=== PATIENT | female | born 1960 | race Caucasian/White ===

== ENCOUNTER 2022-04-12 09:36 | Emergency (ER) | payer OTHER, SELFPAY ==
[2022-04-12 09:37] VITALS: BP 155/93; PULSE 89; RESP 18; TEMP 36.6; O2SAT 96; BMI 27.4
--- NOTE | 2022-04-12 10:18 | ED.VIS.DYS ---
HPI History of Present Illness Chief Complaint: Shortness of Breath Informant: patient Onset/Context/Timing Onset: Today and Yesterday Context: gradual Timing: Intermittent Current Severity: Mild Maximum Severity: Mild Worsened by: Nothing Relieved by: Nothing Associated Symptoms cough, fever, chills and yellow sputum Narrative Narrative: 61-year-old male history of hypertension. Started having URI symptoms on Wednesday. Sore throat and cough. Took a home COVID test on Wednesday diagnosed as COVID-positive. Had a telemedicine visit with nurse practitioner of her primary care physician's office who started her on tach Slo-Bid. Said she took her first dose of Paxil then she felt horrible about 1 to 2 hours later. States she has been coughing a lot and thinks she may have pulled a muscle in her chest. Or strained her chest wall. Denies any hemoptysis. No leg pain or swelling. No history of DVT or PE. No recent travel, surgery or immobilization. She is on no hormone replacement therapy. She does not have pleuritic chest pain. PE Risk Factors: Negative for Cancer, OCP + Smoking + > 35, Prior DVT or PE, Recent immobilization, Recent surgery or Recent travel Prior similar symptoms: Yes Recent Illness/Hospitalization: No PFSH PFSH Home Medications Chlorthalidone 25 mg PO DAILY 05/02/13 [History Last Taken Unknown] Multivitamins,Therapeutic 1 tab PO DAILY 05/02/13 [History Last Taken Unknown] Omeprazole 20 mg PO DAILY 05/02/13 [History Last Taken Unknown] Allergy/AdvReac Type Severity Reaction Status Date / Time ciprofloxacin [From Cipro] Allergy Other Verified 04/12/22 09:41 ciprofloxacin HCl Allergy Other Verified 04/12/22 09:41 [From Cipro] Sulfa (Sulfonamide Allergy Hives Verified 04/12/22 09:41 Antibiotics) Social History Smoking Status: Former smoker ROS ROS ED ROS Narrative Cough, fever and chills mild shortness of breath. Review of Systems ROS Unobtainable: Denies due to encephalopathy Constitutional Constitutional ED: Reports chills and fever(s) Eyes Eyes: Denies blurry vision ENT ENT ED: Reports sore throat; Denies ear pain Cardiovascular Cardiovascular: Reports chest pain; Denies palpitations or racing heartbeat Respiratory/Chest Respiratory/Chest: Reports cough and dyspnea Gastrointestinal Gastrointestinal: Reports nausea and vomiting; Denies abdominal pain, constipation, diarrhea or melena Genitourinary Genitourinary ED: Denies dysuria Musculoskeletal Musculoskeletal: Denies arthralgias Integumentary Denies abscess Neurologic Neurologic: Denies headache(s) Psychiatric Psychiatric: Denies anxiety Endocrine Endocrinology: Denies cold intolerance Hematologic/Lymphatic Hematologic/Lymphatic: Denies easy bleeding Allergic/Immunologic Allergic/Immunologic ED: Denies mouth swelling or tongue swelling EXAM Physical Exam Narrative Exam Narrative: 61-year-old female no acute distress vital signs stable afebrile. Pulse ox 96% on room air no signs of hypoxia. Clinically looks well. Sitting upright in chair. HEENT exam unremarkable. Moist mucous membranes. Neck nontender. No JVD. No lymphadenopathy. Lungs clear to auscultation bilaterally. No rales rhonchi or wheezing. Equal symmetrical. Heart regular rhythm rate about 85 no murmur. Chest wall mild reproducible left chest wall discomfort consistent with chest wall strain. Abdomen soft nontender. Moving all 4 extremities. Calves are nontender without edema or cords. Const Vital Signs: 04/12/22 09:37 Temperature 97.8 F Temperature Source Temporal Pulse Rate 89 Respiratory Rate 18 Blood Pressure 155/93 H Blood Pressure Mean 113 Pulse Ox 96 Oxygen Delivery Method Room Air Positive well nourished and well developed; Negative for cachectic, contractures or unkempt General Appearance ED: well developed; Negative for unkempt, cachectic, contractures or pallor Nutritional Appearance: Negative for cachectic HEENT Reports moist mucous membranes; Denies dry mucous membranes or other atraumatic; Negative for trauma, tenderness or other Mouth ED: No dry mucous membranes Mouth: No dry mucous membranes Eyes PERRL and EOMs intact bilaterally General Eye ED: Negative for pale conjunctiva or scleral icterus Neck no lymphadenopathy, supple, no meningeal signs and no JVD General: Negative for tenderness Lymph Lymphatic: Negative for other Resp normal respiratory effort and clear to auscultation bilaterally Effort and Inspection: Negative for pain with movement Auscultation: Negative for rales, rhonchi, wheezes or diminished lung sounds Cardio regular rate, regular rhythm, S1 normal heart sound, S2 normal heart sound and no murmurs Rate: Negative for bradycardia or tachycardic Rhythm: Negative for abnormal rhythm GI non-tender, non-distended and no masses Inspection: Negative for other Auscultation: normoactive bowel sounds Palpation: soft; Negative for tender or guarding Back/Spine no CVA tenderness and normal to inspection General Back: Negative for CVA tenderness or tenderness Extremity normal to inspection General Extremety ED: Negative for edema or tenderness General Extremity: Negative for edema Neuro oriented x3, CN's II-XII intact bilaterally and no sensory deficits noted Sensorium / Orientation: alert, oriented to person, oriented to place and oriented to time; Negative for orientation impaired, confused, lethargic or stuporous Speech: speech normal Gait (Neuro): Negative for normal gait Motor Exam: strength 5/5 throughout Psych mental status grossly normal Appearance: Negative for unkempt Attitude: No agitated Mood & Affect: Negative for depressed, anxious or tearful Thought Process: normal thought process Skin no wounds and skin turgor normal General Skin Exam: Negative for jaundice or pallor Lesions: no lesions Rashes: no rashes Trauma: Negative for abrasion MDM MDM MDM Narrative Medical decision making narrative: 61-year-old female history of hypertension COVID-positive at home. Clinically looks well. She and I discussed the chest x-ray which she preferred not to do because she has had multiple x-rays in the past. Clinically I do not think she has pneumonia. We also discussed a D-dimer which clinically I do not think she has a blood clot. She deferred. She has had both COVID primary vaccinations and 3 boosters. She is not hypoxic and clinically looks well. She will continue the pack Slo-Bid. Stop it if it is given her other symptoms. Return if worse or follow-up with her primary if not improving. Plenty of fluids and rest. Tylenol and Motrin for body aches and fevers. Discharge Plan Triage Chief Complaint: Shortness of Breath ED Provider: Chris Fall Dx/Rx/DC Orders Clinical Impression: COVID-19 Instructions: Coronavirus Disease 2019 (COVID-19): Overview Prescriptions: No Action Chlorthalidone 25 MG 25 mg PO DAILY Multivitamins,Therapeutic 1 TAB 1 tab PO DAILY Omeprazole 20 MG 20 mg PO DAILY Primary Care Provider: Meena Nicholas Referrals: Meena Nicholas MD [Primary Care Provider] - 1 Week if not improving Activity Restrictions/Additional Instructions: Plenty of fluids and rest. Motrin and Tylenol for fevers and body aches. Continue the Paxlovid if it does not agree with you stop taking it. Follow-up with your doctor if not improving or return if feeling a lot worse. Disposition Disposition: Home, Self Care
== END 2022-04-12 10:31 | disposition home or self-care (01) ==
PROVIDERS: Emergency Provider Emergency Medicine; PCP Internal Medicine; Visit Provider Emergency Medicine
DX: U07.1 COVID-19 (principal); R11.2 Nausea with vomiting, unspecified; I10 Essential (primary) hypertension; Z79.899 Other long term (current) drug therapy; Z87.891 Personal history of nicotine dependence
CPT/HCPCS: 99282

== ENCOUNTER 2025-02-03 18:03 | Emergency (ER) | payer MEDICARE, OTHER, SELFPAY ==
[2025-02-03 18:03] VITALS: BP 189/96; PULSE 114; RESP 16; TEMP 36.7; O2SAT 98; BMI 31.0
--- NOTE | 2025-02-03 18:26 | EKG12_ITS ---
Test Reason : PALPS Blood Pressure : */* mmHG Vent. Rate : 104 BPM Atrial Rate : 104 BPM P-R Int : 174 ms QRS Dur : 70 ms QT Int : 350 ms P-R-T Axes : 39 2 23 degrees QTcB Int : 460 ms Sinus tachycardia with occasional Premature ventricular complexes Otherwise normal ECG Confirmed by Maury Dalal ([id number]), script editor MELANI SANTA ([id number]) on 02/06/2025 10:32:17 AM Referred By: HUI/DORA Confirmed By: Maury Dalal
--- NOTE | 2025-02-03 18:27 | EDS_ITS ---
HPI History of Present Illness Chief Complaint: Palpitations Narrative Narrative: 64-year-old female past medical history of hypertension, quit smoking 3 weeks ago, presents with fluttering in her chest, and belching as well as elevated heart rate. She notes that this afternoon. States has been belching which causes fluttering in her chest. She brought a pulse oximeter and while her pulse ox was fine, she noticed elevated heart rate as high as 120 bpm. They also noticed that there was a pause after certain heartbeats and it would go flat. She presents with her because of this. They were concerned regarding the fluttering in her chest and a high heart rate. She denies any fevers or chills, no cough, no nausea or vomiting, no diaphoresis or shortness of breath. She did state that she was mildly lightheaded today. No exacerbating or alleviating factors. PFSH [facility] Home Medications ?Medication ?Instructions ?Recorded ?Last Taken ?Type Multivitamins,Therapeutic 1 tab PO DAILY 05/02/13 Unkn own History Omeprazole 20 mg PO DAILY 05/02/13 Unkn own History amlodipine 2.5 mg tablet 2.5 mg PO DAILY 02/03/25 Unk nown History chlorthalidone 50 mg tablet 25 mg PO DAILY 02/03/25 Un known History potassium chloride 20 mEq 20 meq PO 4X/DAY 02/03/25 Un known History tablet,extended release(part/cryst) Allergy/AdvReac Type Severity Reaction Status Date / Time ciprofloxacin (From Cipro) Allergy Other Verified 02/03/25 18:06 ciprofloxacin HCl (From Allergy Other Verified 02/03/25 18:06 Cipro) Sulfa (Sulfonamide Allergy Hives Verified 02/03/25 18:06 Antibiotics) Social History Smoking Status: Former smoker ROS ROS ED ROS Narrative Review of systems positive for palpitations and fluttering in chest, positive belching. No fevers or chills, no shortness of breath, no nausea or vomiting, no diaphoresis, no exacerbating or alleviating factors. EXAM Physical Exam Narrative Exam Narrative: Afebrile. Vital signs noted. Nontoxic-appearing. Cardiovascular examination reveals a regular rate and rhythm on my examination with occasional extrasystoles. Lungs are clear to auscultation bilaterally. Abdomen is soft and nontender with positive bowel sounds. No guarding or rebound. Neurological examination nonfocal nonlateralizing. No appreciable pitting pedal edema. Const Vital Signs: 02/03/25 18:03 02/03/25 18:18 02/03/25 20:03 Temperature 98.0 F Temperature Source Oral Pulse Rate 114 H 82 Respiratory Rate 16 16 Respiratory Effort Normal Blood Pressure 189/96 H 133/86 H Blood Pressure Mean 127 101 Pulse Ox 98 97 Oxygen Delivery Method Room Air Room Air MDM MDM MDM Narrative Medical decision making narrative: The differential diagnosis includes but not limited to dysrhythmia such as PACs versus PVCs versus sinus tachycardia. I have lower suspicion for ACS or pulmonary embolism. Initially her blood pressure was elevated at 189/96, but has come down significantly on its own. She states she had not basic normal blood pressure for her at home in the 140s. She may have a hiatal hernia as well. She does use caffeinated products. Comprehensive workup was pursued. EKG obtained and interpreted by myself independently as sinus tachycardia 104 bpm with occasional PVCs but no acute ST changes. No STEMI. I reviewed her laboratory work and she has normal white count of 10.0 with hemoglobin normal at 13.7, hematocrit 39.5, platelet count 269. Sodium normal at 140, potassium is low at 2.8. She supplements at home. I did offer to check her magnesium level as well, but she states that her potassium is usually low from the diuretic that she takes. She prefers to follow-up with her primary care provider and have outpatient laboratory work drawn on Wednesday. Glucose 125. BUN of 14 and creatinine 0.85. Initial high-sensitivity troponin is less than 6 with repeated 2-hour also being less than 6. I feel she has been ruled out for acute coronary syndrome with biomarkers. Her lipase is normal at 28 so I do not suspect acute pancreatitis. At this point in time, I do feel that the pause that she was seen on her monitor as well as her fluttering was secondary to PVCs. She will follow-up with her primary care provider. She was told she may need referral to cardiology and/or wear a Holter monitor. I feel she be discharged safely home with follow-up. Return instructions were reviewed. Disposition is discharged home in stable condition. History & Record Review Discussion w/independent historian: Patient and Family Lab Data Attestation: I reviewed the patient's lab results. Labs: Laboratory Results - last 24 hr 02/03/25 02/03/25 18:18 20:15 WBC 10.0 RBC 4.70 Hgb 13.7 Hct 39.5 MCV 84.0 MCH 29.1 MCHC 34.7 RDW Std Deviation 41.2 RDW Coeff of Chito 13.4 Plt Count 269 MPV 9.3 Immature Gran % (Auto) 0.500 Neut % (Auto) 58.7 Lymph % (Auto) 31.4 Rains % (Auto) 6.7 Eos % (Auto) 2.4 Baso % (Auto) 0.3 Absolute Neuts (auto) 5.9 Absolute Lymphs (auto) 3.15 Nucleated RBC % 0 Sodium 140 Potassium 2.8 L Chloride 100 Carbon Dioxide 25.0 Anion Gap 15 BUN 14 Creatinine 0.85 Estim Creat Clear Calc 73.39 Est GFR (MDRD) Non-Af 76 BUN/Creatinine Ratio 16.4 Glucose 125 H Calcium 8.9 Magnesium 1.3 L Total Bilirubin 0.25 AST 24 ALT 27 Alkaline Phosphatase 86 Troponin T High Sens < 6 Troponin T Hi Sens 2 Hr < 6 Total Protein 7.6 Albumin 4.3 Globulin 3.3 Albumin/Globulin Ratio 1.3 Lipase 28 Radiography Chest X-Ray - ED: 1 View, Read by ED Physician, Read by Radiologist and No Acute Disease Diagnostic Testing: Clinical Impression(s) from Imaging Studies Chest X-Ray 02/03/25 18:30 IMPRESSION: No acute process detected. Reading [facility] Discharge Plan Triage Chief Complaint: Palpitations ED Provider: Madi Chong Dx/Rx/DC Orders Clinical Impression: Palpitations, Premature ventricular contractions, Indigestion, Hypokalemia Instructions: PVCs, ED About Arrhythmias, ED Hypokalemia, ED Heart Palpitations Prescriptions: No Action Multivitamins,Therapeutic 1 TAB 1 tab PO DAILY Omeprazole 20 MG 20 mg PO DAILY amlodipine 2.5 mg tablet 2.5 mg PO DAILY chlorthalidone 50 mg tablet 25 mg PO DAILY potassium chloride 20 mEq tablet,ER particles/crystals 20 meq PO 4X/DAY Primary Care Provider: Meena Nicholas Referrals: Meena Nicholas MD [[facility]] - 3-5 Days if not improving Activity Restrictions/Additional Instructions: Follow-up with your primary care provider in 3 to 5 days. Avoid excessive use of caffeinated products. Return to the emergency department with new or worsening symptoms. You may need to wear a Holter monitor or follow-up with cardiology. Print Language: Vietnamese Disposition Disposition: Home, Self Care
--- NOTE | 2025-02-03 18:30 | RAD_ITS ---
PROCEDURE: CHEST 1 VIEW (PORTABLE) 02/03/2025 REASON FOR EXAM: PALPITATIONS TECHNIQUE: Frontal view of the chest. FINDINGS: Hardware: No internal hardware. EKG lead wires project over the chest. Heart: Normal size Lungs: Clear and expanded Bones: No aggressive process. Other: RAD/Chest 1 View (Portable) IMPRESSION: No acute process detected. Reading [facility]
[2025-02-03 18:36] LABS: Hematocrit 39.5 % (37-47); Hemoglobin 13.7 g/dL (12.0-15.0); Immature Granulocytes Count 0.050 X10^3/uL (0.0-0.0); Mean Corp Hgb Conc 34.7 g/dL (32-36); Mean Corpuscular Volume 84.0 fL (81-99); Mean Platelet Vol. 9.3 fl (6.2-12.0); NRBC Flagged by Analyzer 0 % (0-5); Platelet Count 269 K/mm3 (150-450); RBC Distribution Width CV 13.4 % (11.6-14.6); RBC Distribution Width SD 41.2 fl (35.1-43.9); Red Blood Count 4.70 M/mm3 (4.2-5.4); White Blood Count 10.0 K/mm3 (4.4-11.0)
[2025-02-03 19:00] LABS: Troponin T High Sensitivity < 6 ng/L (<=14)
--- OUTSIDE RECORDS SUMMARY | 2025-02-03 19:00 | XMS RPT_ITS | CCD ---
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 Name Role Phone Shira Nicholas MD Primary Care Provider Chris Fall Attending Unavailable Talampas, Shira D Primary Care Unavailable Shira Nicholas MD Primary Care Provider Shira Nicholas MD Primary Care Provider [place] THIRD COOK.K 12 PRINCIPAL, Annabel Unavailable Roberta THIRD COOK.SPRING UPHOLSTERER, Lula Unavailable Roberta THIRD COOK.SPRING UPHOLSTERER, Lula Unavailable Roberta THIRD COOK.SPRING UPHOLSTERER, Lula Unavailable Roberta THIRD COOK.SPRING UPHOLSTERER, Lula Unavailable [place] THIRD COOK.K 12 PRINCIPAL, Annabel Unavailable ROBERTA, LULA Attending Unavailable TALAMPAS, SHIRA D Primary Care Unavailable TALAMPAS, SHIRA D Attending Unavailable TALAMPAS, SHIRA D Referring Unavailable TALAMPAS, SHIRA D Primary Care Unavailable GRIGGS, ANNABEL Attending Unavailable TALAMPAS, SHIRA D Referring Unavailable TALAMPAS, SHIRA D Primary Care Unavailable GRIGGS, ANNABEL Attending Unavailable TALAMPAS, SHIRA D Referring Unavailable TALAMPAS, SHIRA D Primary Care Unavailable GRIGGS, ANNABEL Attending Unavailable TALAMPAS, SHIRA D Referring Unavailable TALAMPAS, SHIRA D Primary Care Unavailable TALAMPAS, SHIRA D Primary Care Unavailable Allergies Allergy Classification Reported Allergen(s) Allergy Type Date of Onset Reaction(s) Facility (20 sources) Ciprofloxacin; Translations: [CIPROFLOXACIN] Drug Allergy 07-12-19 13 Mental Status Change, Other: See Comments [facility] Work Phone: (20 sources) Erythromycin; Translations: [ERYTHROMYCIN] Drug Allergy 03-02-20 06 Vomiting [facility] Work Phone: (15 sources) guaiFENesin / Pseudoephedrine Drug Allergy 04-13-20 Intolerance [facility] Work Phone: (20 sources) hydroCHLOROthiazide ; Translations: [HYDROCHLOROTHIAZID E] Drug Allergy 10-15-19 Intolerance [facility] Work Phone: (20 sources) Sulfonamides (Antibiotic); Translations: [SULFA (SULFONAMIDE ANTIBIOTICS)] Propensity to adverse reactions 03-02-20 [facility] Work Phone: (15 sources) environmental [Other] Propensity to adverse reactions 03-02-20 [facility] Work Phone: (2 sources) Ciprofloxacin; Translations: [ciprofloxacin HCl] Drug Allergy 04-12-20 Other [facility] Repository (1 source) Sulfonamides (Antibiotic) Allergy to substance 04-12-20 [facility] Work Phone: (1 source) Ciprofloxacin Drug Allergy 04-12-20 [facility] Repository (1 source) Sulfonamides (Antibiotic) Drug allergy (disorder) 04-12-20 [facility] Rep[facility] Medications Current Medications Medication Drug Class(es) Dates Sig (Normalized) Sig (Original) amLODIPine 2.5 mg oral tablet (20 sources) Dihydropyridine Calcium Channel Gale Start: 06-21-2023 End: 06-15-2024 take 1 tablet by mouth once daily amLODIPine (NORVASC) 2.5 mg tablet Indications: Primary hypertension Take 1 tablet by mouth once daily. 90 tablet 3 06/15/2024 Active Start: 05-11-2023 take 1 tablet by tyrell th once daily amLODIPine (NORVASC) 2.5 mg tablet Indications: Primary hypertension Take 1 tablet by mouth once daily. 30 tablet 11 05/11/2023 Active Comment on above: Take 1 tablet by tyrell th once daily. amoxicillin 875 mg oral tablet (2 sources) Penicillin-class Antibacterial Start: 023 End: 023 take 1 tablet by mouth twice daily amoxicillin (AMOXIL) 875 mg tablet Indications: Left ear pain Take 1 tablet by mouth two times a day for 10 days. 20 tablet 0 05/11/2023 05/21/2023 Active Comment on above: Take 1 tablet by tyrell two times a day for 10 days. amoxicillin 875 mg / clavulanate 125 mg oral tablet (1 source) Penicillin-class Antibacterial Start: End: take 1 tablet by mouth twice daily amoxicillin-clavulana te potassium (AUGMENTIN) 875-125 mg per tablet Indications: Acute otitis media, unspecified otitis media type , Sinobronchitis Take 1 tablet by mouth two times a day for 10 days. 20 tablet 03/20/2024 03/30/2024 Active carbamide peroxide 65 mg/ml otic solution (1 source) Start: End: carbamide peroxide (DEBROX) 6.5 % otic solution Indications: Sinobronchitis , Excessive cerumen in ear canal, right Use 5 Drops in the right ear two times a day for 5 days. 15 mL 03/20/2024 03/25/2024 Active cephalexin 500 mg oral capsule (1 source) Cephalosporin Antibacterial Start: End: take 1 capsule by mouth four times daily cephALEXin (KEFLEX) 500 mg capsule Indications: Acute cystitis with hematuria Take 1 capsule by mouth four times daily for 7 days. 28 capsule 0 09/29/2023 10/06/2023 Active chlorthalidone 50 mg oral tablet (20 sources) Thiazide-like Diuretic Start: 025 End: take 0.5 tablet by mouth once daily chlorthalidone (HYGROTON) 50 mg tablet Indications: Primary hypertension Take 0.5 tablets by mouth once daily. 45 tablet 3 11/13/2024 Active Start: 09-30-2020 End: 10-28-2024 take 0.5 tablet by mouth once daily chlorthalidone (HYGROTON) 50 mg tablet Indications: Primary hypertension Take 0.5 tablets by mouth once daily. 45 tablet 3 09/28/2023 10/28/2024 Discontinued Start: 05-02-2013 take 25 mg by mouth once daily Chlorthalidone Active 25 MG PO DAILY May 02, 2013 12:00am Comment on above: Take 0.5 tablets by mouth once daily. diclofenac sodium 0.01 mg/mg topical gel (20 sources) Nonsteroidal Anti-inflammatory Drug Start: 11-06-2022 diclofenac (VOLTAREN ARTHRITIS PAIN) 1 % topical gel Indications: Degenerative arthritis of thumb, left Apply 2 g to affected area four times daily as needed. 50 g 11/06/2022 Active Comment on above: Apply 2 g to affecte d area four times daily as needed. ELDERBERRY FRUIT (5 sources) End: 11-10-2021 elderberry fruit (ELDERBERRY ORAL) Take by mouth. 0 11/10/2021 Discontinued (Patient chooses alternative therapy) elderberry fruit (ELDERBERRY ORAL) Take by mouth. 0 Active Comment on above: Take by mouth. FA/MV,CA,IRON,MIN/LYCOPENE/L UT (MULTIVITAL ORAL) (20 sources) FA/MV,CA,IRON,CA N/LYCOPENE/LUT (MULTIVITAL ORAL) Take by mouth. Alive multivitamin +50 Active FA/MV,CA,IRON,CA N/LYCOPENE/LUT (MULTIVITAL ORAL) Take by mouth. Alive multivitamin +50 0 Active Comment on above: Take by mouth. Alive multivitamin +50 fluconazole 150 mg oral tablet (4 sources) Azole Antifungal Start: 08-23-2024 End: 08-23-2024 fluconazole (DIFLUCAN) 150 mg tablet Indications: Antibiotic-induced yeast infection Take 1 tablet by mouth one time only for 1 dose. Repeat in 3 days as needed. 2 tablet 08/23/2024 08/23/2024 Active Start: 08-19-2024 End: 08-20-2024 take 1 tablet by mouth once daily fluconazole (DIFLUCAN) 150 mg tablet Indications: Urgency of urination Take 1 tablet by mouth once daily for 1 day. 1 tablet 08/19/2024 08/20/2024 Active Start: 10-18-2023 End: 10-18-2023 fluconazole (DIFLUCAN) 150 m g tablet Take 1 tablet by mouth one time only for 1 dose. Repeat in 3 days as needed. 2 tablet 0 10/18/2023 10/18/2023 Start: 10-11-2023 End: 10-11-2023 fluconazole (DIFLUCAN) 150 m g tablet Take 1 tablet by mouth one time only for 1 dose. Repeat in 3 days as needed. 2 tablet 0 10/11/2023 10/11/2023 Multivitamins,Therapeutic (1 source) Start: 05-02-2013 take 1 tablet by mouth once daily Multivitamins,Therapeutic Active 1 TABLET PO DAILY May 02, 2013 12:00am nitrofurantoin, macrocrystals 25 mg / nitrofurantoin, monohydrate 75 mg oral capsule (9 sources) Nitrofuran Antibacterial Start: 08-23-2024 End: 09-02-2024 take 1 capsule by mouth twice daily nitrofurantoin monohydrate and macrocrystal (MACROBID) 100 mg capsule Indications: Dysuria Take 1 capsule by mouth two times a day for 10 days. 20 capsule 08/23/2024 09/02/2024 Active Start: 10-18-2023 End: 05-09-2024 take 1 capsule by mouth twice daily nitrofurantoin monohydrate and macrocrystal (MACROBID) 100 mg capsule Take 1 capsule by mouth two times a day. 14 capsule 10/18/2023 05/09/2024 Discontinued Start: 05-20-2023 End: 05-25-2023 take 1 capsule by mouth twice daily nitrofurantoin monohydrate and macrocrystal (MACROBID) 100 mg capsule Indications: Urgency of urination Take 1 capsule by mouth two times a day for 5 days. 10 capsule 0 05/20/2023 05/25/2023 Active Start: 03-23-2023 End: 03-28-2023 take 1 capsule by mouth twice daily nitrofurantoin monohydrate and macrocrystal (MACROBID) 100 mg capsule Indications: Urgency of urination Take 1 capsule by mouth two times a day for 5 days. 10 capsule 0 03/23/2023 03/28/2023 Active Comment on above: Take 1 capsule by [facility] two times a day for 5 days. omeprazole 20 mg delayed release oral tablet (20 sources) Proton Pump Inhibitor Start: 03-07-2018 take 1 tablet by mouth before mealtime as needed Omeprazole Magnesium 20 mg tablet Take 1 tablet by mouth as needed. 1/2 hr before meal. 03/07/2018 Active Start: 05-02-2013 take 20 mg by mouth once daily Omeprazole Active 20 MG PO DAILY May 02, 2013 12:00am Comment on above: Take 1 tablet by tyrell as needed. 1/2 hr before meal. microencapsulated potassium chloride 20 meq extended release oral tablet (20 sources) Start: End: take 2 tablets by mouth twice daily potassium chloride ER (KLOR-CON) 20 mEq tablet Indications: Hypokalemia Take 2 tablets by mouth two times a day. 360 tablet 3 11/13/2024 Active Start: 04-01-2020 End: 04-30-2021 take 1 tablet by mouth twice daily potassium chloride ER (K-DUR, KLOR-CON) 20 mEq tablet Indications: Hypopotassemia Take 1-2 tablets by mouth twice daily. 360 tablet 3 04/16/2021 04/30/2021 Discontinued Comment on above: Take 2 tablets by mo [facility] twice daily. Take 1-2 tablets by mouth twice daily. Completed/Discontinued Medications Medication Drug Class(es) Dates Sig (Normalized) Sig (Original) [id number] 200 actuat albuterol 0.09 mg/actuat metered dose inhaler (5 sources) beta2-Adrenergic Agonist Start: 11-06-2022 End: 05-11-2023 take 2 puff(s) by inhalation every four hours as needed for wheezing albuterol HFA (VENTOLIN HFA) 90 mcg/actuation inhaler Indications: Acute bronchitis, unspecified organism Inhale 2 Puffs as instructed every 4 hours as needed for wheezing/shortness of breath. 1 Each 0 11/06/2022 05/11/2023 Discontinued Comment on above: Inhale 2 Puffs as in structed every 4 hours as needed for wheezing/shortness of breath. benzonatate 100 mg oral capsule (2 sources) Non-narcotic Antitussive Start: 03-20-2024 End: 05-09-2024 take 1-2 capsules by mouth three times daily as needed benzonatate (TESSALON PERLES) 100 mg capsule Indications: Sinobronchitis Take 1-2 capsules by mouth three times a day as needed. 60 capsule 1 03/20/2024 05/09/2024 Discontinued fluticasone propionate 0.05 mg/actuat metered dose nasal spray (2 sources) Corticosteroid Start: 03-20-2024 End: 05-09-2024 take 2 spray(s) by mouth once daily fluticasone (FLONASE) 50 mcg/actuation nasal spray Indications: Acute otitis media, unspecified otitis media type , Sinobronchitis Use 2 Sprays in each nostril once daily. Rinse mouth after use. 1 Each 03/20/2024 05/09/2024 Discontinued Inhalational Spacing Device (AEROCHAMBER MV) (1 source) Start: 11-06-2022 End: 11-06-2022 Inhalational Spacing Device (AEROCHAMBER MV) Indications: Acute bronchitis, unspecified organism 1 Device one time only for 1 dose. 1 Each 0 11/06/2022 11/06/2022 Comment on above: 1 Device one time on ly for 1 dose. metroNIDAZOLE 0.0075 mg/mg topical gel (9 sources) Nitroimidazole Antimicrobial Start: 04-16-2021 End: 05-08-2022 metroNIDAZOLE (METROGEL) 0.75 % Topical Gel Indications: Rosacea Apply to affected area twice daily. 45 g 1 04/16/2021 05/08/2022 Discontinued Comment on above: Apply to affected ar ea twice daily. nirmatrelvir tablet 300 mg (150 mg x 2) and ritonavir tablet 100 mg in a dose pack (PAXLOVID) (4 sources) Start: 04-10-2022 End: 05-08-2022 nirmatrelvir tablet 300 mg (150 mg x 2) and ritonavir tablet 100 mg in a dose pack (PAXLOVID) Indications: COVID-19 Administer TWO pink nirmatrelvir 150 mg tablets and ONE white ritonavir 100 mg tablet for a total of three tablets twice daily. 30 tablet 0 04/10/2022 05/08/2022 Discontinued Start: 04-10-2022 End: 04-15-2022 nirmatrelvir tablet 300 mg ( 150 mg x 2) and ritonavir tablet 100 mg in a dose pack (PAXLOVID) Indications: COVID-19 Administer TWO pink nirmatrelvir 150 mg tablets and ONE white ritonavir 100 mg tablet for a total of three tablets twice daily. 30 tablet 0 04/10/2022 04/15/2022 Active Comment on above: Administer TWO pink nirmatrelvir 150 mg tablets and ONE white ritonavir 100 mg tablet for a total of three tablets twice daily. phenazopyridine hydrochloride 200 mg oral tablet (14 sources) Start: 023 End: take 1 tablet by mouth three times daily as needed phenazopyridine (PYRIDIUM) 200 mg tablet Indications: Urgency of urination Take 1 tablet by mouth three times a day as needed. 9 tablet 05/20/2023 05/09/2024 Discontinued Start: 03-23-2023 End: 05-11-2023 take 1 tablet by mouth three times daily as needed phenazopyridine (PYRIDIUM) 200 mg tablet Indications: Urgency of urination Take 1 tablet by mouth three times a day as needed. 9 tablet 0 03/23/2023 05/11/2023 Discontinued Comment on above: Take 1 tablet by tyrell th three times a day as needed. tiZANidine 2 mg oral tablet (20 sources) Central alpha-2 Adrenergic Agonist Start: End: take 1 tablet by mouth at bedtime as needed tiZANidine (ZANAFLEX) 2 mg tablet Indications: Primary hypertension , Neck pain , Neck stiffness Take 0.5-1 tablets by mouth at bedtime as needed. 30 tablet 1 05/11/2023 05/09/2024 Discontinued Start: 10-14-2020 End: 05-08-2022 take 1 mg by mouth every twenty-four hours as needed tiZANidine (ZANAFLEX) 2 mg tablet Take 0.5 tablets by mouth at bedtime as needed. 30 tablet 0 10/14/2020 05/08/2022 Discontinued Start: 09-30-2020 End: 10-14-2020 take 1 capsule by mouth at bedtime as needed for muscle spasms tiZANidine HCl 2 mg capsule Indications: Neck stiffness , Neck pain Take 1 capsule by mouth at bedtime as needed for Muscle Spasm. 30 capsule 09/30/2020 10/14/2020 Discontinued Comment on above: Take 0.5 tablets by mouth at bedtime as needed. Take 0.5-1 tablets b y mouth at bedtime as needed. Problems Active Problems Problem Classification Problem Date Documented Da te Episodic/Chronic Acute bronchitis (1 source) Acute bronchitis; Translations: [Acute bronchitis, unspecified] Episodic Diabetes mellitus without complication (7 sources) Impaired fasting glycemia; Translations: [Impaired fasting glucose] Onset: 11-29-2024 Episodic Disorders of lipid metabolism (20 sources) Raised low density lipoprotein cholesterol; Translations: [Pure hypercholesterolemi a, unspecified] Onset: 10-31-2013 10-31-2013 Chronic Essential hypertension (20 sources) Hypertensive disorder; Translations: [Essential (primary) hypertension] Onset: 03-02-2006 Resolved: 10-14-2006 07-12-2012 Chronic Fluid and electrolyte disorders (20 sources) Hypokalemia; Translations: [Hypokalemia] Onset: 11-21-2013 11-21-2013 Episodic Gout and other crystal arthropathies (1 source) Articular gout; 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, unspecified] Chronic Immunizations and screening for infectious disease (2 sources) Requires tetanus and diphtheria vaccination; Translations: [Encounter for immunization] Onset: 11-29-2024 Episodic Osteoarthritis (2 sources) Arthritis of hand; Translations: [Primary osteoarthritis, unspecified hand] Chronic Other ear and sense organ disorders (1 source) Otalgia, left ear; Translations: [Otalgia, unspecified] 05-11-2023 Episodic Other ear and sense organ disorders (1 source) Excessive cerumen in ear canal ; Translations: [Impacted cerumen, right ear] 03-20-2024 Episodic Other lower respiratory disease (1 source) Shortness of breath; Translations: [Shortness of breath] Onset: 04-17-2022 Episodic Other nutritional; endocrine; and metabolic disorders (1 source) Obesity caused by energy imbalance; Translations: [Class 1 obesity due to excess calories with body mass index (BMI) of 30.0 to 30.9 in adult, unspecified whether serious comorbidity present] 12-26-2024 Chronic Other screening for suspected conditions (not mental disorders or infectious disease) (20 sources) Patient encounter status; Translations: [Encounter for screening mammogram for malignant neoplasm of breast] Onset: 11-29-2024 Episodic Other upper respiratory infections (2 sources) Chronic sinusitis; Translations: [Chronic sinusitis, unspecified] Onset: 03-20-2024 03-20-2024 Chronic Residual codes; unclassified (2 sources) Menopause present; Translations: [Asymptomatic menopausal state] 12-26-2024 Episodic Residual codes; unclassified (1 source) Asymptomatic menopausal state; Translations: [Asymptomatic menopause] Onset: 11-29-2024 Episodic Screening and history of mental health and substance abuse codes (2 sources) Encounter for screening examination for other mental health and behavioral disorders; Translations: [Encounter for screening for depression] Onset: 11-29-2024 Episodic Superficial injury; contusion (2 sources) Contusion of coccyx; Translations: [Contusion of lower back and pelvis, sequela] Onset: 11-29-2024 11-29-2024 Episodic Viral infection (3 sources) Disease caused by 2019-nCoV; Translations: [COVID-19] Episodic Past or Other Problems Problem Classification Problem Date Documented Date Episodic/Chronic Chronic obstructive pulmonary disease and bronchiectasis (1 source) Bronchitis, not specified as acute or chronic; Translations: [Sinobronchitis] Onset: 03-20-2024 Episodic E Codes: Adverse effects of medical drugs (1 source) Adverse effect of unspecified systemic antibiotic, initial encounter; Translations: [Antibiotic-induced yeast infection] Onset: 08-23-2024 Episodic Genitourinary symptoms and ill-defined conditions (5 sources) Urgent desire to urinate; Translations: [Urgency of urination] Onset: 08-23-2024 03-23-2023 Episodic Mycoses (2 sources) Opportunistic mycosis; Translations: [Candidiasis, unspecified] Onset: 08-23-2024 08-23-2024 Episodic Other ear and sense organ disorders (1 source) Impacted cerumen, right ear; Translations: [Excessive cerumen in ear canal, right] Onset: 03-20-2024 Episodic Other non-traumatic joint disorders (13 sources) Arthralgia of the upper arm; Translations: [Pain in unspecified elbow] Onset: 03-09-2006 Resolved: 10-14-2006 10-14-2006 Episodic Other non-traumatic joint disorders (8 sources) Pain in upper arm; Translations: [Pain in unspecified elbow] Onset: 03-09-2006 Resolved: 10-14-2006 12-16-2023 Episodic Otitis media and related conditions (2 sources) Acute otitis media; Translations: [Otitis media, unspecified, unspecified ear] Onset: 03-20-2024 03-20-2024 Episodic Spondylosis; intervertebral disc disorders; other back problems (20 sources) Stiff neck; Translations: [Torticollis] Onset: 10-18-2020 10-18-2020 Episodic Unclassified (2 sources) Patient encounter status 10-31-2024 Urinary tract infections (3 sources) Acute cystitis; Translations: [Acute cystitis with hematuria] Onset: 08-23-2024 09-29-2023 Episodic Results Test Name Value Interpretation Reference Range Facility CNOVon 11-29-2024 CNOV Office Visit (INTMWS ) YUKI NORTON ([id number]) 1960 F Date Time Provider Department 11/29/24 9:00 AM SHIRA NICHOLAS INTMWS During your visit today, we recorded the following information about you: Pulse Blood pressure Weight Height 72/minute 132/83 86.9 kg 1.676 m Shira Nicholas MD 12/26/2024 1:25 AM Signed This note was created using Zifyriter. Subjective Yuki Norton is a 64 year old female. SUBJECTIVE: PAST MEDICAL HISTORY Diagnosis Date GERD (gastroesophageal reflux disease) hypertension Hypopotassemia Current Outpatient Medications Medication Sig chlorthalidone (HYGROTON) 50 mg tablet Take 0.5 tablets by mouth once daily. potassium chloride ER (KLOR-CON) 20 mEq tablet Take 2 tablets by mouth two times a day. amLODIPine (NORVASC) 2.5 mg tablet Take 1 tablet by mouth once daily. diclofenac (VOLTAREN ARTHRITIS PAIN) 1 % topical gel Apply 2 g to affected area four times daily as needed. Omeprazole Magnesium 20 mg tablet Take 1 tablet by mouth as needed. 1/2 hr before meal. FA/MV,CA,IRON,MIN/LYCO PENE/LUT (MULTIVITAL ORAL) Take by mouth. Alive multivitamin +50 chlorthalidone (HYGROTON) 50 mg tablet Take 0.5 tablets by mouth once daily. (Patient not taking: Reported on 11/29/2024) No current facility-administered medications for this visit. Review of Systems Objective BP 132/83 Pulse 72 Ht 167.6 cm (5' 6) Wt 86.9 kg (191 lb 9.3 oz) LMP 02/06/2009 BMI 30.92 kg/m? Last 5 Encounter Wt Readings: Date: Wt: 11/29/2024 86.9 kg (191 lb 9.3 oz) 08/23/2024 86.4 kg (190 lb 7.6 oz) 08/19/2024 87.3 kg (192 lb 7.4 oz) 06/15/2024 85 kg (187 lb 6.3 oz) 05/09/2024 86.5 kg (190 lb 11.2 oz) No waist measurement recorded Estimated body mass index is 30.92 kg/m? as calculated from the following: Height as of this encounter: 167.6 cm (5' 6). Weight as of this encounter: 86.9 kg (191 lb 9.3 oz). Last 5 Encounter BP Readings: Date: BP: 11/29/2024 132/83 08/23/2024 117/79 08/19/2024 163/83 06/15/2024 136/85[bp average[ 05/09/2024 159/84 Physical Exam Constitutional: Appearance: Normal appearance. HENT: Head: Normocephalic. Eyes: Conjunctiva/sclera: Conjunctivae normal. Cardiovascular: Rate and Rhythm: Normal rate and regular rhythm. Heart sounds: Normal heart sounds. Pulmonary: Effort: Pulmonary effort is normal. Breath sounds: Normal breath sounds. Musculoskeletal: Right lower leg: Edema (trace) present. Left lower leg: Edema (trace) present. Skin: General: Skin is warm and dry. Neurological: General: No focal deficit present. Mental Status: She is alert and oriented to person, place, and time. Psychiatric: Mood and Affect: Mood normal. Behavior: Behavior normal. Thought Content: Thought content normal. Judgment: Judgment normal. Assessment and Plan # Primary hypertension (I10) - Blood pressure reading today is 130 mmHg, which is within acceptable range for an office visit. - Continue current antihypertensive regimen. - Monitor blood pressure regularly at home. # Hypokalemia (E87.6) - Previous labs showed normal potassium levels. - Will monitor potassium levels with upcoming labs. # Elevated LDL cholesterol level (E78.00) - Previous labs showed elevated LDL cholesterol. - Ordered lipid panel to reassess cholesterol levels. - Discussed dietary modifications to reduce LDL levels, including reducing intake of saturated fats and increasing fiber intake. # Elevated glucose (R73.09) - Previous labs showed elevated glucose levels and A1c. - Ordered fasting glucose and A1c to reassess. - Educated on the importance of regular exercise (30 minutes of aerobic activity 5 days a week) and dietary modifications to prevent progression to diabetes. - Advised to avoid high-sugar foods and drinks, especially before lab tests. # Contusion of coccyx, sequela (S30.0XXS) - Patient reports significant improvement in coccyx pain following a fall six weeks ago; still experiencing mild soreness. - No further intervention required at this time. # Encounter for screening examination for other mental health and behavioral disorders (Z13.39) # Screening for depression (Z13.31) - Discussed recent situational stressors, including son's PTSD, anxiety disorder, and depression. - No current symptoms of depression or anxiety requiring treatment. - Will continue to monitor mental health status. # Asymptomatic menopause (Z78.0) - Discussed current status; no new symptoms reported. # Screening for colon cancer (Z12.11) - Ordered Cologuard test for colon cancer screening. # Encounter for screening mammogram for breast cancer (Z12.31) - Ordered screening mammogram. # Encounter for immunization (Z23) - Administered pneumonia vaccine. - Discussed shingles vaccine; advised to obtain at the pharmacy. # Immunity status testing (Z01.84) - (more content not included)... Normal [facility] CNOVon 08-23-2024 CNOV Office Visit (INTMWS ) YUKI NORTON ([id number]) 1960 F Date Time Provider Department 08/23/24 3:00 PM LULA HAYES INTMWS During your visit today, we recorded the following information about you: Temperature Pulse Blood pressure Weight 99.6 degrees 100/minute 117/79 86.4 kg Lula Hayes APRN.[employer] UPHOL[employer]ER 08/23/2024 3:29 PM Signed SUBJECTIVE Yuki Norton is a 64 year old female here today for acute concern. Chief Complaint Patient presents with: UTI: Started 1 week ago with urgency with burning has noted bloating but that has improved Was seen at urgent care on 08/19/24 HPI Yuki Norton is a 64 year old female. She is an established patient of Shira Nicholas MD. She presents today acutely for concerns of possible UTI and vaginal yeast infection. She was seen in [facility] 08/19 for these concerns. She has had urinary urgency for several days. Urine dip was without issues, treated with x1 diflucan and noticed slight improvement. Prior issues with UTIs and this feels the same but also gets frequent yeast infections. Her medications were reviewed today and her list is now up to date. Medications Current Outpatient Medications Medication Sig amLODIPine (NORVASC) 2.5 mg tablet Take 1 tablet by mouth once daily. potassium chloride ER (KLOR-CON) 20 mEq tablet Take 2 tablets by mouth two times a day. chlorthalidone (HYGROTON) 50 mg tablet Take 0.5 tablets by mouth once daily. diclofenac (VOLTAREN ARTHRITIS PAIN) 1 % topical gel Apply 2 g to affected area four times daily as needed. Omeprazole Magnesium 20 mg tablet Take 1 tablet by mouth as needed. 1/2 hr before meal. FA/MV,CA,IRON,MIN/LYCO PENE/LUT (MULTIVITAL ORAL) Take by mouth. Alive multivitamin +50 nitrofurantoin monohydrate and macrocrystal (MACROBID) 100 mg capsule Take 1 capsule by mouth two times a day for 10 days. fluconazole (DIFLUCAN) 150 mg tablet Take 1 tablet by mouth one time only for 1 dose. Repeat in 3 days as needed. No current facility-administered medications for this visit. ALLERGIES Allergen Reactions Ciprofloxacin Mental Status Change, Other: See Comments Erythromycin Vomiting Hydrochlorothiazide Intolerance Dizzy Sulfa (Sulfonamide * Hives in childhoood ACTIVE PROBLEM LIST Neck Stiffness - 10/18/2020 Neck Pain - 10/18/2020 Hypopotassemia - 11/21/2013 Elevated Ldl Cholesterol Level - 10/31/2013 Htn (Hypertension) - 07/12/2012 Social History Tobacco Use Smoking status: Former Smokeless tobacco: Never Tobacco comments: quit in college Vaping Use Vaping status: Never Used Substance Use Topics Alcohol use: Yes Comment: Seldom Drug use: No Review of Systems Genitourinary: Positive for dysuria, frequency and urgency. Negative for vaginal bleeding and vaginal pain. OBJECTIVE BP 117/79 Pulse 100 Temp (Src) 99.6 (Temporal) Wt 190 lb 7.6 oz (86.4kg) SpO2 98% LMP 02/06/2009 Physical Exam Vitals and nursing note reviewed. Constitutional: General: She is awake. She is not in acute distress. Appearance: Normal appearance. She is well-developed and well-groomed. She is not ill-appearing, toxic-appearing or diaphoretic. HENT: Head: Normocephalic. Right Ear: External ear normal. Left Ear: External ear normal. Nose: Nose normal. Eyes: General: Vision grossly intact. Conjunctiva/sclera: Conjunctivae normal. Pupils: Pupils are equal, round, and reactive to light. Neck: Vascular: No JVD. Trachea: Trachea normal. Pulmonary: Effort: Pulmonary effort is normal. No accessory muscle usage, prolonged expiration or respiratory distress. Musculoskeletal: Cervical back: Neck supple. Skin: General: Skin is warm and dry. Capillary Refill: Capillary refill takes less than 2 seconds. Neurological: General: No focal deficit present. Mental Status: She is alert and oriented to person, place, and time. Mental status is at baseline. Psychiatric: Attention and Perception: Attention and perception normal. Mood and Affect: Mood and affect normal. Speech: Speech normal. Behavior: Behavior normal. Behavior is cooperative. Thought Content: Thought content normal. Cognition and Memory: Cognition and memory normal. Judgment: Judgment normal. ASSESSMENT/PLAN: 1. Dysuria - ICD9: 788.1, ICD10: R30.0 (primary diagnosis) acute - Begin treatment with Macrobid 100 mg BID for 10 days - Patient education for prevention given - UA DIP, URINE (POC) - NITROFURANTOIN MONOHYDRATE AND MACROCRYSTAL 100 MG ORAL CAP 2. Frequent UTI - ICD9: 599.0, ICD10: N39.0 3. Antibiotic-induced yeast infection - ICD9: 112.9, E930.9, ICD10: B37.9, T36.95XA - FLUCONAZOLE 150 MG TABLET Portions of this note have been entered by ancillary staff. I have reviewed and when necessary edited, so that they are an adequate record of my encounter with this patient Please note that parts of this document we (more content not included)... Normal [facility] UA DIP, URINE (POC)on 2024 BILIRUBIN UA (POCT) Negative Negative [facility] CL[facility]ITY [facility] (POCT) [facility] ([facility]) Yellow [facility] GLUCOSE UA (POCT) Negative Negative mg/dL [facility] Hemoglobin Ql (U) Negative Negative [facility] KETONE UA (POCT) Negative Negative mg/[facility]) [facility] NITRITE UA (POCT) Negative Negative [facility] PH UA (POCT) 5.5 4.5 - 8.0 [facility] Protein Ql (U) Negative Negative mg/dL [facility] SPECIFIC GRAVITY UA (POCT) 1.02 1.005 - 1.030 [facility] UROBILINOGEN UA (POCT) 0.2 Normal E.U./dL [facility] Location:[address], [address] [place] [address] POINT OF CARE [facility] Bacteria Ur Culton 5 Bacteria identified Cx Nom (U) ORGANISM ID: 1 10,000 -<50,000 CFU/ml Mixed microbiota No further workup Normal [facility] Comment on above: Performed By: #### 6 30-4 ####[facility] LABCLIA [id number] [address] [place] [facility] CNOVon 08-19-2024 CNOV Office Visit (UCWSTR ) YUKI NORTON ([id number]) 1960 F Date Time Provider Department 08/19/24 10:15 AM DORCAS CARVAJAL UCWSTR During your visit today, we recorded the following information about you: Temperature Pulse Respiration Blood pressure 97.9 degrees 93/minute 18/minute 163/83 Weight 87.3 kg Dorcas Carvajal APRN.CNP 08/19/2024 10:37 AM Signed This note was created using Zifyriter. Subjective Yuki Norton is a 64 year old female. 64 year old male with PMH HTN and GERD presents for possible UTI Acute onset 3 days ago +frequency +urgency +bladder spasm +suprapubic Denies vaginal bleeding Denies vaginal discharge Denies recent coitus Denies concerns for STI Denies using homeopathic or OTC The history is provided by the patient. No promotions coordinator was used. UTI This is a new problem. The current episode started more than 2 days ago. The problem occurs every urination. The problem has been gradually worsening. The quality of the pain is described as burning. The pain is at a severity of 4/10. There has been no fever. She is Not sexually active. There is No history of pyelonephritis. Associated symptoms include frequency and urgency. Pertinent negatives include no chills, no sweats, no nausea, no vomiting, no discharge, no hematuria, no hesitancy, no possible and no flank pain. She has tried nothing for the symptoms. Her past medical history does not include kidney stones, single kidney, urological procedure, recurrent UTIs, urinary stasis or catheterization. PAST MEDICAL HISTORY Diagnosis Date GERD (gastroesophageal reflux disease) hypertension Hypopotassemia PAST SURGICAL HISTORY Procedure Laterality Date BIOPSY BREAST OPEN INCISIONAL lumpectomy - benign LAPS ABD PRTMANDOMENTUM DX W/WO SPEC BR/WA SPX for infertility TONSILLECTOMY PRIMARY/SECONDARY Tonsillectomy ALLERGIES Ciprofloxacin, Erythromycin, Hydrochlorothiazide, and Sulfa (Sulfonamide Antibiotics) MEDICATIONS amLODIPine (NORVASC) 2.5 mg tablet Take 1 tablet by mouth once daily. potassium chloride ER (KLOR-CON) 20 mEq tablet Take 2 tablets by mouth two times a day. chlorthalidone (HYGROTON) 50 mg tablet Take 0.5 tablets by mouth once daily. diclofenac (VOLTAREN ARTHRITIS PAIN) 1 % topical gel Apply 2 g to affected area four times daily as needed. Omeprazole Magnesium 20 mg tablet Take 1 tablet by mouth as needed. 1/2 hr before meal. FA/MV,CA,IRON,MIN/LYCO PENE/LUT (MULTIVITAL ORAL) Take by mouth. Alive multivitamin +50 fluconazole (DIFLUCAN) 150 mg tablet Take 1 tablet by mouth once daily for 1 day. FAMILY HISTORY Problem Relation Age of Onset Hypertension Mother other (dementia) Mother other (hepatitis B) Mother Hypertension Father [place], age 45 other (dementia) Father age 86 Hypertension Brother other (gout) Brother Heart Maternal Grandmother CHF other (Parkinson's disease) Maternal Grandfather Social History Tobacco Use Smoking status: Former Smokeless tobacco: Never Tobacco comments: quit in college Vaping Use Vaping status: Never Used Substance Use Topics Alcohol use: Yes Comment: Seldom Drug use: No Review of Systems Constitutional: Negative for chills. Eyes: Negative for pain, discharge, redness and itching. Respiratory: Negative for apnea, cough, choking and chest tightness. Cardiovascular: Negative for chest pain, palpitations and leg swelling. Gastrointestinal: Negative for abdominal pain, nausea and vomiting. Genitourinary: Positive for dysuria, frequency and urgency. Negative for flank pain, hematuria and hesitancy. Musculoskeletal: Negative for arthralgias, back pain and gait problem. Skin: Negative for color change, pallor, rash and wound. Allergic/Immunologic: Negative for environmental allergies, food allergies and immunocompromised state. Neurological: Negative for dizziness and facial asymmetry. Hematological: Negative for adenopathy. Does not bruise/bleed easily. Psychiatric/Behavioral : Negative for agitation and behavioral problems. Objective BP 163/83 Pulse 93 Temp 36.6 ?C (97.9 ?F) Resp 18 Wt 87.3 kg (192 lb 7.4 oz) LMP 02/06/2009 SpO2 98% BMI 31.06 kg/m? Physical Exam Vitals and nursing note reviewed. Constitutional: General: She is not in acute distress. Appearance: Normal appearance. She is normal weight. She is not ill-appearing, toxic-appearing or diaphoretic. HENT: Head: Normocephalic and atraumatic. Right Ear: Ear canal and external ear normal. Left Ear: Ear canal and external ear normal. Nose: Nose normal. No congestion or rhinorrhea. Mouth/Throat: Mouth: Mucous membranes are moist. Pharynx: No oropharyngeal exudate or posterior oropharyngeal erythema. Eyes: General: Right eye: No discharge. Left eye: No discharge. Extraocular Movements: Extraocular movements (more content not included)... Normal [facility] UA DIP, URINE (POC)on 2024 BILIRUBIN UA (POCT) Negative Negative [facility] CLARITY UA (POCT) [facility]OR UA (POCT) Yellow [facility] GLUCOSE UA (POCT) Negative Negative mg/dL [facility] Hemoglobin Ql (U) Negative Negative [facility] KETONE UA (POCT) Negative Negative mg/dL [facility] LEUKOCYTES UA (POCT) Negative Negative [facility] NITRITE UA (POCT) Negative Negative [facility] PH UA (POCT) 6 4.5 - 8.0 [facility] Protein Ql (U) Negative Negative mg/dL [facility] SPECIFIC GRAVITY UA (POCT) 1.02 1.005 - 1.030 [facility] UROBILINOGEN UA (POCT) 0.2 Normal E.U./dL [facility] Location:[facility], [address] [place] [address], [place], [place], [id number] [place] [address] POINT OF CARE [facility] CNPNon 08-18-2024 CNPN Telephone (INTMWS) YUKI NORTON ([id number]) 1960 F Date Time Provider Department 08/18/24 SHIRA NICHOLAS INTMWS During your visit today, we recorded the following information about you: Rudy Mcintyre, RN 08/18/2024 4:27 PM Signed Pt reports she is having UTI s/s: fever 99.2, cramping, frequency, burning with urination, since Wed. No openings in pcp office. Pt agreeable to for evaluation. Allergies As of Date: 08/18/2024 Noted Allergy Reaction CIPROFLOXACIN 07/12/2012 1 - Mental Status Change 14 - Other: See Comments ERYTHROMYCIN 03/02/2006 11 - Vomiting HYDROCHLOROTHIAZIDE 10/14/2006 5 - Intolerance Comments: Dizzy SULFA (SULFONAMIDE ANTIBIOTICS) 03/02/2006 4 - Hives Comments: in childhoood Date Reviewed: 06/15/2024 Reviewed by: Annabel Griggs APRN.K 12 PRINCIPAL - Fully Assessed Reason for Visit: UTI s/s [Other] Prescriptions as of 08/18/2024 - amLODIPine (NORVASC) 2.5 mg tablet Take 1 tablet by mouth once daily. - potassium chloride ER (KLOR-CON) 20 mEq tablet Take 2 tablets by mouth two times a day. - chlorthalidone (HYGROTON) 50 mg tablet Take 0.5 tablets by mouth once daily. - diclofenac (VOLTAREN ARTHRITIS PAIN) 1 % topical gel Apply 2 g to affected area four times daily as needed. - Omeprazole Magnesium 20 mg tablet Take 1 tablet by mouth as needed. 1/2 hr before meal. - FA/MV,CA,IRON,MIN/LYCO PENE/LUT (MULTIVITAL ORAL) Take by mouth. Alive multivitamin +50 Meds Comments as of 04/12/2022: 04/12/2022 11:45 AM New medication is Paxlovid and was taken once yesterday and stopped due to vomiting and diarrhea. Yuki Bansal RN Problem List As Of Date 08/18/2024 Noted Resolved BENIGN HYPERTENSION [I10] 03/02/2006 10/14/2006 JOINT PAIN-UP/ARM [M25.529] 03/09/2006 10/14/2006 HTN (hypertension) [I10] 07/12/2012 Elevated LDL cholesterol level [E78.00] 10/31/2013 Hypopotassemia [E87.6] 11/21/2013 Neck stiffness [M43.6] 10/18/2020 Neck pain [M54.2] 10/18/2020 Encounter Status:Closed by Rudy MCINTYRE on 08/18/24 [facility] CNOVon 06-15-2024 CNOV Office Visit (INTMWS ) YUKI NORTON ([id number]) 1960 F Date Time Provider Department 06/15/24 1:00 PM ANNABEL GRIGGS INTMWS During your visit today, we recorded the following information about you: Pulse Respiration Blood pressure Weight 87/minute 16/minute 136/85 85 kg Annabel Griggs, MARICHUY.K 12 PRINCIPAL 06/15/2024 1:24 PM Signed SUBJECTIVE: Depression Screening Never done Anxiety Screening Never done Colorectal Cancer Screening Never done Shingrix Vaccine(1 of 2) Never done Pneumococcal Vaccine: 50+(1 of 1 - PCV) Never done BP Controlled (<130/80) due on 05/08/2023 Mammogram Screening due on 10/28/2023 HPI Yuki Norton is a 63 year old female. PMH significant for ACTIVE PROBLEM LIST Htn (Hypertension) Elevated Ldl Cholesterol Level Hypopotassemia Neck Stiffness Neck Pain Presents today for routine follow up visit. Forgot to take amlodipine at the time of her last visit. Returns for recheck of BP, taking amlodipine 2.5 mg. Reports home systolic blood pressure readings 120-130 range since last here. HTN: She is without report of headache, chest pain, palpitations, dyspnea, peripheral edema, orthopnea, fatigue and PND. Last 14 Encounter BP Readings: Date: BP: 06/15/2024 136/85[bp average[ 05/09/2024 159/84 03/20/2024 137/78 11/08/2023 121/77 09/29/2023 138/90 06/21/2023 134/79[average bp[ 06/05/2023 148/96 05/11/2023 139/84 03/23/2023 142/82 11/06/2022 136/84 10/27/2022 138/76 05/08/2022 130/88 11/04/2021 136/82 04/16/2021 128/78 Notes exercising 30 minutes 4 times per week, trying to eat healthy but has gained weight. 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 Sons bck in town for holiday and it was nice. Review of Systems Constitutional: Negative. Respiratory: Negative. Objective BP 136/85 Pulse 87 Resp 16 Wt 85 kg (187 lb 6.3 oz) LMP 02/06/2009 BMI 30.25 kg/m? Physical Exam Vitals and nursing note reviewed. Constitutional: General: She is not in acute distress. Appearance: Normal appearance. She is not ill-appearing, toxic-appearing or diaphoretic. HENT: Head: Normocephalic and atraumatic. Right Ear: Tympanic membrane and ear canal normal. Left Ear: Ear canal normal. Nose: Nose normal. No mucosal edema or rhinorrhea. Mouth/Throat: Lips: [place]. Mouth: Mucous membranes are moist. Pharynx: Oropharynx is clear. Eyes: Conjunctiva/sclera: Conjunctivae normal. Neck: Thyroid: No thyromegaly. Vascular: Normal carotid pulses. No JVD. Cardiovascular: Rate and Rhythm: Normal rate and regular rhythm. Pulses: Carotid pulses are 2+ on the right side and 2+ on the left side. Radial pulses are 2+ on the right side and 2+ on the left side. Heart sounds: Normal heart sounds. Pulmonary: Effort: Pulmonary effort is normal. Breath sounds: Normal breath sounds. Abdominal: General: Bowel sounds are normal. Palpations: Abdomen is soft. Musculoskeletal: Cervical back: No muscular tenderness. Skin: General: Skin is warm and dry. Neurological: General: No focal deficit present. Mental Status: She is alert and oriented to person, place, and time. ALLERGIES Allergen Reactions Ciprofloxacin Mental Status Change, Other: See Comments Erythromycin Vomiting Hydrochlorothiazide Intolerance Dizzy Sulfa (Sulfonamide * Hives in childhoood Medications potassium chloride ER (KLOR-CON) 20 mEq tablet Take 2 tablets by mouth two times a day. chlorthalidone (HYGROTON) 50 mg tablet Take 0.5 tablets by mouth once daily. diclofenac (VOLTAREN ARTHRITIS PAIN) 1 % topical gel Apply 2 g to affected area four times daily as needed. Omeprazole Magnesium 20 mg tablet Take 1 tablet by mouth as needed. 1/2 hr before meal. FA/MV,CA,IRON,MIN/LYCO PENE/LUT (MULTIVITAL ORAL) Take by mouth. Alive multivitamin +50 amLODIPine (NORVASC) 2.5 mg tablet Take 1 tablet by mouth once daily. PAST MEDICAL HISTORY Diagnosis Date GERD (gastroesophageal reflux disease) hypertension Hypopotassemia Social History Tobacco Use Smoking status: Former Smokeless tobacco: Never Tobacco comments: quit in college Vaping Use Vaping status: Never Used Substance Use Topics Alcohol use: Yes Comment: Seldom Drug use: No The 10-year ASCVD risk score (Alexis GARCIA, et al., 2019) is: 9.9% Values used to calculate the score: Age: 63 years Sex: Female Is Non- : No Diabetic: No Tobacco smoker: No Systolic Blood Pressure: 136 mmHg Is BP treated: Yes HDL Cholesterol: 33 mg/dL Total Cholesterol: 214 mg/dL ASSESSMENT/PLAN: 1. Primary hypertension - ICD9: 401.9, ICD10: I10 (primary diagnosis) - suboptimal control, miissed amlodipine dose - Continue current medications, continue with amlodipine 2.5 mg daily - Encourage dietary sodium restriction/DASH diet - Recommend regular aerobic (more content not included)... Normal [facility] CNOVon 05-09-2024 CNOV Office Visit (INTMWS ) YUKI NORTON ([id number]) 1960 F Date Time Provider Department 05/09/24 2:00 PM ANNABEL GRIGGS INTMWS During your visit today, we recorded the following information about you: Pulse Respiration Blood pressure Weight 78/minute 16/minute 159/84 86.5 kg Annabel Griggs APRN.K 12 PRINCIPAL 05/09/2024 2:44 PM Signed SUBJECTIVE: Depression Screening Never done Anxiety Screening Never done Colorectal Cancer Screening Never done Shingrix Vaccine(1 of 2) Never done BP Controlled (<130/80) due on 05/08/2023 Mammogram Screening due on 10/28/2023 CHILO Vizcainojarrod Norton is a 63 year old female. PMH significant for ACTIVE PROBLEM LIST Htn (Hypertension) Elevated Ldl Cholesterol Level Hypopotassemia Neck Stiffness Neck Pain Presents today for routine follow up visit. 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 Notes forgot to take amlodipine. Returns for recheck of BP, started on amlodipine 2.5 mg at last visit. Reports home systolic blood pressure readings 120-130 range since last here. HTN: She is without report of headache, chest pain, palpitations, dyspnea, peripheral edema, orthopnea, fatigue and PND. Last 14 Encounter BP Readings: Date: BP: 05/09/2024 159/84 03/20/2024 137/78 11/08/2023 121/77 09/29/2023 138/90 06/21/2023 134/79[average bp[ 06/05/2023 148/96 05/11/2023 139/84 03/23/2023 142/82 11/06/2022 136/84 10/27/2022 138/76 05/08/2022 130/88 11/04/2021 136/82 04/16/2021 128/78 10/14/2020 136/84 Notes exercising 30 minutes 4 times per week, trying to eat healthy but has gained weight. Review of Systems Constitutional: Negative. Respiratory: Negative. Objective BP 159/84 Pulse 78 Resp 16 Wt 86.5 kg (190 lb 11.2 oz) LMP 02/06/2009 BMI 30.78 kg/m? Physical Exam Vitals and nursing note reviewed. Constitutional: General: She is not in acute distress. Appearance: Normal appearance. She is not ill-appearing, toxic-appearing or diaphoretic. HENT: Head: Normocephalic and atraumatic. Right Ear: Tympanic membrane and ear canal normal. Left Ear: Ear canal normal. Nose: Nose normal. No mucosal edema or rhinorrhea. Mouth/Throat: Lips: [place]. Mouth: Mucous membranes are moist. Pharynx: Oropharynx is clear. Eyes: Conjunctiva/sclera: Conjunctivae normal. Neck: Thyroid: No thyromegaly. Vascular: Normal carotid pulses. No JVD. Cardiovascular: Rate and Rhythm: Normal rate and regular rhythm. Pulses: Carotid pulses are 2+ on the right side and 2+ on the left side. Radial pulses are 2+ on the right side and 2+ on the left side. Heart sounds: Normal heart sounds. Pulmonary: Effort: Pulmonary effort is normal. Breath sounds: Normal breath sounds. Abdominal: General: Bowel sounds are normal. Palpations: Abdomen is soft. Musculoskeletal: Cervical back: No muscular tenderness. Skin: General: Skin is warm and dry. Neurological: General: No focal deficit present. Mental Status: She is alert and oriented to person, place, and time. ALLERGIES Allergen Reactions Ciprofloxacin Mental Status Change, Other: See Comments Erythromycin Vomiting Hydrochlorothiazide Intolerance Dizzy Sulfa (Sulfonamide * Hives in childhoood Medications potassium chloride ER (KLOR-CON) 20 mEq tablet Take 2 tablets by mouth two times a day. chlorthalidone (HYGROTON) 50 mg tablet Take 0.5 tablets by mouth once daily. amLODIPine (NORVASC) 2.5 mg tablet Take 1 tablet by mouth once daily. diclofenac (VOLTAREN ARTHRITIS PAIN) 1 % topical gel Apply 2 g to affected area four times daily as needed. Omeprazole Magnesium 20 mg tablet Take 1 tablet by mouth as needed. 1/2 hr before meal. FA/MV,CA,IRON,MIN/LYCO PENE/LUT (MULTIVITAL ORAL) Take by mouth. Alive multivitamin +50 fluticasone (FLONASE) 50 mcg/actuation nasal spray Use 2 Sprays in each nostril once daily. Rinse mouth after use. (Patient not taking: Reported on 05/09/2024) benzonatate (TESSALON PERLES) 100 mg capsule Take 1-2 capsules by mouth three times a day as needed. (Patient not taking: Reported on 05/09/2024) nitrofurantoin monohydrate and macrocrystal (MACROBID) 100 mg capsule Take 1 capsule by mouth two times a day. (Patient not taking: Reported on 05/09/2024) phenazopyridine (PYRIDIUM) 200 mg tablet Take 1 tablet by mouth three times a day as needed. (Patient not taking: Reported on 05/09/2024) tiZANidine (ZANAFLEX) 2 mg tablet Take 0.5-1 tablets by mouth at bedtime as needed. (Patient not taking: Reported on 05/09/2024) PAST MEDICAL HISTORY Diagnosis Date GERD (gastroesophageal reflux disease) hypertension Hypopotassemia Social History Tobacco Use Smoking status: Former Smokeless tobacco: Never Tobacco comments: quit in college Vaping Use Vaping status: Never Used Substance Use Topics Alcohol use: Yes Comment: Seldom Drug use: No The 10-yea (more content not included)... Normal [facility] CNOVon 03-20-2024 CNOV Office Visit (INTMWS ) YUKI NORTON ([id number]) 1960 F Date Time Provider Department 03/20/24 1:00 PM ANNABEL GRIGGS INTMWS During your visit today, we recorded the following information about you: Pulse Respiration Blood pressure Weight 95/minute 16/minute 137/78 87.9 kg Annabel Griggs APRN.K 12 PRINCIPAL 03/20/2024 1:31 PM Signed SUBJECTIVE Yuki Kline Martha is a 63 year old female who presents with 11 days of symptoms that are stable. Negative Covid at home x 3. 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 Symptoms include: Fever (>=100.4F): Yes day one then resolved 100F or Chills: No Cough: Yes productive, can be purulent Shortness of breath: No or Difficulty breathing: No Fatigue: Yes Muscle aches: No Headache: Yes frontal maxillary helped with tylenol New loss of smell or taste: No Sore throat: No Nasal congestion: Yes or Rhinorrhea: Yes Nausea: No or Vomiting: No Diarrhea: No Rgiht ear pain and decreased right side hearing OTC meds/remedies that patient has tried: acetaminophen and Mucinex. High risk category assessment Age > 60 years old Exposures: Sick contacts? Yes Family or close contacts with confirmed/probable COVID-19 in last 14 days? No She reports that she has quit smoking. She has never used smokeless tobacco. OBJECTIVE PHYSICAL EXAM: BP 137/78 Pulse 95 Resp 16 Wt 87.9 kg (193 lb 12.6 oz) LMP 02/06/2009 SpO2 99% BMI 31.28 kg/m? General appearance: tired/ill appearing, alert, cooperative, pleasant, in no acute distress Head: Normocephalic Eyes: conjunctiva/corneas normal Ears: R TM - nl light reflex, partially obstructed by cerumen, L TM - clear with good landmarks, nl light reflex Nose: purulent rhinorrhea, mucosa erythematous and swollen Oropharynx: moist without lesions, mild erythema to GPA Neck: supple and small, benign anterior cervical nodes bilaterally Heart: regular rate and rhythm, without murmur Lungs: clear to auscultation, without rales or wheeze, good air exchange ASSESSMENT/PLAN No diagnosis found. ASSESSMENT/PLAN: 1. Sinobronchitis - ICD9: 473.9, 490, ICD10: J32.9, J40 (primary diagnosis) - Will begin treatment with as per antibiotic as written, see orders - Supportive care with plenty of fluids, rest, and analgesia prn. - Follow up if symptoms persist or worsen. - FLUTICASONE PROPIONATE 50 MCG/ACTUATION NASAL SPRAY,SUSPENSION - AMOXICILLIN 875 MG-POTASSIUM CLAVULANATE 125 MG TABLET - BENZONATATE 100 MG CAPSULE - DEBROX 6.5 % EAR DROPS 2. Acute otitis media, unspecified otitis media type - ICD9: 382.9, ICD10: H66.90 Unable to visualize much of the right TM, does have right ear pain, will treat and fullness, will treat as AOM. - FLUTICASONE PROPIONATE 50 MCG/ACTUATION NASAL SPRAY,SUSPENSION - AMOXICILLIN 875 MG-POTASSIUM CLAVULANATE 125 MG TABLET 3. Excessive cerumen in ear canal, right - ICD9: 380.4, ICD10: H61.21 - DEBROX 6.5 % EAR DROPS - right ear x 5 days Annabel Griggs APRN.K 12 PRINCIPAL - Discussed symptom monitoring and supportive care - Red flag symptoms requiring follow up discussed Medical Decision Making: Problems: Low: Acute, uncomplicated illness or injury Risk: Moderate: Drug management Medical Decision Making Level: 3 - Low Referring Provider: SHIRA NICHOLAS [[id number]] Allergies As of Date: 03/20/2024 Noted Allergy Reaction CIPROFLOXACIN 07/12/2012 1 - Mental Status Change 14 - Other: See Comments ERYTHROMYCIN 03/02/2006 11 - Vomiting HYDROCHLOROTHIAZIDE 10/14/2006 5 - Intolerance Comments: Dizzy SULFA (SULFONAMIDE ANTIBIOTICS) 03/02/2006 4 - Hives Comments: in childhoood Date Reviewed: 03/20/2024 Reviewed by: Annabel Griggs APRN.K 12 PRINCIPAL - Fully Assessed Reason for Visit: Chest Congestion [236] Cough [28] Primary Visit Diagnosis:Sinobronchit is [J32.9, J40] Other Visit Diagnoses:Acute otitis media, unspecified otitis media type [H66.90] Excessive cerumen in ear canal, right [H61.21] Order(s):fluticasone (FLONASE) 50 mcg/actuation nasal sprayUse 2 Sprays in each nostril once daily. Rinse mouth after use.Disp: 1 EachRfl: 0 amoxicillin-clavulanat e potassium (AUGMENTIN) 875-125 mg per tabletTake 1 tablet by mouth two times a day for 10 days.Disp: 20 tabletRfl: 0 benzonatate (TESSALON PERLES) 100 mg capsuleTake 1-2 capsules by mouth three times a day as needed.Disp: 60 capsuleRfl: 1 carbamide peroxide (DEBROX) 6.5 % otic solutionUse 5 Drops in the right ear two times a day for 5 days.Disp: 15 mLRfl: 0 Prescriptions as of 03/20/2024 - fluticasone (FLONASE) 50 mcg/actuation nasal spray Use 2 Sprays in each nostril once daily. Rinse mouth after use. - amoxicillin-clavulanat e potassium (AUGMENTIN) 875-125 mg per tablet Take 1 tablet by mouth two times a day for 10 days. - benzonatate (TESSALON PERLES) 100 mg capsule Take 1-2 capsules by mouth three times a day as neede (more content not included)... Normal [facility] UA DIP, URINE (POC)on 2023 BILIRUBIN UA (POCT) Negative Negative [facility] CLARITY UA (POCT) Clear [facility] COLOR UA (POCT) Yellow [facility] GLUCOSE UA (POCT) Negative Negative mg/dL [facility] Hemoglobin Ql (U) Trace-intact Abnormal Negative [facility] Interpretation and review of laboratory results Abnormal [facility] KETONE UA (POCT) Negative Negative mg/dL [facility] LEUKOCYTES UA (POCT) Negative Negative [facility] NITRITE UA (POCT) Negative Negative [facility] PH UA (POCT) 6.0 4.5 - 8.0 [facility] Protein Ql (U) Negative Negative mg/dL [facility] SPECIFIC GRAVITY UA (POCT) <=1.005 Abnormal 1.005 - 1.030 [facility] UROBILINOGEN UA (POCT) 0.2 Normal E.U./dL [facility] Location:[facility], [address] [place] [address], [place], [address] [facility] POINT OF CARE [facility] UA DIP, URINE (POC)on 2022 BILIRUBIN UA (POCT) Negative Negative [facility] CLARITY UA (POCT) Clear [facility] COLOR UA (POCT) Yellow [facility] GLUCOSE UA (POCT) Negative Negative mg/dL [facility] Hemoglobin Ql (U) Negative Negative [facility] KETONE UA (POCT) Negative Negative mg/dL [facility] LEUKOCYTES UA (POCT) Trace Abnormal Negative [facility] NITRITE UA (POCT) Negative Negative [facility] PH UA (POCT) 6.0 4.5 - 8.0 [facility] Protein Ql (U) Negative Negative mg/dL [facility] SPECIFIC GRAVITY UA (POCT) 1.020 1.005 - 1.030 [facility] UROBILINOGEN UA (POCT) 0.2 E.U./dL Normal E.U./dL [facility] CBC panel Auto (Bld)on 11-06 Erythrocyte distribution width (RBC) [Ratio] 14.1 % 11.5 - 15.0 % [facility] Hematocrit (Bld) [Volume fraction] 42.6 % 36.0 - 46.0 % [facility] Hemoglobin (Bld) [Mass/Vol] 13.9 g/dL 11.5 - 15.5 g/dL [facility] MCH (RBC) [Entitic mass] 28.7 pg 26.0 - 34.0 pg [facility] MCHC (RBC) [Mass/Vol] 32.6 g/dL 30.5 - 36.0 g/dL [facility] MCV (RBC) [Entitic vol] 87.8 fL 80.0 - 100.0 fL [facility] Nucleated RBC (Bld) [#/Vol] <0.01 k/uL [facility] Platelet mean volume (Bld) [Entitic vol] 9.8 fL 9.0 - 12.7 fL [facility] Platelets (Bld) [#/Vol] 271 10*3/uL 150 - 400 k/uL [facility] RBC (Bld) [#/Vol] 4.85 10*6/uL 3.90 - 5.2 0 m/uL [facility] WBC (Bld) [#/Vol] 7.39 10*3/uL 3.70 - 11. 00 k/uL [facility] Comprehensive metabolic 2000 panelon 11-06-2022 Albumin [Mass/Vol] 4.4 g/dL 3.9 - 4.9 g/dL [facility] ALP [Catalytic activity/Vol] 81 U/L 34 - 123 U/L [facility] ALT [Catalytic activity/Vol] 24 U/L 7 - 38 U/L [facility] Anion gap [Moles/Vol] 14 mmol/L 9 - 18 mmol/L [facility] AST [Catalytic activity/Vol] 25 U/L 13 - 35 U/L [facility] Bilirubin [Mass/Vol] 0.3 mg/dL 0.2 - 1 .3 mg/dL [facility] Calcium [Mass/Vol] 9.7 mg/dL 8.5 - 10. 2 mg/dL [facility] Chloride [Moles/Vol] 104 mmol/L 97 - 10 5 mmol/L [facility] CO2 [Moles/Vol] 24 mmol/L 22 - 30 mmol/L [facility] Creatinine [Mass/Vol] 0.69 mg/dL 0.58 - 0.96 mg/dL [facility] Estimated Glomerular Filtration Rate 98 mL/min/1.73m >=60 mL/min/1.73m [facility] Glucose [Mass/Vol] 115 mg/dL High 74 - 99 mg/dL [facility] Potassium [Moles/Vol] 4.3 mmol/L 3.7 - 5.1 mmol/L [facility] Protein [Mass/Vol] 7.7 g/dL 6.3 - 8.0 g/dL [facility] Sodium [Moles/Vol] 142 mmol/L 136 - 144 mmol/L [facility] Urea nitrogen [Mass/Vol] 12 mg/dL 7 - 21 mg/dL [facility] HbA1c (Bld)on 11-06-2022 Average glucose Estimated from glycated hemoglobin (Bld) [Mass/Vol] 117 mg/dL [facility] HbA1c (Bld) [Mass fraction] 5.7 % High 4.3 - 5.6 % [facility] URIC ACID BLOODon 11-06-2022 Urate [Mass/Vol] 6.6 mg/dL 2.5 - 6.6 mg/dL [facility] CARLOS SCREENINGon 10-27-2022 [facility] Emergency Department Summary on 04-12-2022 Emergency Department Summary [facility] Medical Records Department [address] [place] [address] Emergency Department Summary 04/12/22 MR#: [id number] Acct: [id number] Name: YUKI NORTON Rep #: [id number] : 1960 61 From: Chris Fall MD PCP: Shira Nicholas MD Status:REG ER Location: ED HPI History of Present Illness Chief Complaint: Shortness of Breath Informant: patient Onset/Context/Timing Onset: Today and Yesterday Context: gradual Timing: Intermittent Current Severity: Mild Maximum Severity: Mild Worsened by: Nothing Relieved by: Nothing Associated Symptoms cough, fever, chills and yellow sputum Narrative Narrative: 61-year-old male history of hypertension. Started having URI symptoms on Wednesday. Sore throat and cough. Took a home COVID test on Wednesday diagnosed as COVID-positive. Had a telemedicine visit with nurse practitioner of her primary care physician's office who started her on tach Slo-Bid. Said she took her first dose of Paxil then she felt horrible about 1 to 2 hours later. States she has been coughing a lot and thinks she may have pulled a muscle in her chest. Or strained her chest wall. Denies any hemoptysis. No leg pain or swelling. No history of DVT or PE. No recent travel, surgery or immobilization. She is on no hormone replacement therapy. She does not have pleuritic chest pain. PE Risk Factors: Negative for Cancer, OCP + Smoking + > 35, Prior DVT or PE, Recent immobilization, Recent surgery or Recent travel Prior similar symptoms: Yes Recent Illness/Hospitalizatio n: No PFSH PFSH Home Medications Chlorthalidone 25 mg PO DAILY 05/02/13 [History Last Taken Unknown] Multivitamins,Therapeu tic 1 tab PO DAILY 05/02/13 [History Last Taken Unknown] Omeprazole 20 mg PO DAILY 05/02/13 [History Last Taken Unknown] Allergy/AdvReac Type Severity Reaction Status Date / Time ciprofloxacin [From Cipro] Allergy Other Verified 04/12/22 09:41 ciprofloxacin HCl Allergy Other Verified 04/12/22 09:41 [From Cipro] Sulfa (Sulfonamide Allergy Hives Verified 04/12/22 09:41 Antibiotics) Social History Smoking Status: Former smoker ROS ROS ED ROS Narrative Cough, fever and chills mild shortness of breath. Review of Systems ROS Unobtainable: Denies due to encephalopathy Constitutional Constitutional ED: Reports chills and fever(s) Eyes Eyes: Denies blurry vision ENT ENT ED: Reports sore throat; Denies ear pain Cardiovascular Cardiovascular: Reports chest pain; Denies palpitations or racing heartbeat Respiratory/Chest Respiratory/Chest: Reports cough and dyspnea Gastrointestinal Gastrointestinal: Reports nausea and vomiting; Denies abdominal pain, constipation, diarrhea or melena Genitourinary Genitourinary ED: Denies dysuria Musculoskeletal Musculoskeletal: Denies arthralgias Integumentary Denies abscess Neurologic Neurologic: Denies headache(s) Psychiatric Psychiatric: Denies anxiety Endocrine Endocrinology: Denies cold intolerance Hematologic/Lymphatic Hematologic/Lymphatic: Denies easy bleeding Allergic/Immunologic Allergic/Immunologic ED: Denies mouth swelling or tongue swelling EXAM Physical Exam Narrative Exam Narrative: 61-year-old female no acute distress vital signs stable afebrile. Pulse ox 96% on room air no signs of hypoxia. Clinically looks well. Sitting upright in chair. HEENT exam unremarkable. Moist mucous membranes. Neck nontender. No JVD. No lymphadenopathy. Lungs clear to auscultation bilaterally. No rales rhonchi or wheezing. Equal symmetrical. Heart regular rhythm rate about 85 no murmur. Chest wall mild reproducible left chest wall discomfort consistent with chest wall strain. Abdomen soft nontender. Moving all 4 extremities. Calves are nontender without edema or cords. Const Vital Signs: 04/12/22 09:37 Temperature 97.8 F Temperature Source Temporal Pulse Rate 89 Respiratory Rate 18 Blood Pressure 155/93 H Blood Pressure Mean 113 Pulse Ox 96 Oxygen Delivery Method Room Air Positive well nourished and well developed; Negative for cachectic, contractures or unkempt General Appearance ED: well developed; Negative for unkempt, cachectic, contractures or pallor Nutritional Appearance: Negative for cachectic HEENT Reports moist mucous membranes; Denies dry mucous membranes or other atraumatic; Negative for trauma, tenderness or other Mouth ED: No dry mucous membranes Mouth: No dry mucous membranes Eyes PERRL and EOMs intact bilaterally General Eye ED: Negative for pale conjunctiva or scleral icterus Neck no lymphadenopathy, supple, no meningeal signs and no JVD General: Negative for tenderness Lymph Lymphatic: Negative for other Resp normal respiratory effort and clear to auscultation bilaterally (more content not included)... Normal [facility] XR Cervical spine AP and Lat eral and obliqueon 10-04-2020 IMPRESSION: No acute fracture or malalignment. C5-6 and C6-7 degenerative disc disease with osteophytic foraminal narrowing. Sports Coordinator: GILBERTO Transcribe Date/Time: Oct 04 2020 5:18P Dictated by : EMY ESTES MD This examination was interpreted and the report reviewed and electronically signed by: EMY ESTES MD on Oct 04 2020 5:21PM [facility] DIVISION OF RADIOLOGY * * *Final Report* * * DATE OF EXAM: Oct 04 2020 5:17PM [id number] [id number] - XR CERVICAL 4V AP/LAT/OBL / PROCEDURE REASON: Neck pain * * * * Physician Interpretation * * * * CERVICAL SPINE X-RAY SERIES CLINICAL HISTORY: Neck pain , stepped off curb and jerked her neck TECHNIQUE: AP, lateral, oblique views. COMPARISON: None available. RESULT: Alignment: Reversal of usual lordotic curvature in the mid cervical region. No subluxation or scoliosis. Bones: Vertebral bodies and the other included bony structures are negative. Intervertebral discs: Disc space narrowing and endplate osteophytes at C5-6 and C6-7 levels. Oblique views show moderate osteophytic foraminal encroachment bilaterally at both levels. Prevertebral soft tissues are within normal limits. DIVISION OF RADIOLOGY Provider, Lesley Abdi - 10/04/2020 * * *Final Report* * * DATE OF EXAM: Oct 04 2020 5:17PM [id number] [id number] - XR CERVICAL 4V AP/LAT/OBL / PROCEDURE REASON: Neck pain * * * * Physician Interpretation * * * * CERVICAL SPINE X-RAY SERIES CLINICAL HISTORY: Neck pain , stepped off curb and jerked her neck TECHNIQUE: AP, lateral, oblique views. COMPARISON: None available. RESULT: Alignment: Reversal of usual lordotic curvature in the mid cervical region. No subluxation or scoliosis. Bones: Vertebral bodies and the other included bony structures are negative. Intervertebral discs: Disc space narrowing and endplate osteophytes at C5-6 and C6-7 levels. Oblique views show moderate osteophytic foraminal encroachment bilaterally at both levels. Prevertebral soft tissues are within normal limits. IMPRESSION IMPRESSION: No acute fracture or malalignment. C5-6 and C6-7 degenerative disc disease with osteophytic foraminal narrowing. Sports Coordinator: PSCB Transcribe Date/Time: Oct 04 2020 5:18P Dictated by : EMY ESTES MD This examination was interpreted and the report reviewed and electronically signed by: EMY ESTES MD on Oct 04 2020 5:21PM EST [facility] Radiology Study observation (narrative) [facility] XR Cervical spine AP and Lat eral and obliqueOrdered By: [facility] Provider on 10-04-2020 [facility] Vital Signs Date Time Vital Sign Value Performing Clinician Facility 11-29-2024 09:18-0400 Body height 167.6 cm Shira Nicholas MD Work Phone: [facility] 11-29-2024 09:18-0400 Body mass index (BMI) [Ratio] 30.92 kg/m2 Shira Nicholas MD Work Phone: [facility] 11-29-2024 09:18-0400 Body weight 86.9 kg Shira Nicholas MD Work Phone: [facility] 11-29-2024 09:18-0400 Diastolic blood pressure 83 mm[Hg] Shira Nicholas MD Work Phone: [facility] 11-29-2024 09:18-0400 Heart rate 72 /min Shira Nicholas MD Work Phone: [facility] 11-29-2024 09:18-0400 Systolic blood pressure 132 mm[Hg] Shira Nicholas MD Work Phone: [facility] 08-23-2024 15:02-0400 Diastolic blood pressure 79 mm[Hg] Lula Roberta [employer]IRD [employer]OOK[employer] Work Phone: [facility] 08-23-2024 15:02-0400 Systolic blood pressure 117 mm[Hg] Lula Roberta [employer] Work Phone: [facility] 08-23-2024 15:00-0400 Body mass index (BMI) [Ratio] 30.74 kg/m2 Lula Roberta [employer] Work Phone: [facility] 08-23-2024 15:00-0400 Body temperature 99.61 [degF] Lula Roberta [employer] Work Phone: [facility] 08-23-2024 15:00-0400 Body weight 86.4 kg Lula Roberta [employer] Work Phone: [facility] 08-23-2024 15:00-0400 Heart rate 100 /min Lula Roberta [employer] Work Phone: [facility] 08-23-2024 15:00-0400 SaO2% (BldA) [Mass fraction] 98 % Lula Roberta [employer] Work Phone: [facility] 08-19-2024 10:22-0400 Body mass index (BMI) [Ratio] 31.06 kg/m2 Dorcas Carvajal [employer] Work Phone: [facility] 08-19-2024 10:22-0400 Body temperature 97.9 [degF] Dorcas Carvajal [employer] Work Phone: [facility] 08-19-2024 10:22-0400 Body weight 87.3 kg Dorcas Carvajal [employer] Work Phone: [facility] 08-19-2024 10:22-0400 Diastolic blood pressure 83 mm[Hg] Dorcas Carvajal [employer] Work Phone: [facility] 08-19-2024 10:22-0400 Heart rate 93 /min Dorcas Carvajal [employer] Work Phone: [facility] 08-19-2024 10:22-0400 Respiratory rate 18 /min Dorcas Carvajal [employer] Work Phone: [facility] 08-19-2024 10:22-0400 SaO2% (BldA) [Mass fraction] 98 % Dorcas Carvajal [employer] Work Phone: [facility] 08-19-2024 10:22-0400 Systolic blood pressure 163 mm[Hg] Dorcas Carvajal [employer] Work Phone: [facility] 06-15-2024 13:08-0500 Diastolic blood pressure 85 mm[Hg] Annabel Griggs THIRD COOK.K 12 PRINCIPAL Work Phone: [facility] Comment on above: bp average 06-15-2024 13:08-0500 Heart rate 87 /min Annabel Griggs [employer]K 12 PRINCIPAL Work Phone: [facility] 06-15-2024 13:08-0500 Systolic blood pressure 136 mm[Hg] Annabel Griggs TH[employer]K 12 PRINCIPAL Work Phone: [facility] Comment on above: bp average 06-15-2024 12:57-0500 Body mass index (BMI) [Ratio] 30.25 kg/m2 Annabel Griggs THIRD [employer].K 12 PRINCIPAL Work Phone: [facility] 06-15-2024 12:57-0500 Body weight 85 kg Annabel Griggs [employer]K 12 PRINCIPAL Work Phone: [facility] 06-15-2024 12:57-0500 Respiratory rate 16 /min Annabel Griggs TH[employer].K 12 PRINCIPAL Work Phone: [facility] 05-09-2024 14:02-0500 Diastolic blood pressure 84 mm[Hg] Annabel Griggs THIRD [employer].K 12 PRINCIPAL Work Phone: [facility] 05-09-2024 14:02-0500 Heart rate 78 /min Annabel Griggs [employer].K 12 PRINCIPAL Work Phone: [facility] 05-09-2024 14:02-0500 Systolic blood pressure 159 mm[Hg] Annabel Griggs TH[employer].K 12 PRINCIPAL Work Phone: [facility] 05-09-2024 14:01-0500 Body mass index (BMI) [Ratio] 30.78 kg/m2 Annabel Griggs [employer]K 12 PRINCIPAL Work Phone: [facility] 05-09-2024 14:01-0500 Body weight 86.5 kg Annabel Griggs [employer]K 12 PRINCIPAL Work Phone: [facility] 05-09-2024 14:01-0500 Respiratory rate 16 /min Annabel Griggs [employer]K 12 PRINCIPAL Work Phone: [facility] 03-20-2024 12:56-0400 Body mass index (BMI) [Ratio] 31.28 kg/m2 Annabel Griggs [employer]K 12 PRINCIPAL Work Phone: [facility] 03-20-2024 12:56-0400 Body weight 87.9 kg Annabel Griggs [employer]K 12 PRINCIPAL Work Phone: [facility] 03-20-2024 12:56-0400 Diastolic blood pressure 78 mm[Hg] Annabel Griggs TH[employer].K 12 PRINCIPAL Work Phone: [facility] 03-20-2024 12:56-0400 Heart rate 95 /min Annabel Griggs [employer]K 12 PRINCIPAL Work Phone: [facility] 03-20-2024 12:56-0400 Respiratory rate 16 /min Annabel Griggs [employer]K 12 PRINCIPAL Work Phone: [facility] 03-20-2024 12:56-0400 SaO2% (BldA) [Mass fraction] 99 % Annabel Griggs [employer]K 12 PRINCIPAL Work Phone: [facility] 03-20-2024 12:56-0400 Systolic blood pressure 137 mm[Hg] Annabel Griggs TH[employer].K 12 PRINCIPAL Work Phone: [facility] 11-08-2023 09:17-0400 Body mass index (BMI) [Ratio] 30.51 kg/m2 Shira Nicholas MD Work Phone: [facility] 11-08-2023 09:17-0400 Body temperature 98.4 [degF] Shira Nicholas MD Work Phone: [facility] 11-08-2023 09:17-0400 Body weight 85.73 kg Shira Nicholas MD Work Phone: [facility] 11-08-2023 09:17-0400 Diastolic blood pressure 77 mm[Hg] Shira Nicholas MD Work Phone: [facility] 11-08-2023 09:17-0400 Heart rate 70 /min Shira Nicholas MD Work Phone: [facility] 11-08-2023 09:17-0400 Respiratory rate 18 /min Shira Nicholas MD Work Phone: [facility] 11-08-2023 09:17-0400 SaO2% (BldA) [Mass fraction] 99 % Shira Nicholas MD Work Phone: [facility] 11-08-2023 09:17-0400 Systolic blood pressure 121 mm[Hg] Shira Nicholas MD Work Phone: [facility] 09-29-2023 14:47-0400 Diastolic blood pressure 90 mm[Hg] Lula Roberta [employer] Work Phone: [facility] 09-29-2023 14:47-0400 Systolic blood pressure 138 mm[Hg] Lula Roberta [employer] Work Phone: [facility] 09-29-2023 14:38-0400 Body mass index (BMI) [Ratio] 30.34 kg/m2 Lula Roberta [employer] Work Phone: [facility] 09-29-2023 14:38-0400 Body weight 85.28 kg Lula Roberta [employer] Work Phone: [facility] 09-29-2023 14:38-0400 Heart rate 84 /min Lula Roberta [employer] Work Phone: [facility] 09-29-2023 14:38-0400 SaO2% (BldA) [Mass fraction] 99 % Lula Roberta [employer] Work Phone: [facility] 05-11-2023 15:40-0500 Body temperature 98.4 [degF] Annabel Griggs [employer]K 12 PRINCIPAL Work Phone: [facility] 05-11-2023 15:40-0500 Body weight 85.73 kg Annabel Griggs [employer]K [employer] PRINCIPAL Work Phone: [facility] 05-11-2023 15:40-0500 Diastolic blood pressure 84 mm[Hg] Annabel Griggs [employer]K [employer] PRINCIPAL Work Phone: [facility] 05-11-2023 15:40-0500 Heart rate 80 /min Annabel Griggs [employer]K [employer]INCIPAL Work Phone: [facility] 05-11-2023 15:40-0500 Respiratory rate 16 /min Annabel Griggs [employer]K [employer] PRINCIPAL Work Phone: [facility] 05-11-2023 15:40-0500 Systolic blood pressure 139 mm[Hg] Annabel Griggs [employer]K 12 PRINCIPAL Work Phone: [facility] 03-23-2023 12:40-0400 Body temperature 98.01 [degF] Nahomi Praisler-Wood [employer] Work Phone: [facility] 03-23-2023 12:40-0400 Body weight 88.81 kg Nahomi Praisler-Wood [employer] Work Phone: [facility] 03-23-2023 12:40-0400 Diastolic blood pressure 82 mm[Hg] Nahomi Praisler-Wood [employer] Work Phone: [facility] 03-23-2023 12:40-0400 Heart rate 102 /min Nahomi Praisler-Wood [employer] Work Phone: [facility] 03-23-2023 12:40-0400 Respiratory rate 18 /min Nahomi Praisler-Wood [employer] Work Phone: [facility] 03-23-2023 12:40-0400 SaO2% (BldA) [Mass fraction] 100 % Nahomi Praisler-Wood [employer] Work Phone: [facility] 03-23-2023 12:40-0400 Systolic blood pressure 142 mm[Hg] Nahomi Praisler-Wood [employer] Work Phone: [facility] 11-06-2022 08:49-0400 Body temperature 99 [degF] Shira Nicholas MD Work Phone: [facility] 11-06-2022 08:49-0400 Body weight 84.37 kg Shira Nicholas MD Work Phone: [facility] 11-06-2022 08:49-0400 Diastolic blood pressure 84 mm[Hg] Shira Nicholas MD Work Phone: [facility] 11-06-2022 08:49-0400 Heart rate 96 /min Shira Nicholas MD Work Phone: [facility] 11-06-2022 08:49-0400 Respiratory rate 18 /min Shira Nicholas MD Work Phone: [facility] 11-06-2022 08:49-0400 SaO2% (BldA) [Mass fraction] 98 % Shira Nicholas MD Work Phone: [facility] 11-06-2022 08:49-0400 Systolic blood pressure 136 mm[Hg] Shira Nicholas MD Work Phone: [facility] 05-08-2022 14:33-0500 Body weight 82.56 kg Annabel Griggs THIRD COOK.K 12 PRINCIPAL Work Phone: [facility] 05-08-2022 14:33-0500 Diastolic blood pressure 88 mm[Hg] Annabel Griggs [employer]IRD COOK.K 12 PRINCIPAL Work Phone: [facility] 05-08-2022 14:33-0500 Heart rate 84 /min Annabel Griggs THIRD COOK.K 12 PRINCIPAL Work Phone: [facility] 05-08-2022 14:33-0500 Respiratory rate 16 /min Annabel Griggs THIRD COOK.K 12 PRINCIPAL Work Phone: [facility] 05-08-2022 14:33-0500 Systolic blood pressure 130 mm[Hg] Annabel Griggs THIRD COOK.K 12 PRINCIPAL Work Phone: [facility] 04-12-2022 09:37-0500 Body height 167.[address] [facility] Work Phone: 04-12-2022 09:37-0500 Body mass index (BMI) [Ratio] 27.4 kg/m2 [facility] Work Phone: 04-12-2022 09:37-0500 Body temperature 97.8 [degF] [facility] Work Phone: 04-12-2022 09:37-0500 Body weight 77.[address] [facility] Work Phone: 04-12-2022 09:37-0500 Diastolic blood pressure 93 mm[Hg] [facility] Work Phone: 04-12-2022 09:37-0500 Heart rate 89 /min [facility] Work Phone: 04-12-2022 09:37-0500 Respiratory rate 18 /min [facility] Work Phone: 04-12-2022 09:37-0500 SaO2% (BldA) [Mass fraction] 96 % [facility] Work Phone: 04-12-2022 09:37-0500 Systolic blood pressure 155 mm[Hg] [facility] Work Phone: 11-04-2021 17:20-0400 Body weight 84.37 kg Shira Nicholas MD Work Phone: [facility] 11-04-2021 17:20-0400 Diastolic blood pressure 82 mm[Hg] Shira Nicholas MD Work Phone: [facility] 11-04-2021 17:20-0400 Heart rate 85 /min Shira Nicholas MD Work Phone: [facility] 11-04-2021 17:20-0400 SaO2% (BldA) [Mass fraction] 96 % Shira Nicholas MD Work Phone: [facility] 11-04-2021 17:20-0400 Systolic blood pressure 136 mm[Hg] Shira Nicholas MD Work Phone: [facility] Encounters Encounter Date Encounter Type Care Provider Facility Start: 11-29-2024 End: 11-29-2024 Office outpatient visit 25 minutes Shira Nicholas MD Work Phone: [facility] [place] Comment on above: Primary hypertension (Primary Dx); Hypokalemia; Elevated LDL cholesterol level; Elevated glucose; Contusion of coccyx, sequela; Class 1 obesity due to excess calories with body mass index (BMI) of 30.0 to 30.9 in adult, unspecified whether serious comorbidity present; Encounter for screening examination for other mental health and behavioral disorders; Screening for depression; Asymptomatic menopause; Screening for colon cancer; Encounter for screening mammogram for breast cancer; Encounter for immunization; Immunity status testing Start: 11-29-2024 End: 11-29-2024 Patient encounter status Shira Nicholas MD Work Phone: [facility] Start: 11-29-2024 End: 11-29-2024 ambulatory SHIRA NICHOLAS Facility:[facility] Start: 11-29-2024 Encounter for antibo dy response examination SHIRA NICHOLAS [facility] Start: 11-13-2024 End: 11-13-2024 Refill Shira Nicholas MD Work Phone: [facility] [place] Comment on above: Refill Request Start: 11-03-2024 End: 11-03-2024 Refill Lula Hayes APRN.CNP Work Phone: [facility] [place] Comment on above: Refill Request Start: 10-31-2024 End: 12-01-2024 ambulatory Shira Nicholas MD Work Phone: [facility] [place] Start: 10-28-2024 End: 10-31-2024 Refill Shira Nicholas MD Work Phone: [facility] [place] Comment on above: Refill Request Start: 09-01-2024 End: 09-22-2024 ambulatory Shira Nicholas MD Work Phone: [facility] [place] Comment on above: vaccinations Start: 08-23-2024 End: 08-23-2024 Patient encounter procedure Lula Hayes THIRD COOK.[employer]ING U[employer] Work Phone: [facility] [place] Comment on above: Dysuria (Primary Dx) ; Frequent UTI; Antibiotic-induced yeast infection Start: 08-23-2024 End: 08-23-2024 ambulatory LULA HAYES Facility:[facility] Start: 08-20-2024 End: 10-20-2024 Follow-up encounter Dorcas Carvajal APRN.SPRING UPHOLSTERER Work Phone: [facility] Comment on above: Results; Patient Upd ate Start: 08-19-2024 End: 08-19-2024 ambulatory SHIRA NICHOLAS Facility:[facility] Start: 08-19-2024 End: 08-19-2024 Patient encounter procedure Dorcas Carvajal THIRD COOK.[employer]ING UPHOL[employer]ER Work Phone: [facility] Comment on above: Urgency of urination (Primary Dx) Start: 08-18-2024 End: 08-18-2024 Telephone encounter Shira Nicholas MD Work Phone: [facility] [place] Comment on above: UTI s/s Start: 06-15-2024 End: 06-15-2024 ambulatory [facility] Facility:[facility] Start: 06-15-2024 End: 06-15-2024 Office outpatient visit 15 minutes Annabel Griggs THIRD COOK.K 12 PRINCIPAL Work Phone: [facility] [place] Comment on above: Primary hypertension (Primary Dx) Start: 05-09-2024 End: 05-09-2024 Office outpatient visit 25 minutes Annabel Griggs THIRD COOK.K 12 PRINCIPAL Work Phone: [facility] [place] Comment on above: Screening for depres paulina (Primary Dx); Encounter for screening examination for other mental health and behavioral disorders; Encounter for immunization Start: 05-09-2024 End: 05-09-2024 ambulatory [facility] Facility:[facility] Start: 03-20-2024 End: 03-20-2024 Office outpatient visit 15 minutes Annabel Griggs THIRD COOK.K 12 PRINCIPAL Work Phone: [facility] [place] Comment on above: Sinobronchitis (Prim collins Dx); Acute otitis media, unspecified otitis media type; Excessive cerumen in ear canal, right Start: 03-20-2024 End: 03-20-2024 ambulatory [facility] Facility:[facility] Start: 12-01-2023 ambulatory Shira geiger MD Work Phone: [facility] [place] [id number] Start: 11-08-2023 End: 11-08-2023 Office outpatient visit 25 minutes Shira Nicholas MD Work Phone: [facility] [place] Comment on above: Primary hypertension (Primary Dx); IFG (impaired fasting glucose); Hypokalemia; Mixed hyperlipidemia; Screening for colon cancer Start: 10-18-2023 Telephone encounter Lula nance THIRD COOK.[employer]ING UPHOLSTERER Work Phone: [facility] [place] Comment on above: Results Start: 10-11-2023 Telephone encounter Lula Morales er THIRD COOK.SPRING UPHOL[employer]ER Work Phone: [facility] [place] Comment on above: Patient Update Start: 09-29-2023 End: 09-29-2023 Patient encounter procedure Lula Hayes THIRD COOK.[employer]ING UPH[employer]ER Work Phone: [facility] [place] Comment on above: Acute cystitis with hematuria (Primary Dx); Encounter for therapeutic drug monitoring; Elevated LDL cholesterol level; IFG (impaired fasting glucose); Screening for thyroid disorder Start: 09-28-2023 Refill Shira geiger MD Work Phone: [facility] [place] Comment on above: Refill Request Start: 05-27-2023 Telephone encounter Shira hu MD Work Phone: [facility] [place] Comment on above: Patient Question Start: 05-20-2023 Telephone encounter Annabel burgess THIRD COOK.K 12 PRINCIPAL Work Phone: [facility] [place] Comment on above: Patient Update Start: 05-11-2023 End: 05-11-2023 Office outpatient visit 25 minutes Annabel Griggs APRN.K 12 PRINCIPAL Work Phone: [facility] [place] Comment on above: Primary hypertension (Primary Dx); Elevated LDL cholesterol level; Hypopotassemia; Neck pain; Neck stiffness; Elevated glucose; Left ear pain Start: 03-29-2023 Telephone encounter Shira hu MD Work Phone: [facility] [place] Comment on above: Patient Question; Pa tient Update Start: 03-25-2023 Telephone encounter Doreen Narvaez APRN.SPRING UPHOLSTERER Work Phone: [facility] Comment on above: Results Start: 03-23-2023 End: 03-23-2023 Patient encounter procedure Nahomistephanie Moreland APRN.SPRING UPHOLSTERER Work Phone: [facility] Comment on above: Urgency of urination (Primary Dx) Start: 11-06-2022 End: 11-06-2022 Office outpatient visit 25 minutes Shira Nicholas MD Work Phone: [facility] [place] Comment on above: Primary hypertension (Primary Dx); Acute bronchitis, unspecified organism; Hypokalemia; Mixed hyperlipidemia; IFG (impaired fasting glucose); Encounter for immunization; Screening for colon cancer; Hypopotassemia; Acute gouty arthritis; Degenerative arthritis of thumb, left; Need for vaccine for DT (diphtheria-tetanus) Start: 10-27-2022 End: 10-27-2022 Subsequent hospital visit by physician Screen Mammo [facility] Comment on above: Encounter for screen ing mammogram for breast cancer [Z12.31] Start: 08-26-2022 ambulatory Shira geiger MD Work Phone: [facility] [place] Start: 05-08-2022 End: 05-08-2022 Office outpatient visit 25 minutes Annabel Griggs APRN.K 12 PRINCIPAL Work Phone: [facility] [place] Comment on above: Primary hypertension (Primary Dx); Elevated LDL cholesterol level; Hypopotassemia; COVID-19 virus infection; Screening for diabetes mellitus; Encounter for immunization; Screening for cervical cancer Start: 04-12-2022 ambulatory Yuki lawton RN NURSE [employer] Comment on above: Covid19 Concern Start: 04-12-2022 End: 04-12-2022 Emergency department patient visit Chris Fall Facility:[facility] Start: 04-12-2022 End: 04-12-2022 Emergency department patient visit [facility] Start: 04-10-2022 Telephone encounter Shira hu MD Work Phone: [facility] [place] Comment on above: Covid19 Concern Start: 04-10-2022 End: 04-10-2022 Office outpatient visit 15 minutes Irish Heart APRN.SPRING UPHOLSTERER Work Phone: [facility] Comment on above: COVID-19 (Primary Dx ) Start: 11-04-2021 End: 11-04-2021 Office outpatient visit 25 minutes Shira Nicholas MD Work Phone: [facility] [place] Comment on above: Hand arthritis (Prim collins Dx); Hypopotassemia; Essential hypertension; IFG (impaired fasting glucose); Mixed hyperlipidemia; Colon cancer screening Start: 10-15-2021 Refill Shira geiger MD Work Phone: [facility] [place] Comment on above: Refill Request Start: 09-11-2021 ambulatory Shira geiger MD Work Phone: [facility] [place] Comment on above: Second vivid booster Start: 09-10-2021 ambulatory Shira geiger MD Work Phone: [facility] [place] Start: 04-30-2021 Telephone encounter Shira hu MD Work Phone: [facility] [place] Comment on above: Results Start: 10-04-2020 End: 10-04-2020 Subsequent hospital visit by physician Pap[facility] Work Phone: Radiology Comment on above: Neck pain [M54.2] Procedures Date Procedure Procedure Detail Performing Clinician Start: 11-29-2024 Adult depression scr eening assessment Shira Nicholas MD Work Phone: Start: 08-23-2024 Urnls dip stick/tabl et rgnt auto w/o microscopy Lula Hayes THIRD COOK.[employer]ING UPH[employer]ER Work Phone: Start: 08-19-2024 Urnls dip stick/tabl et rgnt auto w/o microscopy Doreen Narvaez THIRD COOK.SPRING UPHOLSTERER Work Phone: Start: 11-05-2023 Lipid 1996 panel - S naila or Plasma Shira Nicholas MD Work Phone: Start: 09-29-2023 Urnls dip stick/tabl et rgnt auto w/o microscopy Lula Hayes THIRD COOK.SPRING UPHOLSTERER Work Phone: Start: 03-23-2023 Urnls dip stick/tabl et rgnt auto w/o microscopy Sarah Johnson PA-C Work Phone: Start: 10-27-2022 End: 10-27-2022 Mammography Bulk Order Provider Start: 05-08-2022 Lipid 1996 panel - S naila or Plasma Nahomi Moreland THIRD COOK.SPRING UPHOL[employer]ER Work Phone: Start: 11-03-2021 Adult depression scr eening assessment Shira Nicholas MD Work Phone: Start: 10-04-2020 Radex spine cervical 4 or 5 views Sarah Johnson PA-C Work Phone: Start: 09-24-2020 Adult depression scr eening assessment Shira Nicholas MD Work Phone: Start: 03-07-2019 Mammography Shira pardo MD Work Phone: Plan of Treatment Date Care Activity Detail Author Start: 2034 RSV Vaccine (1 - 1-d ose 75+ series) RSV Vaccine (1 - 1-dose 75+ series) [facility] Start: 11-06-2032 Urine microalbumin profile [facility] Start: 11-04-2028 Lipid panel Lipid Screening [facility] Start: 10-28-2027 HPV TESTING HPV TESTING [facility] Start: 10-28-2027 PAP TESTING PAP TESTING [facility] Start: 10-28-2027 Screening for malign ant neoplasm of cervix [facility] Start: 05-08-2027 Lipid 1996 panel - Serum or Plasma Lipid Screening [facility] Start: 05-08-2027 Lipid panel Lipid Screening [facility] Start: 05-08-2027 LIPID SCREEN LIPID SCREEN [facility] Start: 11-04-2026 Diabetes Screening Diabetes Screenin g [facility] Start: 11-29-2025 Annual PCP Team Black Belt quinton Disease Visit Annual PCP Team Chronic Disease Visit [facility] Start: 11-29-2025 Anxiety Screening Anxiety Screening [facility] Start: 11-29-2025 Depression Screening Depression Scre ening [facility] Start: 11-06-2025 DIABETES SCREEN DIABETES SCREEN [facility] Start: 11-06-2025 Diabetes Screening Diabetes Screenin g [facility] Start: 09-30-2025 LIPID SCREEN LIPID SCREEN [facility] Start: 08-23-2025 Annual PCP Team Black Belt quinton Disease Visit Annual PCP Team Chronic Disease Visit [facility] Start: 08-23-2025 BP Controlled (<130/80) BP Controlle d (<130/80) [facility] Start: 06-13-2025 End: 06-13-2025 Patient encounter procedure 06/13/2025 3:40 PM EST Office Visit [facility] [place] [address] [place] [id number] Shira Nicholas MD [address] [place] [id number] 6 month/Welcome to Medicare Wellness [facility] [place] Comment on above: 6 month/Welcome to riaz [facility] Start: 05-08-2025 DIABET[facility]CRE[facility] Start: 02-05-2025 Influenza vaccination Influenza Vacc ine (#1) [facility] Start: 11-29-2024 End: 02-28-2025 CBC panel - Blood by Automated count COMPLETE BLOOD COUNT Lab Routine Primary hypertension Expected: 11/29/2024, Expires: 02/28/2025 [facility] Comment on above: Expected: 11/29/2024 , Expires: 02/28/2025 Start: 11-29-2024 End: 02-28-2025 Comprehensive metabolic 2000 panel - Serum or Plasma COMPREHENSIVE METABOLIC PANEL Lab Routine Primary hypertension Hypokalemia Elevated glucose Expected: 11/29/2024, Expires: 02/28/2025 [facility] Work Phone: Comment on above: Expected: 11/29/2024 , Expires: 02/28/2025 Start: 11-29-2024 End: 02-28-2025 Hemoglobin A1c in Blood HEMOGLOBIN A1C Lab Routine Elevated glucose Expected: 11/29/2024, Expires: 02/28/2025 [facility] Comment on above: Expected: 11/29/2024 , Expires: 02/28/2025 Start: 11-29-2024 End: 02-28-2025 Lipid 1996 panel - Serum or Plasma LIPID PANEL, FASTING Lab Routine Elevated LDL cholesterol level Expected: 11/29/2024, Expires: 02/28/2025 [facility] Comment on above: Expected: 11/29/2024 , Expires: 02/28/2025 Start: 11-29-2024 End: 02-28-2025 Measles virus IgG Ab [Units/volume] in Serum MEASLES IGG ANTIBODY Lab Routine Immunity status testing Expected: 11/29/2024, Expires: 02/28/2025 [facility] Comment on above: Expected: 11/29/2024 , Expires: 02/28/2025 Start: 11-29-2024 End: 02-28-2025 MUMPS IGG AB MUMPS IGG AB Lab Routine Immunity status testing Expected: 11/29/2024, Expires: 02/28/2025 [facility] Comment on above: Expected: 11/29/2024 , Expires: 02/28/2025 Start: 11-29-2024 End: 02-28-2025 RUBELLA IGG ANTIBODY RUBELLA IGG ANTIBODY Lab Routine Immunity status testing Expected: 11/29/2024, Expires: 02/28/2025 [facility] Comment on above: Expected: 11/29/2024 , Expires: 02/28/2025 Start: 11-29-2024 End: 11-29-2024 Patient encounter procedure 11/29/2024 9:00 AM EDT Office Visit [facility] [place] [address] [place], [place] [id number] Shira Nicholas MD [address] [place], [place] [id number] 6 month follow up [facility] [place] Comment on above: 6 month follow up Start: 11-07-2024 Annual PCP Team Black Belt quinton Disease Visit Annual PCP Team Chronic Disease Visit [facility] Start: 11-07-2024 BP Controlled (<130/80) BP Controlle d (<130/80) [facility] Start: 09-28-2024 Annual PCP Team Black Belt quinton Disease Visit Annual PCP Team Chronic Disease Visit [facility] Start: 08-31-2024 Covid-19 Vaccine () Covid-19 Vaccine () [facility] Start: 2024 Advance Directive Discussion Advance Directive Discussion [facility] Start: 2024 Screening for osteoporosis Bone Density Screening [facility] Start: 07-08-2024 Medicare Annual Wellness Visit Medicare Annual Wellness Visit [facility] Start: 06-15-2024 End: 06-15-2024 Patient encounter procedure 06/15/2024 1:00 PM EST Office Visit [facility] [place] [address] [facility] [place] [address] Annabel Griggs, THIRD COOK.K 12 PRINCIPAL [address] [facility], [place] [id number] 1 month BP check [facility] [place] Comment on above: 1 month BP check Start: 05-09-2024 End: 05-09-2024 Patient encounter procedure 05/09/2024 2:00 PM EST Office Visit [facility] [place] [address] [facility] [place] [address] Annabel Griggs, THIRD COOK.K 12 PRINCIPAL [address] [place] [address] 6 month follow up [facility] [place] Comment on above: 6 month follow up Start: 04-16-2024 DIABETES SCREEN DIABETES SCREEN [facility] Start: 04-09-2024 End: 07-09-2024 Basic metabolic 2000 panel - Serum or Plasma BASIC METABOLIC PANEL Lab Routine Primary hypertension IFG (impaired fasting glucose) Expected: 04/09/2024 (Approximate), Expires: 07/09/2024 [facility] Comment on above: Expected: 04/09/2024 (Approximate), Expires: 07/09/2024 Start: 04-09-2024 End: 07-09-2024 Hemoglobin A1c in Blood HEMOGLOBIN A1C Lab Routine IFG (impaired fasting glucose) Expected: 04/09/2024 (Approximate), Expires: 07/09/2024 [facility] Comment on above: Expected: 04/09/2024 (Approximate), Expires: 07/09/2024 Start: 04-09-2024 End: 07-09-2024 Lipid 1996 panel - Serum or Plasma LIPID PANEL BASIC Lab Routine Mixed hyperlipidemia Expected: 04/09/2024 (Approximate), Expires: 07/09/2024 [facility] Comment on above: Expected: 04/09/2024 (Approximate), Expires: 07/09/2024 Start: 02-06-2024 Influenza vaccination Influenza Vacc ine (#1) [facility] Start: 11-08-2023 End: 11-08-2023 Patient encounter procedure 11/08/2023 9:00 AM EDT Office Visit [facility] [place] [address], [place] [id number] Shira Nicholas MD [address] [place], [place] [id number] 2023 giovanni [facility] [place] Comment on above: 2023 giovanni Start: 11-07-2023 ANNUAL PCP TEAM ACQUISITION LEAD QUINTON DISEASE VISIT ANNUAL PCP TEAM CHRONIC DISEASE VISIT [facility] Start: 11-07-2023 SHINGRIX VACCINE (1 of 2) SHINGRIX VACCINE (1 of 2) [facility] Comment on above: Postponed from 07/25 (Declined at this time) Start: 10-29-2023 End: 01-28-2024 CBC W Auto Differential panel - Blood COMPLETE BLOOD COUNT AND DIFFERENTIAL Lab Routine Encounter for therapeutic drug monitoring Expected: 10/29/2023, Expires: 01/28/2024 [facility] Comment on above: Expected: 10/29/2023 , Expires: 01/28/2024 Start: 10-29-2023 End: 01-28-2024 Comprehensive metabolic 2000 panel - Serum or Plasma COMPREHENSIVE METABOLIC PANEL Lab Routine Encounter for therapeutic drug monitoring Expected: 10/29/2023, Expires: 01/28/2024 [facility] Comment on above: Expected: 10/29/2023 , Expires: 01/28/2024 Start: 10-29-2023 End: 01-28-2024 Hemoglobin A1c in Blood HEMOGLOBIN A1C Lab Routine IFG (impaired fasting glucose) Expected: 10/29/2023, Expires: 01/28/2024 [facility] Comment on above: Expected: 10/29/2023 , Expires: 01/28/2024 Start: 10-29-2023 End: 01-28-2024 Lipid 1996 panel - Serum or Plasma LIPID PANEL BASIC Lab Routine Elevated LDL cholesterol level Expected: 10/29/2023, Expires: 01/28/2024 [facility] Comment on above: Expected: 10/29/2023 , Expires: 01/28/2024 Start: 10-29-2023 End: 01-28-2024 Thyrotropin [Units/volume] in Serum or Plasma THYROID STIMULATING HORMONE Lab Routine Screening for thyroid disorder Expected: 10/29/2023, Expires: 01/28/2024 [facility] Comment on above: Expected: 10/29/2023 , Expires: 01/28/2024 Start: 10-28-2023 Mammography [facility] Start: 10-28-2023 Screening for malign ant neoplasm of breast Mammogram Screening [facility] Start: 10-06-2023 End: 01-05-2024 Bacteria identified in Urine by Culture URINE CULTURE Microbiology Routine Acute cystitis with hematuria Expected: 10/06/2023, Expires: 01/05/2024 [facility] Comment on above: Expected: 10/06/2023 , Expires: 01/05/2024 Start: 10-06-2023 End: 01-05-2024 Urinalysis complete panel - Urine URINALYSIS, WITH MICROSCOPIC Lab Routine Acute cystitis with hematuria Expected: 10/06/2023, Expires: 01/05/2024 [facility] Comment on above: Expected: 10/06/2023 , Expires: 01/05/2024 Start: 06-07-2023 Behavioral Health Screening Behavioral Health Screening [facility] Start: 05-11-2023 End: 08-10-2023 Comprehensive metabolic 2000 panel - Serum or Plasma COMP METABOLIC PANEL Lab Routine Primary hypertension Hypopotassemia Expected: 05/11/2023, Expires: 08/10/2023 [facility] Work Phone: Comment on above: Expected: 05/11/2023 , Expires: 08/10/2023 Start: 05-11-2023 End: 08-10-2023 Hemoglobin A1c in Blood HGB A1C Lab Routine Primary hypertension Elevated glucose Expected: 05/11/2023, Expires: 08/10/2023 [facility] Work Phone: Comment on above: Expected: 05/11/2023 , Expires: 08/10/2023 Start: 05-11-2023 End: 08-10-2023 Lipid 1996 panel - Serum or Plasma LIPID PANEL BASIC Lab Routine Primary hypertension Elevated LDL cholesterol level Expected: 05/11/2023, Expires: 08/10/2023 [facility] Work Phone: Comment on above: Expected: 05/11/2023 , Expires: 08/10/2023 Start: 05-08-2023 BP CONTROLLED (<130/80) BP CONTROLLE D (<130/80) [facility] Start: 04-10-2023 ANNUAL PCP TEAM ACQUISITION LEAD QUINTON DISEASE VISIT ANNUAL PCP TEAM CHRONIC DISEASE VISIT [facility] Start: 02-05-2023 Covid-19 Vaccine ( season) Covid-19 Vaccine ( season) [facility] Start: 02-05-2023 Influenza vaccination C [facility] Start: 11-06-2022 End: 01-06-2023 COLOGUARD COLOGUARD Lab Routine Screening for colon cancer Expected: 11/06/2022, Expires: 01/06/2023 [facility] Work Phone: Comment on above: Expected: 11/06/2022 , Expires: 01/06/2023 Start: 11-04-2022 ANNUAL PCP TEAM ACQUISITION LEAD QUINTON DISEASE VISIT ANNUAL PCP TEAM CHRONIC DISEASE VISIT [facility] Start: 11-03-2022 Adult depression screening assessment DEPRESSION SCREENING [facility] Start: 09-05-2022 Urine microalbumin profile DTAP,TDAP,TD (2 - Td or Tdap) [facility] Start: 06-08-2022 SHINGRIX VACCINE (1 of 2) SHINGRIX VACCINE (1 of 2) [facility] Comment on above: Postponed from 07/25 (Insurance Coverage) Start: 06-07-2022 DEPRESSION ASSESSMENT DEPRESSION ASS ESSMENT [facility] Start: 05-08-2022 End: 07-08-2022 Comprehensive metabolic 2000 panel - Serum or Plasma [facility] Work Phone: Comment on above: Expected: 05/08/2022 , Expires: 07/08/2022 Start: 05-08-2022 End: 07-08-2022 Hemoglobin A1c in Blood [facility] Work Phone: Comment on above: Expected: 05/08/2022 , Expires: 07/08/2022 Start: 05-08-2022 End: 07-08-2022 LIPID PANEL, NONFASTING [facility] Work Phone: Comment on above: Expected: 05/08/2022 , Expires: 07/08/2022 Start: 04-16-2022 ANNUAL PCP TEAM ACQUISITION LEAD QUINTON DISEASE VISIT ANNUAL PCP TEAM CHRONIC DISEASE VISIT [facility] Start: 04-16-2022 BP CONTROLLED (<130/80) BP CONTROLLE D (<130/80) [facility] Start: 04-16-2022 SHINGRIX VACCINE (1 of 2) SHINGRIX VACCINE (1 of 2) [facility] Comment on above: Postponed from 07/25 (Declined at this time) Start: 02-05-2022 Influenza vaccination INFLUENZA (#1) [facility] Start: 11-04-2021 End: 01-04-2022 CBC panel - Blood by Automated count CBC Lab Routine Essential hypertension Expected: 11/04/2021, Expires: 01/04/2022 [facility] Work Phone: Comment on above: Expected: 11/04/2021 , Expires: 01/04/2022 Start: 11-04-2021 End: 01-04-2022 Comprehensive metabolic 2000 panel - Serum or Plasma COMP METABOLIC PANEL Lab Routine Essential hypertension IFG (impaired fasting glucose) Mixed hyperlipidemia Expected: 11/04/2021, Expires: 01/04/2022 [facility] Work Phone: Comment on above: Expected: 11/04/2021 , Expires: 01/04/2022 Start: 11-04-2021 End: 01-04-2022 Hemoglobin A1c/Hemoglobin.total in Blood HGB A1C Lab Routine IFG (impaired fasting glucose) Expected: 11/04/2021, Expires: 01/04/2022 [facility] Work Phone: Comment on above: Expected: 11/04/2021 , Expires: 01/04/2022 Start: 11-04-2021 End: 01-04-2022 LIPID PANEL BASIC LIPID PANEL BASIC Lab Routine Mixed hyperlipidemia Expected: 11/04/2021, Expires: 01/04/2022 [facility] Work Phone: Comment on above: Expected: 11/04/2021 , Expires: 01/04/2022 Start: 09-30-2021 COLORECTAL CANCER SCREENING COLORECTAL CANCER SCREENING [facility] Comment on above: Postponed from 07/25 (Declined at this time) Start: 09-24-2021 Adult depression screening assessment DEPRESSION SCREENING [facility] Start: 07-15-2021 COVID-19 VACCINE (4 - Booster for Pfizer series) COVID-19 VACCINE (4 - Booster for Pfizer series) [facility] Start: 06-07-2021 DEPRESSION ASSESSMENT DEPRESSION ASS ESSMENT [facility] Start: 04-14-2021 HPV TESTING HPV TESTING [facility] Start: 04-14-2021 PAP TESTING PAP TESTING [facility] Start: 03-07-2020 Mammography MAMMOGRAM [facility] Start: 02-29-2020 BP CONTROLLED (<130/80) BP CONTROLLE D (<130/80) [facility] Start: 2019 RSV Vaccine (1 - 1-d ose 60+ series) RSV Vaccine (1 - 1-dose 60+ series) [facility] Start: 2009 Pneumococcal Vaccine : 50+ (1 of 1 - PCV) Pneumococcal Vaccine: 50+ (1 of 1 - PCV) [facility] Start: 2009 SHINGRIX VACCINE (1 of 2) SHINGRIX VACCINE (1 of 2) [facility] Start: 2004 COLOGUARD (FIT-DNA) COLOGUARD (FIT-D NA) [facility] Start: 2004 Colonoscopy COLONOSCOPY [facility] Start: 2004 COLORECTAL CANCER SCREENING COLORECTAL CANCER SCREENING [facility] Start: [address] COLONOGRAPHY [facility] Start: 2004 FECAL OCCULT BLOOD FECAL OCCULT BLOO D [facility] Start: 2004 Screening for malign ant neoplasm of colon [facility] Start: 2004 SIGMOIDOSCOPY SIGMOIDOSCOPY [facility] Start: 1977 Anxiety Screening Anxiety Screening [facility] Start: 1977 Depression Screening Depression Scre ening [facility] Bacteria identified in Urine by Culture URINE CULTURE Microbiology Routine Urgency of urination Ordered: 03/23/2023 [facility] Work Phone: Comment on above: Ordered: 03/23/2023 Bacteria identified in Urine by Culture URINE CULTURE Microbiology Routine Acute cystitis with hematuria 09/29/2023 3:15 PM EDT [facility] Bacteria identified in Urine by Culture BACTERIAL CULTURE, URINE Microbiology Routine Urgency of urination Ordered: 08/19/2024 [facility] Work Phone: Comment on above: Ordered: 08/19/2024 End: 04-30-2022 Basic metabolic 2000 panel - Serum or Plasma BASIC METABOLIC PNL Lab Routine Hypopotassemia 1 Occurrences starting 04/30/2021 until 04/30/2022 [facility] Work Phone: Comment on above: 1 Occurrences starti ng 04/30/2021 until 04/30/2022 End: 12-29-2025 BD DXA TRABECULAR BONE SCORE (TBS) BD DXA TRABECULAR BONE SCORE (TBS) Radiology Routine Asymptomatic menopause 1 Occurrences starting 11/29/2024 until 12/29/2025 [facility] Comment on above: 1 Occurrences starti ng 11/29/2024 until 12/29/2025 End: 11-06-2023 CBC panel - Blood by Automated count CBC Lab Routine Primary hypertension Every 6 months for 3 Occurrences starting 11/06/2022 until 11/06/2023, 1 completed [facility] Work Phone: Comment on above: Every 6 months for 3 Occurrences starting 11/06/2022 until 11/06/2023, 1 completed COLOGUARD COLOGUARD Lab Ro utine Colon cancer screening Ordered: 11/04/2021 [facility] Work Phone: Comment on above: Ordered: 11/04/2021 COLOGUARD COLOGUARD Lab Ro utine Screening for colon cancer Ordered: 11/08/2023 [facility] Work Phone: Comment on above: Ordered: 11/08/2023 COLOGUARD COLOGUARD Lab Ro utine Screening for colon cancer Ordered: 11/29/2024 [facility] Comment on above: Ordered: 11/29/2024 End: 11-06-2023 Comprehensive metabolic 2000 panel - Serum or Plasma COMP METABOLIC PANEL Lab Routine Primary hypertension Hypokalemia Every 6 months for 3 Occurrences starting 11/06/2022 until 11/06/2023, 1 completed [facility] Work Phone: Comment on above: Every 6 months for 3 Occurrences starting 11/06/2022 until 11/06/2023, 1 completed End: 12-30-2024 DBT Breast - bilateral screening CARLOS SCREENING W SHANNAN Radiology Routine Encounter for screening mammogram for breast cancer 1 Occurrences starting 12/01/2023 until 12/30/2024 [facility] Work Phone: Comment on above: 1 Occurrences starti ng 12/01/2023 until 12/30/2024 End: 11-30-2025 DBT Breast - bilateral screening CARLOS SCREENING W [facility] Radiology Routine Encounter for screening mammogram for breast cancer 1 Occurrences starting 10/31/2024 until 11/30/2025 [facility] Work Phone: Comment on above: 1 Occurrences starti ng 10/31/2024 until 11/30/2025 End: 12-29-2025 DBT Breast - bilateral screening CARLOS SCREENING W [facility] Radiology Routine Encounter for screening mammogram for breast cancer 1 Occurrences starting 11/29/2024 until 12/29/2025 [facility] Comment on above: 1 Occurrences starti ng 11/29/2024 until 12/29/2025 End: 12-29-2025 DXA Skeletal system.axial Views for bone density DXA-AXIAL SKELETON Radiology Routine Asymptomatic menopause 1 Occurrences starting 11/29/2024 until 12/29/2025 [facility] Comment on above: 1 Occurrences starti ng 11/29/2024 until 12/29/2025 End: 11-06-2023 Hemoglobin A1c in Blood HGB A1C Lab Routine IFG (impaired fasting glucose) Every 6 months for 3 Occurrences starting 11/06/2022 until 11/06/2023, 1 completed [facility] Work Phone: Comment on above: Every 6 months for 3 Occurrences starting 11/06/2022 until 11/06/2023, 1 completed End: 11-06-2023 Lipid 1996 panel - Serum or Plasma LIPID PANEL BASIC Lab Routine Mixed hyperlipidemia Every 6 months for 3 Occurrences starting 11/06/2022 until 11/06/2023 [facility] Work Phone: Comment on above: Every 6 months for 3 Occurrences starting 11/06/2022 until 11/06/2023 End: 09-25-2023 CARLOS SCREENING CARLOS SCREENING Radiology Routine Encounter for screening mammogram for breast cancer 1 Occurrences starting 08/26/2022 until 09/25/2023 [facility] Work Phone: Comment on above: 1 Occurrences starti ng 08/26/2022 until 09/25/2023 Patient Education Coronavirus Di yuane 2019 (COVID-19): Overview [facility] Work Phone: Patient referral [facility] Work Phone: End: 10-10-2022 Screening mammography bi 2-view breast inc cad CARLOS SCREENING Radiology Routine Encounter for screening mammogram for breast cancer 1 Occurrences starting 09/10/2021 until 10/10/2022 [facility] Work Phone: Comment on above: 1 Occurrences starti ng 09/10/2021 until 10/10/2022 UA DIP B/O UA DIP B/O Lab R outine Acute cystitis with hematuria Ordered: 09/29/2023 [facility] Work Phone: Comment on above: Ordered: 09/29/2023 [facility] Immunizations Immunization Date Immunization Notes Care Provider [facility] 11-29-2024 pneumococcal conjuga te (PCV20) vaccine, 20 valent (PREVNAR 20) Shira Nicholas MD Work Phone: [facility] 11-29-2024 pneumococcal Conjuga te, unspecified formulation Shira Nicholas MD Work Phone: [facility] 04-07-2024 influenza, injectabl e, madin mini canine kidney, preservative free Annabel Griggs THIRD [employer]OOK.K [employer] PRINCIPAL Work Phone: [facility] 04-07-2024 influenza virus vaccine, unspecified formulation Shira Nicholas MD Work Phone: [facility] 03-03-2024 COVID-19 vaccine, ag e 12+ yr (Linux [employer] [facility]) Annabel Griggs THIRD COOK.K 12 PRINCIPAL Work Phone: [facility] 04-23-2023 Influenza, injectabl e, Madin Mini Canine Kidney, preservative free, quadrivalent Shira Nicholas MD Work Phone: [facility] 04-23-2023 influenza virus vaccine, unspecified formulation Shira Nicholas MD Work Phone: [facility] 11-06-2022 tetanus and diphther ia toxoids, adsorbed, preservative free, for adult use (5 Lf of tetanus toxoid and 2 Lf of diphtheria toxoid) Shira Nicholas MD Work Phone: [facility] 11-06-2022 TD(adult) unspecifie d formulation Shira Nicholas MD Work Phone: [facility] Work Phone: 03-20-2022 influenza, seasonal, injectable Annabel Griggs THIRD [employer]OOK.K 12 PRINCIPAL Work Phone: [facility] Work Phone: 03-20-2022 influenza virus vaccine, unspecified formulation Nahomi Moreland THIRD COOK.SPRING UPHOLSTERER Work Phone: [facility] 04-07-2021 influenza, injectabl e, quadrivalent, contains preservative Shira Nicholas MD Work Phone: [facility] 08-15-2020 COVID-19 vaccine, ag e 12+ yr (PFIZER-BIONTECH - PURPLE TOP) Shira Nicholas MD Work Phone: [facility] Work Phone: 07-26-2020 COVID-19 vaccine, ag e 12+ yr (PFIZER-BIONTECH - PURPLE TOP) Shira Nicholas MD Work Phone: [facility] Work Phone: 02-29-2020 influenza, injectabl e, quadrivalent, preservative free Shira Nicholas MD Work Phone: [facility] Work Phone: 02-25-2019 influenza, injectabl e, quadrivalent, preservative free Shiar Nicholas MD Work Phone: [facility] Work Phone: 03-07-2018 influenza, injectabl e, quadrivalent, contains preservative Shira Nicholas MD Work Phone: [facility] 04-08-2015 influenza virus vaccine, whole virus Shira Nicholas MD Work Phone: [facility] Work Phone: 03-14-2014 influenza, seasonal, injectable Shira Nicholas MD Work Phone: [facility] 04-22-2013 influenza virus vaccine, unspecified formulation Shira Nicholas MD Work Phone: [facility] 09-05-2012 tetanus toxoid, redu julianne diphtheria toxoid, and acellular pertussis vaccine, adsorbed Shira Nicholas MD Work Phone: [facility] 03-26-2012 influenza virus vaccine, unspecified formulation Shira Nicholas MD Work Phone: [facility] Work Phone: 05-23-2010 influenza virus vaccine, unspecified formulation Shira Nicholas MD Work Phone: [facility] Work Phone: 03-28-2009 influenza virus vaccine, unspecified formulation Shira Nicholas MD Work Phone: [facility] Work Phone: 04-12-2007 influenza virus vaccine, unspecified formulation Shira Nicholas MD Work Phone: [facility] Work Phone: 04-06-2006 influenza virus vaccine, unspecified formulation Shira Nicholas MD Work Phone: [facility] 06-08-2003 tetanus and diphther ia toxoids, adsorbed, preservative free, for adult use (2 Lf of tetanus toxoid and 2 Lf of diphtheria toxoid) Shira Nicholas MD Work Phone: [facility] Work Phone: 09-16-1969 measles, mumps and rubella virus vaccine Shira Nicholas MD Work Phone: [facility] Payers Date Payer Category Payer Medicare MEDICARE [id number] 2024 Medicare [id number] 2022 [employer] ( and others) [id number] 2022 Self-pay 2021 Government (not [facility] care or Medicaid) [id number] 2021 Unknown EAST [id number] 2021-Present [phone] [address] [place] [address] Indemnity [id number] 2021 [employer] ( and others) [id number] 2017 Unknown EAST [id number] 2017-Present [phone] [address] [place] [address] Indemnity [id number] Private Health Insurance [employer] OTHER [id number] [id number] Unknown MELANIEEM [id number] Unknown [id number] Social History Date Type Detail Facility Start: 07-12-2012 End: 05-08-2022 Tobacco smoking status NHIS Ex-smoker [facility] Start: 04-29-2021 End: 11-29-2024 Alcohol intake Current drinker of alcohol (finding) [facility] Start: 12-02-2019 End: 05-04-2022 History SDOH Alcohol Frequency 2 [facility] Start: 12-02-2019 End: 04-10-2022 History SDOH Alcohol Std Drinks 1 [facility] Start: 04-13-2007 History SDOH Alcohol Comment Seldom [facility] Start: 09-01-2019 End: 05-04-2022 History SDOH Social Connections Phone 5 [facility] Start: 03-30-2020 End: 05-04-2022 History SDOH Social Connections Get Together 98 [facility] Start: 09-01-2019 End: 05-04-2022 History SDOH Social Connections Taoist 3 [facility] Start: 09-01-2019 Education 17 [facility] Start: 1960 Sex Assigned At Female [facility] Start: 03-17-2021 End: 04-16-2021 Exposure to SARS-CoV-2 (event) Yes [facility] Start: 09-04-2020 End: 05-08-2022 Exposure to SARS-CoV-2 (event) Not sure [facility] History of tobacco use Current smoker [employer] [facility] Start: 07-12-2012 End: 05-08-2022 Tobacco use and exposure Smokeless tobacco non-user [facility] Start: 04-12-2022 Tobacco smoking status NHIS Unknown if ever smoked [facility] Work Phone: Start: 05-04-2022 History SDOH Financial 4 [facility] Start: 05-08-2022 Tobacco Comment quit in college [facility] Start: 05-04-2022 End: 10-27-2022 History of Social function [facility] Start: 05-04-2022 End: 10-27-2022 Social connection and isolation panel [facility] How often do you att end meetings of the clubs or organizations you belong to? Patient refused [facility] Are you now , , , , never or living with a partner? [facility] How often to you hav e a drink containing alcohol? Monthly or less [facility] How many standard dr inks containing alcohol do you have on a typical day? 1 or 2 [facility] How often do you hav e 6 or more drinks on 1 occasion? Never [facility] How hard is it for y ou to pay for the very basics like food, housing, medical care, and heating Not very hard [facility] Do you feel stress - tense, restless, nervous, or anxious, or unable to sleep at night because your mind is troubled all the time - these days [OSQ] Only a little [facility] (I/We) worried izaiah er (my/our) food would run out before (I/we) got money to buy more. Never true [facility] In the past 12 month s, was there a time when you were not able to pay the mortgage or rent on time? No [facility] Start: 03-07-2018 Gender identity Identifies as female gender (finding) [facility] Start: 03-07-2018 Sexual orientation Heterosexual (finding) [facility] Do you feel stress - tense, restless, nervous, or anxious, or unable to sleep at night because your mind is troubled all the time - these days [OSQ] To some extent [facility] Functional Status Date Assessment Result Facility 11-06-2014 Are you deaf, or do you have serious difficulty hearing No 11/06/2014 2:32 PM EDT Lore Selby Ma No [facility] 11-06-2014 Are you blind, or do you have serious difficulty seeing, even when wearing glasses No 11/06/2014 2:32 PM EDT Lore [facility]by Ma No [facility] 11-06-2014 Do you have serious difficulty walking or climbing stairs No 11/06/2014 2:32 PM EDT Lore Selby Ma No [facility] 11-06-2014 Do you have difficul ty dressing or bathing No 11/06/2014 2:32 PM EDT Lore Selby Ma No [facility] 11-06-2014 Because of a physica l, mental, or emotional condition, do you have difficulty doing errands alone such as visiting a physician's office or shopping No 11/06/2014 2:32 PM EDT Lore Selby Ma No [facility] Mental Status Date Assessment Result Facility 11-06-2014 Because of a physica l, mental, or emotional condition, do you have serious difficulty concentrating, remembering, or making decisions No 11/06/2014 2:32 PM EDT Lore Selby Ma No [facility] Clinical Notes 03-09-2006 to 11-29-2024 Patient InstructionsShira Nicholas MD - 11/29/2024 9:34 AM EDTTelephone Encounter - Loren Cardenas MA - 11/13/2024 11:25 AM EDTCLula bloom APRN.CNP - 08/23/2024 3:05 PM EDT Note Date & Type Note Facility 11-29-2024 Instructions Shira Nicholas MD - 11/29/2024 9:51 AM EDT - Schedule and complete your annual fasting blood tests (cholesterol panel, blood count, blood sugar/A1c, thyroid function, potassium); fast for 8-10 hours beforehand and avoid eating sugary foods right before the draw. - Arrange a measles, mumps, and rubella (MMR) titer blood test to confirm your immunity. - Schedule a bone density (DEXA) screening; you may have it done the same day as your mammogram. - Arrange your mammogram as ordered. - Complete and return the new Cologuard kit for colon cancer screening once it arrives. - Get your pneumonia vaccine today in the clinic or at your pharmacy--whichever is most convenient. - Aim for at least 30 minutes of aerobic exercise on most days of the week (five days if possible). - Limit processed sugars and high-fructose foods; focus on fresh fruits, vegetables, and lean proteins, and reduce overall carbohydrate intake. - Take care on stairs and uneven surfaces to prevent falls--shuffle your feet and watch where you step. Measles Vaccine Recommendations for Adults Many [place] adults are already protected against measles infection. You are protected from measles if: You were born before 1956, OR You have tested positive for immunity to measles from a blood test, OR You have vaccine records showing you got the measles vaccine after your 1st birthday. Consider sending your doctor a copy of your vaccine records so that they can be entered into your Epic chart Most adults only need 1 measles vaccine for life-long protection. People working in health care, traveling outside the country, or attending certain education and training programs need 2 doses of measles vaccine A blood test for immunity to measles is not needed if you have written documentation that you got a measles vaccine If you were vaccinated between 1962 in 1967, you may not be fully protected. Talk to your provider about need for vaccination or lab testing If you are not protected from measles, you should receive 1 dose of the [id number] (MMR) vaccine. It is not necessary to test your blood for measles immunity before you get the vaccine. This can be done at your doctor's office or at a pharmacy in your community The MMR vaccine is covered by insurance. People with Medicare need to get MMR at the pharmacy You should not receive the MMR vaccine if you are or have a weakened immune system BONE MINERAL DENSITY PATIENT INSTRUCTIONS ======== Bone mineral density testing measures the amount of calcium in certain parts of your bones. This information determines how strong your bones are. The test is used to detect osteoporosis, a disease in which the bone's mineral content and density are low, increasing a person's risk of fractures. The lumbar spine (lower back) and the hip are the skeletal sites usually examined. For the test, remember that: 1. You cannot take this test if you are . 2. Eat a normal diet on the day of the test. 3. Take your medications as you normally would. 4. DO NOT take calcium supplements (such as Tums) for 24 hours before the test. 5. On the day of the test, leave valuables (jewelry or credit cards) at home. 6. The test should be performed prior to oral, rectal or IV contrast studies, or at least 7 days after any of these studies. For the test, you may be asked to wear a hospital gown. You will lie on your back, on a padded table, in a comfortable position. Generally, you can resume your usual activities immediately. documented in this encounter [facility] 11-29-2024 Note HNO ID: [id number] Author: SHIRA NICHOLAS MD Service: ? Author Type: Physician Type: Progress Notes Filed: 12/26/2024 01:25 Note Text: This note was created using Zifyriter. Subjective Yuki Norton is a 64 year old female. SUBJECTIVE: PAST MEDICAL HISTORY Diagnosis Date GERD (gastroesophageal reflux disease) hypertension Hypopotassemia Current Outpatient Medications Medication Sig chlorthalidone (HYGROTON) 50 mg tablet Take 0.5 tablets by mouth once daily. potassium chloride ER (KLOR-CON) 20 mEq tablet Take 2 tablets by mouth two times a day. amLODIPine (NORVASC) 2.5 mg tablet Take 1 tablet by mouth once daily. diclofenac (VOLTAREN ARTHRITIS PAIN) 1 % topical gel Apply 2 g to affected area four times daily as needed. Omeprazole Magnesium 20 mg tablet Take 1 tablet by mouth as needed. 1/2 hr before meal. FA/MV,CA,IRON,MIN/LYCOPENE/LUT (MULTIVITAL ORAL) Take by mouth. Alive multivitamin +50 chlorthalidone (HYGROTON) 50 mg tablet Take 0.5 tablets by mouth once daily. (Patient not taking: Reported on 11/29/2024) No current facility-administered medications for this visit. Review of Systems Objective BP 132/83 Pulse 72 Ht 167.6 cm (5' 6) Wt 86.9 kg (191 lb 9.3 oz) LMP 02/06/2009 BMI 30.92 kg/m? Last 5 Encounter Wt Readings: Date: Wt: 11/29/2024 86.9 kg (191 lb 9.3 oz) 08/23/2024 86.4 kg (190 lb 7.6 oz) 08/19/2024 87.3 kg (192 lb 7.4 oz) 06/15/2024 85 kg (187 lb 6.3 oz) 05/09/2024 86.5 kg (190 lb 11.2 oz) No waist measurement recorded Estimated body mass index is 30.92 kg/m? as calculated from the following: Height as of this encounter: 167.6 cm (5' 6). Weight as of this encounter: 86.9 kg (191 lb 9.3 oz). Last 5 Encounter BP Readings: Date: BP: 11/29/2024 132/83 08/23/2024 117/79 08/19/2024 163/83 06/15/2024 136/85[bp average[ 05/09/2024 159/84 Physical Exam Constitutional: Appearance: Normal appearance. HENT: Head: Normocephalic. Eyes: Conjunctiva/sclera: Conjunctivae normal. Cardiovascular: Rate and Rhythm: Normal rate and regular rhythm. Heart sounds: Normal heart sounds. Pulmonary: Effort: Pulmonary effort is normal. Breath sounds: Normal breath sounds. Musculoskeletal: Right lower leg: Edema (trace) present. Left lower leg: Edema (trace) present. Skin: General: Skin is warm and dry. Neurological: General: No focal deficit present. Mental Status: She is alert and oriented to person, place, and time. Psychiatric: Mood and Affect: Mood normal. Behavior: Behavior normal. Thought Content: Thought content normal. Judgment: Judgment normal. Assessment and Plan # Primary hypertension (I10) - Blood pressure reading today is 130 mmHg, which is within acceptable range for an office visit. - Continue current antihypertensive regimen. - Monitor blood pressure regularly at home. # Hypokalemia (E87.6) - Previous labs showed normal potassium levels. - Will monitor potassium levels with upcoming labs. # Elevated LDL cholesterol level (E78.00) - Previous labs showed elevated LDL cholesterol. - Ordered lipid panel to reassess cholesterol levels. - Discussed dietary modifications to reduce LDL levels, including reducing intake of saturated fats and increasing fiber intake. # Elevated glucose (R73.09) - Previous labs showed elevated glucose levels and A1c. - Ordered fasting glucose and A1c to reassess. - Educated on the importance of regular exercise (30 minutes of aerobic activity 5 days a week) and dietary modifications to prevent progression to diabetes. - Advised to avoid high-sugar foods and drinks, especially before lab tests. # Contusion of coccyx, sequela (S30.0XXS) - Patient reports significant improvement in coccyx pain following a fall six weeks ago; still experiencing mild soreness. - No further intervention required at this time. # Encounter for screening examination for other mental health and behavioral disorders (Z13.39) # Screening for depression (Z13.31) - Discussed recent situational stressors, including son's PTSD, anxiety disorder, and depression. - No current symptoms of depression or anxiety requiring treatment. - Will continue to monitor mental health status. # Asymptomatic menopause (Z78.0) - Discussed current status; no new symptoms reported. # Screening for colon cancer (Z12.11) - Ordered Cologuard test for colon cancer screening. # Encounter for screening mammogram for breast cancer (Z12.31) - Ordered screening mammogram. # Encounter for immunization (Z23) - Administered pneumonia vaccine. - Discussed shingles vaccine; advised to obtain at the pharmacy. # Immunity status testing (Z01.84) - Ordered MMR titers to assess immunity status. # Class 1 obesity due to excess calories with body mass index (BMI) of 30.0 to 30.9 in adult, unspecified whether serious comorbidity present (E66.811) - Current weight 190 lbs, BMI 30.0. - Discussed weight manag (more content not included)... [facility] 11-29-2024 History of Present illness Narrative This note was created using NoteWriter. Subjective Yuki Norton is a 64 year old female. SUBJECTIVE: PAST MEDICAL HISTORY Diagnosis Date GERD (gastroesophageal reflux disease) hypertension Hypopotassemia Current Outpatient Medications Medication Sig chlorthalidone (HYGROTON) 50 mg tablet Take 0.5 tablets by mouth once daily. potassium chloride ER (KLOR-CON) 20 mEq tablet Take 2 tablets by mouth two times a day. amLODIPine (NORVASC) 2.5 mg tablet Take 1 tablet by mouth once daily. diclofenac (VOLTAREN ARTHRITIS PAIN) 1 % topical gel Apply 2 g to affected area four times daily as needed. Omeprazole Magnesium 20 mg tablet Take 1 tablet by mouth as needed. 1/2 hr before meal. FA/MV,CA,IRON,MIN/LYCOPENE/LUT (MULTIVITAL ORAL) Take by mouth. Alive multivitamin +50 chlorthalidone (HYGROTON) 50 mg tablet Take 0.5 tablets by mouth once daily. (Patient not taking: Reported on 11/29/2024) No current facility-administered medications for this visit. Review of Systems Objective BP 132/83 Pulse 72 Ht 167.6 cm (5' 6) Wt 86.9 kg (191 lb 9.3 oz) LMP 02/06/2009 BMI 30.92 kg/m Last 5 Encounter Wt Readings: Date: Wt: 11/29/2024 86.9 kg (191 lb 9.3 oz) 08/23/2024 86.4 kg (190 lb 7.6 oz) 08/19/2024 87.3 kg (192 lb 7.4 oz) 06/15/2024 85 kg (187 lb 6.3 oz) 05/09/2024 86.5 kg (190 lb 11.2 oz) No waist measurement recorded Estimated body mass index is 30.92 kg/m as calculated from the following: Height as of this encounter: 167.6 cm (5' 6). Weight as of this encounter: 86.9 kg (191 lb 9.3 oz). Last 5 Encounter BP Readings: Date: BP: 11/29/2024 132/83 08/23/2024 117/79 08/19/2024 163/83 06/15/2024 136/85[bp average[ 05/09/2024 159/84 Physical Exam Constitutional: Appearance: Normal appearance. HENT: Head: Normocephalic. Eyes: Conjunctiva/sclera: Conjunctivae normal. Cardiovascular: Rate and Rhythm: Normal rate and regular rhythm. Heart sounds: Normal heart sounds. Pulmonary: Effort: Pulmonary effort is normal. Breath sounds: Normal breath sounds. Musculoskeletal: Right lower leg: Edema (trace) present. Left lower leg: Edema (trace) present. Skin: General: Skin is warm and dry. Neurological: General: No focal deficit present. Mental Status: She is alert and oriented to person, place, and time. Psychiatric: Mood and Affect: Mood normal. Behavior: Behavior normal. Thought Content: Thought content normal. Judgment: Judgment normal. Assessment and Plan # Primary hypertension (I10) - Blood pressure reading today is 130 mmHg, which is within acceptable range for an office visit. - Continue current antihypertensive regimen. - Monitor blood pressure regularly at home. # Hypokalemia (E87.6) - Previous labs showed normal potassium levels. - Will monitor potassium levels with upcoming labs. # Elevated LDL cholesterol level (E78.00) - Previous labs showed elevated LDL cholesterol. - Ordered lipid panel to reassess cholesterol levels. - Discussed dietary modifications to reduce LDL levels, including reducing intake of saturated fats and increasing fiber intake. # Elevated glucose (R73.09) - Previous labs showed elevated glucose levels and A1c. - Ordered fasting glucose and A1c to reassess. - Educated on the importance of regular exercise (30 minutes of aerobic activity 5 days a week) and dietary modifications to prevent progression to diabetes. - Advised to avoid high-sugar foods and drinks, especially before lab tests. # Contusion of coccyx, sequela (S30.0XXS) - Patient reports significant improvement in coccyx pain following a fall six weeks ago; still experiencing mild soreness. - No further intervention required at this time. # Encounter for screening examination for other mental health and behavioral disorders (Z13.39) # Screening for depression (Z13.31) - Discussed recent situational stressors, including son's PTSD, anxiety disorder, and depression. - No current symptoms of depression or anxiety requiring treatment. - Will continue to monitor mental health status. # Asymptomatic menopause (Z78.0) - Discussed current status; no new symptoms reported. # Screening for colon cancer (Z12.11) - Ordered Cologuard test for colon cancer screening. # Encounter for screening mammogram for breast cancer (Z12.31) - Ordered screening mammogram. # Encounter for immunization (Z23) - Administered pneumonia vaccine. - Discussed shingles vaccine; advised to obtain at the pharmacy. # Immunity status testing (Z01.84) - Ordered MMR titers to assess immunity status. # Class 1 obesity due to excess calories with body mass index (BMI) of 30.0 to 30.9 in adult, unspecified whether serious comorbidity present (E66.811) - Current weight 190 lbs, BMI 30.0. - Discussed weight management strategies, including increasing protein intake and reducing carbohydrates. - Encouraged regular physical activity. - Will monitor weight and BMI at follow-up visits. 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 documented in this encounter [facility] 11-13-2024 Telephone encounter Note Patient is requesting medication re-sent to local instead of mail-away Loren Cardenas MA [facility] 11-13-2024 Miscellaneous Notes Patient is requesting medication re-sent to local instead of mail-away Loren Cardenas MA Prescription Refill Information The patient has been identified by name and date of : Yes Caregiver verified no other encounters exist for this prescription request: Yes Caregiver confirmed with patient/requestor that no other refills are due, in the near future, with this provider at this time: Yes The last office visit in the department: 08-23-24 Does the patient have a future office visit with this provider/department: Yes Requested Prescriptions Pending Prescriptions Disp Refills chlorthalidone (HYGROTON) 50 mg tablet 45 tablet 3 Sig: Take 0.5 tablets by mouth once daily. potassium chloride ER (KLOR-CON) 20 mEq tablet 360 tablet 3 Sig: Take 2 tablets by mouth two times a day. Hayley Rodriguez November 13, 2024 10:37 AM documented in this encounter [facility] 11-13-2024 Telephone encounter Note Prescription Refill Information The patient has been identified by name and date of : Yes Caregiver verified no other encounters exist for this prescription request: Yes Caregiver confirmed with patient/requestor that no other refills are due, in the near future, with this provider at this time: Yes The last office visit in the department: 08-23-24 Does the patient have a future office visit with this provider/department: Yes Requested Prescriptions Pending Prescriptions Disp Refills chlorthalidone (HYGROTON) 50 mg tablet 45 tablet 3 Sig: Take 0.5 tablets by mouth once daily. potassium chloride ER (KLOR-CON) 20 mEq tablet 360 tablet 3 Sig: Take 2 tablets by mouth two times a day. Hayley Rodriguez November 13, 2024 10:37 AM [facility] 11-13-2024 Telephone encounter Note The patient has been identified by name and date of : Yes Caregiver verified no other encounters exist for this prescription request: Yes Caregiver confirmed with patient/requestor that no other refills are due, in the near future, with this provider at this time: Yes The last office visit in the department: 08/23/2024 Does the patient have a future office visit with this provider/department: Yes 11/29/2024 Requested Prescriptions Pending Prescriptions Disp Refills potassium chloride ER (KLOR-CON) 20 mEq tablet 360 tablet 3 Sig: Take 2 tablets by mouth two times a day. Judith Bowman LPN November 13, 2024 9:46 AM [facility] 11-13-2024 Miscellaneous Notes The patient has been identified by name and date of : Yes Caregiver verified no other encounters exist for this prescription request: Yes Caregiver confirmed with patient/requestor that no other refills are due, in the near future, with this provider at this time: Yes The last office visit in the department: 08/23/2024 Does the patient have a future office visit with this provider/department: Yes 11/29/2024 Requested Prescriptions Pending Prescriptions Disp Refills potassium chloride ER (KLOR-CON) 20 mEq tablet 360 tablet 3 Sig: Take 2 tablets by mouth two times a day. Judith Bowman LPN November 13, 2024 9:46 AM documented in this encounter [facility] 11-03-2024 Telephone encounter Note Patient calling her mail away pharmacy is shipping her rx out but she runs out of medication in few days. Patient asking for 10 day rx for just in case, she takes one half pill so set rx for 5 pills to go to [facility] pharmacy. Please advise The patient has been identified by name and date of : Yes Caregiver verified no other encounters exist for this prescription request: Yes Caregiver confirmed with patient/requestor that no other refills are due, in the near future, with this provider at this time: Yes The last office visit in the department: 08/23/2024 Does the patient have a future office visit with this provider/department: Yes 11/29/2024 Requested Prescriptions Pending Prescriptions Disp Refills chlorthalidone (HYGROTON) 50 mg tablet 5 tablet 0 Sig: Take 0.5 tablets by mouth once daily. Judith Bowman LPN November 03, 2024 9:05 AM [facility] 11-03-2024 Miscellaneous Notes Patient calling her mail away pharmacy is shipping her rx out but she runs out of medication in few days. Patient asking for 10 day rx for just in case, she takes one half pill so set rx for 5 pills to go to [facility] pharmacy. Please advise The patient has been identified by name and date of : Yes Caregiver verified no other encounters exist for this prescription request: Yes Caregiver confirmed with patient/requestor that no other refills are due, in the near future, with this provider at this time: Yes The last office visit in the department: 08/23/2024 Does the patient have a future office visit with this provider/department: Yes 11/29/2024 Requested Prescriptions Pending Prescriptions Disp Refills chlorthalidone (HYGROTON) 50 mg tablet 5 tablet 0 Sig: Take 0.5 tablets by mouth once daily. Judith Bowman LPN November 03, 2024 9:05 AM documented in this encounter [facility] 10-31-2024 Note Patient Outreach (IN TMWS) YUKI NORTON ([id number]) 1960 F Date Time Provider Department 10/31/24 SHIRA NICHOLAS During your visit today, we recorded the following information about you: Allergies As of Date: 10/31/2024 Noted Allergy Reaction CIPROFLOXACIN 07/12/2012 1 - Mental Status Change 14 - Other: See Comments ERYTHROMYCIN 03/02/2006 11 - Vomiting HYDROCHLOROTHIAZIDE 10/14/2006 5 - Intolerance Comments: Dizzy SULFA (SULFONAMIDE ANTIBIOTICS) 03/02/2006 4 - Hives Comments: in childhoood Date Reviewed: 08/23/2024 Reviewed by: Lula Hayes APRN.[employer] - Fully Assessed Visit Diagnosis:Encounter for screening mammogram for breast cancer [Z12.31] Order(s):CARLOS CAMPBELL [[id number]] Order #: [id number] FUTURE Prescriptions as of 12/01/2024 - chlorthalidone (HYGROTON) 50 mg tablet Take 0.5 tablets by mouth once daily. - potassium chloride ER (KLOR-CON) 20 mEq tablet Take 2 tablets by mouth two times a day. - chlorthalidone (HYGROTON) 50 mg tablet Take 0.5 tablets by mouth once daily. - amLODIPine (NORVASC) 2.5 mg tablet Take 1 tablet by mouth once daily. - diclofenac (VOLTAREN ARTHRITIS PAIN) 1 % topical gel Apply 2 g to affected area four times daily as needed. - Omeprazole Magnesium 20 mg tablet Take 1 tablet by mouth as needed. 1/2 hr before meal. - FA/MV,CA,IRON,MIN/LYCOPENE/LUT (MULTIVITAL ORAL) Take by mouth. Alive multivitamin +50 Problem List As Of Date 10/31/2024 Noted Resolved BENIGN HYPERTENSION [I10] 03/02/2006 10/14/2006 JOINT PAIN-UP/ARM [M25.529] 03/09/2006 10/14/2006 HTN (hypertension) [I10] 07/12/2012 Elevated LDL cholesterol level [E78.00] 10/31/2013 Hypopotassemia [E87.6] 11/21/2013 Neck stiffness [M43.6] 10/18/2020 Neck pain [M54.2] 10/18/2020 Encounter Status:Closed by [employer] on 12/01/24 [facility] 10-28-2024 Telephone encounter Note The patient has been identified by name and date of : Yes Caregiver verified no other encounters exist for this prescription request: Yes Caregiver confirmed with patient/requestor that no other refills are due, in the near future, with this provider at this time: Yes The last office visit in the department: 08/23/2024 Does the patient have a future office visit with this provider/department: 11/29/2024 Requested Prescriptions Pending Prescriptions Disp Refills chlorthalidone (HYGROTON) 50 mg tablet 45 tablet 3 Sig: Take 0.5 tablets by mouth once daily. Rema Pérez RN October 28, 2024 9:42 AM [facility] 10-28-2024 Miscellaneous Notes The patient has been identified by name and date of : Yes Caregiver verified no other encounters exist for this prescription request: Yes Caregiver confirmed with patient/requestor that no other refills are due, in the near future, with this provider at this time: Yes The last office visit in the department: 08/23/2024 Does the patient have a future office visit with this provider/department: 11/29/2024 Requested Prescriptions Pending Prescriptions Disp Refills chlorthalidone (HYGROTON) 50 mg tablet 45 tablet 3 Sig: Take 0.5 tablets by mouth once daily. Ream Pérez RN October 28, 2024 9:42 AM documented in this encounter [facility] 08-23-2024 Note HNO ID: [id number] Author: LULA HAYES APRN.[employer] Service: ? Author Type: Nurse Practitioner Type: Progress Notes Filed: 08/23/2024 15:29 Note Text: SUBJECTIVE Yuki Norton is a 64 year old female here today for acute concern. Chief Complaint Patient presents with: UTI: Started 1 week ago with urgency with burning has noted bloating but that has improved Was seen at urgent care on 08/19/24 HPI Yuki Norton is a 64 year old female. She is an established patient of Shira Nicholas MD. She presents today acutely for concerns of possible UTI and vaginal yeast infection. She was seen in 08/19 for these concerns. She has had urinary urgency for several days. Urine dip was without issues, treated with x1 diflucan and noticed slight improvement. Prior issues with UTIs and this feels the same but also gets frequent yeast infections. Her medications were reviewed today and her list is now up to date. Medications Current Outpatient Medications Medication Sig amLODIPine (NORVASC) 2.5 mg tablet Take 1 tablet by mouth once daily. potassium chloride ER (KLOR-CON) 20 mEq tablet Take 2 tablets by mouth two times a day. chlorthalidone (HYGROTON) 50 mg tablet Take 0.5 tablets by mouth once daily. diclofenac (VOLTAREN ARTHRITIS PAIN) 1 % topical gel Apply 2 g to affected area four times daily as needed. Omeprazole Magnesium 20 mg tablet Take 1 tablet by mouth as needed. 1/2 hr before meal. FA/MV,CA,IRON,MIN/LYCOPENE/LUT (MULTIVITAL ORAL) Take by mouth. Alive multivitamin +50 nitrofurantoin monohydrate and macrocrystal (MACROBID) 100 mg capsule Take 1 capsule by mouth two times a day for 10 days. fluconazole (DIFLUCAN) 150 mg tablet Take 1 tablet by mouth one time only for 1 dose. Repeat in 3 days as needed. No current facility-administered medications for this visit. ALLERGIES Allergen Reactions Ciprofloxacin Mental Status Change, Other: See Comments Erythromycin Vomiting Hydrochlorothiazide Intolerance Dizzy Sulfa (Sulfonamide * Hives in childhoood ACTIVE PROBLEM LIST Neck Stiffness - 10/18/2020 Neck Pain - 10/18/2020 Hypopotassemia - 11/21/2013 Elevated Ldl Cholesterol Level - 10/31/2013 Htn (Hypertension) - 07/12/2012 Social History Tobacco Use Smoking status: Former Smokeless tobacco: Never Tobacco comments: quit in college Vaping Use Vaping status: Never Used Substance Use Topics Alcohol use: Yes Comment: Seldom Drug use: No Review of Systems Genitourinary: Positive for dysuria, frequency and urgency. Negative for vaginal bleeding and vaginal pain. OBJECTIVE BP 117/79 Pulse 100 Temp (Src) 99.6 (Temporal) Wt 190 lb 7.6 oz (86.4kg) SpO2 98% LMP 02/06/2009 Physical Exam Vitals and nursing note reviewed. Constitutional: General: She is awake. She is not in acute distress. Appearance: Normal appearance. She is well-developed and well-groomed. She is not ill-appearing, toxic-appearing or diaphoretic. HENT: Head: Normocephalic. Right Ear: External ear normal. Left Ear: External ear normal. Nose: Nose normal. Eyes: General: Vision grossly intact. Conjunctiva/sclera: Conjunctivae normal. Pupils: Pupils are equal, round, and reactive to light. Neck: Vascular: No JVD. Trachea: Trachea normal. Pulmonary: Effort: Pulmonary effort is normal. No accessory muscle usage, prolonged expiration or respiratory distress. Musculoskeletal: Cervical back: Neck supple. Skin: General: Skin is warm and dry. Capillary Refill: Capillary refill takes less than 2 seconds. Neurological: General: No focal deficit present. Mental Status: She is alert and oriented to person, place, and time. Mental status is at baseline. Psychiatric: Attention and Perception: Attention and perception normal. Mood and Affect: Mood and affect normal. Speech: Speech normal. Behavior: Behavior normal. Behavior is cooperative. Thought Content: Thought content normal. Cognition and Memory: Cognition and memory normal. Judgment: Judgment normal. ASSESSMENT/PLAN: 1. Dysuria - ICD9: 788.1, ICD10: R30.0 (primary diagnosis) acute - Begin treatment with Macrobid 100 mg BID for 10 days - Patient education for prevention given - UA DIP, URINE (POC) - NITROFURANTOIN MONOHYDRATE AND MACROCRYSTAL 100 MG ORAL CAP 2. Frequent UTI - ICD9: 599.0, ICD10: N39.0 3. Antibiotic-induced yeast infection - ICD9: 112.9, E930.9, ICD10: B37.9, T36.95XA - FLUCONAZOLE 150 MG TABLET Portions of this note have been entered by ancillary staff. I have reviewed and when necessary edited, so that they are an adequate record of my encounter with this patient Please note that parts of this document were created using voice recognition software and therefore may contain grammatical errors. Patient verbalizes understanding of instructions from today's visit and in agreement with treatment plan. Questions answered. Agrees to call the office if questions (more content not included)... [facility] 08-23-2024 History of Present illness Narrative SUBJECTIVE Yuki Norton is a 64 year old female here today for acute concern. Chief Complaint Patient presents with: UTI: Started 1 week ago with urgency with burning has noted bloating but that has improved Was seen at urgent care on 08/19/24 HPI Yuki Norton is a 64 year old female. She is an established patient of Shira Nicholas MD. She presents today acutely for concerns of possible UTI and vaginal yeast infection. She was seen in 08/19 for these concerns. She has had urinary urgency for several days. Urine dip was without issues, treated with x1 diflucan and noticed slight improvement. Prior issues with UTIs and this feels the same but also gets frequent yeast infections. Her medications were reviewed today and her list is now up to date. Medications Current Outpatient Medications Medication Sig amLODIPine (NORVASC) 2.5 mg tablet Take 1 tablet by mouth once daily. potassium chloride ER (KLOR-CON) 20 mEq tablet Take 2 tablets by mouth two times a day. chlorthalidone (HYGROTON) 50 mg tablet Take 0.5 tablets by mouth once daily. diclofenac (VOLTAREN ARTHRITIS PAIN) 1 % topical gel Apply 2 g to affected area four times daily as needed. Omeprazole Magnesium 20 mg tablet Take 1 tablet by mouth as needed. 1/2 hr before meal. FA/MV,CA,IRON,MIN/LYCOPENE/LUT (MULTIVITAL ORAL) Take by mouth. Alive multivitamin +50 nitrofurantoin monohydrate and macrocrystal (MACROBID) 100 mg capsule Take 1 capsule by mouth two times a day for 10 days. fluconazole (DIFLUCAN) 150 mg tablet Take 1 tablet by mouth one time only for 1 dose. Repeat in 3 days as needed. No current facility-administered medications for this visit. ALLERGIES Allergen Reactions Ciprofloxacin Mental Status Change, Other: See Comments Erythromycin Vomiting Hydrochlorothiazide Intolerance Dizzy Sulfa (Sulfonamide * Hives in childhoood ACTIVE PROBLEM LIST Neck Stiffness - 10/18/2020 Neck Pain - 10/18/2020 Hypopotassemia - 11/21/2013 Elevated Ldl Cholesterol Level - 10/31/2013 Htn (Hypertension) - 07/12/2012 Social History Tobacco Use Smoking status: Former Smokeless tobacco: Never Tobacco comments: quit in college Vaping Use Vaping status: Never Used Substance Use Topics Alcohol use: Yes Comment: Seldom Drug use: No Review of Systems Genitourinary: Positive for dysuria, frequency and urgency. Negative for vaginal bleeding and vaginal pain. OBJECTIVE BP 117/79 Pulse 100 Temp (Src) 99.6 (Temporal) Wt 190 lb 7.6 oz (86.4kg) SpO2 98% LMP 02/06/2009 Physical Exam Vitals and nursing note reviewed. Constitutional: General: She is awake. She is not in acute distress. Appearance: Normal appearance. She is well-developed and well-groomed. She is not ill-appearing, toxic-appearing or diaphoretic. HENT: Head: Normocephalic. Right Ear: External ear normal. Left Ear: External ear normal. Nose: Nose normal. Eyes: General: Vision grossly intact. Conjunctiva/sclera: Conjunctivae normal. Pupils: Pupils are equal, round, and reactive to light. Neck: Vascular: No JVD. Trachea: Trachea normal. Pulmonary: Effort: Pulmonary effort is normal. No accessory muscle usage, prolonged expiration or respiratory distress. Musculoskeletal: Cervical back: Neck supple. Skin: General: Skin is warm and dry. Capillary Refill: Capillary refill takes less than 2 seconds. Neurological: General: No focal deficit present. Mental Status: She is alert and oriented to person, place, and time. Mental status is at baseline. Psychiatric: Attention and Perception: Attention and perception normal. Mood and Affect: Mood and affect normal. Speech: Speech normal. Behavior: Behavior normal. Behavior is cooperative. Thought Content: Thought content normal. Cognition and Memory: Cognition and memory normal. Judgment: Judgment normal. ASSESSMENT/PLAN: 1. Dysuria - ICD9: 788.1, ICD10: R30.0 (primary diagnosis) acute - Begin treatment with Macrobid 100 mg BID for 10 days - Patient education for prevention given - UA DIP, URINE (POC) - NITROFURANTOIN MONOHYDRATE & MACROCRYSTAL 100 MG ORAL CAP 2. Frequent UTI - ICD9: 599.0, ICD10: N39.0 3. Antibiotic-induced yeast infection - ICD9: 112.9, E930.9, ICD10: B37.9, T36.95XA - FLUCONAZOLE 150 MG TABLET Portions of this note have been entered by ancillary staff. I have reviewed and when necessary edited, so that they are an adequate record of my encounter with this patient Please note that parts of this document were created using voice recognition software and therefore may contain grammatical errors. Patient verbalizes understanding of instructions from today's visit and in agreement with treatment plan. Questions answered. Agrees to call the office if questions, concerns of issues with acute symptoms not improving or if they worsen. See diagnoses and orders for additional plan(s). Allergies and medications were reviewed, list was updated, and refills given if needed. Past medical, surgical, social, and family history reviewed and updated as appropriate. Encouraged proper diet & exercise as well as compliance with taking medications. Age-appropriate health preventative measures were discussed. Return if symptoms worsen or fail to improve, for Keep next scheduled appointment.. Lula Hayes APRN-NIRANJAN documented in this encounter [facility] 08-23-2024 Telephone encounter Note Pt checking on reply. Pt was not aware pcp office phoned her- she doesn't use her home phone much. Reports she has been having urgency and burning at the openings- still has these. Reports the pain went away after she took the diflucan UC gave her. Was seen in UC on 08/19/24 for this. Urine culture was negative. Pt reports she did an AZO test- nitrites were negative, leukocytes were positive. Scheduled appt per below message. [facility] 08-23-2024 Miscellaneous Notes Pt checking on reply. Pt was not aware pcp office phoned her- she doesn't use her home phone much. Reports she has been having urgency and burning at the openings- still has these. Reports the pain went away after she took the diflucan UC gave her. Was seen in UC on 08/19/24 for this. Urine culture was negative. Pt reports she did an AZO test- nitrites were negative, leukocytes were positive. Scheduled appt per below message. No answer. Left message for patient to call office and ask to speak to a nurse regarding an appointment to day with Annabel [place] for UTI symptoms continuing. Patient needs to be seen by PCP. Nursing staff for Dr. Nicholas, can you please get patient in today? Called pt back. She states that she is still having urgency and itching, irritation. Asking if provider can order another urine sample and another Diflucan to confirm she doesn't have a UTI and see if another Diflucan would help the itching and irritation. Pt uses Emi Damico. Left message for patient to return call. Meagan Vázquez MA Fluconazole can be helpful to treat vaginal irritation and discharge from a yeast infection. It is usually not a beneficial treatment for urinary frequency or urgency. Pt called and is notified of providers results and instructions. Pt voices understanding. Pt states the symptoms have subsided a lot, but she is still having some of the urgency. She states the urgency isn't every 15 minutes any more, now she can wait a couple hours before she has to go. Pt denies pain or fever. Pt states sometimes she would get two tablets of the Fluconazole, but this time only one was sent in. I told her I could see if the provider would send in another tablet for her. 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 Please call and advise. Ashley Llamas, MICKI documented in this encounter [facility] 08-22-2024 Telephone encounter Note No answer. Left message for patient to call office and ask to speak to a nurse regarding an appointment to day with Annabel OH for UTI symptoms continuing. [facility] 08-22-2024 Telephone encounter Note Patient needs to be seen by PCP. Nursing staff for Dr. Nicholas, can you please get patient in today? [facility] Work Phone: 08-22-2024 Telephone encounter Note Called pt back. She states that she is still having urgency and itching, irritation. Asking if provider can order another urine sample and another Diflucan to confirm she doesn't have a UTI and see if another Diflucan would help the itching and irritation. Pt uses Emi Damico. [facility] 08-21-2024 Telephone encounter Note Left message for patient to return call. Meagan Vázquez MA [facility] 08-21-2024 Telephone encounter Note Fluconazole can be helpful to treat vaginal irritation and discharge from a yeast infection. It is usually not a beneficial treatment for urinary frequency or urgency. [facility] Work Phone: 08-21-2024 Telephone encounter Note Pt called and is notified of providers results and instructions. Pt voices understanding. Pt states the symptoms have subsided a lot, but she is still having some of the urgency. She states the urgency isn't every 15 minutes any more, now she can wait a couple hours before she has to go. Pt denies pain or fever. Pt states sometimes she would get two tablets of the Fluconazole, but this time only one was sent in. I told her I could see if the provider would send in another tablet for her. 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 Please call and advise. Ashley Llamas RN [facility] 08-19-2024 Note HNO ID: [id number] Author: DORCAS CARVAJAL APRN.[facility] Service: ? Author Type: Nurse Practitioner Type: Progress Notes Filed: 08/19/2024 10:37 Note Text: This note was created using NoteWriter. Subjective Yuki Norton is a 64 year old female. 64 year old male with PMH HTN and GERD presents for possible UTI Acute onset 3 days ago +frequency +urgency +bladder spasm +suprapubic Denies vaginal bleeding Denies vaginal discharge Denies recent coitus Denies concerns for STI Denies using homeopathic or OTC The history is provided by the patient. No promotions coordinator was used. UTI This is a new problem. The current episode started more than 2 days ago. The problem occurs every urination. The problem has been gradually worsening. The quality of the pain is described as burning. The pain is at a severity of 4/10. There has been no fever. She is Not sexually active. There is No history of pyelonephritis. Associated symptoms include frequency and urgency. Pertinent negatives include no chills, no sweats, no nausea, no vomiting, no discharge, no hematuria, no hesitancy, no possible and no flank pain. She has tried nothing for the symptoms. Her past medical history does not include kidney stones, single kidney, urological procedure, recurrent UTIs, urinary stasis or catheterization. PAST MEDICAL HISTORY Diagnosis Date GERD (gastroesophageal reflux disease) hypertension Hypopotassemia PAST SURGICAL HISTORY Procedure Laterality Date BIOPSY BREAST OPEN INCISIONAL lumpectomy - benign LAPS ABD PRTMANDOMENTUM DX W/WO SPEC BR/WA SPX for infertility TONSILLECTOMY PRIMARY/SECONDARY Tonsillectomy ALLERGIES Ciprofloxacin, Erythromycin, Hydrochlorothiazide, and Sulfa (Sulfonamide Antibiotics) MEDICATIONS amLODIPine (NORVASC) 2.5 mg tablet Take 1 tablet by mouth once daily. potassium chloride ER (KLOR-CON) 20 mEq tablet Take 2 tablets by mouth two times a day. chlorthalidone (HYGROTON) 50 mg tablet Take 0.5 tablets by mouth once daily. diclofenac (VOLTAREN ARTHRITIS PAIN) 1 % topical gel Apply 2 g to affected area four times daily as needed. Omeprazole Magnesium 20 mg tablet Take 1 tablet by mouth as needed. 1/2 hr before meal. FA/MV,CA,IRON,MIN/LYCOPENE/LUT (MULTIVITAL ORAL) Take by mouth. Alive multivitamin +50 fluconazole (DIFLUCAN) 150 mg tablet Take 1 tablet by mouth once daily for 1 day. FAMILY HISTORY Problem Relation Age of Onset Hypertension Mother other (dementia) Mother other (hepatitis B) Mother Hypertension Father CA, age 45 other (dementia) Father age 86 Hypertension Brother other (gout) Brother Heart Maternal Grandmother CHF other (Parkinson's disease) Maternal Grandfather Social History Tobacco Use Smoking status: Former Smokeless tobacco: Never Tobacco comments: quit in college Vaping Use Vaping status: Never Used Substance Use Topics Alcohol use: Yes Comment: Seldom Drug use: No Review of Systems Constitutional: Negative for chills. Eyes: Negative for pain, discharge, redness and itching. Respiratory: Negative for apnea, cough, choking and chest tightness. Cardiovascular: Negative for chest pain, palpitations and leg swelling. Gastrointestinal: Negative for abdominal pain, nausea and vomiting. Genitourinary: Positive for dysuria, frequency and urgency. Negative for flank pain, hematuria and hesitancy. Musculoskeletal: Negative for arthralgias, back pain and gait problem. Skin: Negative for color change, pallor, rash and wound. Allergic/Immunologic: Negative for environmental allergies, food allergies and immunocompromised state. Neurological: Negative for dizziness and facial asymmetry. Hematological: Negative for adenopathy. Does not bruise/bleed easily. Psychiatric/Behavioral: Negative for agitation and behavioral problems. Objective BP 163/83 Pulse 93 Temp 36.6 ?C (97.9 ?F) Resp 18 Wt 87.3 kg (192 lb 7.4 oz) LMP 02/06/2009 SpO2 98% BMI 31.06 kg/m? Physical Exam Vitals and nursing note reviewed. Constitutional: General: She is not in acute distress. Appearance: Normal appearance. She is normal weight. She is not ill-appearing, toxic-appearing or diaphoretic. HENT: Head: Normocephalic and atraumatic. Right Ear: Ear canal and external ear normal. Left Ear: Ear canal and external ear normal. Nose: Nose normal. No congestion or rhinorrhea. Mouth/Throat: Mouth: Mucous membranes are moist. Pharynx: No oropharyngeal exudate or posterior oropharyngeal erythema. Eyes: General: Right eye: No discharge. Left eye: No discharge. Extraocular Movements: Extraocular movements intact. Conjunctiva/sclera: Conjunctivae normal. Pupils: Pupils are equal, round, and reactive to light. Cardiovascular: Rate and Rhythm: Normal rate and regular rhythm. Pulses: Normal pulses. Heart sounds: Normal heart sounds. No murmur heard. No friction rub. Pulmonary: (more content not included)... [facility] 08-19-2024 History of Present illness Narrative This note was created using Zifyriter. Subjective Yuki Norton is a 64 year old female. 64 year old male with PMH HTN and GERD presents for possible UTI Acute onset 3 days ago +frequency +urgency +bladder spasm +suprapubic Denies vaginal bleeding Denies vaginal discharge Denies recent coitus Denies concerns for STI Denies using homeopathic or OTC The history is provided by the patient. No promotions coordinator was used. UTI This is a new problem. The current episode started more than 2 days ago. The problem occurs every urination. The problem has been gradually worsening. The quality of the pain is described as burning. The pain is at a severity of 4/10. There has been no fever. She is Not sexually active. There is No history of pyelonephritis. Associated symptoms include frequency and urgency. Pertinent negatives include no chills, no sweats, no nausea, no vomiting, no discharge, no hematuria, no hesitancy, no possible and no flank pain. She has tried nothing for the symptoms. Her past medical history does not include kidney stones, single kidney, urological procedure, recurrent UTIs, urinary stasis or catheterization. PAST MEDICAL HISTORY Diagnosis Date GERD (gastroesophageal reflux disease) hypertension Hypopotassemia PAST SURGICAL HISTORY Procedure Laterality Date BIOPSY BREAST OPEN INCISIONAL lumpectomy - benign LAPS ABD PRTM&OMENTUM DX W/WO SPEC BR/WA SPX for infertility TONSILLECTOMY PRIMARY/SECONDARY <AGE 12 Tonsillectomy ALLERGIES Ciprofloxacin, Erythromycin, Hydrochlorothiazide, and Sulfa (Sulfonamide Antibiotics) MEDICATIONS amLODIPine (NORVASC) 2.5 mg tablet Take 1 tablet by mouth once daily. potassium chloride ER (KLOR-CON) 20 mEq tablet Take 2 tablets by mouth two times a day. chlorthalidone (HYGROTON) 50 mg tablet Take 0.5 tablets by mouth once daily. diclofenac (VOLTAREN ARTHRITIS PAIN) 1 % topical gel Apply 2 g to affected area four times daily as needed. Omeprazole Magnesium 20 mg tablet Take 1 tablet by mouth as needed. 1/2 hr before meal. FA/MV,CA,IRON,MIN/LYCOPENE/LUT (MULTIVITAL ORAL) Take by mouth. Alive multivitamin +50 fluconazole (DIFLUCAN) 150 mg tablet Take 1 tablet by mouth once daily for 1 day. FAMILY HISTORY Problem Relation Age of Onset Hypertension Mother other (dementia) Mother other (hepatitis B) Mother Hypertension Father CA, age 45 other (dementia) Father age 86 Hypertension Brother other (gout) Brother Heart Maternal Grandmother CHF other (Parkinson's disease) Maternal Grandfather Social History Tobacco Use Smoking status: Former Smokeless tobacco: Never Tobacco comments: quit in college Vaping Use Vaping status: Never Used Substance Use Topics Alcohol use: Yes Comment: Seldom Drug use: No Review of Systems Constitutional: Negative for chills. Eyes: Negative for pain, discharge, redness and itching. Respiratory: Negative for apnea, cough, choking and chest tightness. Cardiovascular: Negative for chest pain, palpitations and leg swelling. Gastrointestinal: Negative for abdominal pain, nausea and vomiting. Genitourinary: Positive for dysuria, frequency and urgency. Negative for flank pain, hematuria and hesitancy. Musculoskeletal: Negative for arthralgias, back pain and gait problem. Skin: Negative for color change, pallor, rash and wound. Allergic/Immunologic: Negative for environmental allergies, food allergies and immunocompromised state. Neurological: Negative for dizziness and facial asymmetry. Hematological: Negative for adenopathy. Does not bruise/bleed easily. Psychiatric/Behavioral: Negative for agitation and behavioral problems. Objective BP 163/83 Pulse 93 Temp 36.6 C (97.9 F) Resp 18 Wt 87.3 kg (192 lb 7.4 oz) LMP 02/06/2009 SpO2 98% BMI 31.06 kg/m Physical Exam Vitals and nursing note reviewed. Constitutional: General: She is not in acute distress. Appearance: Normal appearance. She is normal weight. She is not ill-appearing, toxic-appearing or diaphoretic. HENT: Head: Normocephalic and atraumatic. Right Ear: Ear canal and external ear normal. Left Ear: Ear canal and external ear normal. Nose: Nose normal. No congestion or rhinorrhea. Mouth/Throat: Mouth: Mucous membranes are moist. Pharynx: No oropharyngeal exudate or posterior oropharyngeal erythema. Eyes: General: Right eye: No discharge. Left eye: No discharge. Extraocular Movements: Extraocular movements intact. Conjunctiva/sclera: Conjunctivae normal. Pupils: Pupils are equal, round, and reactive to light. Cardiovascular: Rate and Rhythm: Normal rate and regular rhythm. Pulses: Normal pulses. Heart sounds: Normal heart sounds. No murmur heard. No friction rub. Pulmonary: Effort: Pulmonary effort is normal. No respiratory distress. Breath sounds: Normal breath sounds. No stridor. No wheezing, rhonchi or rales. Chest: Chest wall: No tenderness. Abdominal: General: Abdomen is flat. There is no distension. Palpations: Abdomen is soft. There is no mass. Tenderness: There is no abdominal tenderness. There is no right CVA tenderness, left CVA tenderness, guarding or rebound. Hernia: No hernia is present. Musculoskeletal: General: No swelling, tenderness, deformity or signs of injury. Normal range of motion. Cervical back: Normal range of motion and neck supple. No rigidity. Right lower leg: No edema. Left lower leg: No edema. Lymphadenopathy: Cervical: No cervical adenopathy. Skin: General: Skin is warm and dry. Coloration: Skin is not jaundiced or pale. Findings: No bruising, erythema, lesion or rash. Neurological: General: No focal deficit present. Mental Status: She is alert and oriented to person, place, and time. Cranial Nerves: No cranial nerve deficit. Sensory: No sensory deficit. Motor: No weakness. Coordination: Coordination normal. Gait: Gait normal. Psychiatric: Mood and Affect: Mood normal. Behavior: Behavior normal. Thought Content: Thought content normal. Judgment: Judgment normal. Assessment and Plan ASSESSMENT/PLAN: 1. Urgency of urination - ICD9: 788.63, ICD10: R39.15 X 3 days Urine dip here in clinic, negative Differentials include christopher and STI Patient denies recent coitus and or concern for STI WIll send in x 1 Diflucan presently Urine sent for culture, Please treat accordingly if indicated She is to follow up with PCP if sx persist - UA DIP, URINE (POC) - BACTERIAL CULTURE, URINE - FLUCONAZOLE 150 MG TABLET Dorcas Carvajal APRN.[facility] documented in this encounter [facility] 08-18-2024 Telephone encounter Note Pt reports she is having UTI s/s: fever 99.2, cramping, frequency, burning with urination, since Wed. No openings in pcp office. Pt agreeable to for evaluation. [facility] 08-18-2024 Miscellaneous Notes Pt reports she is having UTI s/s: fever 99.2, cramping, frequency, burning with urination, since Wed. No openings in pcp office. Pt agreeable to for evaluation. documented in this encounter [facility] 06-15-2024 Note HNO ID: [id number] Author: ANNABEL GRIGGS APRN.[facility] Service: ? Author Type: Nurse Specialist Type: Progress Notes Filed: 06/15/2024 13:24 Note Text: SUBJECTIVE: Depression Screening Never done Anxiety Screening Never done Colorectal Cancer Screening Never done Shingrix Vaccine(1 of 2) Never done Pneumococcal Vaccine: 50+(1 of 1 - PCV) Never done BP Controlled (<130/80) due on 05/08/2023 Mammogram Screening due on 10/28/2023 HPI Yuki Norton is a 63 year old female. PMH significant for ACTIVE PROBLEM LIST Htn (Hypertension) Elevated Ldl Cholesterol Level Hypopotassemia Neck Stiffness Neck Pain Presents today for routine follow up visit. Forgot to take amlodipine at the time of her last visit. Returns for recheck of BP, taking amlodipine 2.5 mg. Reports home systolic blood pressure readings 120-130 range since last here. HTN: She is without report of headache, chest pain, palpitations, dyspnea, peripheral edema, orthopnea, fatigue and PND. Last 14 Encounter BP Readings: Date: BP: 06/15/2024 136/85[bp average[ 05/09/2024 159/84 03/20/2024 137/78 11/08/2023 121/77 09/29/2023 138/90 06/21/2023 134/79[average bp[ 06/05/2023 148/96 05/11/2023 139/84 03/23/2023 142/82 11/06/2022 136/84 10/27/2022 138/76 05/08/2022 130/88 11/04/2021 136/82 04/16/2021 128/78 Notes exercising 30 minutes 4 times per week, trying to eat healthy but has gained weight. 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 Sons bck in town for holiday and it was nice. Review of Systems Constitutional: Negative. Respiratory: Negative. Objective BP 136/85 Pulse 87 Resp 16 Wt 85 kg (187 lb 6.3 oz) LMP 02/06/2009 BMI 30.25 kg/m? Physical Exam Vitals and nursing note reviewed. Constitutional: General: She is not in acute distress. Appearance: Normal appearance. She is not ill-appearing, toxic-appearing or diaphoretic. HENT: Head: Normocephalic and atraumatic. Right Ear: Tympanic membrane and ear canal normal. Left Ear: Ear canal normal. Nose: Nose normal. No mucosal edema or rhinorrhea. Mouth/Throat: Lips: [place]. Mouth: Mucous membranes are moist. Pharynx: Oropharynx is clear. Eyes: Conjunctiva/sclera: Conjunctivae normal. Neck: Thyroid: No thyromegaly. Vascular: Normal carotid pulses. No JVD. Cardiovascular: Rate and Rhythm: Normal rate and regular rhythm. Pulses: Carotid pulses are 2+ on the right side and 2+ on the left side. Radial pulses are 2+ on the right side and 2+ on the left side. Heart sounds: Normal heart sounds. Pulmonary: Effort: Pulmonary effort is normal. Breath sounds: Normal breath sounds. Abdominal: General: Bowel sounds are normal. Palpations: Abdomen is soft. Musculoskeletal: Cervical back: No muscular tenderness. Skin: General: Skin is warm and dry. Neurological: General: No focal deficit present. Mental Status: She is alert and oriented to person, place, and time. ALLERGIES Allergen Reactions Ciprofloxacin Mental Status Change, Other: See Comments Erythromycin Vomiting Hydrochlorothiazide Intolerance Dizzy Sulfa (Sulfonamide * Hives in childhoood Medications potassium chloride ER (KLOR-CON) 20 mEq tablet Take 2 tablets by mouth two times a day. chlorthalidone (HYGROTON) 50 mg tablet Take 0.5 tablets by mouth once daily. diclofenac (VOLTAREN ARTHRITIS PAIN) 1 % topical gel Apply 2 g to affected area four times daily as needed. Omeprazole Magnesium 20 mg tablet Take 1 tablet by mouth as needed. 1/2 hr before meal. FA/MV,CA,IRON,MIN/LYCOPENE/LUT (MULTIVITAL ORAL) Take by mouth. Alive multivitamin +50 amLODIPine (NORVASC) 2.5 mg tablet Take 1 tablet by mouth once daily. PAST MEDICAL HISTORY Diagnosis Date GERD (gastroesophageal reflux disease) hypertension Hypopotassemia Social History Tobacco Use Smoking status: Former Smokeless tobacco: Never Tobacco comments: quit in college Vaping Use Vaping status: Never Used Substance Use Topics Alcohol use: Yes Comment: Seldom Drug use: No The 10-year ASCVD risk score (Alexis GARCIA, et al., 2019) is: 9.9% Values used to calculate the score: Age: 63 years Sex: Female Is Non- : No Diabetic: No Tobacco smoker: No Systolic Blood Pressure: 136 mmHg Is BP treated: Yes HDL Cholesterol: 33 mg/dL Total Cholesterol: 214 mg/dL ASSESSMENT/PLAN: 1. Primary hypertension - ICD9: 401.9, ICD10: I10 (primary diagnosis) - suboptimal control, miissed amlodipine dose - Continue current medications, continue with amlodipine 2.5 mg daily - Encourage dietary sodium restriction/DASH diet - Recommend regular aerobic exercise. - COMP METABOLIC PANEL labs before next appt 6 mo follow up Shira Nicholas MD 12 mo follow up Annabel Griggs APRN.[facility] Annabel Griggs APRN.[facility] Medical Decision Making: Problems: Moderate: 1+ chronic illnesses with change Risk: (more content not included)... [facility] 06-15-2024 History of Present illness Narrative SUBJECTIVE: Depression Screening Never done Anxiety Screening Never done Colorectal Cancer Screening Never done Shingrix Vaccine(1 of 2) Never done Pneumococcal Vaccine: 50+(1 of 1 - PCV) Never done BP Controlled (<130/80) due on 05/08/2023 Mammogram Screening due on 10/28/2023 HPI Yuki Norton is a 63 year old female. PMH significant for ACTIVE PROBLEM LIST Htn (Hypertension) Elevated Ldl Cholesterol Level Hypopotassemia Neck Stiffness Neck Pain Presents today for routine follow up visit. Forgot to take amlodipine at the time of her last visit. Returns for recheck of BP, taking amlodipine 2.5 mg. Reports home systolic blood pressure readings 120-130 range since last here. HTN: She is without report of headache, chest pain, palpitations, dyspnea, peripheral edema, orthopnea, fatigue and PND. Last 14 Encounter BP Readings: Date: BP: 06/15/2024 136/85[bp average[ 05/09/2024 159/84 03/20/2024 137/78 11/08/2023 121/77 09/29/2023 138/90 06/21/2023 134/79[average bp[ 06/05/2023 148/96 05/11/2023 139/84 03/23/2023 142/82 11/06/2022 136/84 10/27/2022 138/76 05/08/2022 130/88 11/04/2021 136/82 04/16/2021 128/78 Notes exercising 30 minutes 4 times per week, trying to eat healthy but has gained weight. 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 Sons bck in town for holiday and it was nice. Review of Systems Constitutional: Negative. Respiratory: Negative. Objective BP 136/85 Pulse 87 Resp 16 Wt 85 kg (187 lb 6.3 oz) LMP 02/06/2009 BMI 30.25 kg/m Physical Exam Vitals and nursing note reviewed. Constitutional: General: She is not in acute distress. Appearance: Normal appearance. She is not ill-appearing, toxic-appearing or diaphoretic. HENT: Head: Normocephalic and atraumatic. Right Ear: Tympanic membrane and ear canal normal. Left Ear: Ear canal normal. Nose: Nose normal. No mucosal edema or rhinorrhea. Mouth/Throat: Lips: [place]. Mouth: Mucous membranes are moist. Pharynx: Oropharynx is clear. Eyes: Conjunctiva/sclera: Conjunctivae normal. Neck: Thyroid: No thyromegaly. Vascular: Normal carotid pulses. No JVD. Cardiovascular: Rate and Rhythm: Normal rate and regular rhythm. Pulses: Carotid pulses are 2+ on the right side and 2+ on the left side. Radial pulses are 2+ on the right side and 2+ on the left side. Heart sounds: Normal heart sounds. Pulmonary: Effort: Pulmonary effort is normal. Breath sounds: Normal breath sounds. Abdominal: General: Bowel sounds are normal. Palpations: Abdomen is soft. Musculoskeletal: Cervical back: No muscular tenderness. Skin: General: Skin is warm and dry. Neurological: General: No focal deficit present. Mental Status: She is alert and oriented to person, place, and time. ALLERGIES Allergen Reactions Ciprofloxacin Mental Status Change, Other: See Comments Erythromycin Vomiting Hydrochlorothiazide Intolerance Dizzy Sulfa (Sulfonamide * Hives in childhoood Medications potassium chloride ER (KLOR-CON) 20 mEq tablet Take 2 tablets by mouth two times a day. chlorthalidone (HYGROTON) 50 mg tablet Take 0.5 tablets by mouth once daily. diclofenac (VOLTAREN ARTHRITIS PAIN) 1 % topical gel Apply 2 g to affected area four times daily as needed. Omeprazole Magnesium 20 mg tablet Take 1 tablet by mouth as needed. 1/2 hr before meal. FA/MV,CA,IRON,MIN/LYCOPENE/LUT (MULTIVITAL ORAL) Take by mouth. Alive multivitamin +50 amLODIPine (NORVASC) 2.5 mg tablet Take 1 tablet by mouth once daily. PAST MEDICAL HISTORY Diagnosis Date GERD (gastroesophageal reflux disease) hypertension Hypopotassemia Social History Tobacco Use Smoking status: Former Smokeless tobacco: Never Tobacco comments: quit in college Vaping Use Vaping status: Never Used Substance Use Topics Alcohol use: Yes Comment: Seldom Drug use: No The 10-year ASCVD risk score (Alexis DK, et al., 2019) is: 9.9% Values used to calculate the score: Age: 63 years Sex: Female Is Non- : No Diabetic: No Tobacco smoker: No Systolic Blood Pressure: 136 mmHg Is BP treated: Yes HDL Cholesterol: 33 mg/dL Total Cholesterol: 214 mg/dL ASSESSMENT/PLAN: 1. Primary hypertension - ICD9: 401.9, ICD10: I10 (primary diagnosis) - suboptimal control, miissed amlodipine dose - Continue current medications, continue with amlodipine 2.5 mg daily - Encourage dietary sodium restriction/DASH diet - Recommend regular aerobic exercise. - COMP METABOLIC PANEL labs before next appt 6 mo follow up Shira Nicholas MD 12 mo follow up STEPHY Cardozo APRN.CNS Medical Decision Making: Problems: Moderate: 1+ chronic illnesses with change Risk: Moderate: Drug management Medical Decision Making Level: 4 - Moderate documented in this encounter [facility] 05-09-2024 Note HNO ID: [id number] Author: ANNABEL GRIGGS APRN.CNS Service: ? Author Type: Nurse Specialist Type: Progress Notes Filed: 05/09/2024 14:44 Note Text: SUBJECTIVE: Depression Screening Never done Anxiety Screening Never done Colorectal Cancer Screening Never done Shingrix Vaccine(1 of 2) Never done BP Controlled (<130/80) due on 05/08/2023 Mammogram Screening due on 10/28/2023 HPI Yuki Norton is a 63 year old female. PMH significant for ACTIVE PROBLEM LIST Htn (Hypertension) Elevated Ldl Cholesterol Level Hypopotassemia Neck Stiffness Neck Pain Presents today for routine follow up visit. 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 Notes forgot to take amlodipine. Returns for recheck of BP, started on amlodipine 2.5 mg at last visit. Reports home systolic blood pressure readings 120-130 range since last here. HTN: She is without report of headache, chest pain, palpitations, dyspnea, peripheral edema, orthopnea, fatigue and PND. Last 14 Encounter BP Readings: Date: BP: 05/09/2024 159/84 03/20/2024 137/78 11/08/2023 121/77 09/29/2023 138/90 06/21/2023 134/79[average bp[ 06/05/2023 148/96 05/11/2023 139/84 03/23/2023 142/82 11/06/2022 136/84 10/27/2022 138/76 05/08/2022 130/88 11/04/2021 136/82 04/16/2021 128/78 10/14/2020 136/84 Notes exercising 30 minutes 4 times per week, trying to eat healthy but has gained weight. Review of Systems Constitutional: Negative. Respiratory: Negative. Objective BP 159/84 Pulse 78 Resp 16 Wt 86.5 kg (190 lb 11.2 oz) LMP 02/06/2009 BMI 30.78 kg/m? Physical Exam Vitals and nursing note reviewed. Constitutional: General: She is not in acute distress. Appearance: Normal appearance. She is not ill-appearing, toxic-appearing or diaphoretic. HENT: Head: Normocephalic and atraumatic. Right Ear: Tympanic membrane and ear canal normal. Left Ear: Ear canal normal. Nose: Nose normal. No mucosal edema or rhinorrhea. Mouth/Throat: Lips: [place]. Mouth: Mucous membranes are moist. Pharynx: Oropharynx is clear. Eyes: Conjunctiva/sclera: Conjunctivae normal. Neck: Thyroid: No thyromegaly. Vascular: Normal carotid pulses. No JVD. Cardiovascular: Rate and Rhythm: Normal rate and regular rhythm. Pulses: Carotid pulses are 2+ on the right side and 2+ on the left side. Radial pulses are 2+ on the right side and 2+ on the left side. Heart sounds: Normal heart sounds. Pulmonary: Effort: Pulmonary effort is normal. Breath sounds: Normal breath sounds. Abdominal: General: Bowel sounds are normal. Palpations: Abdomen is soft. Musculoskeletal: Cervical back: No muscular tenderness. Skin: General: Skin is warm and dry. Neurological: General: No focal deficit present. Mental Status: She is alert and oriented to person, place, and time. ALLERGIES Allergen Reactions Ciprofloxacin Mental Status Change, Other: See Comments Erythromycin Vomiting Hydrochlorothiazide Intolerance Dizzy Sulfa (Sulfonamide * Hives in childhoood Medications potassium chloride ER (KLOR-CON) 20 mEq tablet Take 2 tablets by mouth two times a day. chlorthalidone (HYGROTON) 50 mg tablet Take 0.5 tablets by mouth once daily. amLODIPine (NORVASC) 2.5 mg tablet Take 1 tablet by mouth once daily. diclofenac (VOLTAREN ARTHRITIS PAIN) 1 % topical gel Apply 2 g to affected area four times daily as needed. Omeprazole Magnesium 20 mg tablet Take 1 tablet by mouth as needed. 1/2 hr before meal. FA/MV,CA,IRON,MIN/LYCOPENE/LUT (MULTIVITAL ORAL) Take by mouth. Alive multivitamin +50 fluticasone (FLONASE) 50 mcg/actuation nasal spray Use 2 Sprays in each nostril once daily. Rinse mouth after use. (Patient not taking: Reported on 05/09/2024) benzonatate (TESSALON PERLES) 100 mg capsule Take 1-2 capsules by mouth three times a day as needed. (Patient not taking: Reported on 05/09/2024) nitrofurantoin monohydrate and macrocrystal (MACROBID) 100 mg capsule Take 1 capsule by mouth two times a day. (Patient not taking: Reported on 05/09/2024) phenazopyridine (PYRIDIUM) 200 mg tablet Take 1 tablet by mouth three times a day as needed. (Patient not taking: Reported on 05/09/2024) tiZANidine (ZANAFLEX) 2 mg tablet Take 0.5-1 tablets by mouth at bedtime as needed. (Patient not taking: Reported on 05/09/2024) PAST MEDICAL HISTORY Diagnosis Date GERD (gastroesophageal reflux disease) hypertension Hypopotassemia Social History Tobacco Use Smoking status: Former Smokeless tobacco: Never Tobacco comments: quit in college Vaping Use Vaping status: Never Used Substance Use Topics Alcohol use: Yes Comment: Seldom Drug use: No The 10-year ASCVD risk score (Alexis DK, et al., 2019) is: 13.4% Values used to calculate the score: Age: 63 years Sex: Female Is Non- : No Diabetic: No Tobacco smoker: No Systolic Blood Pressure: 159 mmHg Is BP treated: Yes HDL C (more content not included)... [facility] 05-09-2024 History of Present illness Narrative SUBJECTIVE: Depression Screening Never done Anxiety Screening Never done Colorectal Cancer Screening Never done Shingrix Vaccine(1 of 2) Never done BP Controlled (<130/80) due on 05/08/2023 Mammogram Screening due on 10/28/2023 HPI Yuki Norton is a 63 year old female. PMH significant for ACTIVE PROBLEM LIST Htn (Hypertension) Elevated Ldl Cholesterol Level Hypopotassemia Neck Stiffness Neck Pain Presents today for routine follow up visit. 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 Notes forgot to take amlodipine. Returns for recheck of BP, started on amlodipine 2.5 mg at last visit. Reports home systolic blood pressure readings 120-130 range since last here. HTN: She is without report of headache, chest pain, palpitations, dyspnea, peripheral edema, orthopnea, fatigue and PND. Last 14 Encounter BP Readings: Date: BP: 05/09/2024 159/84 03/20/2024 137/78 11/08/2023 121/77 09/29/2023 138/90 06/21/2023 134/79[average bp[ 06/05/2023 148/96 05/11/2023 139/84 03/23/2023 142/82 11/06/2022 136/84 10/27/2022 138/76 05/08/2022 130/88 11/04/2021 136/82 04/16/2021 128/78 10/14/2020 136/84 Notes exercising 30 minutes 4 times per week, trying to eat healthy but has gained weight. Review of Systems Constitutional: Negative. Respiratory: Negative. Objective BP 159/84 Pulse 78 Resp 16 Wt 86.5 kg (190 lb 11.2 oz) LMP 02/06/2009 BMI 30.78 kg/m Physical Exam Vitals and nursing note reviewed. Constitutional: General: She is not in acute distress. Appearance: Normal appearance. She is not ill-appearing, toxic-appearing or diaphoretic. HENT: Head: Normocephalic and atraumatic. Right Ear: Tympanic membrane and ear canal normal. Left Ear: Ear canal normal. Nose: Nose normal. No mucosal edema or rhinorrhea. Mouth/Throat: Lips: [place]. Mouth: Mucous membranes are moist. Pharynx: Oropharynx is clear. Eyes: Conjunctiva/sclera: Conjunctivae normal. Neck: Thyroid: No thyromegaly. Vascular: Normal carotid pulses. No JVD. Cardiovascular: Rate and Rhythm: Normal rate and regular rhythm. Pulses: Carotid pulses are 2+ on the right side and 2+ on the left side. Radial pulses are 2+ on the right side and 2+ on the left side. Heart sounds: Normal heart sounds. Pulmonary: Effort: Pulmonary effort is normal. Breath sounds: Normal breath sounds. Abdominal: General: Bowel sounds are normal. Palpations: Abdomen is soft. Musculoskeletal: Cervical back: No muscular tenderness. Skin: General: Skin is warm and dry. Neurological: General: No focal deficit present. Mental Status: She is alert and oriented to person, place, and time. ALLERGIES Allergen Reactions Ciprofloxacin Mental Status Change, Other: See Comments Erythromycin Vomiting Hydrochlorothiazide Intolerance Dizzy Sulfa (Sulfonamide * Hives in childhoood Medications potassium chloride ER (KLOR-CON) 20 mEq tablet Take 2 tablets by mouth two times a day. chlorthalidone (HYGROTON) 50 mg tablet Take 0.5 tablets by mouth once daily. amLODIPine (NORVASC) 2.5 mg tablet Take 1 tablet by mouth once daily. diclofenac (VOLTAREN ARTHRITIS PAIN) 1 % topical gel Apply 2 g to affected area four times daily as needed. Omeprazole Magnesium 20 mg tablet Take 1 tablet by mouth as needed. 1/2 hr before meal. FA/MV,CA,IRON,MIN/LYCOPENE/LUT (MULTIVITAL ORAL) Take by mouth. Alive multivitamin +50 fluticasone (FLONASE) 50 mcg/actuation nasal spray Use 2 Sprays in each nostril once daily. Rinse mouth after use. (Patient not taking: Reported on 05/09/2024) benzonatate (TESSALON PERLES) 100 mg capsule Take 1-2 capsules by mouth three times a day as needed. (Patient not taking: Reported on 05/09/2024) nitrofurantoin monohydrate and macrocrystal (MACROBID) 100 mg capsule Take 1 capsule by mouth two times a day. (Patient not taking: Reported on 05/09/2024) phenazopyridine (PYRIDIUM) 200 mg tablet Take 1 tablet by mouth three times a day as needed. (Patient not taking: Reported on 05/09/2024) tiZANidine (ZANAFLEX) 2 mg tablet Take 0.5-1 tablets by mouth at bedtime as needed. (Patient not taking: Reported on 05/09/2024) PAST MEDICAL HISTORY Diagnosis Date GERD (gastroesophageal reflux disease) hypertension Hypopotassemia Social History Tobacco Use Smoking status: Former Smokeless tobacco: Never Tobacco comments: quit in college Vaping Use Vaping status: Never Used Substance Use Topics Alcohol use: Yes Comment: Seldom Drug use: No The 10-year ASCVD risk score (Alexis GARCIA, et al., 2019) is: 13.4% Values used to calculate the score: Age: 63 years Sex: Female Is Non- : No Diabetic: No Tobacco smoker: No Systolic Blood Pressure: 159 mmHg Is BP treated: Yes HDL Cholesterol: 33 mg/dL Total Cholesterol: 214 mg/dL ASSESSMENT/PLAN: 1. Primary hypertension - ICD9: 401.9, ICD10: I10 (primary diagnosis) - suboptimal control, miissed amlodipine dose - Continue current medications, continue with amlodipine 2.5 mg daily - Encourage dietary sodium restriction/DASH diet - Recommend regular aerobic exercise. - COMP METABOLIC PANEL Defers labs today, will obtain before next appt check labs today or next month recheck BP one month Annabel Griggs APRN.CNS 6 mo follow up Shira Nicholas MD 12 mo follow up STEPHY Cardozo APRN.CNS Medical Decision Making: Problems: Moderate: 1+ chronic illnesses with change Risk: Moderate: Drug management Medical Decision Making Level: 4 - Moderate documented in this encounter [facility] 03-20-2024 History of Present illness Narrative SUBJECTIVE Yuki Norton is a 63 year old female who presents with 11 days of symptoms that are stable. Negative Covid at home x 3. 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 Symptoms include: Fever (>=100.4F): Yes day one then resolved 100F or Chills: No Cough: Yes productive, can be purulent Shortness of breath: No or Difficulty breathing: No Fatigue: Yes Muscle aches: No Headache: Yes frontal maxillary helped with tylenol New loss of smell or taste: No Sore throat: No Nasal congestion: Yes or Rhinorrhea: Yes Nausea: No or Vomiting: No Diarrhea: No Rgiht ear pain and decreased right side hearing OTC meds/remedies that patient has tried: acetaminophen and Mucinex. High risk category assessment Age > 60 years old Exposures: Sick contacts? Yes Family or close contacts with confirmed/probable COVID-19 in last 14 days? No She reports that she has quit smoking. She has never used smokeless tobacco. OBJECTIVE PHYSICAL EXAM: BP 137/78 Pulse 95 Resp 16 Wt 87.9 kg (193 lb 12.6 oz) LMP 02/06/2009 SpO2 99% BMI 31.28 kg/m General appearance: tired/ill appearing, alert, cooperative, pleasant, in no acute distress Head: Normocephalic Eyes: conjunctiva/corneas normal Ears: R TM - nl light reflex, partially obstructed by cerumen, L TM - clear with good landmarks, nl light reflex Nose: purulent rhinorrhea, mucosa erythematous and swollen Oropharynx: moist without lesions, mild erythema to GPA Neck: supple and small, benign anterior cervical nodes bilaterally Heart: regular rate and rhythm, without murmur Lungs: clear to auscultation, without rales or wheeze, good air exchange ASSESSMENT/PLAN No diagnosis found. ASSESSMENT/PLAN: 1. Sinobronchitis - ICD9: 473.9, 490, ICD10: J32.9, J40 (primary diagnosis) - Will begin treatment with as per antibiotic as written, see orders - Supportive care with plenty of fluids, rest, and analgesia prn. - Follow up if symptoms persist or worsen. - FLUTICASONE PROPIONATE 50 MCG/ACTUATION NASAL SPRAY,SUSPENSION - AMOXICILLIN 875 MG-POTASSIUM CLAVULANATE 125 MG TABLET - BENZONATATE 100 MG CAPSULE - DEBROX 6.5 % EAR DROPS 2. Acute otitis media, unspecified otitis media type - ICD9: 382.9, ICD10: H66.90 Unable to visualize much of the right TM, does have right ear pain, will treat and fullness, will treat as AOM. - FLUTICASONE PROPIONATE 50 MCG/ACTUATION NASAL SPRAY,SUSPENSION - AMOXICILLIN 875 MG-POTASSIUM CLAVULANATE 125 MG TABLET 3. Excessive cerumen in ear canal, right - ICD9: 380.4, ICD10: H61.21 - DEBROX 6.5 % EAR DROPS - right ear x 5 days Annabel Griggs APRN.K 12 PRINCIPAL - Discussed symptom monitoring and supportive care - Red flag symptoms requiring follow up discussed Medical Decision Making: Problems: Low: Acute, uncomplicated illness or injury Risk: Moderate: Drug management Medical Decision Making Level: 3 - Low documented in this encounter [facility] 03-20-2024 Note HNO ID: [id number] Author: ANNABEL GRIGGS APRN.K 12 PRINCIPAL Service: ? Author Type: Nurse Specialist Type: Progress Notes Filed: 03/20/2024 13:31 Note Text: CARMEN Norton is a 63 year old female who presents with 11 days of symptoms that are stable. Negative Covid at home x 3. 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 Symptoms include: Fever (>=100.4F): Yes day one then resolved 100F or Chills: No Cough: Yes productive, can be purulent Shortness of breath: No or Difficulty breathing: No Fatigue: Yes Muscle aches: No Headache: Yes frontal maxillary helped with tylenol New loss of smell or taste: No Sore throat: No Nasal congestion: Yes or Rhinorrhea: Yes Nausea: No or Vomiting: No Diarrhea: No Rgiht ear pain and decreased right side hearing OTC meds/remedies that patient has tried: acetaminophen and Mucinex. High risk category assessment Age > 60 years old Exposures: Sick contacts? Yes Family or close contacts with confirmed/probable COVID-19 in last 14 days? No She reports that she has quit smoking. She has never used smokeless tobacco. OBJECTIVE PHYSICAL EXAM: BP 137/78 Pulse 95 Resp 16 Wt 87.9 kg (193 lb 12.6 oz) LMP 02/06/2009 SpO2 99% BMI 31.28 kg/m? General appearance: tired/ill appearing, alert, cooperative, pleasant, in no acute distress Head: Normocephalic Eyes: conjunctiva/corneas normal Ears: R TM - nl light reflex, partially obstructed by cerumen, L TM - clear with good landmarks, nl light reflex Nose: purulent rhinorrhea, mucosa erythematous and swollen Oropharynx: moist without lesions, mild erythema to GPA Neck: supple and small, benign anterior cervical nodes bilaterally Heart: regular rate and rhythm, without murmur Lungs: clear to auscultation, without rales or wheeze, good air exchange ASSESSMENT/PLAN No diagnosis found. ASSESSMENT/PLAN: 1. Sinobronchitis - ICD9: 473.9, 490, ICD10: J32.9, J40 (primary diagnosis) - Will begin treatment with as per antibiotic as written, see orders - Supportive care with plenty of fluids, rest, and analgesia prn. - Follow up if symptoms persist or worsen. - FLUTICASONE PROPIONATE 50 MCG/ACTUATION NASAL SPRAY,SUSPENSION - AMOXICILLIN 875 MG-POTASSIUM CLAVULANATE 125 MG TABLET - BENZONATATE 100 MG CAPSULE - DEBROX 6.5 % EAR DROPS 2. Acute otitis media, unspecified otitis media type - ICD9: 382.9, ICD10: H66.90 Unable to visualize much of the right TM, does have right ear pain, will treat and fullness, will treat as AOM. - FLUTICASONE PROPIONATE 50 MCG/ACTUATION NASAL SPRAY,SUSPENSION - AMOXICILLIN 875 MG-POTASSIUM CLAVULANATE 125 MG TABLET 3. Excessive cerumen in ear canal, right - ICD9: 380.4, ICD10: H61.21 - DEBROX 6.5 % EAR DROPS - right ear x 5 days Annabel Griggs, MARICHUY.K 12 PRINCIPAL - Discussed symptom monitoring and supportive care - Red flag symptoms requiring follow up discussed Medical Decision Making: Problems: Low: Acute, uncomplicated illness or injury Risk: Moderate: Drug management Medical Decision Making Level: 3 - Low [facility] 11-08-2023 History of Present illness Narrative This note was created using [employer]. Subjective Yuki Norton is a 63 year old female. Patient presents with: Established Patient: Labs prior SUBJECTIVE: Yuki Norton is a 63 year old year old lady here today for follow up appointment for review of medical conditions. Walking for exercise and doing 3 days a week 45 minutes. CMP joints of thumbs on both hands can flare up. Tylenol can help. 2 when bad--dulls the pain. Voltaren gel can help sometimes. Noted recurrent UTIs. UCx just microbiota. Drinks 96 ounces of water a day. Also taking cranberry tablets. Has not been to urologist for evaluation. Tried to stop PPI but GERD got worse. Diarrhea from Keflex 500mg 4 times daily. Did not help with UTI symptoms. PAST MEDICAL HISTORY Diagnosis Date GERD (gastroesophageal reflux disease) hypertension Hypopotassemia Current Outpatient Medications Medication Sig nitrofurantoin monohydrate and macrocrystal (MACROBID) 100 mg capsule Take 1 capsule by mouth two times a day. chlorthalidone (HYGROTON) 50 mg tablet Take 0.5 tablets by mouth once daily. amLODIPine (NORVASC) 2.5 mg tablet Take 1 tablet by mouth once daily. phenazopyridine (PYRIDIUM) 200 mg tablet Take 1 tablet by mouth three times a day as needed. tiZANidine (ZANAFLEX) 2 mg tablet Take 0.5-1 tablets by mouth at bedtime as needed. potassium chloride ER (KLOR-CON) 20 mEq tablet Take 2 tablets by mouth twice daily. diclofenac (VOLTAREN ARTHRITIS PAIN) 1 % topical gel Apply 2 g to affected area four times daily as needed. Omeprazole Magnesium 20 mg tablet Take 1 tablet by mouth as needed. 1/2 hr before meal. FA/MV,CA,IRON,MIN/LYCOPENE/LUT (MULTIVITAL ORAL) Take by mouth. Alive multivitamin +50 No current facility-administered medications for this visit. Review of Systems Objective BP 121/77 Pulse 70 Temp 36.9 C (98.4 F) Resp 18 Wt 85.7 kg (189 lb) LMP 02/06/2009 SpO2 99% BMI 30.51 kg/m Last 5 Encounter Wt Readings: Date: Wt: 11/08/2023 85.7 kg (189 lb) 09/29/2023 85.3 kg (188 lb) 06/21/2023 86.6 kg (191 lb) 06/05/2023 86.2 kg (190 lb) 05/11/2023 85.7 kg (189 lb) No waist measurement recorded Estimated body mass index is 30.51 kg/m as calculated from the following: Height as of 10/27/22: 167.6 cm (5' 6). Weight as of this encounter: 85.7 kg (189 lb). Last 5 Encounter BP Readings: Date: BP: 11/08/2023 121/77 09/29/2023 138/90 06/21/2023 134/79[average bp[ 06/05/2023 148/96 05/11/2023 139/84 Physical Exam Constitutional: Appearance: Normal appearance. HENT: Head: Normocephalic. Eyes: Conjunctiva/sclera: Conjunctivae normal. Cardiovascular: Rate and Rhythm: Normal rate and regular rhythm. Heart sounds: Normal heart sounds. Pulmonary: Effort: Pulmonary effort is normal. Breath sounds: Normal breath sounds. Musculoskeletal: Right lower leg: No edema (controlled with stockings). Left lower leg: No edema (controlled with support socks). Skin: General: Skin is warm and dry. Neurological: General: No focal deficit present. Mental Status: She is alert and oriented to person, place, and time. Psychiatric: Mood and Affect: Mood normal. Behavior: Behavior normal. Thought Content: Thought content normal. Judgment: Judgment normal. Latest Ref Rng 05/08/2022 11/06/2022 11/05/2023 WBC 3.70 - 11.00 k/uL 7.39 8.24 RBC 3.90 - 5.20 m/uL 4.85 4.93 Hemoglobin 11.5 - 15.5 g/dL 13.9 14.1 Hematocrit 36.0 - 46.0 % 42.6 43.0 MCV 80.0 - 100.0 fL 87.8 87.2 MCH 26.0 - 34.0 pg 28.7 28.6 MCHC 30.5 - 36.0 g/dL 32.6 32.8 RDW-CV 11.5 - 15.0 % 14.1 14.2 Platelet Count 150 - 400 k/uL 271 274 MPV 9.0 - 12.7 fL 9.8 10.0 Neut% % 56.1 Abs Neut (ANC) 1.45 - 7.50 k/uL 4.62 Lymph% % 32.0 Abs Lymph 1.00 - 4.00 k/uL 2.64 [place]% % 7.6 Abs [place] <0.87 k/uL 0.63 Eosin% % 3.4 Abs Eosin <0.46 k/uL 0.28 Baso% % 0.4 Abs Baso <0.11 k/uL 0.03 Immature Gran % % 0.5 IMMATURE GRANS (ABS) <0.10 k/uL 0.04 NRBC /100 WBC 0.0 Absolute nRBC <0.01 k/uL <0.01 <0.01 DTYPE Auto Protein, Total 6.3 - 8.0 g/dL 7.4 7.7 7.3 Albumin 3.9 - 4.9 g/dL 4.5 4.4 4.3 Calcium 8.5 - 10.2 mg/dL 9.1 9.7 9.1 Bilirubin, Total 0.2 - 1.3 mg/dL 0.4 0.3 0.5 Alkaline Phosphatase 34 - 123 U/L 86 81 85 AST 13 - 35 U/L 26 25 29 ALT 7 - 38 U/L 35 24 31 Glucose 74 - 99 mg/dL 91 115 (H) 129 (H) BUN 7 - 21 mg/dL 13 12 11 Creatinine 0.58 - 0.96 mg/dL 0.87 0.69 0.74 Sodium 136 - 144 mmol/L 139 142 140 Potassium 3.7 - 5.1 mmol/L 3.3 (L) 4.3 3.7 Chloride 97 - 105 mmol/L 101 104 103 CO2 22 - 30 mmol/L 24 24 25 Anion Gap 9 - 18 mmol/L 14 14 12 eGFR >=60 mL/min/1.73m 75 98 90 Cholesterol, Total <200 mg/dL 214 (H) Triglyceride <150 mg/dL 233 (H) HDL Cholesterol >39 mg/dL 33 (L) Non HDL Cholesterol <130 mg/dL 181 (H) Fasting Time hrs 12 VLDL Cholesterol <30 mg/dL 47 (H) TC:HDL Ratio <5.10 6.48 (H) LDL Cholesterol <100 mg/dL 134 (H) LDL:HDL Ratio <2.54 4.06 (H) Total Cholesterol, Nonfasting <200 mg/dL 215 (H) Triglycerides, Nonfasting <150 mg/dL 189 (H) HDL Cholesterol, Nonfasting >39 mg/dL 34 (L) LDL Cholesterol, Nonfasting <100 mg/dL 143 (H) Non HDL Cholesterol, Nonfasting <130 mg/dL 181 (H) VLDL Cholesterol, Nonfasting <30 mg/dL 38 (H) Total Chol/HDL Ratio, Nonfasting <5.10 mg/dL 6.32 (H) LDL/HDL Ratio, Nonfasting <2.54 mg/dL 4.21 (H) Hemoglobin A1C 4.3 - 5.6 % 6.1 (H) 5.7 (H) 6.0 (H) Estimated Average Glucose mg/dL 128 117 126 Uric Acid 2.5 - 6.6 mg/dL 6.6 TSH 0.270 - 4.200 mIU/L 2.430 Legend: (L) Low (H) High Hemoglobin A1C (%) Date Value 11/05/2023 6.0 11/06/2022 5.7 05/08/2022 6.1 04/16/2021 5.9 09/30/2020 6.0 The 10-year ASCVD risk score (Alexis GARCIA, et al., 2019) is: 7.9% Values used to calculate the score: Age: 63 years Sex: Female Is Non- : No Diabetic: No Tobacco smoker: No Systolic Blood Pressure: 121 mmHg Is BP treated: Yes HDL Cholesterol: 33 mg/dL Total Cholesterol: 214 mg/dL Assessment and Plan Encounter Diagnosis ICD-10-CM 1. Primary hypertension I10 BASIC METABOLIC PANEL Well controlled now. Stay on same pills. 2. IFG (impaired fasting glucose) R73.01 BASIC METABOLIC PANEL HEMOGLOBIN A1C Discussed preventing DM with regular exercise and healthy diet. 3. Hypokalemia E87.6 potassium chloride ER (KLOR-CON) 20 mEq tablet Controlled. Continue supplement 4. Mixed hyperlipidemia E78.2 LIPID PANEL BASIC Will work on diet and exercise to get HDL up and TG down and LDL down (alreadyt going down) 5. Screening for colon cancer Z12.11 COLOGUARD Above issues addressed with patient. Patient involved in shared decision making for management of medical issues. History and medications reviewed. Epic updated as needed Refills and/or prescriptions taken care of and meds adjusted as indicated after reviewed history, exam and labs. Health Maintenance reviewed. Updated record and/or ordered tests as recorded. Encouraged on efforts at healthy diet and regular exercise and adequate sleep. Needs to keep working on diet and exercise with lifestyle changes for effective weight loss as well as prevention of DM, and control of BP and lipids. Shira Nicholas MD documented in this encounter [facility] 10-18-2023 Telephone encounter Note Pt called and is notified of providers results and instructions. Pt voices understanding. Ashley Llamas RN [facility] 10-18-2023 Miscellaneous Notes Pt called and is notified of providers results and instructions. Pt voices understanding. Ashley Llamas RN Noted, lets try Macrobid to cover for UTI and I agree with treating for a yeast infection, diflucan sent. Please advise her to call with an update when done with the medications. Thanks Patient calling asking about her results can see on my chart. Went over results, notes from Lula Hayes NP. Patient said UTI is full blown again, urgency, spasms. Patient said she had yeast infection with last antibiotic, she is asking for Diflucan rx if antibiotic is being sent in to [facility] pharmacy. Please advise Please call patient and let her know the microscopic blood has resolved from her urine but there are still signs there may be an issue on going since she has leukocytes present in her urine. IS she having any urinary symptoms currently? documented in this encounter [facility] 10-18-2023 Telephone encounter Note Noted, lets try Macrobid to cover for UTI and I agree with treating for a yeast infection, diflucan sent. Please advise her to call with an update when done with the medications. Thanks [facility] 10-18-2023 Telephone encounter Note Patient calling asking about her results can see on my chart. Went over results, notes from Lula Hayes NP. Patient said UTI is full blown again, urgency, spasms. Patient said she had yeast infection with last antibiotic, she is asking for Diflucan rx if antibiotic is being sent in to [facility] pharmacy. Please advise [facility] 10-18-2023 Telephone encounter Note Please call patient and let her know the microscopic blood has resolved from her urine but there are still signs there may be an issue on going since she has leukocytes present in her urine. IS she having any urinary symptoms currently? [facility] 10-11-2023 Telephone encounter Note PATIENT NOTIFIED OF SAME. [facility] 10-11-2023 Miscellaneous Notes PATIENT NOTIFIED OF SAME. Please let her know this has been sent. Lula Hayes APRN.CNP Patient calls and states that she was started on antibiotic for UTI a couple of weeks ago. Patient reports that she now has vaginal itching and she thinks she has a yeast infection. Patient asking if provider can send prescription to [facility] for yeast infection. Patient asking for a call back if provider can send in medication. Please review and advise, Abigail Fulton RN documented in this encounter [facility] 10-11-2023 Telephone encounter Note Please let her know this has been sent. Lula Hayes APRN.CNP [facility] 10-11-2023 Telephone encounter Note Patient calls and states that she was started on antibiotic for UTI a couple of weeks ago. Patient reports that she now has vaginal itching and she thinks she has a yeast infection. Patient asking if provider can send prescription to [facility] for yeast infection. Patient asking for a call back if provider can send in medication. Please review and advise, Abigail Fulton RN [facility] 09-29-2023 History of Present illness Narrative SUBJECTIVE Yuki Norton is a 63 year old female here today for acute concern. Chief Complaint Patient presents with: UTI: started about 1 week ago. Abdominal fullness, urinary urgency and bladder spasm. HPI Yuki Norton is a 63 year old female. Prior UTI issues. She took a home UTI test, positive for leukocytes. Having more frequency, small amounts, low abdominal pressure, bladder spasms with urination. Stress incontinence. Treated with Macrobid and Keflex last time. Allergies to cipro and sulfa drugs. Her medications were reviewed today and her list is now up to date. Medications Current Outpatient Medications Medication Sig chlorthalidone (HYGROTON) 50 mg tablet Take 0.5 tablets by mouth once daily. amLODIPine (NORVASC) 2.5 mg tablet Take 1 tablet by mouth once daily. tiZANidine (ZANAFLEX) 2 mg tablet Take 0.5-1 tablets by mouth at bedtime as needed. potassium chloride ER (KLOR-CON) 20 mEq tablet Take 2 tablets by mouth twice daily. diclofenac (VOLTAREN ARTHRITIS PAIN) 1 % topical gel Apply 2 g to affected area four times daily as needed. Omeprazole Magnesium 20 mg tablet Take 1 tablet by mouth as needed. 1/2 hr before meal. FA/MV,CA,IRON,MIN/LYCOPENE/LUT (MULTIVITAL ORAL) Take by mouth. Alive multivitamin +50 cephALEXin (KEFLEX) 500 mg capsule Take 1 capsule by mouth four times daily for 7 days. phenazopyridine (PYRIDIUM) 200 mg tablet Take 1 tablet by mouth three times a day as needed. No current facility-administered medications for this visit. ALLERGIES Allergen Reactions Ciprofloxacin Mental Status Change, Other: See Comments Erythromycin Vomiting Hydrochlorothiazide Intolerance Dizzy Sulfa (Sulfonamide * Hives in childhoood ACTIVE PROBLEM LIST Neck Stiffness - 10/18/2020 Neck Pain - 10/18/2020 Hypopotassemia - 11/21/2013 Elevated Ldl Cholesterol Level - 10/31/2013 Htn (Hypertension) - 07/12/2012 Social History Tobacco Use Smoking status: Former Smokeless tobacco: Never Tobacco comments: quit in college Vaping Use Vaping Use: Never used Substance Use Topics Alcohol use: Yes Comment: Seldom Drug use: No Review of Systems Respiratory: Negative. Cardiovascular: Negative. OBJECTIVE BP 138/90 Pulse 84 Wt 188 lb (85.3kg) SpO2 99% LMP 02/06/2009 Physical Exam Vitals and nursing note reviewed. Constitutional: General: She is awake. She is not in acute distress. Appearance: Normal appearance. She is well-developed and well-groomed. She is not ill-appearing, toxic-appearing or diaphoretic. HENT: Head: Normocephalic. Right Ear: External ear normal. Left Ear: External ear normal. Nose: Nose normal. Eyes: General: Vision grossly intact. Conjunctiva/sclera: Conjunctivae normal. Pupils: Pupils are equal, round, and reactive to light. Neck: Vascular: No JVD. Trachea: Trachea normal. Pulmonary: Effort: Pulmonary effort is normal. No accessory muscle usage, prolonged expiration or respiratory distress. Musculoskeletal: General: Normal range of motion. Cervical back: Neck supple. Skin: General: Skin is warm and dry. Capillary Refill: Capillary refill takes less than 2 seconds. Neurological: General: No focal deficit present. Mental Status: She is alert and oriented to person, place, and time. Mental status is at baseline. Psychiatric: Attention and Perception: Attention and perception normal. Mood and Affect: Mood and affect normal. Speech: Speech normal. Behavior: Behavior normal. Behavior is cooperative. Thought Content: Thought content normal. Cognition and Memory: Cognition and memory normal. Judgment: Judgment normal. ASSESSMENT/PLAN: 1. Acute cystitis with hematuria - ICD9: 595.0, ICD10: N30.01 (primary diagnosis) Discussed prevention, start Keflex, repeat urine in x1 week. - UA DIP B/O - URINE CULTURE - URINALYSIS, WITH MICROSCOPIC - URINE CULTURE - CEPHALEXIN 500 MG CAPSULE 2. Encounter for therapeutic drug monitoring - ICD9: V58.83, ICD10: Z51.81 - COMPLETE BLOOD COUNT AND DIFFERENTIAL - COMPREHENSIVE METABOLIC PANEL 3. Elevated LDL cholesterol level - ICD9: 272.0, ICD10: E78.00 - LIPID PANEL BASIC 4. IFG (impaired fasting glucose) - ICD9: 790.21, ICD10: R73.01 - HEMOGLOBIN A1C 5. Screening for thyroid disorder - ICD9: V77.0, ICD10: Z13.29 - THYROID STIMULATING HORMONE Lula Hayes APRN.[employer] Portions of this note have been entered by ancillary staff. I have reviewed and when necessary edited, so that they are an adequate record of my encounter with this patient Please note that parts of this document were created using voice recognition software and therefore may contain grammatical errors. Patient verbalizes understanding of instructions from today's visit and in agreement with treatment plan. Questions answered. Agrees to call the office if questions, concerns of issues with acute symptoms not improving or if they worsen. See diagnoses and orders for additional plan(s). Allergies and medications were reviewed, list was updated, and refills given if needed. Past medical, surgical, social, and family history reviewed and updated as appropriate. Encouraged proper diet & exercise as well as compliance with taking medications. Age-appropriate health preventative measures were discussed. Return if symptoms worsen or fail to improve, for Keep next scheduled appointment.. Lula Hayes APRN-NIRANJAN documented in this encounter [facility] 09-29-2023 Instructions Ambar Lozoya LPN - 09/29/2023 2:38 PM EDT Images from the original note were not included. Urinary Problem-When to Seek Help? Symptoms of a urinary problem may lead to a bladder infection. Women are at greater risk of a urinary tract infection than are men. Most urinary tract infections in women are caused by bacteria and involve the lower urinary tract including the bladder and urethra. Symptoms: Pain or burning when passing urine, urgency, frequency, blood in the urine, difficult emptying your bladder, and lower abdominal fullness or pressure. Common Causes: Sexual intercourse, menopause, constipation, uncontrolled diabetes, dehydration and feminine products such as tampons, and kidney stones. When to Get Help: Seek medical attention if you get frequent bladder infections, urinary concerns such as leakage, blood in the urine or frequent need to urinate. You may be recommended to get help from a specialist, such as a urologist. Diagnosis & Treatment: Lab testing may include: urinalysis, and urine culture that can be collected in the lab or walk-in clinic. Most bladder infections can easily be treated. A physician, nurse practitioner or physician cancer genetics assistant may treat with a short course of an antibiotic. Delaying treatment can lead to worsening symptoms, like a kidney infection. Self-Care: Avoid a full bladder, bubble baths, bath oils, food and beverages that may irritate the bladder such as caffeine. Avoid spermicide foam and diaphragms Void before and after sexual intercourse Wipe front to back after using the bathroom. Stay hydrated Stop Smoking Follow-up Care: Follow up testing is not needed in healthy young women if symptoms resolve. documented in this encounter [facility] 09-28-2023 Telephone encounter Note Patient has been identified by name and date of : Patient phones for refill(s): Requested Prescriptions Pending Prescriptions Disp Refills chlorthalidone (HYGROTON) 50 mg tablet 45 tablet 3 Sig: Take 0.5 tablets by mouth once daily. Date of last office visit in primary care: 06/21/2023 Date of next office visit in primary care: 11/08/2023 Please advise. Thank you. Abigail Fulton RN. [facility] 09-28-2023 Miscellaneous Notes Patient has been identified by name and date of : Patient phones for refill(s): Requested Prescriptions Pending Prescriptions Disp Refills chlorthalidone (HYGROTON) 50 mg tablet 45 tablet 3 Sig: Take 0.5 tablets by mouth once daily. Date of last office visit in primary care: 06/21/2023 Date of next office visit in primary care: 11/08/2023 Please advise. Thank you. Abigail Fulton RN. documented in this encounter [facility] 05-27-2023 Miscellaneous Notes TC to patient who verbalized understanding of below. No further questions at this time. DIONE Esparza Yes ok Patient calling to make sure that airborne boost immunity and mucinex are ok to take with Amlodipine? Please review and advise, Abigail Fulton RN documented in this encounter [facility] 05-20-2023 Miscellaneous Notes Spoke with patient. Given message from provider's office. Patient verbalizes understanding. Mayelin Persaud RN ok for refill per her request, should come in and be checked if not feeling improved. Patient calls to let provider know that she finished amoxicillin antibiotic for ear infection and as previously she has developed urinary frequency and itching. She reports no discharge. Afebrile. Patient reports that she did take her last left over pyridium from March when symptoms occurred and it was somewhat helpful. Patient asking what provider recommends? Patient treated with Macrobid and pyridium in March for UTI with same symptoms. Rema Pérez RN documented in this encounter [facility] 05-11-2023 History of Present illness Narrative SUBJECTIVE: Colorectal Cancer Screening Never done RSV Vaccine(1 - 1-dose 60+ series) Never done BP Controlled (<130/80) due on 05/08/2023 HPI Yuki Norton is a 62 year old female. PMH significant for ACTIVE PROBLEM LIST Htn (Hypertension) Elevated Ldl Cholesterol Level Hypopotassemia Neck Stiffness Neck Pain Presents today for routine follow up visit. 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 The the student denied. She is without current symptoms of COVID. Reports she did have a ear infection a couple weeks ago and continues with left ear pain and fullness. She notes chronic neck pain seems exacerbated. Would like to get a refill of tizanidine. Completing HEP, has gone to PT in the past. Notes massage of the affected area does help. She reports her mother had difficulty with medications for blood pressure and she is concerned she may as well. HTN: She is without report of headache, chest pain, palpitations, dyspnea, peripheral edema, orthopnea, fatigue and PND. Last 14 Encounter BP Readings: Date: BP: 05/11/2023 139/84 03/23/2023 142/82 11/06/2022 136/84 10/27/2022 138/76 05/08/2022 130/88 11/04/2021 136/82 04/16/2021 128/78 10/14/2020 136/84 10/04/2020 140/86 09/30/2020 150/92 02/28/2019 130/80 10/05/2018 132/88 03/07/2018 138/90 11/18/2017 136/84 Hyperlipidemia. Ms. 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 Musculoskeletal: Positive for neck pain and neck stiffness. Objective BP 139/84 Pulse 80 Temp 36.9 C (98.4 F) Resp 16 Wt 85.7 kg (189 lb) LMP 02/06/2009 BMI 30.51 kg/m Physical Exam Vitals and nursing note reviewed. Constitutional: General: She is not in acute distress. Appearance: Normal appearance. She is not ill-appearing, toxic-appearing or diaphoretic. HENT: Head: Normocephalic and atraumatic. Right Ear: Tympanic membrane and ear canal normal. Left Ear: Ear canal normal. Tenderness present. A middle ear effusion is present. Nose: Nose normal. No mucosal edema or rhinorrhea. Mouth/Throat: Lips: [place]. Mouth: Mucous membranes are moist. Pharynx: Oropharynx is clear. Eyes: Conjunctiva/sclera: Conjunctivae normal. Neck: Thyroid: No thyromegaly. Vascular: Normal carotid pulses. No JVD. Cardiovascular: Rate and Rhythm: Normal rate and regular rhythm. Pulses: Carotid pulses are 2+ on the right side and 2+ on the left side. Radial pulses are 2+ on the right side and 2+ on the left side. Heart sounds: Normal heart sounds. Pulmonary: Effort: Pulmonary effort is normal. Breath sounds: Normal breath sounds. Abdominal: General: Bowel sounds are normal. Palpations: Abdomen is soft. Musculoskeletal: Cervical back: No muscular tenderness. Skin: General: Skin is warm and dry. Neurological: General: No focal deficit present. Mental Status: She is alert and oriented to person, place, and time. ALLERGIES Allergen Reactions Ciprofloxacin Mental Status Change, Other: See Comments Entexpse [Other] Intolerance Environmental [Othe* Erythromycin Vomiting Hydrochlorothiazide Intolerance Dizzy Sulfa (Sulfonamide * Hives in childhoood Medications potassium chloride ER (KLOR-CON) 20 mEq tablet Take 2 tablets by mouth twice daily. chlorthalidone (HYGROTON) 50 mg tablet Take 0.5 tablets by mouth once daily. diclofenac (VOLTAREN ARTHRITIS PAIN) 1 % topical gel Apply 2 g to affected area four times daily as needed. Omeprazole Magnesium 20 mg tablet Take 1 tablet by mouth as needed. 1/2 hr before meal. FA/MV,CA,IRON,MIN/LYCOPENE/LUT (MULTIVITAL ORAL) Take by mouth. Alive multivitamin +50 PAST MEDICAL HISTORY Diagnosis Date GERD (gastroesophageal reflux disease) hypertension Hypopotassemia Social History Tobacco Use Smoking status: Former Smokeless tobacco: Never Tobacco comments: quit in college Vaping Use Vaping Use: Never used Substance Use Topics Alcohol use: Yes Comment: Seldom Drug use: No Component Latest Ref Rng & Units 05/08/2022 11/06/2022 Protein, Total 6.3 - 8.0 g/dL 7.4 7.7 Albumin 3.9 - 4.9 g/dL 4.5 4.4 Calcium 8.5 - 10.2 mg/dL 9.1 9.7 Bilirubin, Total 0.2 - 1.3 mg/dL 0.4 0.3 Alkaline Phosphatase 34 - 123 U/L 86 81 AST 13 - 35 U/L 26 25 ALT 7 - 38 U/L 35 24 Glucose 74 - 99 mg/dL 91 115 (H) BUN 7 - 21 mg/dL 13 12 Creatinine 0.58 - 0.96 mg/dL 0.87 0.69 Sodium 136 - 144 mmol/L 139 142 Potassium 3.7 - 5.1 mmol/L 3.3 (L) 4.3 Chloride 97 - 105 mmol/L 101 104 CO2 22 - 30 mmol/L 24 24 Anion Gap 9 - 18 mmol/L 14 14 eGFR >=60 mL/min/1.73m 75 98 WBC 3.70 - 11.00 k/uL 7.39 RBC 3.90 - 5.20 m/uL 4.85 Hemoglobin 11.5 - 15.5 g/dL 13.9 Hematocrit 36.0 - 46.0 % 42.6 MCV 80.0 - 100.0 fL 87.8 MCH 26.0 - 34.0 pg 28.7 MCHC 30.5 - 36.0 g/dL 32.6 RDW-CV 11.5 - 15.0 % 14.1 Platelet Count 150 - 400 k/uL 271 MPV 9.0 - 12.7 fL 9.8 Absolute nRBC <0.01 k/uL <0.01 Total Cholesterol, Nonfasting <200 mg/dL 215 (H) Triglycerides, Nonfasting <150 mg/dL 189 (H) HDL Cholesterol, Nonfasting >39 mg/dL 34 (L) LDL Cholesterol, Nonfasting <100 mg/dL 143 (H) Non HDL Cholesterol, Nonfasting <130 mg/dL 181 (H) VLDL Cholesterol, Nonfasting <30 mg/dL 38 (H) Total Chol/HDL Ratio, Nonfasting <5.10 mg/dL 6.32 (H) LDL/HDL Ratio, Nonfasting <2.54 mg/dL 4.21 (H) Hemoglobin A1C 4.3 - 5.6 % 6.1 (H) 5.7 (H) Estimated Average Glucose mg/dL 128 117 Uric Acid 2.5 - 6.6 mg/dL 6.6 The 10-year ASCVD risk score (Alexis DK, et al., 2019) is: 9.5% Values used to calculate the score: Age: 62 years Sex: Female Is Non- : No Diabetic: No Tobacco smoker: No Systolic Blood Pressure: 139 mmHg Is BP treated: Yes HDL Cholesterol: 34 mg/dL Total Cholesterol: 215 mg/dL ASSESSMENT/PLAN: 1. Primary hypertension - ICD9: 401.9, ICD10: I10 (primary diagnosis) - suboptimal control - Continue current medications, add amlodipine 2.5 mg daily - Encourage dietary sodium restriction/DASH diet - Recommend regular aerobic exercise. - COMP METABOLIC PANEL 2. Elevated LDL cholesterol level - ICD9: 272.0, ICD10: E78.00 Recommend a plant based diet such as Mediterranean diet with plenty of vegetables, fruits,whole grains, fish, chicken, turkey or plant proteins and routine exercise such as walking - LIPID PANEL, NONFASTING 3. Hypopotassemia - ICD9: 276.8, ICD10: E87.6 - COMP METABOLIC PANEL 4. Neck pain - ICD9: 723.1, ICD10: M54.2 5. Neck stiffness - ICD9: 723.5, ICD10: M43.6 Coninue with HEP and massage, add hs tizanidine - TIZANIDINE 2 MG TABLET 6. Elevated glucose - ICD9: 790.29, ICD10: R73.09 - HGB A1C 7. Left ear pain - ICD9: 388.70, ICD10: H92.02 - AMOXICILLIN 875 MG TABLET 1 mo recheck BP Annabel Griggs APRN.CNS Labs at next visit November appt Shira Nicholas MD May 2024 appt STEPHY Cardozo APRN.CNS Medical Decision Making: Problems: Moderate: 2+ stable chronic illnesses Data: Unique test(s) ordered: 2 Risk: Moderate: Drug management Medical Decision Making Level: 4 - Moderate documented in this encounter [facility] 03-29-2023 Miscellaneous Notes Pt called and is notified of providers message and instructions. Pt voices understanding. Gave Pt red flags to look for to call 911 and got to ER. Ashley Llamas RN I agree with monitoring her symptoms, let us know if things getting worse or persistent. Patient reports she got a covid vaccine at a Pharmacy this past Monday 03/26. Reports over the weekend she developed nasal congestion, sore throat and low grade fever. She took home COVID test today and it was positive. Pt states she had COVID a year ago and tried to take Paxlovid and it made her feel much worse. Pt does not prefer to take Paxlovid again. Pt agreeable to monitor sx's with fluids and rest. Pt asking PCP team provider to review this message and advise if she should do anything more other than monitor sx's? Angeles Lewis RN documented in this encounter [facility] 03-25-2023 Miscellaneous Notes Patient calls and notified of results and providers instructions. Patient verbalizes understanding. Rema Pérez RN Left VM instructing patient to return call to receive results. Bee Cortés MA Please call and verify that patient's symptoms are improving on the Macrobid. Urine culture shows that Macrobid should be alleviating symptoms. If patient is not getting any better patient needs to follow-up with primary care documented in this encounter [facility] 03-23-2023 Instructions Nahomi Moreland APRN.CNP - 03/23/2023 1:10 PM EDT ASSESSMENT/PLAN: 1. Urgency of urination - ICD9: 788.63, ICD10: R39.15 - UA DIP, URINE (POC)- positive for leukocytes - URINE CULTURE - NITROFURANTOIN MONOHYDRATE & MACROCRYSTAL 100 MG ORAL CAP - PHENAZOPYRIDINE 200 MG TABLET - Follow-up with your PCP in 3-5 days if symptoms have not improved or sooner if symptoms worsen - Discussed red flags and need for immediate medical evaluation if any occur. - Discussed supportive care treatment with fluids, rest and analgesia. - Discussed expected course of illness Nahomi Moreland APRN.CNP documented in this encounter [facility] 03-23-2023 History of Present illness Narrative Subjective HPI Yuki Norton is a 62 year old female who presents with 3 days of urinary urgency and bladder spasms. She has not had a fever or chills or abdominal pain. She has not taken any medication for her symptoms. Review of Systems Constitutional: Negative for chills and fever. Respiratory: Negative. Cardiovascular: Negative. Gastrointestinal: Negative for abdominal pain, nausea and vomiting. Genitourinary: Positive for frequency and urgency. Negative for dysuria, flank pain and hematuria. Musculoskeletal: Negative for back pain. BP 142/82 Pulse 102 Temp 36.7 C (98 F) (Tympanic) Resp 18 Wt 88.8 kg (195 lb 12.8 oz) LMP 02/06/2009 SpO2 100% BMI 31.60 kg/m PAST MEDICAL HISTORY Diagnosis Date GERD (gastroesophageal reflux disease) hypertension Hypopotassemia PAST SURGICAL HISTORY Procedure Laterality Date BIOPSY BREAST OPEN INCISIONAL lumpectomy - benign LAPS ABD PRTM&OMENTUM DX W/WO SPEC BR/WA SPX for infertility TONSILLECTOMY PRIMARY/SECONDARY <AGE 12 Tonsillectomy ALLERGIES Ciprofloxacin, Entexpse [Other], Environmental [Other], Erythromycin, Hydrochlorothiazide, and Sulfa (Sulfonamide Antibiotics) MEDICATIONS potassium chloride ER (KLOR-CON) 20 mEq tablet Take 2 tablets by mouth twice daily. chlorthalidone (HYGROTON) 50 mg tablet Take 0.5 tablets by mouth once daily. potassium chloride ER (KLOR-CON) 20 mEq tablet Take 2 tablets by mouth twice daily. chlorthalidone (HYGROTON) 50 mg tablet Take 0.5 tablets by mouth once daily. albuterol HFA (VENTOLIN HFA) 90 mcg/actuation inhaler Inhale 2 Puffs as instructed every 4 hours as needed for wheezing/shortness of breath. diclofenac (VOLTAREN ARTHRITIS PAIN) 1 % topical gel Apply 2 g to affected area four times daily as needed. Omeprazole Magnesium 20 mg tablet Take 1 tablet by mouth as needed. 1/2 hr before meal. FA/MV,CA,IRON,MIN/LYCOPENE/LUT (MULTIVITAL ORAL) Take by mouth. Alive multivitamin +50 FAMILY HISTORY Problem Relation Age of Onset Hypertension Mother other (dementia) Mother other (hepatitis B) Mother Hypertension Father CA, age 45 other (dementia) Father age 86 Hypertension Brother other (gout) Brother Heart Maternal Grandmother CHF other (Parkinson's disease) Maternal Grandfather Social History Tobacco Use Smoking status: Former Smokeless tobacco: Never Tobacco comments: quit in college Vaping Use Vaping Use: Never used Substance Use Topics Alcohol use: Yes Comment: Seldom Drug use: No Objective Physical Exam Vitals and nursing note reviewed. Constitutional: General: She is not in acute distress. Appearance: Normal appearance. She is not ill-appearing. Cardiovascular: Rate and Rhythm: Normal rate and regular rhythm. Heart sounds: Normal heart sounds. Pulmonary: Effort: Pulmonary effort is normal. No respiratory distress. Breath sounds: Normal breath sounds. No wheezing or rales. Abdominal: General: There is no distension. Palpations: Abdomen is soft. There is no mass. Tenderness: There is no abdominal tenderness. There is no right CVA tenderness, left CVA tenderness or guarding. Skin: General: Skin is warm and dry. Neurological: Mental Status: She is alert. Last labs for kidney function: Component Latest Ref Rng & Units 11/06/2022 Protein, Total 6.3 - 8.0 g/dL 7.7 Albumin 3.9 - 4.9 g/dL 4.4 Calcium 8.5 - 10.2 mg/dL 9.7 Bilirubin, Total 0.2 - 1.3 mg/dL 0.3 Alkaline Phosphatase 34 - 123 U/L 81 AST 13 - 35 U/L 25 ALT 7 - 38 U/L 24 Glucose 74 - 99 mg/dL 115 (H) BUN 7 - 21 mg/dL 12 Creatinine 0.58 - 0.96 mg/dL 0.69 Sodium 136 - 144 mmol/L 142 Potassium 3.7 - 5.1 mmol/L 4.3 Chloride 97 - 105 mmol/L 104 CO2 22 - 30 mmol/L 24 Anion Gap 9 - 18 mmol/L 14 eGFR >=60 mL/min/1.73m 98 Office Visit on 03/23/2023 Component Date Value Ref Range Status GLUCOSE UA (POCT) 03/23/2023 Negative Negative mg/dL Final BILIRUBIN UA (POCT) 03/23/2023 Negative Negative Final KETONE UA (POCT) 03/23/2023 Negative Negative mg/dL Final SPECIFIC GRAVITY UA (POCT) 03/23/2023 1.020 1.005 - 1.030 Final HEMOGLOBIN/BLOOD UA (POCT) 03/23/2023 Negative Negative Final PH UA (POCT) 03/23/2023 6.0 4.5 - 8.0 Final PROTEIN UA (POCT) 03/23/2023 Negative Negative mg/dL Final UROBILINOGEN UA (POCT) 03/23/2023 0.2 Normal E.U./dL Final NITRITE UA (POCT) 03/23/2023 Negative Negative Final LEUKOCYTES UA (POCT) 03/23/2023 Trace (A) Negative Final COLOR UA (POCT) 03/23/2023 Yellow Final CLARITY UA (POCT) 03/23/2023 Clear Final ASSESSMENT/PLAN: 1. Urgency of urination - ICD9: 788.63, ICD10: R39.15 - UA DIP, URINE (POC)- positive for leukocytes - URINE CULTURE - NITROFURANTOIN MONOHYDRATE & MACROCRYSTAL 100 MG ORAL CAP - PHENAZOPYRIDINE 200 MG TABLET - Follow-up with your PCP in 3-5 days if symptoms have not improved or sooner if symptoms worsen - Discussed red flags and need for immediate medical evaluation if any occur. - Discussed supportive care treatment with fluids, rest and analgesia. - Discussed expected course of illness Nahomi Moreland APRN.[employer] documented in this encounter [facility] 11-06-2022 History of Present illness Narrative This note was created using Zifyriter. Subjective Yuki Norton is a 62 year old female. Patient presents with: F/U 6 months SUBJECTIVE: Yuik Norton is a 62 year old year old lady here today for 6 month follow up appointment for review of medical conditions. Doing well. Did get a respiratory bug. Negative for COVID. Had COVID this past April. Also had influenza in May. Feels better today compared to yesterday. Has used albuterol before--does make her hyper. 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 Gets severe tenderness when it flares up. Started with episodes this past spring. Left thumb IP joint--gets swollen and boggy. Sometime painful in the joint, not where the swelling is. Depression Screening 11/03/2021 05/08/2022 11/04/2022 11/06/2022 PHQ-2 Score 0 0 0 0 PHQ-9 Score 0 - 0 - Depression screening tool completed and reviewed. Based on score and interview, patient is not at risk for depression. Screening tool discussed with patient, and I recommended no further intervention at this time. PAST MEDICAL HISTORY Diagnosis Date GERD (gastroesophageal reflux disease) hypertension Hypopotassemia Current Outpatient Medications Medication Sig potassium chloride ER (K-DUR, KLOR-CON) 20 mEq tablet Take 2 tablets by mouth twice daily. chlorthalidone (HYGROTON) 50 mg tablet Take 0.5 tablets by mouth once daily. Omeprazole Magnesium 20 mg tablet Take 1 tablet by mouth as needed. 1/2 hr before meal. FA/MV,CA,IRON,MIN/LYCOPENE/LUT (MULTIVITAL ORAL) Take by mouth. Alive multivitamin +50 No current facility-administered medications for this visit. Review of Systems Objective BP 136/84 Pulse 96 Temp 37.2 C (99 F) Resp 18 Wt 84.4 kg (186 lb) LMP 02/06/2009 SpO2 98% BMI 30.02 kg/m Last 5 Encounter Wt Readings: Date: Wt: 11/06/2022 84.4 kg (186 lb) 10/27/2022 83.5 kg (184 lb) 05/08/2022 82.6 kg (182 lb) 11/04/2021 84.4 kg (186 lb) 04/16/2021 83.9 kg (185 lb) No waist measurement recorded Estimated body mass index is 30.02 kg/m as calculated from the following: Height as of 10/27/22: 167.6 cm (5' 6). Weight as of this encounter: 84.4 kg (186 lb). Last 5 Encounter BP Readings: Date: BP: 11/06/2022 136/84 10/27/2022 138/76 05/08/2022 130/88 11/04/2021 136/82 04/16/2021 128/78 Physical Exam Pulmonary: Breath sounds: Wheezing (wheezing with forced expirations) and rhonchi (with forced expriations) present. Component Latest Ref Rng & Units 09/30/2020 10/04/2020 04/16/2021 05/08/2022 Protein, Total 6.3 - 8.0 g/dL 7.2 7.7 7.5 7.4 Albumin 3.9 - 4.9 g/dL 4.6 4.8 4.4 4.5 Calcium 8.5 - 10.2 mg/dL 9.6 9.4 9.6 9.1 Bilirubin, Total 0.2 - 1.3 mg/dL 0.2 0.2 0.3 0.4 Alkaline Phosphatase 34 - 123 U/L 79 77 78 86 AST 13 - 35 U/L 20 22 22 26 Glucose 74 - 99 mg/dL 109 (H) 103 (H) 100 (H) 91 BUN 7 - 21 mg/dL 13 14 16 13 Creatinine 0.58 - 0.96 mg/dL 0.69 0.75 0.77 0.87 Sodium 136 - 144 mmol/L 140 142 140 139 Potassium 3.7 - 5.1 mmol/L 3.2 (L) 3.1 (L) 3.0 (L) 3.3 (L) Chloride 97 - 105 mmol/L 101 102 100 101 CO2 22 - 30 mmol/L 29 28 26 24 Anion Gap 9 - 18 mmol/L 10 12 14 14 ALT 7 - 38 U/L 24 26 26 35 eGFR- >60 >60 >60 eGFR-All Other Races . >60 >60 >60 eGFR >=60 mL/min/1.73m 75 WBC 3.70 - 11.00 k/uL 9.52 RBC 3.90 - 5.20 m/uL 4.75 Hemoglobin 11.5 - 15.5 g/dL 13.8 Hematocrit 36.0 - 46.0 % 40.9 MCV 80.0 - 100.0 fL 86.1 MCH 26.0 - 34.0 pG 29.1 MCHC 30.5 - 36.0 g/dL 33.7 RDW-CV 11.5 - 15.0 % 13.5 Platelet Count 150 - 400 k/uL 293 MPV 9.0 - 12.7 fL 9.9 Absolute nRBC <0.01 k/uL <0.01 Cholesterol, Total <200 mg/dL 214 (H) Triglyceride <150 mg/dL 253 (H) HDL Cholesterol >39 mg/dL 34 (L) LDL Cholesterol <100 mg/dL 129 (H) Non HDL Cholesterol <130 mg/dL 180 (H) Fasting Time hrs 0 VLDL Cholesterol <30 mg/dL 51 (H) TC:HDL Ratio <5.10 6.29 (H) LDL:HDL Ratio <2.54 3.79 (H) Total Cholesterol, Nonfasting <200 mg/dL 215 (H) Triglycerides, Nonfasting <150 mg/dL 189 (H) HDL Cholesterol, Nonfasting >39 mg/dL 34 (L) LDL Cholesterol, Nonfasting <100 mg/dL 143 (H) Non HDL Cholesterol, Nonfasting <130 mg/dL 181 (H) VLDL Cholesterol, Nonfasting <30 mg/dL 38 (H) Total Chol/HDL Ratio, Nonfasting <5.10 mg/dL 6.32 (H) LDL/HDL Ratio, Nonfasting <2.54 mg/dL 4.21 (H) Hemoglobin A1C 4.3 - 5.6 % 6.0 (H) 5.9 (H) 6.1 (H) Estimated Average Glucose mg/dL 126 123 128 Assessment and Plan Encounter Diagnosis ICD-10-CM 1. Primary hypertension I10 COMP METABOLIC PANEL CBC chlorthalidone (HYGROTON) 50 mg tablet chlorthalidone (HYGROTON) 50 mg tablet 2. Acute bronchitis, unspecified organism J20.9 albuterol HFA (VENTOLIN HFA) 90 mcg/actuation inhaler Inhalational Spacing Device (AEROCHAMBER MV) 3. Hypokalemia E87.6 COMP METABOLIC PANEL potassium chloride ER (KLOR-CON) 20 mEq tablet 4. Mixed hyperlipidemia E78.2 LIPID PANEL BASIC 5. IFG (impaired fasting glucose) R73.01 HGB A1C 6. Encounter for immunization Z23 7. Screening for colon cancer Z12.11 COLOGUARD 8. Hypopotassemia E87.6 potassium chloride ER (KLOR-CON) 20 mEq tablet potassium chloride ER (KLOR-CON) 20 mEq tablet 9. Acute gouty arthritis M10.9 URIC ACID BLOOD Great toe MTP joints 10. Degenerative arthritis of thumb, left M18.12 diclofenac (VOLTAREN ARTHRITIS PAIN) 1 % topical gel 11. Need for vaccine for DT (diphtheria-tetanus) Z23 TD VACCINE, AGE 7+ YR, 5 LF TETANUS (TENIVAC) Above issues addressed with patient. Patient involved in shared decision making for management of medical issues. History and medications reviewed. Epic updated as needed Refills and/or prescriptions taken care of and meds adjusted as indicated after reviewed history, exam and labs. Health Maintenance reviewed. Updated record and/or ordered tests as recorded. Shira Nicholas MD documented in this encounter [facility] 10-27-2022 History of Present illness Narrative Radiology Service Progress Note PATIENT NAME: Yuki Norton DATE OF SERVICE: October 27, 2022 TIME: 7:31 AM PATIENT IDENTITY VERIFICATION COMPLETED USING TWO (2) IDENTIFIERS: Name and Date of confirmed by patient verbally. FALL SCREENING: Has the patient had 2 falls in the last year or 1 fall with injury or currently using an Ambulatory Assistive Device (Walker, Cane, Wheelchair, Crutches, etc.)? No PATIENT GENDER DATA: Female. status: : No status: NO. PATIENT RELEVANT IMPLANT DATA REVIEWED: Not Applicable RADIOLOGY DEPARTMENT: Mammography PERIPHERAL IV DATA: Not applicable SIGNED BY: RT Tayo(R) October 27, 2022 7:31 AM documented in this encounter [facility] 05-08-2022 Instructions Annabel Griggs APRN.CNS - 05/08/2022 3:10 PM EST Check to see if your insurance covers shingles vaccine and what location to get the vaccine -usually best covered at your local pharmacy where you get prescriptions filled documented in this encounter [facility] 05-08-2022 History of Present illness Narrative SUBJECTIVE: COLORECTAL CANCER SCREENING Never done SHINGRIX VACCINE(1 of 2) Never done BP CONTROLLED (<130/80) due on 02/29/2020 MAMMOGRAM due on 03/07/2020 PAP TESTING due on 04/14/2021 HPV TESTING due on 04/14/2021 DEPRESSION ASSESSMENT Never done HPI Yuki Norton is a 61 year old female. PMH significant for ACTIVE PROBLEM LIST Htn (Hypertension) Elevated Ldl Cholesterol Level Hypopotassemia Neck Stiffness Neck Pain Presents today for routine follow up visit. Notes cough Covid19 04/10/2022. Notes only took one dose of paxlovid due to nausea and vomiting. [facility] ER visit. Notes CP in ER, subsided in 24 hours. Continues with brain fog and fatigue, intermittent. Home pulse oximeter readings were always within normal limits. HTN: She is without report of headache, chest pain, palpitations, dyspnea, peripheral edema, orthopnea, fatigue and PND. Last 14 Encounter BP Readings: Date: BP: 05/08/2022 130/88 11/04/2021 136/82 04/16/2021 128/78 10/14/2020 136/84 10/04/2020 140/86 09/30/2020 150/92 02/28/2019 130/80 10/05/2018 132/88 03/07/2018 138/90 11/18/2017 136/84 07/07/2017 134/94 04/05/2017 120/78 11/16/2016 140/88 11/11/2016 116/77 Hyperlipidemia. Ms. Norton reports doing well on current therapy Her most recent lipid panels are: Cholesterol, Total (mg/dL) Date Value 09/30/2020 214 03/12/2020 219 HDL Cholesterol (mg/dL) Date Value 09/30/2020 34 03/12/2020 36 LDL Cholesterol (mg/dL) Date Value 09/30/2020 129 03/12/2020 119 Triglyceride (mg/dL) Date Value 09/30/2020 253 03/12/2020 321 INFORMATION TECHNOLOGY SECURITY MANAGER: no recent visit Review of Systems Constitutional: Positive for fatigue. Respiratory: Positive for cough. Objective BP 130/88 Pulse 84 Resp 16 Wt 82.6 kg (182 lb) LMP 02/06/2009 BMI 28.51 kg/m Physical Exam Vitals and nursing note reviewed. Constitutional: General: She is not in acute distress. Appearance: Normal appearance. She is not ill-appearing, toxic-appearing or diaphoretic. HENT: Head: Normocephalic and atraumatic. Eyes: Conjunctiva/sclera: Conjunctivae normal. Neck: Thyroid: No thyromegaly. Vascular: Normal carotid pulses. No JVD. Cardiovascular: Rate and Rhythm: Normal rate and regular rhythm. Pulses: Carotid pulses are 2+ on the right side and 2+ on the left side. Radial pulses are 2+ on the right side and 2+ on the left side. Heart sounds: Normal heart sounds. Pulmonary: Effort: Pulmonary effort is normal. Breath sounds: Normal breath sounds. Abdominal: General: Bowel sounds are normal. Palpations: Abdomen is soft. Musculoskeletal: Cervical back: No muscular tenderness. Skin: General: Skin is warm and dry. Neurological: General: No focal deficit present. Mental Status: She is alert and oriented to person, place, and time. ALLERGIES Allergen Reactions Ciprofloxacin Mental Status Change Entexpse [Other] Intolerance Environmental [Othe* Erythromycin Vomiting Hydrochlorothiazide Intolerance Dizzy Sulfa (Sulfonamide * Hives in childhoood Medications potassium chloride ER (K-DUR, KLOR-CON) 20 mEq tablet Take 2 tablets by mouth twice daily. chlorthalidone (HYGROTON) 50 mg tablet Take 0.5 tablets by mouth once daily. Omeprazole Magnesium 20 mg tablet Take 1 tablet by mouth as needed. 1/2 hr before meal. FA/MV,CA,IRON,MIN/LYCOPENE/LUT (MULTIVITAL ORAL) Take by mouth. Alive multivitamin +50 nirmatrelvir tablet 300 mg (150 mg x 2) and ritonavir tablet 100 mg in a dose pack (PAXLOVID) Administer TWO pink nirmatrelvir 150 mg tablets and ONE white ritonavir 100 mg tablet for a total of three tablets twice daily. metroNIDAZOLE (METROGEL) 0.75 % Topical Gel Apply to affected area twice daily. (Patient not taking: Reported on 05/08/2022) tiZANidine (ZANAFLEX) 2 mg tablet Take 0.5 tablets by mouth at bedtime as needed. (Patient not taking: Reported on 05/08/2022) PAST MEDICAL HISTORY Diagnosis Date GERD (gastroesophageal reflux disease) hypertension Hypopotassemia Social History Tobacco Use Smoking status: Former Smokeless tobacco: Never Tobacco comments: quit in college Substance Use Topics Alcohol use: Yes Comment: Seldom Drug use: No Component Latest Ref Rng & Units 09/30/2020 10/04/2020 04/16/2021 Protein, Total 6.3 - 8.0 g/dL 7.2 7.7 7.5 Albumin 3.9 - 4.9 g/dL 4.6 4.8 4.4 Calcium 8.5 - 10.2 mg/dL 9.6 9.4 9.6 Bilirubin, Total 0.2 - 1.3 mg/dL 0.2 0.2 0.3 Alkaline Phosphatase 34 - 123 U/L 79 77 78 AST 13 - 35 U/L 20 22 22 Glucose 74 - 99 mg/dL 109 (H) 103 (H) 100 (H) BUN 7 - 21 mg/dL 13 14 16 Creatinine 0.58 - 0.96 mg/dL 0.69 0.75 0.77 Sodium 136 - 144 mmol/L 140 142 140 Potassium 3.7 - 5.1 mmol/L 3.2 (L) 3.1 (L) 3.0 (L) Chloride 97 - 105 mmol/L 101 102 100 CO2 22 - 30 mmol/L 29 28 26 Anion Gap 9 - 18 mmol/L 10 12 14 ALT 7 - 38 U/L 24 26 26 eGFR- >60 >60 >60 eGFR-All Other Races . >60 >60 >60 WBC 3.70 - 11.00 k/uL 9.52 RBC 3.90 - 5.20 m/uL 4.75 Hemoglobin 11.5 - 15.5 g/dL 13.8 Hematocrit 36.0 - 46.0 % 40.9 MCV 80.0 - 100.0 fL 86.1 MCH 26.0 - 34.0 pG 29.1 MCHC 30.5 - 36.0 g/dL 33.7 RDW-CV 11.5 - 15.0 % 13.5 Platelet Count 150 - 400 k/uL 293 MPV 9.0 - 12.7 fL 9.9 Absolute nRBC <0.01 k/uL <0.01 Cholesterol, Total <200 mg/dL 214 (H) Triglyceride <150 mg/dL 253 (H) HDL Cholesterol >39 mg/dL 34 (L) LDL Cholesterol <100 mg/dL 129 (H) Non HDL Cholesterol <130 mg/dL 180 (H) Fasting Time hrs 0 VLDL Cholesterol <30 mg/dL 51 (H) TC:HDL Ratio <5.10 6.29 (H) LDL:HDL Ratio <2.54 3.79 (H) HIV 12 Combo (Ag/Ab) Non Reactive Non Reactive HIV-1/2 AB Test Not Indicated HIV Interpretation Negative Hemoglobin A1C 4.3 - 5.6 % 6.0 (H) 5.9 (H) Estimated Average Glucose mg/dL 126 123 ASSESSMENT/PLAN: 1. Primary hypertension - ICD9: 401.9, ICD10: I10 (primary diagnosis) - good control - Continue current medication(s) - Encouraged dietary sodium restriction/DASH diet - Recommended regular aerobic exercise. - COMP METABOLIC PANEL 2. Elevated LDL cholesterol level - ICD9: 272.0, ICD10: E78.00 Recommend a plant based diet such as Mediterranean diet with plenty of vegetables, fruits,whole grains, fish, chicken, turkey or plant proteins and routine exercise such as walking - LIPID PANEL, NONFASTING 3. Hypopotassemia - ICD9: 276.8, ICD10: E87.6 - COMP METABOLIC PANEL 4. COVID-19 virus infection - ICD9: 079.89, ICD10: U07.1 Notes intermittently continuing with brain fog, cough and fatigue Took paxlovid x 1 dose. no additional due to nausea and vomiting, unsure if was medication or illness as cause. 5. Screening for diabetes mellitus - ICD9: V77.1, ICD10: Z13.1 - HGB A1C 6. Encounter for immunization - ICD9: V03.89, ICD10: Z23 7. Screening for cervical cancer - ICD9: V76.2, ICD10: Z12.4 - Encourage monthly BSE - CONSULT TO INFORMATION TECHNOLOGY SECURITY MANAGER Labs today. 6 mo follow up MD Annabel Dior APRN.CNS Medical Decision Making: Problems: Moderate: 2+ stable chronic illnesses Risk: Moderate: Drug management Medical Decision Making Level: 4 - Moderate documented in this encounter [facility] 04-12-2022 Miscellaneous Notes Reason For Call: Harsh Cough and vomited once last night. Stopped Paxlovid after first dose yesterday due to vomiting and diarrhea Outcome: Advised he to go to ED now. Pt willing to go to an ED but wanted doctor paged first. Reached Dr. Shira Nicholas and made her aware of patient's Covid, symptoms, and discontinuation of Paxlovid. Dr. Nicholas advised pt be seen tomorrow in office if chest pain only with coughing, chest tender to touch, and no shortness of breath and use ED if chest pain worse or condition worse. Go to ED if chest hurts without coughing or short to breath Reached patient back. Pt reported chest not tender to touch. She has chest discomfort between coughing, feels tight. Advised patient to go to an ED now per doctor's advice and patient verbalized understanding. is on his way home to take her to [facility] ED. Reason for Disposition Chest pain or pressure Advised he to go to ED now Additional Information Commented on: All Negative - Go to ED Now Pulse ox 98 Breathing well Answer Assessment - Initial Assessment Questions 1. COVID-19 DIAGNOSIS: Who made your COVID-19 diagnosis? Was it confirmed by a positive lab test or self-test? If not diagnosed by a doctor (or SANDSTONE SPLITTER/PA), ask Are there lots of cases (community spread) where you live? Note: See public health department website, if unsure. HomeCovid test positive 2 days ago 2. COVID-19 EXPOSURE: Was there any known exposure to COVID before the symptoms began? CDC Definition of close contact: within 6 feet (2 meters) for a total of 15 minutes or more over a 24-hour period. No known exposure 3. ONSET: When did the COVID-19 symptoms start? Day 6 4. WORST SYMPTOM: What is your worst symptom? (e.g., cough, fever, shortness of breath, muscle aches) Harsh cough and vomited last night. Phlegm green. Chest pain with coughing. Feel like she pulled a muscle in her chest on left upper side of chest. 5. COUGH: Do you have a cough? If Yes, ask: How bad is the cough? Yes. See above 6. FEVER: Do you have a fever? If Yes, ask: What is your temperature, how was it measured, and when did it start? Temp 100 temporal this AM 7. RESPIRATORY STATUS: Describe your breathing? (e.g., shortness of breath, wheezing, unable to speak) Breathing well 8. [id number]: Are you getting better, staying the same or getting worse compared to yesterday? If getting worse, ask, In what way? Cough harsher. Green phlegm from coughing new 9. HIGH RISK DISEASE: Do you have any chronic medical problems? (e.g., asthma, heart or lung disease, weak immune system, obesity, etc.) HTN, BMI 29 10. VACCINE: Have you had the COVID-19 vaccine? If Yes, ask: Which one, how many shots, when did you get it? Yes 11. BOOSTER: Have you received your COVID-19 booster? If Yes, ask: Which one and when did you get it? 3 12. : Is there any chance you are ? When was your last menstrual period? Age 61 13. OTHER SYMPTOMS: Do you have any other symptoms? (e.g., chills, fatigue, headache, loss of smell or taste, muscle pain, sore throat) Temp 100 today. See communicable disease screen. Vomiting and diarrhea yesterday but not today, harriet Gould. 14. O2 SATURATION MONITOR: Do you use an oxygen saturation monitor (pulse oximeter) at home? If Yes, ask What is your reading (oxygen level) today? What is your usual oxygen saturation reading? (e.g., 95%) Pulse ox 98 Protocols used: Coronavirus (COVID-19) Diagnosed or [id number] documented in this encounter [facility] 04-10-2022 Instructions Irish Heart APRN.[facility] - 04/10/2022 1:39 PM EDT FACT SHEET FOR PATIENTS, PARENTS, AND CAREGIVERS EMERGENCY USE AUTHORIZATION (EUA) OF PAXLOVID FOR CORONAVIRUS DISEASE 2019 (COVID-19) You are being given this Fact Sheet because your healthcare provider believes it is necessary to provide you with PAXLOVID for the treatment of mevu-fq-hwqinkqz coronavirus disease (COVID-19) caused by the SARS-CoV-2 virus. This Fact Sheet contains information to help you understand the risks and benefits of taking the PAXLOVID you have received or may receive. The U.S. Food and Drug Administration (FDA) has issued an Emergency Use Authorization (EUA) to make PAXLOVID available during the COVID-19 pandemic (for more details about an EUA please see What is an Emergency Use Authorization? at the end of this document). PAXLOVID is not an FDA-approved medicine in the [place]. Read this Fact Sheet for information about PAXLOVID. Talk to your healthcare provider about your options or if you have any questions. It is your choice to take PAXLOVID. What is COVID-19? COVID-19 is caused by a virus called a coronavirus. You can get COVID-19 through close contact with another person who has the virus. COVID-19 illnesses have ranged from very rcxx-mp-uzvsjr, including illness resulting in . While information so far suggests that most COVID-19 illness is mild, serious illness can happen and may cause some of your other medical conditions to become worse. Older people and people of all ages with severe, long lasting (chronic) medical conditions like heart disease, lung disease, and diabetes, for example seem to be at higher risk of being hospitalized for COVID-19. What is PAXLOVID? PAXLOVID is an investigational medicine used to treat scxl-fd-kkcgsalh COVID-19 in adults and children [12 years of age and older weighing at least 88 pounds (40 kg)] with positive results of direct SARS-CoV-2 viral testing, and who are at high risk for progression to severe COVID-19, including hospitalization or . PAXLOVID is investigational because it is still being studied. There is limited information about the safety and effectiveness of using PAXLOVID to treat people with gdmn-dl-wuvxbrae COVID-19. The FDA has authorized the emergency use of PAXLOVID for the treatment of teif-pg-zkysvvcx COVID-19 in adults and children [12 years of age and older weighing at least 88 pounds (40 kg)] with a positive test for the virus that causes COVID-19, and who are at high risk for progression to severe COVID-19, including hospitalization or , under an EUA. 1 Revised: 22 August 2021 What should I tell my healthcare provider before I take PAXLOVID? Tell your healthcare provider if you: Have any allergies Have liver or kidney disease Are or plan to become Are a child Have any serious illnesses Tell your healthcare provider about all the medicines you take, including prescription and bqiw-htu-yrbocbc medicines, vitamins, and herbal supplements. Some medicines may interact with PAXLOVID and may cause serious side effects. Keep a list of your medicines to show your healthcare provider and pharmacist when you get a new medicine. You can ask your healthcare provider or pharmacist for a list of medicines that interact with PAXLOVID. Do not start taking a new medicine without telling your healthcare provider. Your healthcare provider can tell you if it is safe to take PAXLOVID with other medicines. Tell your healthcare provider if you are taking combined hormonal contraceptive. PAXLOVID may affect how your control pills work. Females who are able to become should use another effective alternative form of contraception or an additional barrier method of contraception. Talk to your healthcare provider if you have any questions about contraceptive methods that might be right for you. How do I take PAXLOVID? PAXLOVID consists of 2 medicines: nirmatrelvir and ritonavir. Take 2 pink tablets of nirmatrelvir with 1 white tablet of ritonavir by mouth 2 times each day (in the morning and in the evening) for 5 days. For each dose, take all 3 tablets at the same time. If you have kidney disease, talk to your healthcare provider. You may need a different dose. Swallow the tablets whole. Do not chew, break, or crush the tablets. Take PAXLOVID with or without food. Do not stop taking PAXLOVID without talking to your healthcare provider, even if you feel better. If you miss a dose of PAXLOVID within 8 hours of the time it is usually taken, take it as soon as you remember. If you miss a dose by more than 8 hours, skip the missed dose and take the next dose at your regular time. Do not take 2 doses of PAXLOVID at the same time. If you take too much PAXLOVID, call your healthcare provider or go to the nearest hospital emergency room right away. If you are taking a ritonavir-or cobicistat-containing medicine to treat hepatitis C or Human Immunodeficiency Virus (HIV), you should continue to take your medicine as prescribed by your healthcare provider. Talk to your healthcare provider if you do not feel better or if you feel worse after 5 days. Who should generally not take PAXLOVID? Do not take PAXLOVID if: You are allergic to nirmatrelvir, ritonavir, or any of the ingredients in PAXLOVID You are taking any of the following medicines: Alfuzosin Pethidine, propoxyphene Ranolazine Amiodarone, dronedarone, flecainide, propafenone, quinidine Colchicine Lurasidone, pimozide, clozapine Dihydroergotamine, ergotamine, methylergonovine Lovastatin, simvastatin Sildenafil (Revatio ) for pulmonary arterial hypertension (PAH) Triazolam, oral midazolam Apalutamide Carbamazepine, phenobarbital, phenytoin Rifampin Harman s Wort (hypericum perforatum) Taking PAXLOVID with these medicines may cause serious or life-threatening side effects or affect how PAXLOVID works. These are not the only medicines that may cause serious side effects if taken with PAXLOVID. PAXLOVID may increase or decrease the levels of multiple other medicines. It is very important to tell your healthcare provider about all of the medicines you are taking because additional laboratory tests or changes in the dose of your other medicines may be necessary while you are taking PAXLOVID. Your healthcare provider may also tell you about specific symptoms to watch out for that may indicate that you need to stop or decrease the dose of some of your other medicines. What are the important possible side effects of PAXLOVID? Possible side effects of PAXLOVID are: Allergic Reactions. Allergic reactions can happen in people taking PAXLOVID, even after only 1 dose. Stop taking PAXLOVID and call your healthcare provider right away if you get any of the following symptoms of an allergic reaction: hives trouble swallowing or breathing swelling of the mouth, lips, or face throat tightness hoarseness skin rash Liver Problems. Tell your healthcare provider right away if you have any of these signs and symptoms of liver problems: loss of appetite, yellowing of your skin and the whites of eyes (jaundice), dark-colored urine, pale colored stools and itchy skin, stomach area (abdominal) pain. Resistance to HIV Medicines. If you have untreated HIV infection, PAXLOVID may lead to some HIV medicines not working as well in the future. Other possible side effects include: altered sense of taste diarrhea high blood pressure muscle aches These are not all the possible side effects of PAXLOVID. Not many people have taken PAXLOVID. Serious and unexpected side effects may happen. PAXLOVID is still being studied, so it is possible that all of the risks are not known at this time. What other treatment choices are there? Veklury (remdesivir) is FDA-approved for the treatment of fwoj-ea-tzmomfke COVID-19 in certain adults and children. Talk with your doctor to see if Veklury is appropriate for you. Like PAXLOVID, FDA may also allow for the emergency use of other medicines to treat people with COVID-19. Go to https://www.fda.gov/emergency-pre paredness-andresponse/mcm-legal-r ttfovdoxr-lee-imioaa-framework/em wroffmg-ydh-gjgorxiodjika for information on the emergency use of other medicines that are authorized by FDA to treat people with COVID-19. Your healthcare provider may talk with you about clinical trials for which you may be eligible. It is your choice to be treated or not to be treated with PAXLOVID. Should you decide not to receive it or for your child not to receive it, it will not change your standard medical care. What if I am or ? There is hydraulic governor assembler treating women or mothers with PAXLOVID. For a mother and unborn baby, the benefit of taking PAXLOVID may be greater than the risk from the treatment. If you are , discuss your options and specific situation with your healthcare provider. It is recommended that you use effective barrier contraception or do not have sexual activity while taking PAXLOVID. If you are , discuss your options and specific situation with your healthcare provider. How do I report side effects with PAXLOVID? Contact your healthcare provider if you have any side effects that bother you or do not go away. Report side effects to [facility] at www.fda.gov/medWorkSnugtch or call 5-217-OTR8244 or you can report side effects to [facility] at the contact information provided below. Website Fax number Telephone number [employer] How should I store PAXLOVID? Store PAXLOVID tablets at room temperature, between 68?F to 77?F (20?C to 25?C). How can I learn more about COVID-19? Ask your healthcare provider. Visit https://www.cdc.gov/COVID19. Contact your local or state public health department. What is an Emergency Use Authorization (EUA)? The [place] FDA has made PAXLOVID available under an emergency access mechanism called an Emergency Use Authorization (EUA). The EUA is supported by a [place] of Health and Human Service (HHS) declaration that circumstances exist to justify the emergency use of drugs and biological products during the COVID-19 pandemic. PAXLOVID for the treatment of visx-kw-sgufcdxw COVID-19 in adults and children [12 years of age and older weighing at least 88 pounds (40 kg)] with positive results of direct SARS-CoV-2 viral testing, and who are at high risk for progression to severe COVID-19, including hospitalization or , has not undergone the same type of review as an FDA-approved product. In issuing an EUA under the COVID-19 public health emergency, the FDA has determined, among other things, that based on the total amount of scientific evidence available including data from adequate and well-controlled clinical trials, if available, it is reasonable to believe that the product may be effective for diagnosing, treating, or preventing COVID-19, or a serious or life-threatening disease or condition caused by COVID-19; that the known and potential benefits of the product, when used to diagnose, treat, or prevent such disease or condition, outweigh the known and potential risks of such product; and that there are no adequate, approved, and available alternatives. All of these criteria must be met to allow for the product to be used in the treatment of patients during the COVID-19 pandemic. The EUA for PAXLOVID is in effect for the duration of the COVID-19 declaration justifying emergency use of this product, unless terminated or revoked (after which the products may no longer be used under the EUA). Additional Information For general questions, visit the website or call the telephone number provided below. Website Telephone number www[employer] SystemsRDXYI81[employer]am[employer] (4-739-T97-DCAX) You can also go to www.Social [employer] or call for more information. Pfizer Distributed by [facility] [place] [address] [id number] Revised: 22 August 2021 documented in this encounter [facility] 04-10-2022 History of Present illness Narrative VIRTUAL VISIT PROGRESS NOTE This is a virtual visit using [employer] video visit. It required patient-provider interaction for the medical decision making as documented below. Yuki Norton is a 61 year old female seen for Positive home covid test. Patient reports sore throat, headache that started 04/08/2022. Also reports sinus pain, congestion and chills. Denies fever, shortness of breath, chest pain. HISTORY REVIEWED (electronic chart updated): PAST MEDICAL HISTORY Diagnosis Date GERD (gastroesophageal reflux disease) hypertension Hypopotassemia PAST SURGICAL HISTORY Procedure Laterality Date BX OF BREAST; INCISIONAL lumpectomy - benign L'SCOPE DX W/WO BRUSHINGS/WASHINGS for infertility REMOVAL OF TONSILS,<12 Y/O Tonsillectomy FAMILY HISTORY Problem Relation Age of Onset Hypertension Mother other (dementia) Mother other (hepatitis B) Mother Hypertension Father CA, age 45 other (dementia) Father age 86 Hypertension Brother other (gout) Brother Heart Maternal Grandmother CHF other (Parkinson's disease) Maternal Grandfather Social History Tobacco Use Smoking status: Former Smokeless tobacco: Never Tobacco comments: quit in college Substance Use Topics Alcohol use: Yes Comment: Seldom Drug use: No Current Outpatient Medications Medication Sig potassium chloride ER (K-DUR, KLOR-CON) 20 mEq tablet Take 2 tablets by mouth twice daily. chlorthalidone (HYGROTON) 50 mg tablet Take 0.5 tablets by mouth once daily. metroNIDAZOLE (METROGEL) 0.75 % Topical Gel Apply to affected area twice daily. tiZANidine (ZANAFLEX) 2 mg tablet Take 0.5 tablets by mouth at bedtime as needed. Omeprazole Magnesium (PRILOSEC OTC) 20 mg tablet Take 1 tablet by mouth as needed. 1/2 hr before meal. FA/MV,CA,IRON,MIN/LYCOPENE/LUT (MULTIVITAL ORAL) Take by mouth. Alive multivitamin +50 No current facility-administered medications for this visit. ALLERGIES Allergen Reactions Ciprofloxacin Mental Status Change Entexpse [Other] Intolerance Environmental [Othe* Erythromycin Vomiting Hydrochlorothiazide Intolerance Dizzy Sulfa (Sulfonamide * Hives in childhoood REVIEW OF SYSTEMS: See HPI PHYSICAL EXAMINATION: VIDEO EXAM: (if completed, performed via video enabled technology) GENERAL: alert and appropriate, in no distress, well-hydrated, well nourished, and happy, smiling, interactive NOSE: external nose normal without rhinorrhea OROPHARYNX: moist mucus membranes RESPIRATORY: breathing non-labored Home Covid Test visualized as positive. I spent a total of 20 minutes on the date of the service which included preparing to see the patient, jdyu-cu-tvbc patient care, completing clinical documentation, counseling and educating the patient/family/caregiver, ordering medications, tests, or procedures, and care coordination (not separately reported) Nirmatrelvir/Ritonavir (Paxlovid) Eligibility and Patient Discussion [facility] Formulary Restriction Criteria: Adult outpatients 18 years and older with ALL of the following: [x] Patient has positive SARS-COV-2 viral test (PCR or antigen test) during current illness [x] Patient has symptoms for 5 days or less [x] Not requiring hospitalization at any time for management of COVID-19 [x] Not requiring supplemental oxygen or a change in baseline supplemental oxygen [x] Not utilized for pre-exposure or post-exposure prophylaxis for prevention of COVID-19 [x] Patient does not have severe renal impairment (eGFR < 30 mL/min) or severe hepatic impairment (Child-Fletcher Class C) [] Meeting at least one of the criteria for high risk of progression to severe COVID-19: [] Age over 65 years [] Cancer [] Chronic kidney disease [] Chronic liver disease [] Chronic lung diseases, including cystic fibrosis [] Dementia or other neurological conditions [] Diabetes (type 1 or type 2) [] Disabilities, including Down syndrome and neurodevelopmental disorders [x] Heart conditions [] HIV infection [] Immunocompromised state [] Mental health conditions [] Medical related technological dependence (tracheostomy, gastrostomy, or positive pressure ventilation (not related to COVID) [x] Overweight and obesity (BMI greater or equal to 25 for adults) [] Physical inactivity [] [] Sickle cell disease or thalassemia [x] Smoking, current or former [] Solid organ or blood stem cell transplant [] Stroke or cerebrovascular disease [] Substance use disorders [] Tuberculosis [] People from racial and ethnic minority groups Criteria above are met: Yes Date of Positive Test:04/10/2022 Date of Symptom Onset: 04/08/2022 Patient received COVID vaccine: Yes Drug-Drug interactions reviewed: Yes. No drug interactions were identified. I have discussed the use of the investigational therapeutic, nirmatrelvir/ritonavir, for the treatment of mild to moderate COVID-19 and its use under Emergency Use Authorization with the patient. The patient was informed that nirmatrelvir/ritonavir is not an FDA approved drug and that it is authorized for use under this Emergency Use Authorization. The patient was also informed of the significant known benefits and potential risks of nirmatrelvir/ritonavir, and the extent to which such potential risks and benefits are unknown. The patient was informed that there is mandatory reporting of all medication errors and serious adverse events potentially related to nirmatrelvir/ritonavir treatment within 7 calendar days from the onset of the event and that events up to 28 days after completion of therapy need to be reported. The discussion included alternatives to receiving nirmatrelvir/ritonavir, including clinical trials, and potential the risks and benefits of those alternatives. The patient was provided electronically with the Fact Sheet for Patients, Parents and Caregivers. The patient was also instructed that in addition to the treatment with nirmatrelvir/ritonavir, he/she should continue to self-isolate and use infection control measures (e.g., wear mask, isolate, social distance, avoid sharing personal items, clean and disinfect high touch surfaces, and frequent handwashing) according to CDC guidelines. The patient stated understanding and gave verbal consent to proceeding with nirmatrelvir/ritonavir treatment. [employer] APRN.NIRANJAN April 10, 2022 1:37 PM documented in this encounter [facility] 04-10-2022 Miscellaneous Notes Patient calls to report Covid Positive today 04/10/2022. Symptoms started 04/09/2022. Symptoms are sore throat, nasal congestion, and low grade temperature 99.7 tympanic. Denies chest pain, SOB, chills, body aches, fatigue, headache, nausea, vomiting, or diarrhea. Wants to discuss Paxlovid. Fully vaccinated. Rema Pérez RN documented in this encounter [facility] 11-04-2021 History of Present illness Narrative Images from the original note were not included. This note was created using [employer]. Subjective Yuki Norton is a 61 year old female. Patient presents with: F/U 6 months SUBJECTIVE: Yuki Norton is a 61 year old year old lady here today for 6 month follow up appointment for review of medical conditions. Thumbs hurting the past couple months. Better if uses hands more. Gets stiffer over the weekend and in AM. Stiffness lasts a few minutes. Comes back after a while with resting. Tylenol helps. Two 500mg pill once or twice per day as needed. BP at home 117 to 136 over 78 to 82. PAST MEDICAL HISTORY Diagnosis Date GERD (gastroesophageal reflux disease) hypertension Hypopotassemia Current Outpatient Medications Medication Sig chlorthalidone (HYGROTON) 50 mg tablet Take 0.5 tablets by mouth once daily. potassium chloride ER (K-DUR, KLOR-CON) 20 mEq tablet Take 2 tablets by mouth twice daily. elderberry fruit (ELDERBERRY ORAL) Take by mouth. metroNIDAZOLE (METROGEL) 0.75 % Topical Gel Apply to affected area twice daily. tiZANidine (ZANAFLEX) 2 mg tablet Take 0.5 tablets by mouth at bedtime as needed. Omeprazole Magnesium (PRILOSEC OTC) 20 mg tablet Take 1 tablet by mouth as needed. 1/2 hr before meal. FA/MV,CA,IRON,MIN/LYCOPENE/LUT (MULTIVITAL ORAL) Take by mouth. Alive multivitamin +50 No current facility-administered medications for this visit. Review of Systems Objective BP 136/82 Pulse 85 Wt 84.4 kg (186 lb) LMP 02/06/2009 SpO2 96% BMI 29.13 kg/m Last 5 Encounter Wt Readings: Date: Wt: 11/04/2021 84.4 kg (186 lb) 04/16/2021 83.9 kg (185 lb) 10/14/2020 88 kg (194 lb) 10/04/2020 87.5 kg (193 lb) 09/30/2020 87.5 kg (193 lb) No waist measurement recorded Estimated body mass index is 29.13 kg/m as calculated from the following: Height as of 02/28/19: 170.2 cm (5' 7). Weight as of this encounter: 84.4 kg (186 lb). Last 5 Encounter BP Readings: Date: BP: 11/04/2021 136/82 04/16/2021 128/78 10/14/2020 136/84 10/04/2020 140/86 09/30/2020 150/92 Physical Exam Musculoskeletal: Hands: Comments: No active synovitis. Component Latest Ref Rng & Units 03/12/2020 03/27/2020 09/30/2020 10/04/2020 04/16/2021 Protein, Total 6.3 - 8.0 g/dL 7.0 7.2 7.7 7.5 Albumin 3.9 - 4.9 g/dL 4.4 4.6 4.8 4.4 Calcium 8.5 - 10.2 mg/dL 9.2 9.2 9.6 9.4 9.6 Bilirubin, Total 0.2 - 1.3 mg/dL 0.2 0.2 0.2 0.3 Alkaline Phosphatase 34 - 123 U/L 89 79 77 78 AST 13 - 35 U/L 14 20 22 22 Glucose 74 - 99 mg/dL 128 (H) 104 (H) 109 (H) 103 (H) 100 (H) BUN 7 - 21 mg/dL 21 17 13 14 16 Creatinine 0.58 - 0.96 mg/dL 0.91 0.74 0.69 0.75 0.77 Sodium 136 - 144 mmol/L 141 141 140 142 140 Potassium 3.7 - 5.1 mmol/L 3.1 (L) 3.5 (L) 3.2 (L) 3.1 (L) 3.0 (L) Chloride 97 - 105 mmol/L 101 101 101 102 100 CO2 22 - 30 mmol/L 29 26 29 28 26 Anion Gap 9 - 18 mmol/L 11 14 10 12 14 ALT 7 - 38 U/L 18 24 26 26 eGFR- >60 >60 >60 >60 >60 eGFR-All Other Races . >60 >60 >60 >60 >60 WBC 3.70 - 11.00 k/uL 8.03 9.52 RBC 3.90 - 5.20 m/uL 4.80 4.75 Hemoglobin 11.5 - 15.5 g/dL 14.2 13.8 Hematocrit 36.0 - 46.0 % 41.9 40.9 MCV 80.0 - 100.0 fL 87.3 86.1 MCH 26.0 - 34.0 pG 29.6 29.1 MCHC 30.5 - 36.0 g/dL 33.9 33.7 RDW-CV 11.5 - 15.0 % 13.0 13.5 Platelet Count 150 - 400 k/uL 276 293 MPV 9.0 - 12.7 fL 9.5 9.9 Absolute nRBC <0.01 k/uL <0.01 <0.01 Cholesterol, Total <200 mg/dL 219 (H) 214 (H) Triglyceride <150 mg/dL 321 (H) 253 (H) HDL Cholesterol >39 mg/dL 36 (L) 34 (L) LDL Cholesterol <100 mg/dL 119 (H) 129 (H) Non HDL Cholesterol <130 mg/dL 183 (H) 180 (H) Fasting Time hrs 10 0 VLDL Cholesterol <30 mg/dL 64 (H) 51 (H) TC:HDL Ratio <5.10 6.08 (H) 6.29 (H) LDL:HDL Ratio <2.54 3.31 (H) 3.79 (H) Hemoglobin A1C 4.3 - 5.6 % 6.0 (H) 5.9 (H) Estimated Average Glucose mg/dL 126 123 Assessment and Plan ASSESSMENT/PLAN: 1. Hand arthritis - ICD9: 716.94, ICD10: M19.049 (primary diagnosis) Discussed consistent with OA. 2. Hypopotassemia - ICD9: 276.8, ICD10: E87.6 - POTASSIUM CHLORIDE ER 20 MEQ TABLET,EXTENDED RELEASE(PART/CRYST) 3. Essential hypertension - ICD9: 401.9, ICD10: I10 - good control - Continue current medication(s) - Recommended regular aerobic exercise. - Recommend home blood pressure monitoring, to bring results in on next visit - Noted has white coat HTN - Goal of BP <130/80 - COMP METABOLIC PANEL - CBC 4. IFG (impaired fasting glucose) - ICD9: 790.21, ICD10: R73.01 Needs to keep working on diet and exercise with lifestyle changes for effective weight loss as well as prevention of DM, and control of BP and lipids. - HGB A1C - COMP METABOLIC PANEL 5. Mixed hyperlipidemia - ICD9: 272.2, ICD10: E78.2 - to be determined upon return of lab results - COMP METABOLIC PANEL - LIPID PANEL BASIC 6. Colon cancer screening - ICD9: V76.51, ICD10: Z12.11 - COLOGUARD Shira Nicholas MD documented in this encounter [facility] 10-15-2021 Miscellaneous Notes Okayed Patient has been identified by name and date of : Yes Patient phones for refill(s): Pending Prescriptions Disp Refills CHLORTHALIDONE 50 MG TABLET 45 tablet 3 Sig: Take 0.5 tablets by mouth once daily. ISABELLE: No Date of last office visit in primary care:04/16/2021, has appt 11/04/2021 Last 2 Encounter Wt Readings: Date: Wt: 04/16/2021 83.9 kg (185 lb) 10/14/2020 88 kg (194 lb) Previous labs/tests for medication: Blood Pressure: BUN (mg/dL) Date Value 04/16/2021 16 Sodium (mmol/L) Date Value 04/16/2021 140 Last 1 Encounter BP Readings: Date: BP: 04/16/2021 128/78 Please advise. Thank you. Judith Bowman LPN documented in this encounter [facility] 04-30-2021 Miscellaneous Notes Left message for return call. Increase potasium to 2 tablets twice a day. Make sure she isn't taking the potassium with the omeprazole which can interfere with the absorption of the potassium. Recheck potassium in two weeks Valeria Frazier APRN.CNP Patient is currently taking 3 20meq tablets daily. She has plenty to increase in needed ----- Message from Valeria Frazier APRN.CNP sent at 04/30/2021 10:49 AM EST ----- Labs normal except potassium 3.0, how much potassium is she taking? Valeria Frazier APRN.CNP documented in this encounter [facility] 10-04-2020 History of Present illness Narrative Radiology Service Progress Note PATIENT NAME: Yuki Norton DATE OF SERVICE: October 04, 2020 TIME: 5:17 PM PATIENT IDENTITY VERIFICATION COMPLETED USING TWO (2) IDENTIFIERS: Name and Date of confirmed by patient verbally. FALL SCREENING: Has the patient had 2 falls in the last year or 1 fall with injury or currently using an Ambulatory Assistive Device (Walker, Cane, Wheelchair, Crutches, etc.)? No PATIENT GENDER DATA: Female. status: : No status: NO. PATIENT RELEVANT IMPLANT DATA REVIEWED: Not Applicable RADIOLOGY DEPARTMENT: General X-ray: Exam(s) Completed: Spine X-Ray(s): Cervical AP / LAT / OBL PERIPHERAL IV DATA: Not applicable SIGNED BY: RT Sade(R) October 04, 2020 5:17 PM documented in this encounter [facility] 03-09-2006 History of Past i llness Narrative Problem Noted Date Resolved Date Pain in joint, upper arm 03/09/2006 007 Essential hypertension, benign 03/02/2006 0 10/14/2006 Overview: low dose HCTZ since 1998. documented as of this encounter (statuses as of 09/15/2021) [facility] History of Past illness Narrative* Problem Noted Date Resolved Date Pain in joint, upper arm 03/09/2006 007 Essential hypertension, benign 03/02/2006 0 10/14/2006 Overview: low dose HCTZ since 1998. documented as of this encounter (statuses as of 09/16/2021) [facility] History of Past illness Narrative* Problem Noted Date Resolved Date Pain in joint, upper arm 03/09/2006 007 Essential hypertension, benign 03/02/2006 0 10/14/2006 Overview: low dose HCTZ since 1998. documented as of this encounter (statuses as of 10/15/2021) [facility] History of Past illness Narrative* Problem Noted Date Resolved Date Pain in joint, upper arm 03/09/2006 007 Essential hypertension, benign 03/02/2006 0 10/14/2006 Overview: low dose HCTZ since 1998. documented as of this encounter (statuses as of 10/21/2021) [facility] History of Past illness Narrative* Problem Noted Date Resolved Date Pain in joint, upper arm 03/09/2006 007 Essential hypertension, benign 03/02/2006 0 10/14/2006 Overview: low dose HCTZ since 1998. documented as of this encounter (statuses as of 11/10/2021) [facility] History of Past illness Narrative* Problem Noted Date Resolved Date Pain in joint, upper arm 03/09/2006 007 Essential hypertension, benign 03/02/2006 0 10/14/2006 Overview: low dose HCTZ since 1998. documented as of this encounter (statuses as of 04/10/2022) [facility] History of Past illness Narrative* Problem Noted Date Resolved Date Pain in joint, upper arm 03/09/2006 007 Essential hypertension, benign 03/02/2006 0 10/14/2006 Overview: low dose HCTZ since 1998. documented as of this encounter (statuses as of 04/10/2022) [facility] History of Past illness Narrative* Problem Noted Date Resolved Date Pain in joint, upper arm 03/09/2006 007 Essential hypertension, benign 03/02/2006 0 10/14/2006 Overview: low dose HCTZ since 1998. documented as of this encounter (statuses as of 04/12/2022) [facility] History of Past illness Narrative* Problem Noted Date Resolved Date Pain in joint, upper arm 03/09/2006 007 Essential hypertension, benign 03/02/2006 0 10/14/2006 Overview: low dose HCTZ since 1998. documented as of this encounter (statuses as of 05/08/2022) [facility] History of Past illness Narrative* Problem Noted Date Resolved Date Pain in joint, upper arm 03/09/2006 007 Essential hypertension, benign 03/02/2006 0 10/14/2006 Overview: low dose HCTZ since 1998. documented as of this encounter (statuses as of 08/31/2022) [facility] History of Past illness Narrative* Problem Noted Date Resolved Date Pain in joint, upper arm 03/09/2006 007 Essential hypertension, benign 03/02/2006 0 10/14/2006 Overview: low dose HCTZ since 1998. documented as of this encounter (statuses as of 12/07/2022) [facility] History of Past illness Narrative* Problem Noted Date Diagnosed Date Resolved Date Pain in joint, upper arm 03/09/200603/2007 Essential hypertension, benign 03/02/2006 10/14/2006 Overview: low dose HCTZ since 1998. documented as of this encounter (statuses as of 03/23/2023) [facility] History of Past illness Narrative* Problem Noted Date Diagnosed Date Resolved Date Pain in joint, upper arm 03/09/200603/2007 Essential hypertension, benign 03/02/2006 10/14/2006 Overview: low dose HCTZ since 1998. documented as of this encounter (statuses as of 03/25/2023) [facility] History of Past illness Narrative* Problem Noted Date Diagnosed Date Resolved Date Pain in joint, upper arm 03/09/200603/2007 Essential hypertension, benign 03/02/2006 10/14/2006 Overview: low dose HCTZ since 1998. documented as of this encounter (statuses as of 03/30/2023) [facility] History of Past illness Narrative* Problem Noted Date Diagnosed Date Resolved Date Pain in joint, upper arm 03/09/200603/2007 Essential hypertension, benign 03/02/2006 10/14/2006 Overview: low dose HCTZ since 1998. documented as of this encounter (statuses as of 04/11/2023) [facility] History of Past illness Narrative* Problem Noted Date Diagnosed Date Resolved Date Pain in joint, upper arm 03/09/200603/2007 Essential hypertension, benign 03/02/2006 10/14/2006 Overview: low dose HCTZ since 1998. documented as of this encounter (statuses as of 05/12/2023) [facility] History of Past illness Narrative* Problem Noted Date Diagnosed Date Resolved Date Pain in joint, upper arm 03/09/200603/2007 Essential hypertension, benign 03/02/2006 10/14/2006 Overview: low dose HCTZ since 1998. documented as of this encounter (statuses as of 05/21/2023) [facility] History of Past illness Narrative* Problem Noted Date Diagnosed Date Resolved Date Pain in joint, upper arm 03/09/200603/2007 Essential hypertension, benign 03/02/2006 10/14/2006 Overview: low dose HCTZ since 1998. documented as of this encounter (statuses as of 05/28/2023) [facility] Diagnosis Encounter for screening mammogram for breast cancer [facility]* Diagnosis Essential hypertension Unspecified essential hypertension [facility]* Diagnosis Hypopotassemia [facility]* Diagnosis Hand arthritis- Primary Unspecified arthropathy, hand Hypopotassemia Essential hypertension Unspecified essential hypertension IFG (impaired fasting glucose) Impaired fasting glucose Mixed hyperlipidemia Colon cancer screening Special screening for malignant neoplasms, colon [facility] Diagnosis COVID-19- Primary [facility] noteNo [facility] Phone: [facility]* Diagnosis Primary hypertension- Primary Unspecified essential hypertension Elevated LDL cholesterol level Pure hypercholesterolemia Hypopotassemia COVID-19 virus infection Screening for diabetes mellitus Encounter for immunization Need for other specified prophylactic vaccination against single bacterial disease Screening for cervical cancer Screening for malignant neoplasm of the cervix [facility]* Diagnosis Encounter for screening mammogram for breast cancer [facility]* Diagnosis Primary hypertension- Primary Unspecified essential hypertension Acute bronchitis, unspecified organism Hypokalemia Hypopotassemia Mixed hyperlipidemia IFG (impaired fasting glucose) Impaired fasting glucose Encounter for immunization Need for other specified prophylactic vaccination against single bacterial disease Screening for colon cancer Special screening for malignant neoplasms, colon Hypopotassemia Acute gouty arthritis 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, left Need for vaccine for DT (diphtheria-tetanus) Need for prophylactic vaccination with tetanus-diphtheria (Td) [facility] Diagnosis Urgency of urination- Primary [facility] Diagnosis Encounter for screening mammogram for breast cancer [facility] Diagnosis Primary hypertension- Primary Unspecified essential hypertension Elevated LDL cholesterol level Pure hypercholesterolemia Hypopotassemia Neck pain Cervicalgia Neck stiffness Torticollis, unspecified Elevated glucose Other abnormal glucose Left ear pain Otalgia, unspecified [facility]* Diagnosis Urgency of urination [facility] Diagnosis Primary hypertension Unspecified essential hypertension [facility] Diagnosis Acute cystitis with hematuria- Primary Acute cystitis Encounter for therapeutic drug monitoring Elevated LDL cholesterol level Pure hypercholesterolemia IFG (impaired fasting glucose) Impaired fasting glucose Screening for thyroid disorder [facility]* Diagnosis Encounter for screening mammogram for breast cancer [facility] Diagnosis Primary hypertension- Primary Unspecified essential hypertension IFG (impaired fasting glucose) Impaired fasting glucose Hypokalemia Hypopotassemia Mixed hyperlipidemia Screening for colon cancer Special screening for malignant neoplasms, colon [facility] Diagnosis Neck pain Cervicalgia [facility] Diagnosis Sinobronchitis- Primary Unspecified sinusitis (chronic) Acute otitis media, unspecified otitis media type Excessive cerumen in ear canal, right [facility] Diagnosis Screening for depression- Primary Encounter for screening examination for other mental health and behavioral disorders Encounter for immunization Need for other specified prophylactic vaccination against single bacterial disease [facility] Diagnosis Primary hypertension- Primary Unspecified essential hypertension [facility] Diagnosis Urgency of urination- Primary [facility]* Diagnosis Dysuria- Primary Frequent UTI Urinary tract infection, site not specified Antibiotic-induced yeast infection Candidiasis of unspecified site documented in this encounter [facility] note* Diagnosis Primary hypertension Unspecified essential hypertension documented in this encounter [facility] note* Diagnosis Hypokalemia Hypopotassemia documented in this encounter [facility] note* Diagnosis Primary hypertension Unspecified essential hypertension Hypokalemia Hypopotassemia documented in this encounter [facility] note* Diagnosis Encounter for screening mammogram for breast cancer documented in this encounter [facility] note* Diagnosis Primary hypertension- Primary Unspecified essential hypertension Hypokalemia Hypopotassemia Elevated LDL cholesterol level Pure hypercholesterolemia Elevated glucose Other abnormal glucose Contusion of coccyx, sequela Class 1 obesity due to excess calories with body mass index (BMI) of 30.0 to 30.9 in adult, unspecified whether serious comorbidity present Encounter for screening examination for other mental health and behavioral disorders Screening for depression Asymptomatic menopause Screening for colon cancer Special screening for malignant neoplasms, colon Encounter for screening mammogram for breast cancer Encounter for immunization Need for other specified prophylactic vaccination against single bacterial disease Immunity status testing Antibody response examination documented in this encounter [facility] Discharge instructions Additional Instructions Plenty of fluids and rest. Motrin and Tylenol for fevers and body aches. Continue the Paxlovid if it does not agree with you stop taking it. Follow-up with your doctor if not improving or return if feeling a lot worse. [facility] Work Phone: Reason for referral (narrative)* Diagnostic Procedure Only (Routine) - Pending Review Specialty Diagnoses / Procedures Referred By Rubina esquivel Referred To Contact [facility] Diagnoses Encounter for screening mammogram for breast cancer Procedures CARLOS SCREENING SCREENING MAMMOGRAPHY BI 2-VIEW BREAST INC CAD Shira Nicholas MD [address] [place] [address] [facility] [address] [place] [address] Referral ID Status Reason Start Date Expiration Date Visits Requested Visits Authorized [id number] Pending Review Auto-Generat ed Referral 09/10/2021 10/10/2022 1 1 T [facility] for referral (narrative)* Diagnostic Procedure Only (Routine) - Pending Review Specialty Diagnoses / Procedures Referred By Rubina esquivel Referred To Contact [facility] Diagnoses Encounter for screening mammogram for breast cancer Procedures CARLOS SCREENING SCREENING MAMMOGRAPHY BI 2-VIEW BREAST INC Shira Yang MD [address] [place] [address] [facility] [address] [place] [address] Referral ID Status Reason Start Date Expiration Date Visits Requested Visits Authorized [id number] Pending Review Auto-Generat ed Referral 08/26/2022 09/25/2023 1 1 [facility] for referral (narrative)* Diagnostic Procedure Only (Routine) - Closed Specialty Diagnoses / Procedures Referred By Rubina esquivel Referred To Contact [facility] Diagnoses Encounter for screening mammogram for breast cancer Procedures CARLOS SCREENING SCREENING MAMMOGRAPHY BI 2-VIEW BREAST INC Shira Yang MD [address] [place] [address] [facility] [address] [place] [address] Referral ID Status Reason Start Date Expiration Date V isits Requested Visits Authorized [id number] Closed Auto-Generate d Referral 08/26/2022 09/25/2023 1 1 T [facility] for referral (narrative)* Diagnostic Procedure Only (Routine) - Pending Review Specialty Diagnoses / Procedures Referred By Rubina esquivel Referred To Contact [facility] Diagnoses Encounter for screening mammogram for breast cancer Procedures CARLOS SCREENING W SHANNAN SCREENING DIGITAL BREAST TOMOSYNTHESIS BI SCREENING MAMMOGRAPHY BI 2-VIEW BREAST INC Shira Yang MD [facility] [place] [address] [facility] [address] [place] [address] Referral ID Status Reason Start Date Expiration Date Visits Requested Visits Authorized [id number] Pending Review Auto-Generat ed Referral 12/01/2023 12/30/2024 1 1 [facility] for referral (narrative)* Diagnostic Procedure Only (Urgent) - Closed Specialty Diagnoses / Procedures Referred By Contac t Referred To Contact [facility] IMAGING Diagnoses Neck pain Procedures XR CERV OTHER 4V AP/LAT/OBL X-RAY NECK MINIMUM 4 VIEWS Sarah Johnson PA-C [address] [place] [address] [place] [address] Referral ID Status Reason Start Date Expiration Date V isits Requested Visits Authorized [id number] Closed Auto-Generate d Referral 10/04/2020 06/06/2021 1 1 [facility] for visit Narrative* Diagnostic Procedure Only (Routine) - Closed Specialty Diagnoses / Procedures Referred By Contac t Referred To Contact [facility] Diagnoses Encounter for screening mammogram for breast cancer Procedures CARLOS SCREENING SCREENING MAMMOGRAPHY BI 2-VIEW BREAST INC CAD Shira Nicholas MD [address] [place] [address] [facility] [address] [facility] [place] [address] Referral ID Status Reason Start Date Expiration Date V isits Requested Visits Authorized [id number] Closed Auto-Generate d Referral 08/26/2022 09/25/2023 1 1 [facility] for visit Narrative* Diagnostic Procedure Only (Urgent) - Closed Specialty Diagnoses / Procedures Referred By Contac t Referred To Contact XR IMAGING Diagnoses Neck pain Procedures XR CERV OTHER 4V AP/LAT/OBL X-RAY NECK MINIMUM 4 VIEWS Sarah Johnson PA-C [address] [place] [address] [place] [address] Referral ID Status Reason Start Date Expiration Date V isits Requested Visits Authorized [id number] Closed Auto-Generate d Referral 10/04/2020 06/06/2021 1 1 [facility] Chief Complaint and Reason for Visit Chief Complaint SHORTNESS OF BREATH Advance Directives No Advanced Directives Records Found Advance Directive Response Recorded Date/ Time Living Will No April 12 10:28am Power of Shoulder Pad Molder No April 12, 2022 10:28am Summary Purpose Family History No Family History Records FoundNo Family History Records Found Reason for Referral Specialty Diagnoses / Procedures Referred By Contac t Referred To Contact Diagnoses Screening for cervical cancer Procedures CONSULT TO INFORMATION TECHNOLOGY SECURITY MANAGER OFFICE/OUTPATIENT NEW HIGH MDM 60-74 MINUTES Annabel Griggs, THIRD [employer].[address] [employer] [address] [place] [address] Referral ID Status Reason Start Date Expiration Date Visits Requested Visits Authorized [id number] Pending Review PCP Requested Referral Auto-Generate d Referral 05/08/2022 05/08/2023 1 1 Additional Source Comments Source Comments (unrecognize d section and content) In the event this informatio n is protected by the Federal Confidentiality of Alcohol and Drug Abuse Patient Records regulations: The Federal rules restrict any use of the information to criminally investigate or prosecute any alcohol or drug abuse patient.[facility] event this information is protected by the Federal Confidentiality of Alcohol and Drug Abuse Patient Records regulations: The Federal rules restrict any use of the information to criminally investigate or prosecute any alcohol or drug abuse patient.[facility] the event this information is protected by the Federal Confidentiality of Alcohol and Drug Abuse Patient Records regulations: The Federal rules restrict any use of the information to criminally investigate or prosecute any alcohol or drug abuse patient.[facility] the event this information is protected by the Federal Confidentiality of Alcohol and Drug Abuse Patient Records regulations: The Federal rules restrict any use of the information to criminally investigate or prosecute any alcohol or drug abuse patient.[facility] the event this information is protected by the Federal Confidentiality of Alcohol and Drug Abuse Patient Records regulations: The Federal rules restrict any use of the information to criminally investigate or prosecute any alcohol or drug abuse patient.[facility] the event this information is protected by the Federal Confidentiality of Alcohol and Drug Abuse Patient Records regulations: The Federal rules restrict any use of the information to criminally investigate or prosecute any alcohol or drug abuse patient.[facility] the event this information is protected by the Federal Confidentiality of Alcohol and Drug Abuse Patient Records regulations: The Federal rules restrict any use of the information to criminally investigate or prosecute any alcohol or drug abuse patient.[facility] the event this information is protected by the Federal Confidentiality of Alcohol and Drug Abuse Patient Records regulations: The Federal rules restrict any use of the information to criminally investigate or prosecute any alcohol or drug abuse patient.[facility] the event this information is protected by the Federal Confidentiality of Alcohol and Drug Abuse Patient Records regulations: The Federal rules restrict any use of the information to criminally investigate or prosecute any alcohol or drug abuse patient.[facility] the event this information is protected by the Federal Confidentiality of Alcohol and Drug Abuse Patient Records regulations: The Federal rules restrict any use of the information to criminally investigate or prosecute any alcohol or drug abuse patient.[facility] the event this information is protected by the Federal Confidentiality of Alcohol and Drug Abuse Patient Records regulations: The Federal rules restrict any use of the information to criminally investigate or prosecute any alcohol or drug abuse patient.[facility] the event this information is protected by the Federal Confidentiality of Alcohol and Drug Abuse Patient Records regulations: The Federal rules restrict any use of the information to criminally investigate or prosecute any alcohol or drug abuse patient.[facility] the event this information is protected by the Federal Confidentiality of Alcohol and Drug Abuse Patient Records regulations: The Federal rules restrict any use of the information to criminally investigate or prosecute any alcohol or drug abuse patient.[facility] the event this information is protected by the Federal Confidentiality of Alcohol and Drug Abuse Patient Records regulations: The Federal rules restrict any use of the information to criminally investigate or prosecute any alcohol or drug abuse patient.[facility] the event this information is protected by the Federal Confidentiality of Alcohol and Drug Abuse Patient Records regulations: The Federal rules restrict any use of the information to criminally investigate or prosecute any alcohol or drug abuse patient.[facility] the event this information is protected by the Federal Confidentiality of Alcohol and Drug Abuse Patient Records regulations: The Federal rules restrict any use of the information to criminally investigate or prosecute any alcohol or drug abuse patient.[facility] the event this information is protected by the Federal Confidentiality of Alcohol and Drug Abuse Patient Records regulations: The Federal rules restrict any use of the information to criminally investigate or prosecute any alcohol or drug abuse patient.[facility] the event this information is protected by the Federal Confidentiality of Alcohol and Drug Abuse Patient Records regulations: The Federal rules restrict any use of the information to criminally investigate or prosecute any alcohol or drug abuse patient.[facility] the event this information is protected by the Federal Confidentiality of Alcohol and Drug Abuse Patient Records regulations: The Federal rules restrict any use of the information to criminally investigate or prosecute any alcohol or drug abuse patient.[facility] the event this information is protected by the Federal Confidentiality of Alcohol and Drug Abuse Patient Records regulations: The Federal rules restrict any use of the information to criminally investigate or prosecute any alcohol or drug abuse patient.[facility] the event this information is protected by the Federal Confidentiality of Alcohol and Drug Abuse Patient Records regulations: The Federal rules restrict any use of the information to criminally investigate or prosecute any alcohol or drug abuse patient.[facility] the event this information is protected by the Federal Confidentiality of Alcohol and Drug Abuse Patient Records regulations: The Federal rules restrict any use of the information to criminally investigate or prosecute any alcohol or drug abuse patient.[facility] the event this information is protected by the Federal Confidentiality of Alcohol and Drug Abuse Patient Records regulations: The Federal rules restrict any use of the information to criminally investigate or prosecute any alcohol or drug abuse patient.[facility] the event this information is protected by the Federal Confidentiality of Alcohol and Drug Abuse Patient Records regulations: The Federal rules restrict any use of the information to criminally investigate or prosecute any alcohol or drug abuse patient.[facility] the event this information is protected by the Federal Confidentiality of Alcohol and Drug Abuse Patient Records regulations: The Federal rules restrict any use of the information to criminally investigate or prosecute any alcohol or drug abuse patient.[facility] Center[facility] the event this information is protected by the Federal Confidentiality of Alcohol and Drug Abuse Patient Records regulations: The Federal rules restrict any use of the information to criminally investigate or prosecute any alcohol or drug abuse patient.[facility] the event this information is protected by the Federal Confidentiality of Alcohol and Drug Abuse Patient Records regulations: The Federal rules restrict any use of the information to criminally investigate or prosecute any alcohol or drug abuse patient.[facility] the event this information is protected by the Federal Confidentiality of Alcohol and Drug Abuse Patient Records regulations: The Federal rules restrict any use of the information to criminally investigate or prosecute any alcohol or drug abuse patient.[facility] the event this information is protected by the Federal Confidentiality of Alcohol and Drug Abuse Patient Records regulations: The Federal rules restrict any use of the information to criminally investigate or prosecute any alcohol or drug abuse patient.[facility] Center[facility] the event this information is protected by the Federal Confidentiality of Alcohol and Drug Abuse Patient Records regulations: The Federal rules restrict any use of the information to criminally investigate or prosecute any alcohol or drug abuse patient.[facility] Center[facility] the event this information is protected by the Federal Confidentiality of Alcohol and Drug Abuse Patient Records regulations: The Federal rules restrict any use of the information to criminally investigate or prosecute any alcohol or drug abuse patient.[facility] CenterIn the event this information is protected by the Federal Confidentiality of Alcohol and Drug Abuse Patient Records regulations: The Federal rules restrict any use of the information to criminally investigate or prosecute any alcohol or drug abuse patient.[facility] CenterIn the event this information is protected by the Federal Confidentiality of Alcohol and Drug Abuse Patient Records regulations: The Federal rules restrict any use of the information to criminally investigate or prosecute any alcohol or drug abuse patient.[facility] CenterIn the event this information is protected by the Federal Confidentiality of Alcohol and Drug Abuse Patient Records regulations: The Federal rules restrict any use of the information to criminally investigate or prosecute any alcohol or drug abuse patient.[facility] CenterIn the event this information is protected by the Federal Confidentiality of Alcohol and Drug Abuse Patient Records regulations: The Federal rules restrict any use of the information to criminally investigate or prosecute any alcohol or drug abuse patient.[facility] CenterIn the event this information is protected by the Federal Confidentiality of Alcohol and Drug Abuse Patient Records regulations: The Federal rules restrict any use of the information to criminally investigate or prosecute any alcohol or drug abuse patient.[facility] CenterIn the event this information is protected by the Federal Confidentiality of Alcohol and Drug Abuse Patient Records regulations: The Federal rules restrict any use of the information to criminally investigate or prosecute any alcohol or drug abuse patient.[facility] CenterIn the event this information is protected by the Federal Confidentiality of Alcohol and Drug Abuse Patient Records regulations: The Federal rules restrict any use of the information to criminally investigate or prosecute any alcohol or drug abuse patient.[facility] CenterIn the event this information is protected by the Federal Confidentiality of Alcohol and Drug Abuse Patient Records regulations: The Federal rules restrict any use of the information to criminally investigate or prosecute any alcohol or drug abuse patient.[facility] Care Teams (unrecognized sec tion and content) Bag Machine Operator Relationship Specialty Start Date End Date Shira Nicholas MD [address] [place] [address] PCP - General Internal Medicine 12/02/19 Bag Machine Operator Relationship Specialty Start Date End Date Shira Nicholas MD [address] [place] [address] PCP - General Internal Medicine 12/02/19 Bag Machine Operator Relationship Specialty Start Date End Date Shira Nicholas MD [address] [place] [address] PCP - General Internal Medicine 12/02/19 Bag Machine Operator Relationship Specialty Start Date End Date Shira Nicholas MD [address] [place] [address] PCP - General Internal Medicine 12/02/19 Bag Machine Operator Relationship Specialty Start Date End Date Shira Nicholas MD [address] [place] [address] PCP - General Internal Medicine 12/02/19 Bag Machine Operator Relationship Specialty Start Date End Date Shira Nicholas MD [address] [place] [address] PCP - General Internal Medicine 12/02/19 Bag Machine Operator Relationship Specialty Start Date End Date Shira Nicholas MD [facility] [place] [address] PCP - General Internal Medicine 12/02/19 Bag Machine Operator Relationship Specialty Start Date End Date Shira Nicholas MD [facility] [place] [address] PCP - General Internal Medicine 12/02/19 Bag Machine Operator Relationship Specialty Start Date End Date Shira Nicholas MD [facility] [place] [address] PCP - General Internal Medicine 12/02/19 Bag Machine Operator Relationship Specialty Start Date End Date Shira Nicholas MD [facility] [place] [address] PCP - General Internal Medicine 12/02/19 Bag Machine Operator Relationship Specialty [place] [address] [place] [address], [place] [address] PCP - General Internal Medicine 12/02/19 Bag Machine Operator Relationship Specialty Start Date End Date Shira Nicholas MD [address] [place] [address], [place] [address] PCP - General Internal Medicine 12/02/19 Bag Machine Operator Relationship Specialty Start Date End Date Shira Nicholas MD [address] [place] [address] PCP - General Internal Medicine 12/02/19 Bag Machine Operator Relationship Specialty Start Date End Date Shira Nicholas MD [address] [place] [address] PCP - General Internal Medicine 12/02/19 Bag Machine Operator Relationship Specialty Start Date End Date Shira Nicholas MD [address] [place] [address] PCP - General Internal Medicine 12/02/19 Bag Machine Operator Relationship Specialty Start Date End Date hSira Nicholas MD [address] [place] [address] PCP - General Internal Medicine 12/02/19 Bag Machine Operator Relationship Specialty Start Date End Date Shira Nicholas MD [address] [place] [address] PCP - General Internal Medicine 12/02/19 Bag Machine Operator Relationship Specialty Start Date End Date Shira Nicholas MD [address] [place] [address] PCP - General Internal Medicine 12/02/19 Bag Machine Operator Relationship Specialty Start Date End Date Shira Nicholas MD [address] [place] [address] PCP - General Internal Medicine 12/02/19 Bag Machine Operator Relationship Specialty Start Date End Date Shira Nicholas MD [address] [place] [address] PCP - General Internal Medicine 12/02/19 Bag Machine Operator Relationship Specialty Start Date End Date Shira Nicholas MD [address] [place] [address] PCP - General Internal Medicine 12/02/19 Bag Machine Operator Relationship Specialty Start Date End Date Shira Nicholas MD [address] [place] [address] PCP - General Internal Medicine 12/02/19 Bag Machine Operator Relationship Specialty Start Date End Date Shira Nicholas MD [address] [place] [address] PCP - General Internal Medicine 12/02/19 Bag Machine Operator Relationship Specialty Start Date End Date Shira Nicholas MD [address] [place] [address] PCP - General Internal Medicine 12/02/19 Annabel Griggs, THIRD COOK.K 12 PRINCIPAL [address] [place] [address] Asp Net Mvc Developer Internal Medicine 05/15/24 Lula Hayes, THIRD COOK.SPRING UPHOLSTERER [address] [place], [place] [address] Asp Net Mvc Developer Internal Medicine 05/15/24 Bag Machine Operator Relationship Specialty Start Date End Date Shira Nicholas MD [address] [place], [place] [address] PCP - General Internal Medicine 12/02/19 Annabel Griggs, THIRD COOK.K 12 PRINCIPAL [address] [place] [address] Asp Net Mvc Developer Internal Medicine 05/15/24 Lula Hayes THIRD COOK.SPRING UPHOLSTERER [address] [place] [address] [facility] Internal Medicine 05/15/24 Bag Machine Operator Relationship Specialty Start Date End Date Shira Nicholas MD [address] [place] [address] PCP - General Internal Medicine 12/02/19 Annabel Griggs, THIRD COOK.K 12 PRINCIPAL [address] [place] [address] [facility] Internal Medicine 05/15/24 Lula Hayes THIRD COOK.SPRING UPHOLSTERER [address] [facility] [place] [address] [facility] Internal Medicine 05/15/24 Bag Machine Operator Relationship Specialty Start Date End Date Shira Nicholas MD [address] [place] [address] PCP - General Internal Medicine 12/02/19 Annabel Griggs, THIRD COOK.K 12 PRINCIPAL [address] [place] [address] [facility] Internal Medicine 05/15/24 Lula Hayes THIRD COOK.SPRING UPHOLSTERER [address] [facility] [place] [address] [facility] Internal Medicine 05/15/24 Bag Machine Operator Relationship Specialty Start Date End Date Shira Nicholas MD [address] [facility] [place] [address] PCP - General Internal Medicine 12/02/19 Annabel Griggs APRN.K 12 PRINCIPAL [address] [place] [address] [employer] Net M[employer] Developer Internal Medicine 05/15/24 Lula Hayes APRN.SPRING UPHOLSTERER [address] [place] [address] Asp Net Mvc Developer Internal Medicine 08/29/24 Bag Machine Operator Relationship Specialty Start Date End Date Shira Nicholas MD [address] [place] [address] PCP - General Internal Medicine 12/02/19 Annabel Griggs APRN.K 12 PRINCIPAL [address] [place] [address] Asp Net Mvc Developer Internal Medicine 05/15/24 Lula Hayes APRN.SPRING UPHOLSTERER [address] [place] [address] Asp Net Mvc Developer Internal Medicine 05/15/24 08/25/24 Lula Hayes APRN.SPRING UPHOLSTERER [address] [place] [address] Asp Net Mvc Developer Internal Medicine 08/29/24 Bag Machine Operator Relationship Specialty Start Date End Date Shira Nicholas MD [address] [place] [address] PCP - General Internal Medicine 12/02/19 Lula Hayes APRN.SPRING UPHOLSTERER [address] [place] [address] Asp Net Mvc Developer Internal Medicine 08/29/24 Annabel Griggs APRN.K 12 PRINCIPAL [address] [place] [address] Asp Net Mvc Developer Internal Medicine 10/25/24 Bag Machine Operator Relationship Specialty Start Date End Date Shira Nicholas MD [address] [place] [address] PCP - General Internal Medicine 12/02/19 Lula Hayes APRN.SPRING UPHOLSTERER [address] [place] [address] Asp Net Mvc Developer Internal Medicine 08/29/24 Annabel Griggs APRN.K 12 PRINCIPAL [address] [place] [address] Asp Net Mvc Developer Internal Medicine 10/25/24 Bag Machine Operator Relationship Specialty Start Date End Date Shira Nicholas MD [address] [place] [address] PCP - General Internal Medicine 12/02/19 Lula Hayes THIRD COOK.SPRING UPHOLSTERER [address] [place] [address] Asp Net Mvc Developer Internal Medicine 08/29/24 Annabel Griggs, THIRD COOK.K 12 PRINCIPAL [address] [place] [address] Asp Net Mvc Developer Internal Medicine 10/25/24 Bag Machine Operator Relationship Specialty Start Date End Date Shira Nicholas MD [address] [place] [address] PCP - General Internal Medicine 12/02/19 Lula Hayes THIRD COOK.SPRING UPHOLSTERER [address] [place] [address] [facility] Internal Medicine 08/29/24 Annabel Griggs, THIRD COOK.K 12 PRINCIPAL [address] [place], [place] [address] [facility] Internal Medicine 10/25/24 Bag Machine Operator Relationship Specialty Start Date End Date Shira Nicholas MD [address] [place], [place] [id number] PCP - General Internal Medicine 12/02/19 Lula Hayes, THIRD COOK.SPRING UPHOLSTERER [address] [place], [place] [id number] [facility] Internal Medicine 08/29/24 Annabel Griggs, THIRD COOK.K 12 PRINCIPAL [address] [place], [place] [id number] [facility] Internal Medicine 10/25/24 Reason for Visit (unrecogniz ed section and content) Reason Comments Blood Pressure Specialty Diagnoses / Procedures Referred By Rubina esquivel Referred To Contact INTERNAL MEDICINE Diagnoses MEDICALLY NECESSARY SERVICES Procedures MEDICALLY NECESSARY SERVICES Shira Nicholas MD [address] [place] [address] [facility] [address] [place] [address] Referral ID Status Reason Start Date Expiration Date Visits Requested Visits Authorized [id number] New Request OON/Self Pay Override 4 06/28/2025 99 99 Reason Comments F/U 6 Month Specialty Diagnoses / Procedures Referred By Rubina esquivel Referred To Contact INTERNAL MEDICINE Diagnoses Follow up Procedures Follow up Shira Nicholas MD [address] [place] [address] [facility] [address] [place] [address] Referral ID Status Reason Start Date Expiration Date Visits Requested Visits Authorized [id number] Pending Review OON/Self Pay Override 11/08/2023 12/04/2024 3 3 Reason Onset Date Comments Refill Request 10/15/2021 Reason Comments Results Reason Comments F/U 6 months Reason Comments Sore Throat Reason Comments Covid19 Concern Reason Comments F/U 6 Month Reason Comments Urinary Urgency Urgency and bladder spasms x 3 days Reason Comments Patient Question Patient Update Reason Comments Patient Update Reason Comments Patient Question Reason Onset Date Comments Refill Request 09/28/2023 Reason Comments UTI started about 1 week ago. Abdominal fullness, urinary urgency and bladder spasm. Reason Comments Established Patient Labs prior Reason Comments Chest Congestion Cough Reason Comments UTI s/s Reason Comments UTI Urgency of urination x2 days, upset stomach, RIBEIRO Reason Comments UTI Started 1 week ago w ith urgency with burninghas noted bloating but that has improvedWas seen at urgent care on 08/19/24 Reason Onset Date Comments Results 08/20/2024 Patient Update 08/20/2024 Reason Onset Date Comments Refill Request 10/28/2024 Reason Onset Date Comments Refill Request 11/03/2024 Reason Onset Date Comments Refill Request 11/13/2024 Reason Comments Refill Request Reason Comments F/U 6 months Specialty Diagnoses / Procedures Referred By Rubina esquivel Referred To Contact INTERNAL MEDICINE Diagnoses Follow up Procedures Follow up Shira Nicholas MD [address] [place] [address] Phone: tel: fax: Internal Medicine [place] [address] [place] [address] Phone: tel: fax: Referral ID Status Reason Start Date Expiration Date V isits Requested Visits Authorized [id number] Closed OON/Self Pay Override 11/08/2023 12/04/2024 3 3 Goals (unrecognized section and content) Goals may be documented in a n alternate section INFORMATION SOURCE (unrecogn ized section and content) DATE CREATED AUTHOR 04/18/[address] [facility] DATE CREATED AUTHOR AUTHOR'S LINDA ATAMBROCIO 12/27/2024 [facility] FOR RECORDS PERTAINING TO PATIENTS WHO ARE OR HAVE BEEN ENROLLED IN A CHEMICAL DEPENDENCY/SUBSTANCEABUSE PROGRAM, SOME INFORMATION MAY BE OMITTED. This clinical summary was aggregated from multiple sources. Caution should be exercised in using it in the provision of clinical care. This summary normalizes information from multiple sources, and as a consequence, information in this document may materially change the coding, format and clinical context of patient data. In addition, data may be omitted in some cases. CLINICAL DECISIONS SHOULD BE BASED ON THE PRIMARY CLINICAL RECORDS. [facility] [employer] [facility]. provides no warranty or guarantee of the accuracy or completeness of information in this document.
[2025-02-03 19:01] LABS: AST(SGOT) 24 U/L (<=31); Alanine Aminotransfer ALT/SGPT 27 U/L (<=34); Albumin, Serum 4.3 g/dL (3.4-4.8); Alkaline Phosphatase 86 U/L (35-104); Anion Gap 15 (5-15); BUN 14 mg/dL (4-19); BUN/Creat Ratio 16.4 RATIO (10-20); Calcium,Total 8.9 mg/dL (7.6-11.0); Carbon Dioxide 25.0 mmol/L (21.0-32.0); Chloride 100 mmol/L (98-108); Estimated Creatinine Clearance 73.39 ml/min (50-250); Globulin 3.3 g/dL (2.2-4.2); Glucose 125 mg/dL (70-99); Lipase 28 U/L (13-75); Magnesium 1.3 mg/dL (1.5-2.2); Potassium 2.8 mmol/L (3.3-5.1)
[2025-02-03 20:03] VITALS: BP 133/86; PULSE 82; RESP 16; O2SAT 97
[2025-02-03 20:37] LABS: Troponin T High Sens 2 HR < 6 ng/L (<=14)
[2025-02-03 20:57] VITALS: BP 133/88; PULSE 67; RESP 18; TEMP 36.6; O2SAT 98
== END 2025-02-03 20:58 | disposition home or self-care (01) ==
PROVIDERS: Emergency Provider Emergency Medicine; PCP Internal Medicine; Visit Provider Emergency Medicine
DX: R00.2 Palpitations (principal); K30 Functional dyspepsia; I49.3 Ventricular premature depolarization; I10 Essential (primary) hypertension; Z87.891 Personal history of nicotine dependence; Z79.899 Other long term (current) drug therapy; E87.6 Hypokalemia
CPT/HCPCS: 71045; 80053; 83690; 83735; 84484; 85025; 93005; 99284; A4216

== ENCOUNTER 2025-03-01 08:45 | Emergency (ER) | payer MEDICARE, OTHER, SELFPAY ==
[2025-03-01 08:45] VITALS: BP 171/78; PULSE 79; RESP 14; TEMP 37.2; O2SAT 99; BMI 30.2
--- NOTE | 2025-03-01 08:51 | EX.ED.DYSGE1 ---
HPI History of Present Illness Chief Complaint: Palpitations Informant: patient Onset/Context/Timing Onset: Today Context: Gradual Onset Timing: Continuous Quality: Skipping beats Location: Chest Worsened by: Activity Relieved by: Nothing Narrative Narrative: Patient presents with palpitations that began this morning. Patient states that when she got up she was feeling occasional skipping in her chest. Patient states that became more frequent as she was becoming more active this morning. Patient states she felt dizzy. Patient denies any chest pain. Patient states she felt nauseated with these. Patient states she also had some shortness of breath with this. Patient states she went to the [facility] where they checked an EKG which was normal. Patient states that they also checked her blood pressure which was elevated and referred her to the emergency department. Patient states that when she stood up at the [facility] station, she felt some pressure in her upper chest and neck that only lasted for a few seconds. Patient states she had similar symptoms 1 month ago with low potassium and low magnesium. Patient states that they stopped her diuretic and prescribed potassium. [facility] Medical History (Updated 03/01/25 @ 12:[address] Osman Do DO) Hypertension Home Medications ?Medication ?Instructions ?Recorded ?Last Taken ?Type Multivitamins,Therapeutic 1 tab PO DAILY 05/02/13 Unknown History Omeprazole 20 mg PO DAILY 05/02/13 Unknown History amlodipine 2.5 mg tablet 2.5 mg PO DAILY 02/03/25 Unknown History potassium chloride 20 mEq 20 meq PO 4X/DAY 02/03/25 Unknown History tablet,extended release(part/cryst) Allergy/AdvReac Type Severity Reaction Status Date / Time ciprofloxacin (From Cipro) Allergy Other Verified 03/01/25 08:46 ciprofloxacin HCl (From Allergy Other Verified 03/01/25 08:46 Cipro) Sulfa (Sulfonamide Allergy Hives Verified 03/01/25 08:46 Antibiotics) Surgical History no surgical history no surgical history Social History Smoking Status: Former smoker ROS ROS ED Constitutional Constitutional ED: Denies chills or fever(s) Eyes Eyes: Denies blurry vision or change in vision ENT ENT ED: Denies rhinorrhea or sore throat Cardiovascular Cardiovascular: Reports palpitations; Denies chest pain Respiratory/Chest Respiratory/Chest: Reports dyspnea; Denies cough Gastrointestinal Gastrointestinal: Reports nausea; Denies vomiting Genitourinary Genitourinary ED: Denies dysuria or hematuria Musculoskeletal Musculoskeletal: Denies back pain or neck pain Integumentary Denies abscess or rash Neurologic Neurologic: Denies headache(s) or weakness Allergic/Immunologic Allergic/Immunologic ED: Denies mouth swelling or urticaria EXAM Physical Exam Const Vital Signs: 03/01/25 08:45 03/01/25 09:12 03/01/25 09:52 Temperature 98.9 F Temperature Source Temporal Pulse Rate 79 68 Respiratory Rate 14 17 Blood Pressure 171/78 H 158/81 H Blood Pressure Mean 109 106 Pulse Ox 99 99 Oxygen Delivery Method Room Air Room Air Room Air 03/01/25 11:00 03/01/25 12:00 Temperature Temperature Source Pulse Rate 65 66 Respiratory Rate 12 10 L Blood Pressure 133/64 H 146/83 H Blood Pressure Mean 87 104 Pulse Ox 98 96 Oxygen Delivery Method Room Air Room Air Positive well nourished and well developed General Appearance ED: well developed and NAD HEENT Reports moist mucous membranes Neck supple and no JVD Resp normal respiratory effort and clear to auscultation bilaterally Cardio regular rate and regular rhythm GI non-tender and non-distended Palpation: soft Extremity normal to inspection General Extremety ED: Negative for edema or tenderness General Extremity: Negative for edema Neuro oriented x3, CN's II-XII intact bilaterally and no sensory deficits noted Sensorium / Orientation: alert Motor Exam: strength 5/5 throughout Psych mental status grossly normal MDM MDM MDM Narrative Medical decision making narrative: Differential diagnosis includes cardiac dysrhythmia, cardiac ischemia, pneumonia, bronchitis, electrolyte abnormality, gastroesophageal reflux disease, and hypertensive urgency. EKG will be obtained to assess for cardiac dysrhythmia and cardiac ischemia. Chest x-ray will be obtained to assess for pneumonia or bronchitis. CBC will be obtained to assess for leukocytosis and anemia. Basic metabolic profile will be obtained to assess for electrolyte abnormality and renal function. High-sensitivity troponin will be obtained to assess for cardiac ischemia. 2-hour repeat high-sensitivity troponin will be obtained to assess for ongoing cardiac ischemia. Serum magnesium level will be obtained to assess for hypomagnesemia. History & Record Review Additional record(s) reviewed:: Prior ED visit and Prior labs Lab Data Attestation: I reviewed the patient's lab results. Lab results narrative: CBC was reviewed and was within normal limits. Basic metabolic profile was reviewed and was within normal limits. Magnesium was reviewed and was normal at 1.8. Initial high-sensitivity troponin was reviewed and was less than 6. 2-hour repeat high-sensitivity troponin was reviewed and was 9. Labs: Laboratory Results - last 24 hr 03/01/25 03/01/25 09:20 11:11 WBC 7.5 RBC 4.51 Hgb 13.0 Hct 38.1 MCV 84.5 MCH 28.8 MCHC 34.1 RDW Std Deviation 41.5 RDW Coeff of [place] 13.4 Plt Count 237 MPV 9.3 Immature Gran % (Auto) 0.800 Neut % (Auto) 66.8 Lymph % (Auto) 23.2 [place] % (Auto) 6.6 Eos % (Auto) 2.3 Baso % (Auto) 0.3 Absolute Neuts (auto) 5.0 Absolute Lymphs (auto) 1.73 Nucleated RBC % 0 Sodium 141 Potassium 3.9 Chloride 106 Carbon Dioxide 19.8 L Anion Gap 15 BUN 14 Creatinine 0.73 Estim Creat Clear Calc 79.64 Est GFR (MDRD) Non-Af 91 BUN/Creatinine Ratio 19.0 Glucose 112 H Calcium 8.8 Magnesium 1.8 Troponin T High Sens < 6 Troponin T Hi Sens 2 Hr 9 Radiography Chest X-Ray - ED: 2 View, Read by ED Physician, Read by Radiologist and No Acute Disease Diagnostic Testing: Clinical Impression(s) from Imaging Studies Chest X-Ray 03/01/25 09:13 IMPRESSION: No acute process is identified in the chest. [facility] chest x-ray was obtained. There are 2 views. On my independent interpretation, lung schroeder are clear. There is normal cardiac silhouette. Bony thorax is normal. There is no acute process noted. Radiologist also interpreted the x-ray and agrees. EKG Initial EKG: Attestation: I personally reviewed and interpreted this EKG as follows: Interpretation: Sinus Rhythm (75) Comments: EKG was obtained. On my independent interpretation, it showed a normal sinus rhythm with occasional PVC with a rate of 75. MI interval, QRS interval, and QTc intervals were all normal. [place] was normal. There are no acute ST or T wave changes. Prior EKG tracings: available for review Prior: Unchanged (02/03/2025) Treatment and Re-Evaluation :: Patient was given aspirin here. Patient was advised of her findings. Patient was instructed to follow-up with her primary care physician in 5 to 7 days. Patient was instructed to continue her medications as previously prescribed. Patient was instructed to return if worse in any way. Patient understood and was agreeable with the plan. All questions were answered. Discharge Plan Triage Chief Complaint: Palpitations ED Provider: Osman Do Dx/Rx/DC Orders Clinical Impression: Heart palpitations, Hypertension, PVC (premature ventricular contraction) Instructions: ED Heart Palpitations Prescriptions: No Action Multivitamins,Therapeutic 1 TAB 1 tab PO DAILY Omeprazole 20 MG 20 mg PO DAILY amlodipine 2.5 mg tablet 2.5 mg PO DAILY potassium chloride 20 mEq tablet,ER particles/crystals 20 meq PO 4X/DAY Primary Care Provider: Meena Nicholas Referrals: Meena Nicholas MD [Primary Care Provider, Internal Medicine] - 5-7 Days Print Language: Croatian Disposition Disposition: Home, Self Care
--- NOTE | 2025-03-01 09:12 | EKG12_ITS ---
Test Reason : PALPS Blood Pressure : */* mmHG Vent. Rate : 75 BPM Atrial Rate : 75 BPM P-R Int : 180 ms QRS Dur : 72 ms QT Int : 400 ms P-R-T Axes : 27 9 36 degrees QTcB Int : 446 ms Sinus rhythm with occasional Premature ventricular complexes Low voltage QRS Borderline ECG Confirmed by Maury Dalal ([id number]), editorial writer SELENE GALLARDO ([id number]) on 03/02/2025 5:49:41 AM Referred By: Confirmed By: Maury Dalal
--- NOTE | 2025-03-01 09:13 | RAD_ITS ---
PROCEDURE: CHEST PA AND LATERAL 03/01/2025 REASON FOR EXAM: CHEST PAIN TECHNIQUE: Procedure Code: RADCXR Modality: DX Procedure: CHEST PA AND LATERAL COMPARISON: February 03, 2025 FINDINGS: Heart size and mediastinal configuration are within normal limits. There is no focal infiltrate or consolidation. There is no pneumothorax or effusion. Aortic calcifications are noted there is no acute bony abnormality. RAD/Chest PA and Lateral IMPRESSION: No acute process is identified in the chest. Reading Location: [facility]
[2025-03-01 09:31] LABS: Hematocrit 38.1 % (37-47); Hemoglobin 13.0 g/dL (12.0-15.0); Immature Granulocytes Count 0.060 X10^3/uL (0.0-0.0); Mean Corp Hgb Conc 34.1 g/dL (32-36); Mean Corpuscular Volume 84.5 fL (81-99); Mean Platelet Vol. 9.3 fl (6.2-12.0); NRBC Flagged by Analyzer 0 % (0-5); Platelet Count 237 K/mm3 (150-450); RBC Distribution Width CV 13.4 % (11.6-14.6); RBC Distribution Width SD 41.5 fl (35.1-43.9); Red Blood Count 4.51 M/mm3 (4.2-5.4); White Blood Count 7.5 K/mm3 (4.4-11.0)
[2025-03-01 09:52] VITALS: BP 158/81; PULSE 68; RESP 17; O2SAT 99
[2025-03-01 10:13] LABS: Anion Gap 15 (5-15); BUN 14 mg/dL (4-19); BUN/Creat Ratio 19.0 RATIO (10-20); Calcium,Total 8.8 mg/dL (7.6-11.0); Carbon Dioxide 19.8 mmol/L (21.0-32.0); Chloride 106 mmol/L (98-108); Estimated Creatinine Clearance 79.64 ml/min (50-250); Glucose 112 mg/dL (70-99); Magnesium 1.8 mg/dL (1.5-2.2); Potassium 3.9 mmol/L (3.3-5.1); Troponin T High Sensitivity < 6 ng/L (<=14)
[2025-03-01 11:00] VITALS: BP 133/64; PULSE 65; RESP 12; O2SAT 98
[2025-03-01 11:51] LABS: Troponin T High Sens 2 HR 9 ng/L (<=14)
[2025-03-01 12:00] VITALS: BP 146/83; PULSE 66; RESP 10; O2SAT 96
[2025-03-01 12:46] VITALS: BP 146/83; PULSE 64; RESP 16; TEMP 36.8; O2SAT 100
== END 2025-03-01 12:55 | disposition home or self-care (01) ==
PROVIDERS: Emergency Provider Emergency Medicine; PCP Internal Medicine; Visit Provider Emergency Medicine
DX: I49.3 Ventricular premature depolarization (principal); I10 Essential (primary) hypertension; Z79.899 Other long term (current) drug therapy; Z87.891 Personal history of nicotine dependence
CPT/HCPCS: 71046; 80048; 83735; 84484; 85025; 93005; 99284; A4216

== ENCOUNTER → 2025-04-06 | Outpatient (CLI) | payer MEDICARE, OTHER, SELFPAY ==
[2025-04-06 15:41] LABS: Anion Gap 13 (5-15); BUN 14 mg/dL (4-19); BUN/Creat Ratio 18.6 RATIO (10-20); Calcium,Total 9.8 mg/dL (7.6-11.0); Carbon Dioxide 23.2 mmol/L (21.0-32.0); Chloride 106 mmol/L (98-108); Glucose 92 mg/dL (70-99); Magnesium 1.7 mg/dL (1.5-2.2); Potassium 3.8 mmol/L (3.3-5.1)
== END | disposition home or self-care (01) ==
LOC: LAB 14:32
PROVIDERS: PCP Internal Medicine; Referring Provider Internal Medicine Cardiovascular Disease; Visit Provider Internal Medicine Cardiovascular Disease
DX: E87.6 Hypokalemia (principal); I10 Essential (primary) hypertension; E83.42 Hypomagnesemia
CPT/HCPCS: 36415; 80048; 82088; 83735; 84244

== ENCOUNTER → 2025-05-04 | Outpatient (CLI) | payer MEDICARE, OTHER, SELFPAY ==
--- NOTE | 2025-05-04 12:53 | ECHOD_ITS ---
Reason For Study Reason For Study: Arrhythmia Procedure This was a 2D Doppler, Color Flow transthoracic echocardiogram. Exam performed in department. Left Ventricle Normal LV size. The left ventricular ejection fraction is 65 %. Stage 1 diastolic dysfunction. No regional wall motion abnormalities noted. Right Ventricle Normal RV size. Normal systolic function. Atria Normal left atrium. Normal right atrium. Mitral Valve Normal mitral valve. Tricuspid Valve Normal tricuspid valve. Mild (1+) tricuspid valve insufficiency. Pulmonary artery systolic pressure is 25 mmHg. Aortic Valve Normal aortic valve. Trisinus/trileaflet aortic valve. Pulmonic Valve Normal pulmonic valve. Great Vessels Normal aortic root. The pulmonary artery is normal size. Inferior vena cava collapse with respiration. Pericardium/Pleural No pericardial effusion. MMode/2D Measurements & Calculations LVIDd: 4.3 cm IVSd: 1.1 cm Ao root diam: 3.1 cm LVIDs: 2.7 cm LVPWd: 1.1 cm RVDd: 3.3 cm FS: 38.0 % LAV(MOD-bp): 49.5 ml LVAd ap4: 24.9 cm2 SV(MOD-sp4): 39.7 ml LAV(MOD-bp) Indexed: 25.6 ml/m2 LVLd ap4: 8.0 cm SI(MOD-sp4): 20.5 ml/m2 LAV(MOD-sp2): 54.7 ml EDV(MOD-sp4): 63.2 ml LAV(MOD-sp4): 42.3 ml EDV(sp4-el): 65.8 ml LVAs ap4: 13.6 cm2 LVLs ap4: 6.8 cm ESV(MOD-sp4): 23.5 ml ESV(sp4-el): 23.1 ml EF(MOD-sp4): 62.8 % EF(sp4-el): 65.0 % SV(sp4-el): 42.8 ml LA A4 area: 17.0 cm2 LA dimension(2D): 4.0 cm RA A4 area: 12.9 cm2 TAPSE: 2.3 cm Time Measurements MV dec time: 0.19 sec Doppler Measurements & Calculations MV E max osvaldo: 75.9 cm/sec Lat Peak E' Osvaldo: 7.5 cm/sec Med Peak E' Osvaldo: 7.3 cm/sec MV A max osvaldo: 97.0 cm/sec E/E' lat: 10.1 E/E' med: 10.4 MV E/A: 0.78 Ao V2 max: 128.3 cm/sec LV V1 max: 114.2 cm/sec MV dec slope: 396.6 cm/sec2 Ao max P.6 mmHg LV V1 max P.2 mmHg Ao V2 mean: 90.7 cm/sec LV V1 mean P.7 mmHg Ao mean P.7 mmHg LV V1 mean: 75.4 cm/sec Ao V2 VTI: 34.2 cm LV V1 VTI: 27.6 cm AV (velocity ratio): 0.81 PA V2 max: 84.1 cm/sec TR max osvaldo: 236.7 cm/sec TR max P.4 mmHg ECHO/Echo Complete Interpretation Summary The left ventricular ejection fraction is 65 %. Normal LV size. Stage 1 diastolic dysfunction. Structurally normal valves. Ordering Physician: Tyler Kessler Referring Physician: Meena Nicholas Performed By: Avril Palacios RDCS, RVT
--- OUTSIDE RECORDS SUMMARY | 2025-05-04 13:04 | XMS RPT_ITS | CCD ---
Author Organization [facility] Care Team Providers Care Scraper Tender Name Role Phone Shira Varma MD Primary Care Provider Shira Varma MD Primary Care Provider [place] BEEF FARMER.GENERAL LOT ATTENDANT, Annabel Unavailable Freddy BEEF FARMER.CLERK CARRIER, Lula Unavailable Freddy BEEF FARMER.CLERK CARRIER, Lula Unavailable Freddy BEEF FARMER.CLERK CARRIER, Lula Unavailable Freddy BEEF FARMER.CLERK CARRIER, Lula Unavailable [place] BEEF FARMER.GENERAL LOT ATTENDANT, Annabel Unavailable Madi Chong MD Emergency Provider [phone] Shira Varma MD Primary Care Provider Madi Chong MD Attending Physician Madi Chong MD Emergency Department Physician Dr. Shira Varma MD Primary Care Physician Dr. Osman Do DO Attending Physician Dr. Osman Do DO Emergency Department Physi oscar Osman Do Attending Unavailable Shira Varma Primary Care Unavailable Shira Varma Primary Care Unavailable Madi Chong Attending Unavailable [place], [place] Attending Unavailable [place], [place] Referring Unavailable Shira Varma Primary Care Unavailable Shira Varma Referring Unavailable [place], [place] Attending Unavailable Shira Varma Primary Care Unavailable [place], [place] Attending Unavailable [place], [place] Referring Unavailable Talampas, Shira D Primary Care Unavailable TALAMPAS, SHIRA D Primary Care Unavailable GRIGGS, ANNABEL Referring Unavailable TALAMPAS, SHIRA D Primary Care Unavailable GRIGGS, ANNABEL Referring Unavailable GRIGGS, ANNABEL Referring Unavailable TALAMPAS, SHIRA D Primary Care Unavailable TALAMPAS, SHIRA D Primary Care Unavailable GRIGGS, ANNABEL Referring Unavailable TALAMPAS, SHIRA D Primary Care Unavailable GRIGGS, ANNABEL Referring Unavailable TALAMPAS, SHIRA D Primary Care Unavailable GRIGGS, ANNABEL Referring Unavailable TALAMPAS, SHIRA D Referring Unavailable GRIGGS, ANNABEL Attending Unavailable TALAMPAS, SHIRA D Primary Care Unavailable TALAMPAS, SHIRA D Primary Care Unavailable GRIGGS, ANNABEL Referring Unavailable TALAMPAS, SHIRA D Primary Care Unavailable SWANK, JENNIFER Attending Unavailable TALAMPAS, SHIRA D Primary Care Unavailable TALAMPAS, SHIRA D Referring Unavailable TALAMPAS, SHIRA D Attending Unavailable TALAMPAS, SHIRA D Primary Care Unavailable GRIGGS, ANNABEL Referring Unavailable TALAMPAS, SHIRA D Primary Care Unavailable GRIGGS, ANNABEL Referring Unavailable TALAMPAS, SHIRA D Primary Care Unavailable GRIGGS, ANNABEL Attending Unavailable TALAMPAS, SHIRA D Primary Care Unavailable GRIGGS, ANNABEL Attending Unavailable TALAMPAS, SHIRA D Referring Unavailable TALAMPAS, SHIRA D Primary Care Unavailable GRIGGS, ANNABEL Attending Unavailable TALAMPAS, SHIRA D Primary Care Unavailable TALAMPAS, SHIRA D Primary Care Unavailable LULA GRANADOS Attending Unavailable Allergies Allergy Classification Reported Allergen(s) Allergy Type Date of Onset Reaction(s) Facility (20 sources) Ciprofloxacin; Translations: [CIPROFLOXACIN] Drug Allergy 07-12-19 13 Mental Status Change, Other: See Comments [facility] Work Phone: (20 sources) Erythromycin; Translations: [ERYTHROMYCIN] Drug Allergy 03-02-20 06 Vomiting [facility] Work Phone: (15 sources) guaiFENesin / Pseudoephedrine Drug Allergy 04-13-20 07 Intolerance [facility] Work Phone: (20 sources) hydroCHLOROthiazide; Translations: [HYDROCHLOROTHIAZIDE] Drug Allergy 10-15-19 07 Intolerance [facility] Work Phone: (20 sources) Sulfonamides (Antibiotic); Translations: [SULFA (SULFONAMIDE ANTIBIOTICS)] Propensity to adverse reactions 03-02-20 [facility] Work Phone: (15 sources) environmental [Other] Propensity to adverse reactions 03-02-20 [facility] Work Phone: (4 sources) Ciprofloxacin; Translations: [ciprofloxacin HCl] Drug Allergy 04-12-20 Other [facility] (3 sources) Sulfonamides (Antibiotic) Allergy to substance 04-12-20 [facility] (1 source) Ciprofloxacin Drug Allergy 04-06-20 [facility] (1 source) hydroCHLOROthiazide Drug Allergy 04-06-20 [facility] (1 source) Sulfonamides (Antibiotic) Drug allergy (disorder) 04-06-20 [facility] Medications Current Medications Medication Drug Class(es) Dates Sig (Normalized) Sig (Original) amLODIPine 2.5 mg oral tablet (20 sources) Dihydropyridine Calcium Channel Gale Start: 02-09-2025 take 2 tablets by mouth once daily amLODIPine (NORVASC) 2.5 mg tablet Indications: Primary hypertension Take 2 tablets by mouth once daily. 90 tablet 3 02/09/2025 Active Start: 02-03-2025 take 1 tablet by tyrell th once daily Amlodipine 2.5 mg tablet Active 2.5 mg PO DAILY February 03, 2025 12:00am Complies with drug therapy Start: 06-21-2023 End: 06-15-2024 take 1 tablet [...] oral tablet (2 sources) Penicillin-class Antibacterial Start: 05-11-20 End: 05-21-20 take 1 tablet by mouth twice daily amoxicillin (AMOXIL) 875 mg tablet Indications: Left ear pain Take 1 tablet by mouth two times a day for 10 days. 20 tablet 0 05/11/2023 05/21/2023 Active Comment on above: Take 1 tablet by tyrell two times a day for 10 days. amoxicillin 875 mg / clavulanate 125 mg oral tablet (1 source) Penicillin-class Antibacterial Start: 03-20-20 End: 03-30-20 take 1 tablet by mouth twice daily amoxicillin-clavulanat e potassium (AUGMENTIN) 875-125 mg per tablet Indications: Acute otitis media, unspecified otitis media type , Sinobronchitis Take 1 tablet by mouth two times a day for 10 days. 20 tablet 03/20/2024 03/30/2024 Active carbamide peroxide 65 mg/ml otic solution (1 source) Start: 03-20-20 End: 03-25-20 carbamide peroxide (DEBROX) 6.5 % otic solution Indications: Sinobronchitis , Excessive cerumen in ear canal, right Use 5 Drops in the right ear two times a day for 5 days. 15 mL 03/20/2024 03/25/2024 Active cephalexin 500 mg oral capsule (1 source) Cephalosporin Antibacterial Start: 09-29-19 End: 10-06-19 take 1 capsule by mouth four times daily cephALEXin (KEFLEX) 500 mg capsule Indications: Acute cystitis with hematuria Take 1 capsule by mouth four times daily for 7 days. 28 capsule 0 09/29/2023 10/06/2023 Active diclofenac sodium 0.01 mg/mg topical gel (20 sources) Nonsteroidal Anti-inflammatory Drug Start: 11-07-19 23 diclofenac (VOLTAREN ARTHRITIS PAIN) 1 % topical gel Indications: Degenerative arthritis of thumb, left Apply 2 g to affected area four times daily as needed. 50 g 11/06/2022 Active Comment on above: Apply 2 g to affecte d area four times daily as needed. ELDERBERRY FRUIT (5 sources) End: 11-11-19 22 elderberry fruit (ELDERBERRY ORAL) Take by mouth. 0 11/10/2021 Discontinued (Patient chooses alternative therapy) elderberry fruit (ELDERBERRY ORAL) Take by mouth. 0 Active Comment on above: Take by mouth. FA/MV,CA,IRON,MIN/LYCOPENE/L UT (MULTIVITAL ORAL) (20 sources) FA/MV,CA,IRON,GA N/LYCOPENE/LUT (MULTIVITAL ORAL) Take by mouth. Alive multivitamin +50 Active FA/MV,CA,IRON,GA N/LYCOPENE/LUT (MULTIVITAL ORAL) Take by mouth. Alive [...] as needed. 2 tablet 0 10/11/2023 10/11/2023 magnesium oxide 500 mg oral tablet (4 sources) Start: 02-13-2025 End: 02-13-2026 take 1 tablet by mouth once daily Magnesium Oxide 500 mg magnesium tab Take 1 tablet by mouth once daily. 30 tablet 11 02/13/2025 02/13/2026 Active Start: 02-08-2025 End: 02-08-2026 take 1 tablet by mouth once daily magnesium oxide (MAG-OX) 400 mg (241.3 mg magnesium) tablet Indications: Palpitations Take 1 tablet by mouth once daily. 90 tablet 3 02/08/2025 02/13/2025 Discontinued Multivitamins,Therapeutic (1 source) Start: 05-02-2013 take 1 tablet by mouth once daily Multivitamins,Therapeutic Active 1 TABLET PO DAILY May 02, 2013 12:00am Multivitamins,Therapeutic 1 TAB (2 sources) Start: 05-02-2013 take 1 tablet by mouth once daily Multivitamins,Therapeutic 1 TAB Active 1 {tbl} PO DAILY May 02, 2013 1:00am Complies with drug therapy Start: 05-02-2013 take 1 tablet by tyrell th once daily Multivitamins,Therapeutic 1 TAB Active 1 {tbl} PO DAILY May 02, 2013 1:00am nitrofurantoin, macrocrystals 25 mg / nitrofurantoin, monohydrate [...] Comment on above: Take 1 capsule by mo ut two times a day for 5 days. omeprazole 20 mg delayed release oral tablet (20 sources) Proton Pump Inhibitor Start: 03-07-2018 take 1 tablet by mouth before mealtime as needed Omeprazole Magnesium 20 mg tablet Take 1 tablet by mouth as needed. 1/2 hr before meal. 03/07/2018 Active Start: 05-02-2013 take 20 mg by mouth once daily Omeprazole 20 MG Active 20 mg PO DAILY May 02, 2013 1:00am Complies with drug therapy Comment on above: Take 1 tablet by tyrell th as needed. 1/2 hr before meal. microencapsulated potassium chloride 20 meq extended release oral tablet (20 sources) Start: take 1 tablet by mouth once daily potassium chloride ER (KLOR-CON) 20 mEq tablet Indications: Hypokalemia Take 1 tablet by mouth once daily. 02/13/2025 Active Start: 02-08-2025 take 3 tablets by mo uth twice daily potassium chloride ER (KLOR-CON) 20 mEq tablet Indications: Hypokalemia Take 3 tablets by mouth two times a day. 360 tablet 3 02/08/2025 Active Start: 02-03-2025 take 1 tablet by tyrell th four times daily Potassium Chloride 20 mEq tablet,ER particles/crystals Active 20 meq PO 4 TIMES DAILY February 03, 2025 12:00am Complies with drug therapy Start: 01-12-2025 End: 02-08-2025 take 2 tablets by mouth twice daily potassium chloride ER (KLOR-CON) 20 mEq tablet Indications: Hypokalemia Take 2 tablets by mouth two times a day. 360 tablet 3 01/12/2025 02/08/2025 Discontinued Start: 04-30-2021 End: 11-13-2024 take 2 tablets by mouth twice daily [...] on above: Take 2 tablets by mo uth twice daily. Take 1-2 tablets by mouth twice daily. Completed/Discontinued Medications Medication Drug Class(es) Dates Sig (Normalized) Sig (Original) [id number] 200 actuat albuterol 0.09 mg/actuat metered dose [...] needed. 60 capsule 1 03/20/2024 05/09/2024 Discontinued chlorthalidone 50 mg oral tablet (20 sources) Thiazide-like Diuretic Start: 02-03-2025 End: 03-01-2025 Chlorthalidone 50 mg tablet Discontinued 25 mg PO DAILY February 03, 2025 12:00am March 01, 2025 8:58am Start: 10-31-2024 End: 02-08-2025 take 0.5 tablet by mouth once daily chlorthalidone (HYGROTON) 50 mg tablet Indications: Primary hypertension Take 0.5 tablets by mouth once daily. 45 tablet 3 11/13/2024 Active Start: 09-30-2020 End: 10-28-2024 take 0.5 tablet by mouth once daily chlorthalidone (HYGROTON) 50 mg tablet Indications: Primary hypertension Take 0.5 tablets by mouth once daily. 45 tablet 3 09/28/2023 10/28/2024 Discontinued Start: 05-02-2013 End: 02-03-2025 take 25 mg by mouth once daily Chlorthalidone 25 MG Di scontinued 25 mg PO DAILY May 02, 2013 1:00am February 03, 2025 8:42pm Comment on above: Take 0.5 tablets by mouth once daily. fluticasone propionate 0.05 mg/actuat metered dose nasal spray (2 sources) Corticosteroid Start: 03-20-20 End: 05-09-20 take 2 spray(s) by mouth once daily fluticasone (FLONASE) 50 mcg/actuation nasal spray Indications: Acute otitis media, unspecified otitis media type , Sinobronchitis Use 2 Sprays in each nostril once daily. Rinse mouth after use. 1 Each 03/20/2024 05/09/2024 Discontinued Inhalational Spacing Device (AEROCHAMBER MV) (1 source) Start: 11-07-19 End: 11-07-19 Inhalational Spacing Device (AEROCHAMBER MV) Indications: Acute bronchitis, unspecified organism 1 Device one time only for 1 dose. 1 Each 0 11/06/2022 11/06/2022 Comment on above: 1 Device one time on ly for 1 dose. metroNIDAZOLE 0.0075 mg/mg topical gel (9 sources) Nitroimidazole Antimicrobial Start: 04-16-20 End: 05-08-20 metroNIDAZOLE (METROGEL) 0.75 % Topical Gel Indications: Rosacea Apply to affected area twice daily. 45 g 1 04/16/2021 05/08/2022 Discontinued Comment on above: Apply to affected ar ea twice daily. nirmatrelvir tablet 300 mg (150 mg x 2) and ritonavir tablet 100 mg in a dose pack (PAXLOVID) (4 sources) Start: 04-10-20 End: 05-08-20 nirmatrelvir tablet 300 mg (150 mg x [...] Acute bronchitis; Translations: [Acute bronchitis, unspecified] Episodic Cardiac dysrhythmias (3 sources) Multiple premature ventricular complexes; Translations: [Ventricular premature depolarization] 02-03-2025 Chronic Cardiac dysrhythmias (10 sources) Palpitations; Translations: [Palpitations] Onset: 02-19-2025 02-03-2025 Episodic Conditions associated with dizziness or vertigo (2 sources) Dizziness and giddiness; Translations: [Dizziness and giddiness] Onset: 02-08-2025 02-08-2025 Episodic Disorders of lipid metabolism (20 sources) Raised low density lipoprotein cholesterol; Translations: [Pure hypercholesterolemi a, unspecified] Onset: 10-31-2013 10-31-2013 Chronic Essential hypertension (20 sources) Hypertensive disorder; Translations: [Essential (primary) hypertension] Onset: 03-02-2006 Resolved: 10-14-2006 07-12-2012 Chronic Fluid and electrolyte disorders (20 sources) Hypokalemia; Translations: [Hypokalemia] Onset: 11-21-2013 11-21-2013 Episodic Gout and other crystal arthropathies (1 source) Articular gout; 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, unspecified] Chronic Malaise and fatigue (1 source) Other fatigue; Translations: [Other fatigue] Onset: 04-06-2025 Episodic Osteoarthritis (2 sources) Arthritis of hand; Translations: [Primary osteoarthritis, unspecified hand] Chronic Other disorders of stomach and duodenum (2 sources) Indigestion; Translations: [Functional dyspepsia] 02-03-2025 Episodic Other ear and sense organ disorders (1 source) Otalgia, left ear; Translations: [Otalgia, unspecified] 05-11-2023 Episodic Other ear and sense organ disorders (1 source) Excessive cerumen in ear canal ; Translations: [Impacted cerumen, right ear] 03-20-2024 Episodic Other nutritional; endocrine; and metabolic disorders (1 source) Obesity caused by energy imbalance; Translations: [Class 1 obesity due to excess calories with body mass index (BMI) of 30.0 to 30.9 in adult, unspecified whether serious comorbidity present] 12-26-2024 Chronic Other nutritional; endocrine; and metabolic disorders (2 sources) Hypomagnesemia; Translations: [Hypomagnesemia] 02-08-2025 Chronic Other nutritional; endocrine; and metabolic disorders (1 source) Hypomagnesemia; Translations: [Hypomagnesemia] Onset: 02-19-2025 Chronic Other upper respiratory infections (1 source) Chronic sinusitis; Translations: [Chronic sinusitis, unspecified] 03-20-2024 Chronic Otitis media and related conditions (1 source) Acute otitis media; Translations: [Otitis media, unspecified, unspecified ear] 03-20-2024 Episodic Residual codes; unclassified (2 sources) Menopause present; Translations: [Asymptomatic menopausal state] 12-26-2024 Episodic Sprains and strains (1 source) Sprain of ribs, initial encounter; Translations: [Sprain of costal cartilage, initial encounter] Onset: 04-16-2025 Episodic Viral infection (5 sources) Disease caused by 2019-nCoV; Translations: [COVID-19] Episodic Past or Other Problems Problem Classification Problem Date Documented Date Episodic/Chronic Diabetes mellitus without complication (7 sources) Impaired fasting glycemia; Translations: [Impaired fasting glucose] Onset: 11-29-2024 Episodic E Codes: Adverse effects of medical drugs (1 source) Adverse effect of unspecified systemic antibiotic, initial encounter; Translations: [Antibiotic-induced yeast infection] Onset: 08-23-2024 Episodic Genitourinary symptoms and ill-defined conditions (5 sources) Urgent desire to urinate; Translations: [Urgency of urination] Onset: 08-23-2024 03-23-2023 Episodic Immunizations and screening for infectious disease (2 sources) Requires tetanus and diphtheria vaccination; Translations: [Encounter for immunization] Onset: 05-09-2024 Episodic Mycoses (2 sources) Opportunistic mycosis; Translations: [Candidiasis, unspecified] Onset: 08-23-2024 08-23-2024 Episodic Other non-traumatic joint disorders (13 sources) Arthralgia of the upper arm; Translations: [Pain in unspecified elbow] Onset: 03-09-2006 Resolved: 10-14-2006 10-14-2006 Episodic Other non-traumatic joint disorders (12 sources) Pain in upper arm; Translations: [Pain in unspecified elbow] Onset: 03-09-2006 Resolved: 10-14-2006 12-16-2023 Episodic Other screening for suspected conditions (not mental disorders or infectious disease) (20 sources) Patient encounter status; Translations: [Encounter for screening mammogram for malignant neoplasm of breast] Onset: 11-29-2024 Episodic Residual codes; unclassified (1 source) Asymptomatic menopausal state; Translations: [Asymptomatic menopause] Onset: 11-29-2024 Episodic Screening and history of mental health and substance abuse codes (2 sources) Encounter for screening for depression; Translations: [Encounter for screening examination for other mental health and behavioral disorders] Onset: 05-09-2024 Episodic Spondylosis; intervertebral disc disorders; other back problems (20 sources) Stiff neck; Translations: [Torticollis] Onset: 10-18-2020 10-18-2020 Episodic Superficial injury; contusion (2 sources) Contusion of coccyx; Translations: [Contusion of lower back and pelvis, sequela] Onset: 11-29-2024 11-29-2024 Episodic Unclassified (2 sources) Patient encounter status 10-31-2024 Urinary tract infections (3 sources) Acute cystitis; Translations: [Acute cystitis with hematuria] Onset: 08-23-2024 09-29-2023 Episodic Results Test Name Value Interpretation Reference Range Facility [facility] 04-16-2025 CNOV Office Visit ([facility]) YUKI THOMAS ([id number]) 1960 F Date Time Provider Department 04/16/25 12:45 PM JENNIFER CASTELLANO [facility] During your visit today, we recorded the following information about you: Temperature Pulse Respiration Blood pressure 97.7 degrees 76/minute 16/minute 120/82 Weight 84.3 kg Jennifer Castellano APRN.CNP 04/16/2025 2:02 PM Signed [facility] Subjective Yuki Kline Martha is a 64 year old female. 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 The patient reports right chest wall pain that began last night in her back and radiates to the front of her chest. The pain kept her awake all night and is described as a weird pain that feels like a deep bruise. The pain is reproducible with palpation and is located in the lower right breast area, radiating to the back. She denies numbness, tingling, itchiness, rash, jaw pain, or heaviness in the chest. She notes that sometimes her underwire bra hits the spot where it hurts, but she is unsure if this is related. She denies any recent injuries. Has not taken any tylenol as she is unsure if she can take this with new heart medication. She was not able to ask a lot of questions a her appointment and feels a little lost with new diagnosis. She is concerned that the pain may be related to her heart. She was recently diagnosed with PVCs by Dr. Vargas and started on metoprolol and losartan. She reports some fatigue and dizziness since starting the medications, as well as a brief sensation of heaviness in her chest after taking the medication that resolves quickly. She has an echocardiogram scheduled for later this month. She is up to date on mammograms and denies feeling any lumps in her breast. She has not received the shingles vaccine and denies any history of shingles. She reports recent congestion and exposure to illness from her , who recently had a bad cold. 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 Review of Systems Constitutional: (+) fatigue Head: (-) jaw pain Ears/Nose/Mouth/Thro at: (+) nasal congestion Breast: (-) breast mass Cardiovascular: (-) chest pressure Respiratory: (-) dyspnea Musculoskeletal: (+) right chest wall pain, (+) pain radiating to back, (+) right chest wall tenderness Skin: (-) rash, (-) pruritus Neurological: (-) dizziness, (-) numbness, (-) tingling PAST MEDICAL HISTORY Diagnosis Date GERD (gastroesophageal reflux disease) hypertension Hypopotassemia PAST SURGICAL HISTORY Procedure Laterality Date BIOPSY BREAST OPEN INCISIONAL lumpectomy - benign LAPS ABD PRTMANDOMENTUM DX W/WO SPEC BR/WA SPX for infertility TONSILLECTOMY PRIMARY/SECONDARY Tonsillectomy ALLERGIES Ciprofloxacin, Erythromycin, Hydrochlorothiazide, and Sulfa (Sulfonamide Antibiotics) MEDICATIONS losartan (COZAAR) 50 mg tablet Take 1 tablet by mouth once daily. metoprolol succinate ER (TOPROL XL) 25 mg 24 hr tablet Take 1 tablet by mouth once daily. Magnesium Oxide 500 mg magnesium tab Take 1 tablet by mouth once daily. diclofenac (VOLTAREN ARTHRITIS PAIN) 1 % topical gel Apply 2 g to affected area four times daily as needed. Omeprazole Magnesium 20 mg tablet Take 1 tablet by mouth as needed. 1/2 hr before meal. FA/MV,CA,IRON,MIN/LY COPENE/LUT (MULTIVITAL ORAL) Take by mouth. Alive multivitamin +50 amLODIPine (NORVASC) 5 mg tablet Take 1 tablet by mouth once daily. DOSE CHANGE, TAKE ONE DAILY (Patient not taking: Reported on 04/16/2025) potassium chloride ER (KLOR-CON) 20 mEq tablet Take 1 tablet by mouth once daily. (Patient not taking: Reported on 04/16/2025) FAMILY HISTORY Problem Relation Age of Onset Hypertension Mother other (dementia) Mother other (hepatitis B) Mother Hypertension Father [place], age 45 other (dementia) Father age 86 Hypertension Brother other (gout) Brother Heart Maternal Grandmother CHF other (Parkinson's disease) Maternal Grandfather SOCIAL HISTORY[1] Objective BP 120/82 Pulse 76 Temp 36.5 ?C (97.7 ?F) Resp 16 Wt 84.3 kg (185 lb 13.6 oz) LMP 02/06/2009 SpO2 99% BMI 30.00 kg/m? Physical Exam Constitutional: General: She is not in acute distress. Appearance: Normal appearance. She is normal weight. She is not ill-appearing or toxic-appearing. HENT: Head: Normocephalic and atraumatic. Right Ear: Tympanic membrane, ear canal and external ear normal. Left Ear: Tympanic membrane and external ear normal. Nose: No congestion or rhinorrhea. Mouth/Throat: Pharynx: No oropharyngeal exudate or posterior oropharyngeal erythema. Eyes: Extraocular Movements: Extraocular movements intact. Conjunctiva/sclera: Conjunctivae normal. Pupils: Pupils a (more content not included)... Normal [facility] Aldosterone, Serumon 025 ALDOSTERONE,S 7.1 ng/dL Normal 0.0-30.0 [facility] Comment on above: Order Comment: Test( s) [id number]-[id number] Activity, Plasma was developed and its performance characteristics determined by [facility]. It has not been cleared or approved by the Food and Drug Administration. Result Comment: Perf ormed at: [facility] [id number] [employer]: Ying Erwin MD, Phone: [phone] Performed By: #### L 3300.1100, L3400.4000, L500.2500, L501.5200 #### [facility] [address] [place], [address] Renin, Plasmaon 04-13-2025 RENIN, PLASMA 0.716 ng/mL/hr Normal 0.167-5.380 [facility] Comment on above: Order Comment: Test( s) [id number] Activity, Plasma was developed and its performance characteristics determined by [facility]. It has not been cleared or approved by the Food and Drug Administration. Performed By: #### L 3300.1100, L3400.4000, L500.2500, L501.5200 #### [facility] [address] [place], [address] Basic Metabolic Profile (BMP )on 04-06-2025 BUN/CRE 18.6 RATIO Normal -20 [facility] Comment on above: Performed By: #### L 3300.1100, L3400.4000, L500.2500, L501.5200 #### [facility] [address] [place], [address] Calcium [Mass/Vol] 9.8 mg/dL Normal 7.6-11.0 [facility] Comment on above: Performed By: #### L 3300.1100, L3400.4000, L500.2500, L501.5200 #### [facility] [address] [place], [address] Chloride [Moles/Vol] 106 mmol/L Normal 98-108 [facility] Comment on above: Performed By: #### L 3300.1100, L3400.4000, L500.2500, L501.5200 #### [facility] [address] [place], [address] CO2 [Moles/Vol] 23.2 mmol/L Normal 21.0-32.0 [facility] Comment on above: Performed By: #### L 3300.1100, L3400.4000, L500.2500, L501.5200 #### [facility] [address] [place], [address] Creatinine [Mass/Vol] 0.74 mg/dL Normal 0.70-1.20 [facility] Comment on above: Performed By: #### L 3300.1100, L3400.4000, L500.2500, L501.5200 #### [facility] [address] [place], [address] GAP 13 Normal 5-15 [facility] Comment on above: Performed By: #### L 3300.1100, L3400.4000, L500.2500, L501.5200 #### [facility] [address] [place], [address] GFR/1.73 sq M.predicted among non-blacks MDRD (S/P/Bld) [Vol rate/Area] 90 mL/min/{1.73_m2} Normal >60 [facility] Comment on above: Result Comment: mL/m in/1.73m2 CKD-EPI Creatinine Equation (2020) Performed By: #### L 3300.1100, L3400.4000, L500.2500, L501.5200 #### [facility] [address] [place], [address] Glucose [Mass/Vol] 92 mg/dL Normal 70-99 [facility] Comment on above: Performed By: #### L 3300.1100, L3400.4000, L500.2500, L501.5200 #### [facility] [address] [place], [address] Potassium [Moles/Vol] 3.8 mmol/L Normal 3.3-5.1 [facility] Comment on above: Performed By: #### L 3300.1100, L3400.4000, L500.2500, L501.5200 #### [facility] [address] [place], [address] Sodium [Moles/Vol] 142 mmol/L Normal 133-145 [facility] Comment on above: Performed By: #### L 3300.1100, L3400.4000, L500.2500, L501.5200 #### [facility] [address] [place], [address] Urea nitrogen [Mass/Vol] 14 mg/dL Normal 4-19 [facility] Comment on above: Performed By: #### L 3300.1100, L3400.4000, L500.2500, L501.5200 #### [facility] [address] [place], [address] Cardiology Visit Reporton Cardiology Visit Report [facility] [address] [place] [address] OFFICE VISIT Date of Service: 04/06/25 MR#: [id number] Acct: [id number] Name: YUKI THOMAS Rep #: [id number] : 1960 Provider: Dr. Tyler Kessler MD Age/Sex: 64/F Location: [facility] Status: Signed HPI HPI History of Present Illness Details: The patient is a 64-year-old female with a history of hypertension presenting for evaluation of palpitations and electrolyte imbalances. The patient reports experiencing palpitations described as flutters on 02/03, prompting an ED visit where she was found to have hypomagnesemia and hypokalemia. She was treated with electrolyte replacement. Approximately one month later, she returned to the ED with dizziness, fatigue, and recurrent palpitations. Recent lab work showed fluctuating magnesium and potassium levels, with one test showing low levels and a repeat test four days later showing normal levels. She questions the accuracy of these results. She notes that her current magnesium oxide 500 mg capsules are causing loose stools, which she believes may be contributing to her electrolyte imbalances. She also takes Prilosec for acid reflux and has been its administration from magnesium as advised. She denies any significant side effects from her current medications.She reports episodes of tachycardia upon waking from nightmares, during which she practices breathing techniques to calm down. She denies any recent alcohol consumption but occasionally drinks a glass of wine during holidays. She consumes decaffeinated tea and coffee.She has a history of hypertension diagnosed around age 44, initially managed with a diuretic, which was discontinued due to hypokalemia. She is currently taking amlodipine. She denies any prior evaluation for primary hyperaldosteronism.S he experiences intermittent brain fog and attributes it to stress and arthritis with bone spurs in her neck. She describes herself as a stress crazy person due to family issues. She walks three miles daily on a treadmill but struggles with weight loss. 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 She consumes bananas and plantains regularly and drinks carrot juice instead of orange juice. Intake Vital Signs 03/01/25 08:45 04/06/25 13:29 Height 5 ft 7 in 5 ft 7 in Weight: 190 lb BMI 29.7 BP 153/88 H Blood Pressure Location Lt brachial Position Sitting Respiration 16 Pulse 84 Pulse Source Monitor Intake Visit Reasons: PALPS (SELF) [employer] Monk Required: No Accompanied by: Self Is patient in pain?: No Allergies ciprofloxacin (From Cipro) Allergy (Verified 04/06/25 13:33) Other ciprofloxacin HCl (From Cipro) Allergy (Verified 04/06/25 13:33) Other Sulfa (Sulfonamide Antibiotics) Allergy (Verified 04/06/25 13:33) Hives hydrochlorothiazide Adverse Reaction (Intermediate, Verified 04/06/25 13:33) dizziness Medications ???Medication ???Instructions ???Recorded ???Confirmed ???Type multivitamin 1 tab PO QDAY 04/02/25 04/06/25 Hi story omeprazole 20 mg capsule,delayed 20 mg PO QDAY 04/02/25 04/06/25 Hi story release losartan 50 mg tablet 50 mg PO QDAY #90 tabs 04/06/25 Rx magnesium glycinate 100 mg (as 100 mg PO QDAY #90 tabs 04/06/25 1 Rx glycinate) tablet metoprolol succinate 25 mg 25 mg PO QDAY #90 tabs 04/06/25 Rx tablet,extended release 24 hr (Toprol XL) potassium chloride 20 mEq 20 meq PO QDAY 04/06/25 04/06/25 H istory tablet,extended release(part/cryst) Have you fallen in the past year?: Yes PFSH Medical History (Updated 04/06/25 @ 14:[address] Tyler Kessler MD) GERD (gastroesophageal reflux disease) Hypokalemia Fatigue Hypercholesteremia Palpitations Heart palpitations Hypokalemia Hypertension Surgical History (Updated 04/06/25 @ 13:36 by Pam Cervantes RN) Hx of tonsillectomy Hx of lumpectomy Family History (Updated 04/06/25 @ 13:35 by Pam Cervantes RN) Father Myocardial infarction Social History (Updated 04/02/25 @ 11:06 by Pam Cervantes RN) Smoking Status: Former smoker alcohol intake: current alcohol intake frequency: holidays/special occasions only substance use type: does not use ROS Const Const: Positive for fatigue (off and on); Negative for weakness, daytime sleepiness or difficulty sleeping ENT ENT: Negative for dizziness or Nosebleed/epistaxis Cardio Chest Pain: No Palpitations: Yes (fluttering) feels like its: fast and skipping Edema: None Resp Respiratory: Positive for SOB with activity (with palps ); Negative for SOB at rest, SOB orthopnea SOB lying down or Cough GI GI: Negative nausea, vomiting or heartbur (more content not included)... Normal [facility] Magnesiumon 04-06-2025 Magnesium [Mass/Vol] 1.7 mg/dL Normal 1.5-2.2 [facility] Comment on above: Performed By: #### L 3300.1100, L3400.4000, L500.2500, L501.5200 #### [facility] [address] [place], [address] Basic metabolic 2000 panelon 03-31-2025 Anion gap [Moles/Vol] 12 mmol/L Normal 8-15 [facility] Comment on above: Order Comment: Speci men Type: BLOOD SPECIMEN Ordering Facility: [facility] Address: [address] [place] [address] Performed By: #### 1 9123-9, 86676-7 #### [facility] CLIA [id number] [address] [place] [address] [place] Calcium [Mass/Vol] 9.4 mg/dL Normal 8.5-10.2 [facility] Comment on above: Order Comment: Speci men Type: BLOOD SPECIMEN Ordering Facility: [facility] Address: [address] [place] [address] Performed By: #### 1 9123-9, 48287-7 #### [facility] CLIA [id number] [address] [place] [address] [place] Chloride [Moles/Vol] 103 mmol/L Normal 98-107 [facility] Comment on above: Order Comment: Speci men Type: BLOOD SPECIMEN Ordering Facility: [facility] Address: [address] [place] [address] Performed By: #### 1 9123-9, 55736-1 #### [facility] CLIA [id number] [address] [place] [address] [place] CO2 [Moles/Vol] 26 mmol/L Normal 22-30 [facility] Comment on above: Order Comment: Speci men Type: BLOOD SPECIMEN Ordering Facility: [facility] Address: [address] [place] [address] Performed By: #### 1 9223-9, 01490-7 #### [facility] CLIA [id number] [address] [place] [address] [place] Creatinine [Mass/Vol] 0.73 mg/dL Normal 0.58-0.96 [facility] Comment on above: Order Comment: Speci men Type: BLOOD SPECIMEN Ordering Facility: [facility] Address: [address] [place] [address] Performed By: #### 1 9123-9, 86090-5 #### [facility] CLIA [id number] [address] [place] [address] [place] eGFRcr SerPlBld CKD-EPI 2020 91 mL/min/1.73m??? Normal >=60 [facility] Comment on above: Order Comment: Jen joshua Type: BLOOD SPECIMEN Ordering Facility: [facility] Address: [address] [place] [address] Result Comment: Kerrie mated Glomerular Filtration Rate (eGFR) is calculated using the 2020 CKD-EPI creatinine equation. This equation utilizes serum creatinine, sex, and age as parameters. The creatinine assay has traceable calibration to isotope dilution-mass spectrometry. Refer to KDIGO guidelines for clinical interpretation. In patients with unstable renal function, e.g. those with acute kidney injury, the eGFR may not accurately reflect actual GFR. Performed By: #### 1 9123-9, 44793-3 #### [facility] CLIA [id number] [address] [place] [address] [place] Glucose [Mass/Vol] 113 mg/dL High 74-99 [facility] Comment on above: Order Comment: Jen joshua Type: BLOOD SPECIMEN Ordering Facility: [facility] Address: [address] [place] [address] Result Comment: The [place] [employer] (ADA) provides guidance for cutoff values for fasting glucose and random glucose. The ADA defines fasting as no caloric intake for at least 8 hours. Fasting plasma glucose results between 100 to 125 mg/dL indicate increased risk for diabetes (prediabetes). Fasting plasma glucose results greater than or equal to 126 mg/dL meet the criteria for diagnosis of diabetes. In the absence of unequivocal hyperglycemia, results should be confirmed by repeat testing. In a patient with classic symptoms of hyperglycemia or hyperglycemic crisis, random plasma glucose results greater than or equal to 200 mg/dL meet the criteria for diagnosis of diabetes. Reference: Standards of Medical Care in Diabetes 2016, [place] [employer]. Diabetes Care. 2016.39(Suppl 1). Performed By: #### 1 9123-9, 81836-1 #### [facility] CLIA [id number] [address] [place] [address] [place] Potassium [Moles/Vol] 3.8 mmol/L Normal 3.7-5.1 [facility] Comment on above: Order Comment: Speci men Type: BLOOD SPECIMEN Ordering Facility: [facility] Address: [address] [place] [address] Performed By: #### 1 9123-9, 92762-8 #### [facility] CLIA [id number] [address] [place] [address] [place] Sodium [Moles/Vol] 141 mmol/L Normal 136-144 [facility] Comment on above: Order Comment: Speci men Type: BLOOD SPECIMEN Ordering Facility: [facility] Address: [address] [place] [address] Performed By: #### 1 9123-9, 63633-8 #### [facility] CLIA [id number] [address] [place] [address] [place] Urea nitrogen [Mass/Vol] 14 mg/dL Normal 7-21 [facility] Comment on above: Order Comment: Speci men Type: BLOOD SPECIMEN Ordering Facility: [facility] Address: [address] [place] [address] Performed By: #### 1 9123-9, 62427-2 #### [facility] CLIA [id number] [address] [place] [address] [place] Magnesium SerPl-mCncon 03-31 Magnesium [Mass/Vol] 1.7 mg/dL Normal 1.7-2.3 [facility] Comment on above: Order Comment: Speci men Type: BLOOD SPECIMEN Ordering Facility: [facility] Address: [address] [place] [address] Performed By: #### 1 9123-9, 76250-8 #### [facility] CLIA [id number] [address] [place] [address] [place] CNPNon 03-28-2025 CNPN Telephone (INTMWS) YUKI THOMAS ([id number]) 1960 F Date Time Provider Department 03/28/25 SHIRA VARMA INTMWS During your visit today, we recorded the following information about you: Lary Omalley RN 03/28/2025 12:45 PM Signed Patient calls after reviewing lab results in . Patient wanted to let provider know that on Wednesday she started feeling overall not well, tired, no energy, and flippy (heart fluttery). Patient has an upcoming cardiology appointment but wanted to let provider know that symptoms have returned and she notices her magensium and potassium are low again and she has no further lab orders in placed to monitor. Patient reports no missed doses of magnesium or potassium supplements. MICKI Guerrero Terri, [place].GENERAL [employer] ATTENDANT 03/29/2025 6:54 AM Signed I placed orders for repeat lab work. She can complete these at her convenience. If any concerning or severe symptoms while at home, endorse an ER visit. Lary Omalley RN 03/29/2025 9:16 AM Signed Call placed to patient and notified of provider message below with verbalized understanding. Lary Omalley RN Allergies As of Date: 03/28/2025 Noted Allergy Reaction CIPROFLOXACIN 07/12/2012 1 - Mental Status Change 14 - Other: See Comments ERYTHROMYCIN 03/02/2006 11 - Vomiting HYDROCHLOROTHIAZIDE 10/14/2006 5 - Intolerance Comments: Dizzy SULFA (SULFONAMIDE ANTIBIOTICS) 03/02/2006 4 - Hives Comments: in childhoood Date Reviewed: 02/13/2025 Reviewed by: María Elena Vinson LPN - Fully Assessed Reason for Visit: Results [95] Primary Visit Diagnosis:Palpitatio ns [R00.2] Other Visit Diagnoses:Hypokalemi a [E87.6] Hypomagnesemia [E83.42] Order(s):MAGNESIUM [SQMG1] Order #: [id number] FUTURE BASIC METABOLIC PANEL [SQBMP] Order #: [id number] FUTURE Prescriptions as of 03/29/2025 - amLODIPine (NORVASC) 5 mg tablet Take 1 tablet by mouth once daily. DOSE CHANGE, TAKE ONE DAILY - Magnesium Oxide 500 mg magnesium tab Take 1 tablet by mouth once daily. - potassium chloride ER (KLOR-CON) 20 mEq tablet Take 1 tablet by mouth once daily. - diclofenac (VOLTAREN ARTHRITIS PAIN) 1 % topical gel Apply 2 g to affected area four times daily as needed. - Omeprazole Magnesium 20 mg tablet Take 1 tablet by mouth as needed. 1/2 hr before meal. - FA/MV,CA,IRON,MIN/LY COPENE/LUT (MULTIVITAL ORAL) Take by mouth. Alive multivitamin +50 Problem List As Of Date 03/28/2025 Noted Resolved BENIGN HYPERTENSION [I10] 03/02/2006 10/14/2006 JOINT PAIN-UP/ARM [M25.529] 03/09/2006 10/14/2006 HTN (hypertension) [I10] 07/12/2012 Elevated LDL cholesterol level [E78.00] 10/31/2013 Hypopotassemia [E87.6] 11/21/2013 Neck stiffness [M43.6] 10/18/2020 Neck pain [M54.2] 10/18/2020 Encounter Status:Closed by LARY OMALLEY on 03/29/25 Normal [facility] Basic metabolic 2000 panelon 03-27-2025 Anion gap [Moles/Vol] 13 mmol/L Normal 8-15 [facility] Comment on above: Order Comment: Speci men Type: BLOOD SPECIMEN Ordering Facility: [facility] Address: [address] [place] [address] Performed By: #### 1 9123-9, 16369-3 #### [facility] CLIA [id number] [address] [place] [address] [place] Calcium [Mass/Vol] 9.3 mg/dL Normal 8.5-10.2 [facility] Comment on above: Order Comment: Speci men Type: BLOOD SPECIMEN Ordering Facility: [facility] Address: [address] [place] [address] Performed By: #### 1 9123-9, 47608-1 #### [facility] CLIA [id number] [address] [place] [address] [place] Chloride [Moles/Vol] 103 mmol/L Normal 98-107 [facility] Comment on above: Order Comment: Speci men Type: BLOOD SPECIMEN Ordering Facility: [facility] Address: [address] [place] [address] Performed By: #### 1 9123-9, 89299-1 #### [facility] CLIA [id number] [address] [place] [address] [place] CO2 [Moles/Vol] 23 mmol/L Normal 22-30 [facility] Comment on above: Order Comment: Speci men Type: BLOOD SPECIMEN Ordering Facility: [facility] Address: [address] [place] [address] Performed By: #### 1 9123-9, 00075-9 #### [facility] CLIA [id number] [address] [place] [address] [place] Creatinine [Mass/Vol] 0.78 mg/dL Normal 0.58-0.96 [facility] Comment on above: Order Comment: Speci men Type: BLOOD SPECIMEN Ordering Facility: [facility] Address: [address] [place] [address] Performed By: #### 1 9123-9, 12627-1 #### [facility] CLIA [id number] [address] [place] [address] [place] eGFRcr SerPlBld CKD-EPI 2020 84 mL/min/1.73m??? Normal >=60 [facility] Comment on above: Order Comment: Speci men Type: BLOOD SPECIMEN Ordering Facility: [facility] Address: [address] [place] [address] Result Comment: Kerrie mated Glomerular Filtration Rate (eGFR) is calculated using the 2020 CKD-EPI creatinine equation. This equation utilizes serum creatinine, sex, and age as parameters. The creatinine assay has traceable calibration to isotope dilution-mass spectrometry. Refer to KDIGO guidelines for clinical interpretation. In patients with unstable renal function, e.g. those with acute kidney injury, the eGFR may not accurately reflect actual GFR. Performed By: #### 1 9123-9, 69905-9 #### [facility] CLIA [id number] [address] [place] [address] [place] Glucose [Mass/Vol] 129 mg/dL High 74-99 [facility] Comment on above: Order Comment: Jen joshua Type: BLOOD SPECIMEN Ordering Facility: [facility] Address: [address] [place] [address] Result Comment: The [place] [employer] (ADA) provides guidance for cutoff values for fasting glucose and random glucose. The ADA defines fasting as no caloric intake for at least 8 hours. Fasting plasma glucose results between 100 to 125 mg/dL indicate increased risk for diabetes (prediabetes). Fasting plasma glucose results greater than or equal to 126 mg/dL meet the criteria for diagnosis of diabetes. In the absence of unequivocal hyperglycemia, results should be confirmed by repeat testing. In a patient with classic symptoms of hyperglycemia or hyperglycemic crisis, random plasma glucose results greater than or equal to 200 mg/dL meet the criteria for diagnosis of diabetes. Reference: Standards of Medical Care in Diabetes 2016, [place] [employer]. Diabetes Care. 2016.39(Suppl 1). Performed By: #### 1 9123-9, 45626-9 #### [facility] CLIA [id number] [address] [place] [address] [place] Potassium [Moles/Vol] 3.6 mmol/L Low 3.7-5.1 [facility] Comment on above: Order Comment: Jen joshua Type: BLOOD SPECIMEN Ordering Facility: [facility] Address: [address] [place] [address] Performed By: #### 1 9123-9, 78761-9 #### [facility] CLIA [id number] [address] [place] [address] [place] Sodium [Moles/Vol] 139 mmol/L Normal 136-144 [facility] Comment on above: Order Comment: Speci men Type: BLOOD SPECIMEN Ordering Facility: [facility] Address: [address] [place] [address] Performed By: #### 1 9123-9, 68049-2 #### [facility] CLIA [id number] [address] [place] [address] [place] Urea nitrogen [Mass/Vol] 13 mg/dL Normal 7-21 [facility] Comment on above: Order Comment: Speci men Type: BLOOD SPECIMEN Ordering Facility: [facility] Address: [address] [place] [address] Performed By: #### 1 9123-9, 04949-5 #### [facility] CLIA [id number] [address] [place] [address] [place] Magnesium SerPl-mCncon 03-27 Magnesium [Mass/Vol] 1.6 mg/dL Low 1.7-2.3 [facility] Comment on above: Order Comment: Speci men Type: BLOOD SPECIMEN Ordering Facility: [facility] Address: [address] [place] [address] Performed By: #### 1 9123-9, 45618-7 #### [facility] CLIA [id number] [address] [place] [address] [place] Basic metabolic 2000 panelon 03-20-2025 Anion gap [Moles/Vol] 14 mmol/L Normal 8-15 [facility] Comment on above: Order Comment: Speci men Type: BLOOD SPECIMEN Ordering Facility: [facility] Address: [address] [place] [address] Performed By: #### 1 9123-9, 65889-5 #### [facility] CLIA [id number] [address] [place] [address] [place] Calcium [Mass/Vol] 9.3 mg/dL Normal 8.5-10.2 [facility] Comment on above: Order Comment: Speci men Type: BLOOD SPECIMEN Ordering Facility: [facility] Address: [address] [place] [address] Performed By: #### 1 9123-9, 15775-5 #### [facility] CLIA [id number] [address] [place] [address] [place] Chloride [Moles/Vol] 103 mmol/L Normal 98-107 [facility] Comment on above: Order Comment: Speci men Type: BLOOD SPECIMEN Ordering Facility: [facility] Address: [address] [place] [address] Performed By: #### 1 9123-9, 31064-9 #### [facility] CLIA [id number] [address] [place] [address] [place] CO2 [Moles/Vol] 24 mmol/L Normal 22-30 [facility] Comment on above: Order Comment: Speci men Type: BLOOD SPECIMEN Ordering Facility: [facility] Address: [address] [place] [address] Performed By: #### 1 9123-9, 75922-6 #### [facility] CLIA [id number] [address] [place] [address] [place] Creatinine [Mass/Vol] 0.78 mg/dL Normal 0.58-0.96 [facility] Comment on above: Order Comment: Speci men Type: BLOOD SPECIMEN Ordering Facility: [facility] Address: [address] [place] [address] Performed By: #### 1 9123-9, 51938-1 #### [facility] CLIA [id number] [address] [place] [address] [place] eGFRcr SerPlBld CKD-EPI 2020 84 mL/min/1.73m??? Normal >=60 [facility] Comment on above: Order Comment: Speci men Type: BLOOD SPECIMEN Ordering Facility: [facility] Address: [address] [place] [address] Result Comment: Kerrie mated Glomerular Filtration Rate (eGFR) is calculated using the 2020 CKD-EPI creatinine equation. This equation utilizes serum creatinine, sex, and age as parameters. The creatinine assay has traceable calibration to isotope dilution-mass spectrometry. Refer to KDIGO guidelines for clinical interpretation. In patients with unstable renal function, e.g. those with acute kidney injury, the eGFR may not accurately reflect actual GFR. Performed By: #### 1 9123-9, 34127-3 #### [facility] CLIA [id number] [facility] [place] [address] [place] Glucose [Mass/Vol] 92 mg/dL Normal 74-99 [facility] Comment on above: Order Comment: Jen men Type: BLOOD SPECIMEN Ordering Facility: [facility] Address: [address] [place] [address] Result Comment: The [place] [employer] (ADA) provides guidance for cutoff values for fasting glucose and random glucose. The ADA defines fasting as no caloric intake for at least 8 hours. Fasting plasma glucose results between 100 to 125 mg/dL indicate increased risk for diabetes (prediabetes). Fasting plasma glucose results greater than or equal to 126 mg/dL meet the criteria for diagnosis of diabetes. In the absence of unequivocal hyperglycemia, results should be confirmed by repeat testing. In a patient with classic symptoms of hyperglycemia or hyperglycemic crisis, random plasma glucose results greater than or equal to 200 mg/dL meet the criteria for diagnosis of diabetes. Reference: Standards of Medical Care in Diabetes 2016, [place] [employer]. Diabetes Care. 2016.39(Suppl 1). Performed By: #### 1 9123-9, 54246-3 #### [facility] CLIA [id number] [address] [place] [address] [place] Potassium [Moles/Vol] 4.0 mmol/L Normal 3.7-5.1 [facility] Comment on above: Order Comment: Jen joshua Type: BLOOD SPECIMEN Ordering Facility: [facility] Address: [address] [place] [address] Performed By: #### 1 9123-9, 54931-2 #### [facility] CLIA [id number] [address] [place] [address] [place] Sodium [Moles/Vol] 141 mmol/L Normal 136-144 [facility] Comment on above: Order Comment: Davidi men Type: BLOOD SPECIMEN Ordering Facility: [facility] Address: [address] [place] [address] Performed By: #### 1 9123-9, 29730-7 #### [facility] CLIA [id number] [address] [place] [address] [place] Urea nitrogen [Mass/Vol] 16 mg/dL Normal 7-21 [facility] Comment on above: Order Comment: Speci men Type: BLOOD SPECIMEN Ordering Facility: [facility] Address: [address] [place] [address] Performed By: #### 1 9123-9, 56050-6 #### [facility] CLIA [id number] [address] [place] [address] OF [facility] CNPNon 03-20-2025 CNPN Telephone (INTMWS) YUKI THOMAS ([id number]) 1960 F Date Time Provider Department 03/20/25 ANNABEL GRIGGS INTWS During your visit today, we recorded the following information about you: Hazel Braden, MICKI 03/20/2025 4:41 PM Signed Pt calling in stating she has been seeing Annabel Griggs for some heart issues. Pt is thinking about getting the COVID vaccine. Pt is aware that [facility] does not have it at this time. Pt is asking if it is okay to receive the vaccine. Pt has a consult appt with [facility] Dr. Kessler on 04/06. Annabel Griggs APRN.GENERAL LOT ATTENDANT 03/27/2025 7:05 AM Signed Should be fine to get vaccine unless she has had trouble with it in the past. Loren Ghosh MA 03/27/2025 1:50 PM Signed Left message on Loren Ghosh MA Allergies As of Date: 03/20/2025 Noted Allergy Reaction CIPROFLOXACIN 07/12/2012 1 - Mental Status Change 14 - Other: See Comments ERYTHROMYCIN 03/02/2006 11 - Vomiting HYDROCHLOROTHIAZIDE 10/14/2006 5 - Intolerance Comments: Dizzy SULFA (SULFONAMIDE ANTIBIOTICS) 03/02/2006 4 - Hives Comments: in childhoood Date Reviewed: 02/13/2025 Reviewed by: María Elena Vinson LPN - Fully Assessed Reason for Visit: Patient Question [7547] Cmt: re: COVID vaccine. Prescriptions as of 03/27/2025 - amLODIPine (NORVASC) 5 mg tablet Take 1 tablet by mouth once daily. DOSE CHANGE, TAKE ONE DAILY - Magnesium Oxide 500 mg magnesium tab Take 1 tablet by mouth once daily. - potassium chloride ER (KLOR-CON) 20 mEq tablet Take 1 tablet by mouth once daily. - diclofenac (VOLTAREN ARTHRITIS PAIN) 1 % topical gel Apply 2 g to affected area four times daily as needed. - Omeprazole Magnesium 20 mg tablet Take 1 tablet by mouth as needed. 1/2 hr before meal. - FA/MV,CA,IRON,MIN/LY COPENE/LUT (MULTIVITAL ORAL) Take by mouth. Alive multivitamin +50 Problem List As Of Date 03/20/2025 Noted Resolved BENIGN HYPERTENSION [I10] 03/02/2006 10/14/2006 JOINT PAIN-UP/ARM [M25.529] 03/09/2006 10/14/2006 HTN (hypertension) [I10] 07/12/2012 Elevated LDL cholesterol level [E78.00] 10/31/2013 Hypopotassemia [E87.6] 11/21/2013 Neck stiffness [M43.6] 10/18/2020 Neck pain [M54.2] 10/18/2020 Encounter Status:Closed by LOREN GHOSH on 03/27/25 Normal [facility] Magnesium Anna-Mira 03-20 Magnesium [Mass/Vol] 1.7 mg/dL Normal 1.7-2.3 [facility] Comment on above: Order Comment: Speci men Type: BLOOD SPECIMEN Ordering Facility: [facility] Address: [address] [place] [address] [place] [address] Performed By: #### 1 9123-9, 57515-4 #### [facility] CLIA [id number] [address] [place] [address] [place] Basic metabolic 2000 panelon 03-13-2025 Anion gap [Moles/Vol] 15 mmol/L Normal 8-15 [facility] Comment on above: Order Comment: Speci men Type: BLOOD SPECIMEN Ordering Facility: [facility] Address: [address] [place] [address] Performed By: #### 1 91239, 71388-5 #### [facility] CLIA [id number] [address] [place] [address] [place] Calcium [Mass/Vol] 9.6 mg/dL Normal 8.5-10.2 [facility] Comment on above: Order Comment: Speci men Type: BLOOD SPECIMEN Ordering Facility: [facility] Address: [address] [place] [address] Performed By: #### 1 91239, #### [facility] CLIA [id number] [address] [place] [address] [place] Chloride [Moles/Vol] 107 mmol/L Normal 98-107 [facility] Comment on above: Order Comment: Speci men Type: BLOOD SPECIMEN Ordering Facility: [facility] Address: [address] [place] [address] Performed By: #### 1 91239, 83741-2 #### [facility] CLIA [id number] [address] [place] [address] [place] CO2 [Moles/Vol] 20 mmol/L Low 22-30 [facility] Comment on above: Order Comment: Speci men Type: BLOOD SPECIMEN Ordering Facility: [facility] Address: [address] [place] [address] Performed By: #### 1 9123-9, 63564-6 #### [facility] CLIA [id number] [address] [place] [address] [place] Creatinine [Mass/Vol] 0.82 mg/dL Normal 0.58-0.96 [facility] Comment on above: Order Comment: Jen joshua Type: BLOOD SPECIMEN Ordering Facility: [facility] Address: [address] [place] [address] Performed By: #### 1 9123-9, 95436-2 #### [facility] CLIA [id number] [address] [place] [address] [place] eGFRcr SerPlBld CKD-EPI 2020 79 mL/min/1.73m??? Normal >=60 [facility] Comment on above: Order Comment: Jen joshua Type: BLOOD SPECIMEN Ordering Facility: [facility] Address: [address] [place] [address] Result Comment: Kerrie mated Glomerular Filtration Rate (eGFR) is calculated using the 2020 CKD-EPI creatinine equation. This equation utilizes serum creatinine, sex, and age as parameters. The creatinine assay has traceable calibration to isotope dilution-mass spectrometry. Refer to KDIGO guidelines for clinical interpretation. In patients with unstable renal function, e.g. those with acute kidney injury, the eGFR may not accurately reflect actual GFR. Performed By: #### 1 9123-9, 52958-7 #### [facility] CLIA [id number] [address] [place] [address] [place] Glucose [Mass/Vol] 118 mg/dL High 74-99 [facility] Comment on above: Order Comment: Jen joshua Type: BLOOD SPECIMEN Ordering Facility: [facility] Address: [address] [place] [address] Result Comment: The [place] Diabetes [employer] (ADA) provides guidance for cutoff values for fasting glucose and random glucose. The ADA defines fasting as no caloric intake for at least 8 hours. Fasting plasma glucose results between 100 to 125 mg/dL indicate increased risk for diabetes (prediabetes). Fasting plasma glucose results greater than or equal to 126 mg/dL meet the criteria for diagnosis of diabetes. In the absence of unequivocal hyperglycemia, results should be confirmed by repeat testing. In a patient with classic symptoms of hyperglycemia or hyperglycemic crisis, random plasma glucose results greater than or equal to 200 mg/dL meet the criteria for diagnosis of diabetes. Reference: Standards of Medical Care in Diabetes 2016, [place] [employer]. Diabetes Care. 2016.39(Suppl 1). Performed By: #### 1 9123-9, 47547-8 #### [facility] CLIA [id number] [address] [place] [address] [place] Potassium [Moles/Vol] 3.9 mmol/L Normal 3.7-5.1 [facility] Comment on above: Order Comment: Speci men Type: BLOOD SPECIMEN Ordering Facility: [facility] Address: [address] [place] [address] Performed By: #### 1 9123-9, 86258-8 #### [facility] CLIA [id number] [address] [place] [address] [place] Sodium [Moles/Vol] 142 mmol/L Normal 136-144 [facility] Comment on above: Order Comment: Speci men Type: BLOOD SPECIMEN Ordering Facility: [facility] Address: [address] [place] [address] Performed By: #### 1 91239, 68225-8 #### [facility] CLIA [id number] [address] [place] [address] [place] Urea nitrogen [Mass/Vol] 14 mg/dL Normal 7-21 [facility] Comment on above: Order Comment: Speci men Type: BLOOD SPECIMEN Ordering Facility: [facility] Address: [address] [place] [address] Performed By: #### 1 91239, 43944-6 #### [facility] CLIA [id number] [address] [place] [address] [place] Magnesium SerPl-mCncon 03-13 Magnesium [Mass/Vol] 1.7 mg/dL Normal 1.7-2.3 [facility] Comment on above: Order Comment: Speci men Type: BLOOD SPECIMEN Ordering Facility: [facility] Address: [address] [place] [address] Performed By: #### 1 9123-9, 41424-9 #### [facility] CLIA [id number] [address] [place] [address] [place] Anuradha 03-08-2025 CNPN Telephone (INTMWS) YUKI THOMAS ([id number]) 1960 F Date Time Provider Department 03/08/25 ANNABEL GRIGGS INTMWS During your visit today, we recorded the following information about you: Judith Bowman LPN 03/08/2025 3:01 PM Signed Micaela from [facility] [employer] calling with abnormal results on ZIO patch, 2nd degree AV Block with heart rate of 28 beats on 02/24/2025 at 350 am. Report is posted for the provider. Annabel Griggs, BEEF FARMER.GENERAL LOT ATTENDANT 03/08/2025 4:18 PM Signed Telephone call to Yuki Thomas to review results of lab work and preliminary Zio. She has an upcoming visit with [facility] scheduled on April 05, will check to see if she can be seen sooner. Will send over last office note and preliminary Zio report. Abigail Fulton, MICKI 03/14/2025 8:17 AM Signed Patient calls and is asking if provider had spoke to [facility] in getting patient an appointment sooner? Patient thought Annabel was contacting them. Did advise patient to call them today to see if they have any cancellations or can get patient in sooner. MICKI Rose Terri, BEEF FARMER.GENERAL LOT ATTENDANT 03/15/2025 8:15 AM Signed Yes I did. Her chart was reviewed by [facility] provider and they thought she could wait until her currently scheduled appt. I recommend going to the ER for any severe concerning symptoms in the meantime. Ashley Llamas, RN 03/15/2025 4:50 PM Signed Pt called and is notified of providers message and instructions. Pt voices understanding. She states she is starting to feel better, she said her electrolytes are picking up and that probably had something to do with it. Ashley Llamas RN Allergies As of Date: 03/08/2025 Noted Allergy Reaction CIPROFLOXACIN 07/12/2012 1 - Mental Status Change 14 - Other: See Comments ERYTHROMYCIN 03/02/2006 11 - Vomiting HYDROCHLOROTHIAZIDE 10/14/2006 5 - Intolerance Comments: Dizzy SULFA (SULFONAMIDE ANTIBIOTICS) 03/02/2006 4 - Hives Comments: in childhoood Date Reviewed: 02/13/2025 Reviewed by: María Elena Vinson LPN - Fully Assessed Reason for Visit: abnormal results on ZIO patch [Other] Prescriptions as of 03/15/2025 - amLODIPine (NORVASC) 5 mg tablet Take 1 tablet by mouth once daily. DOSE CHANGE, TAKE ONE DAILY - Magnesium Oxide 500 mg magnesium tab Take 1 tablet by mouth once daily. - potassium chloride ER (KLOR-CON) 20 mEq tablet Take 1 tablet by mouth once daily. - diclofenac (VOLTAREN ARTHRITIS PAIN) 1 % topical gel Apply 2 g to affected area four times daily as needed. - Omeprazole Magnesium 20 mg tablet Take 1 tablet by mouth as needed. 1/2 hr before meal. - FA/MV,CA,IRON,MIN/LY COPENE/LUT (MULTIVITAL ORAL) Take by mouth. Alive multivitamin +50 Problem List As Of Date 03/08/2025 Noted Resolved BENIGN HYPERTENSION [I10] 03/02/2006 10/14/2006 JOINT PAIN-UP/ARM [M25.529] 03/09/2006 10/14/2006 HTN (hypertension) [I10] 07/12/2012 Elevated LDL cholesterol level [E78.00] 10/31/2013 Hypopotassemia [E87.6] 11/21/2013 Neck stiffness [M43.6] 10/18/2020 Neck pain [M54.2] 10/18/2020 Encounter Status:Closed by ANNABEL GRIGGS on 03/08/25 Normal [facility] Basic metabolic 2000 panelon 03-05-2025 Anion gap [Moles/Vol] 14 mmol/L Normal 8-15 [facility] Comment on above: Order Comment: Speci men Type: BLOOD SPECIMEN Ordering Facility: [facility] Address: [address] [place] [address] Performed By: #### 1 23-9, 87616-2 #### [facility] CLIA [id number] [address] [place] [address] [place] Calcium [Mass/Vol] 9.2 mg/dL Normal 8.5-10.2 [facility] Comment on above: Order Comment: Speci men Type: BLOOD SPECIMEN Ordering Facility: [facility] Address: [address] [place] [address] Performed By: #### 1 91239, 50227-3 #### [facility] CLIA [id number] [address] [place] [address] [place] Chloride [Moles/Vol] 104 mmol/L Normal 98-107 [facility] Comment on above: Order Comment: Speci men Type: BLOOD SPECIMEN Ordering Facility: [facility] Address: [address] [place] [address] Performed By: #### 1 9123-02, #### [facility] CLIA [id number] [address] [place] [address] [place] CO2 [Moles/Vol] 21 mmol/L Low 22-30 [facility] Comment on above: Order Comment: Speci men Type: BLOOD SPECIMEN Ordering Facility: [facility] Address: [address] [place] [address] Performed By: #### 1 23, #### [facility] CLIA [id number] [address] [place] [address] [place] Creatinine [Mass/Vol] 0.78 mg/dL Normal 0.58-0.96 [facility] Comment on above: Order Comment: Speci men Type: BLOOD SPECIMEN Ordering Facility: [facility] Address: [address] [place] [address] Performed By: #### 1 91239, 71988-3 #### [facility] CLIA [id number] [address] [place] [address] [place] eGFRcr SerPlBld CKD-EPI 2020 84 mL/min/1.73m??? Normal >=60 [facility] Comment on above: Order Comment: Jen joshua Type: BLOOD SPECIMEN Ordering Facility: [facility] Address: [address] [place] [address] Result Comment: Kerrie mated Glomerular Filtration Rate (eGFR) is calculated using the 2020 CKD-EPI creatinine equation. This equation utilizes serum creatinine, sex, and age as parameters. The creatinine assay has traceable calibration to isotope dilution-mass spectrometry. Refer to KDIGO guidelines for clinical interpretation. In patients with unstable renal function, e.g. those with acute kidney injury, the eGFR may not accurately reflect actual GFR. Performed By: #### 1 9123-9, 81270-7 #### [facility] CLIA [id number] [address] [place] [address] [place] Glucose [Mass/Vol] 82 mg/dL Normal 74-99 [facility] Comment on above: Order Comment: Jen joshua Type: BLOOD SPECIMEN Ordering Facility: [facility] Address: [address] [place] [address] Result Comment: The [place] Diabetes [employer] (ADA) provides guidance for cutoff values for fasting glucose and random glucose. The ADA defines fasting as no caloric intake for at least 8 hours. Fasting plasma glucose results between 100 to 125 mg/dL indicate increased risk for diabetes (prediabetes). Fasting plasma glucose results greater than or equal to 126 mg/dL meet the criteria for diagnosis of diabetes. In the absence of unequivocal hyperglycemia, results should be confirmed by repeat testing. In a patient with classic symptoms of hyperglycemia or hyperglycemic crisis, random plasma glucose results greater than or equal to 200 mg/dL meet the criteria for diagnosis of diabetes. Reference: Standards of Medical Care in Diabetes 2016, [place] [employer]. Diabetes Care. 2016.39(Suppl 1). Performed By: #### 1 9123-9, 04974-2 #### [facility] CLIA [id number] [address] [place] [address] [place] Potassium [Moles/Vol] 3.7 mmol/L Normal 3.7-5.1 [facility] Comment on above: Order Comment: Speci men Type: BLOOD SPECIMEN Ordering Facility: [facility] Address: [address] [place] [address] Performed By: #### 1 9123-9, 25813-7 #### [facility] CLIA [id number] [address] [place] [address] [place] Sodium [Moles/Vol] 139 mmol/L Normal 136-144 [facility] Comment on above: Order Comment: Speci men Type: BLOOD SPECIMEN Ordering Facility: [facility] Address: [address] [place] [address] Performed By: #### 1 9123-9, 27650-3 #### [facility] CLIA [id number] [address] [place] [address] [place] Urea nitrogen [Mass/Vol] 16 mg/dL Normal 7-21 [facility] Comment on above: Order Comment: Speci men Type: BLOOD SPECIMEN Ordering Facility: [facility] Address: [address] [place] [address] Performed By: #### 1 9123-9, 55383-2 #### [facility] CLIA [id number] [address] [place] [address] [place] Magnesium SerPl-mCncon 03-05 Magnesium [Mass/Vol] 1.6 mg/dL Low 1.7-2.3 [facility] Comment on above: Order Comment: Speci men Type: BLOOD SPECIMEN Ordering Facility: [facility] Address: [address] [place] [address] Performed By: #### 1 9123-9, 22823-4 #### [facility] CLIA [id number] [address] [place] [address] [place] 12 Lead EKGon 03-01-2025 12 Lead EKG [facility] [address] [place] [address] 12 Lead EKG 03/01/25 0859 MR#: [id number] Acct: [id number] Name: YUKI THOMAS Rep #: [id number] : 1960 64 From: Maury Dalal MD Attending Dr: Status: DEP ER Ordering Dr: Osman Do DO Date: 03/01/25 Location: ED Sex: F C Admitted: Test Reason : PALPS Blood Pressure : */* mmHG Vent. Rate : 75 BPM Atrial Rate : 75 BPM P-R Int : 180 ms QRS Dur : 72 ms QT Int : 400 ms P-R-T Axes : 27 9 36 degrees QTcB Int : 446 ms Sinus rhythm with occasional Premature ventricular complexes Low voltage QRS Borderline ECG Confirmed by Maury Dalal ([id number]), court usher ASHLEY GALLARDO ([id number]) on 03/02/2025 5:49:41 AM Referred By: Confirmed By: Maury Dalal 03/02/25 0549 Date Maury Dalal MD CC: Dr. Osman Do DO; Dr. Shira Varma MD Signed Normal [facility] Absolute lymphocyte countOrd ered By: Osman Do on 03-01-2025 Lymphocytes Auto (Unsp spec) [#/Vol] 1.73 10*3/uL 0.83-4.51 [facility] Absolute neutrophil countOrd ered By: Osman Do on 03-01-2025 Neutrophils (Bld) [#/Vol] 5.0 10*3/uL 2.0-7.7 [facility] Anion gap in Serum or Plasma Ordered By: Osman Do on 03-01-2025 Anion gap [Moles/Vol] 15 mmol/L - [facility] Automated lymphocyte count a s percentage of total leukocytesOrdered By: Osman Do on 03-01-2025 Lymphocytes/100 WBC Auto (Unsp spec) 23.2 % [facility] BUN/creatinine ratioOrdered By: Osman Do on 03-01-2025 Urea nitrogen/Creatinine [Mass ratio] 19.0 mg/mg - [facility] Basic Metabolic Profile (BMP )on 03-01-2025 BUN/CRE 19.0 RATIO Normal 03-26 [facility] Comment on above: Performed By: #### L 100.0100, L501.5200, L500.2500, L501.4021 ####[facility] [address] [place], [address] Calcium [Mass/Vol] 8.8 mg/dL Normal 7.6-11.0 [facility] Comment on above: Performed By: #### L 100.0100, L501.5200, L500.2500, L501.4021 ####[facility] [address] [place], [address] Chloride [Moles/Vol] 106 mmol/L Normal 98-108 [facility] Comment on above: Performed By: #### L 100.0100, L501.5200, L500.2500, L501.4021 ####[facility] [address] [place], [address] CO2 [Moles/Vol] 19.8 mmol/L Low 21.0-32.0 [facility] Comment on above: Performed By: #### L 100.0100, L501.5200, L500.2500, L501.4021 ####[facility] [address] [place], [address] Creatinine [Mass/Vol] 0.73 mg/dL Normal 0.70-1.20 [facility] Comment on above: Performed By: #### L 100.0100, L501.5200, L500.2500, L501.4021 ####[facility] [address] [place], [address] ECRCL 79.64 ml/min Normal 50-250 [facility] Comment on above: Performed By: #### L 100.0100, L501.5200, L500.2500, L501.4021 ####[facility] [address] [place], [address] GAP 15 Normal 5-15 [facility] Comment on above: Performed By: #### L 100.0100, L501.5200, L500.2500, L501.4021 ####[facility] [address] [place], [address] GFR/1.73 sq M.predicted among non-blacks MDRD (S/P/Bld) [Vol rate/Area] 91 mL/min/{1.73_m2} Normal >60 [facility] Comment on above: Result Comment: mL/m in/1.73m2 CKD-EPI Creatinine Equation (2020) Performed By: #### L 100.0100, L501.5200, L500.2500, L501.4021 ####[facility] [address] [place], [address] Glucose [Mass/Vol] 112 mg/dL High 70-99 [facility] Comment on above: Performed By: #### L 100.0100, L501.5200, L500.2500, L501.4021 ####[facility] [address] [place], [address] Potassium [Moles/Vol] 3.9 mmol/L Normal 3.3-5.1 [facility] Comment on above: Performed By: #### L 100.0100, L501.5200, L500.2500, L501.4021 ####[facility] [address] [place], [address] Sodium [Moles/Vol] 141 mmol/L Normal 133-145 [facility] Comment on above: Performed By: #### L 100.0100, L501.5200, L500.2500, L501.4021 ####[facility] [address] [place], [address] Urea nitrogen [Mass/Vol] 14 mg/dL Normal 4-19 [facility] Comment on above: Performed By: #### L 100.0100, L501.5200, L500.2500, L501.4021 ####[facility] [address] [place], [address] Basophil percentageOrdered B y: Osman Do on 03-01-2025 Basophils/100 WBC (Bld) 0.3 % 0-1 [facility] CBC W/Diff, Automatedon 02-06 Absolute Lymph 1.73 X10 3/uL Normal 0.83-4.51 [facility] Comment on above: Performed By: #### L 100.0100, L501.5200, L500.2500, L501.4021 ####[facility] [address] [place], [address] Absolute Neut 5.0 X10 3/uL Normal 2.0-7.7 [facility] Comment on above: Performed By: #### L 100.0100, L501.5200, L500.2500, L501.4021 ####[facility] [address] [place], [address] Basophils/100 WBC (Bld) 0.3 % Normal 0-1 [facility] Comment on above: Performed By: #### L 100.0100, L501.5200, L500.2500, L501.4021 ####[facility] [address] [place], [address] Eosinophils/100 WBC (Bld) 2.3 % Normal 0-5 [facility] Comment on above: Performed By: #### L 100.0100, L501.5200, L500.2500, L501.4021 ####[facility] [address] [place], [address] Erythrocyte distribution width (RBC) [Ratio] 13.4 % Normal 11.6-14.6 [facility] Comment on above: Performed By: #### L 100.0100, L501.5200, L500.2500, L501.4021 ####[facility] [address] [place], [address] Hematocrit (Bld) [Volume fraction] 38.1 % Normal 37-47 [facility] Comment on above: Performed By: #### L 100.0100, L501.5200, L500.2500, L501.4021 ####[facility] [address] [place], [address] Hemoglobin (Bld) [Mass/Vol] 13.0 g/dL Normal 12.0-15.0 [facility] Comment on above: Performed By: #### L 100.0100, L501.5200, L500.2500, L501.4021 ####[facility] [address] [facility] [place], [address] IG% 0.800 Normal 0.0-0.9 [facility] Comment on above: Result Comment: IG% - Immature Granulocytes (promyelocytes, myelocytes and metamyelocytes) > 1% indicates that a LEFT SHIFT is Present. Performed By: #### L 100.0100, L501.5200, L500.2500, L501.4021 ####[facility] [address] [facility] [place], [address] Lymphocytes/100 WBC (Bld) 23.2 % Normal 19-41 [facility] Comment on above: Performed By: #### L 100.0100, L501.5200, L500.2500, L501.4021 ####[facility] [address] [place], [address] MCH (RBC) [Entitic mass] 28.8 pg Normal 27.0-32.0 [facility] Comment on above: Performed By: #### L 100.0100, L501.5200, L500.2500, L501.4021 ####[facility] [address] [place], [address] MCHC (RBC) [Mass/Vol] 34.1 g/dL Normal 32-36 [facility] Comment on above: Performed By: #### L 100.0100, L501.5200, L500.2500, L501.4021 ####[facility] [address] [place], [address] MCV (RBC) [Entitic vol] 84.5 fL Normal 81-99 [facility] Comment on above: Performed By: #### L 100.0100, L501.5200, L500.2500, L501.4021 ####[facility] [address] [place], [address] Monocytes/100 WBC (Bld) 6.6 % Normal 0-10 [facility] Comment on above: Performed By: #### L 100.0100, L501.5200, L500.2500, L501.4021 ####[facility] [address] [place], [address] Neutrophils/100 WBC (Bld) 66.8 % Normal 47-70 [facility] Comment on above: Performed By: #### L 100.0100, L501.5200, L500.2500, L501.4021 ####[facility] [address] [place], [address] Nucleated RBC (Bld) [#/Vol] 0 10*3/uL Normal 0-5 [facility] Comment on above: Performed By: #### L 100.0100, L501.5200, L500.2500, L501.4021 ####[facility] [address] [place], [address] Platelet mean volume (Bld) [Entitic vol] 9.3 fL Normal 6.2-12.0 [facility] Comment on above: Performed By: #### L 100.0100, L501.5200, L500.2500, L501.4021 ####[facility] [address] [place], [address] Platelets (Bld) [#/Vol] 237 10*3/uL Normal 150-450 [facility] Comment on above: Performed By: #### L 100.0100, L501.5200, L500.2500, L501.4021 ####[facility] [address] [place], [address] RBC (Bld) [#/Vol] 4.51 10*6/uL Normal 4.2-5.4 [facility] Comment on above: Performed By: #### L 100.0100, L501.5200, L500.2500, L501.4021 ####[facility] [address] [place], [address] RDW SD 41.5 fl Normal 35.1-43.9 [facility] Comment on above: Performed By: #### L 100.0100, L501.5200, L500.2500, L501.4021 ####[facility] [address] [place], [address] WBC (Bld) [#/Vol] 7.5 10*3/uL Normal 4.4-11.0 [facility] Comment on above: Performed By: #### L 100.0100, L501.5200, L500.2500, L501.4021 ####[facility] [address] [place], [address] Carbon dioxide, total [Moles /volume] in Central venous bloodOrdered By: Osman Do on 03-01-2025 CO2 [Moles/Vol] 19.8 mmol/L Low 21.0-32.0 [facility] Chest PA and Lateralon 03-01 Chest PA and Lateral [facility] Imaging Services [address] [place] [address] Chest PA and Lateral MR#: [id number] Acct: [id number] Name: MARTHAYUKI BAILEYEEN Rep #: [id number] : 1960 F 64 From: Herbert Solorzano MD PCP: Dr. Shira Varma MD Status: REG ER Study: Chest PA and Lateral Date of Exam: 03/01/25 Exam# [id number] Ordering Dr: Osman Do DO PROCEDURE: CHEST PA AND LATERAL 03/01/2025 REASON FOR EXAM: CHEST PAIN TECHNIQUE: Procedure Code: RADCXR Modality: DX Procedure: CHEST PA AND LATERAL COMPARISON: February 03, 2025 FINDINGS: Heart size and mediastinal configuration are within normal limits. There is no focal infiltrate or consolidation. There is no pneumothorax or effusion. Aortic calcifications are noted there is no acute bony abnormality. RAD/Chest PA and Lateral IMPRESSION: No acute process is identified in the chest. Reading Location: [facility] CC: Dr. Osman Do DO; Dr. Shira Varma MD Division Supervisor: Signed Normal [facility] Chloride assayOrdered By: Andres Do on 03-01-2025 Chloride [Moles/Vol] 106 mmol/L 98-108 [facility] Electrocardiogram reportOrde red By: Maury Dalal on 03-01-2025 EKG study [facility] [address] [place] [address] 12 Lead EKG 03/01/25 0859 MR#: [id number] Acct: [id number] Name: YUKI THOMAS Rep #:[id number] : 1960 64 From: Maury jade MD Attending Dr: Status: DEP E R Ordering Dr: Osman oD DO Date: 0 03/01/25 Location: ED Sex: F C Admitted: Test Reason : PALPS Blood Pressure : */* mmHG Vent. Rate : 75 BPM Atrial Rate : 75 BPM P-R Int : 180 ms QRS Dur : 72 ms QT Int : 400 ms P-R-T Axes : 27 9 36 degrees QTcB Int : 446 ms Sinus rhythm with occasional Premature ventricular complexes Low voltage QRS Borderline ECG Confirmed by Maury Dalal ([id number]), court usher ASHLEY GALLARDO ([id number]) on 55:49:41 AM Referred By: Confirmed By: Maury Dalal 03/02/25 0549 Date _ Maury Dalal MD CC: Dr. Osman Do DO; Dr. Shira Varma MD ~ Signed [facility] Other Emergency Department Summary on 03-01-2025 Emergency Department Summary [facility] Medical Records Department [address] [place] [address] Emergency Department Summary 03/01/25 MR#: [id number] Acct: [id number] Name: YUKI THOMAS Rep #: [id number] : 1960 64 From: Osman Do DO PCP: Dr. Shira Varma MD Status:DEP ER Location: ED HPI History of Present Illness Chief Complaint: Palpitations Informant: patient Onset/Context/Timing Onset: Today Context: Gradual Onset Timing: Continuous Quality: Skipping beats Location: Chest Worsened by: Activity Relieved by: Nothing Narrative Narrative: Patient presents with palpitations that began this morning. Patient states that when she got up she was feeling occasional skipping in her chest. Patient states that became more frequent as she was becoming more active this morning. Patient states she felt dizzy. Patient denies any chest pain. Patient states she felt nauseated with these. Patient states she also had some shortness of breath with this. Patient states she went to the [facility] station where they checked an EKG which was normal. Patient states that they also checked her blood pressure which was elevated and referred her to the emergency department. Patient states that when she stood up at the fire station, she felt some pressure in her upper chest and neck that only lasted for a few seconds. Patient states she had similar symptoms 1 month ago with low potassium and low magnesium. Patient states that they stopped her diuretic and prescribed potassium. [facility] Medical History (Updated 03/01/25 @ 12:[address] Osman Do, DO) Hypertension Home Medications ???Medication ???Instructions ???Recorded ???Last Taken ???Type Multivitamins,Therap eutic 1 tab PO DAILY 05/02/13 Unknown Hi story Omeprazole 20 mg PO DAILY 05/02/13 Unknown Hi story amlodipine 2.5 mg tablet 2.5 mg PO DAILY 02/03/25 Unknown H istory potassium chloride 20 mEq 20 meq PO 4X/DAY 02/03/25 Unknown History tablet,extended release(part/cryst) Allergy/AdvReac Type Severity Reaction Status Date / Time ciprofloxacin (From Cipro) Allergy Other Verified 03/01/25 08:46 ciprofloxacin HCl (From Allergy Other Verified 03/01/25 08:46 Cipro) Sulfa (Sulfonamide Allergy Hives Verified 03/01/25 08:46 Antibiotics) Surgical History no surgical history no surgical history Social History Smoking Status: Former smoker ROS ROS ED Constitutional Constitutional ED: Denies chills or fever(s) Eyes Eyes: Denies blurry vision or change in vision ENT ENT ED: Denies rhinorrhea or sore throat Cardiovascular Cardiovascular: Reports palpitations; Denies chest pain Respiratory/Chest Respiratory/Chest: Reports dyspnea; Denies cough Gastrointestinal Gastrointestinal: Reports nausea; Denies vomiting Genitourinary Genitourinary ED: Denies dysuria or hematuria Musculoskeletal Musculoskeletal: Denies back pain or neck pain Integumentary Denies abscess or rash Neurologic Neurologic: Denies headache(s) or weakness Allergic/Immunologic Allergic/Immunologic ED: Denies mouth swelling or urticaria EXAM Physical Exam Const Vital Signs: 03/01/25 08:45 03/01/25 09:12 03/01/25 09:52 Temperature 98.9 F Temperature Source Temporal Pulse Rate 79 68 Respiratory Rate 14 17 Blood Pressure 171/78 H 158/81 H Blood Pressure Mean 109 106 Pulse Ox 99 99 Oxygen Delivery Method Room Air Room Air Room Air 03/01/25 11:00 03/01/25 12:00 Temperature Temperature Source Pulse Rate 65 66 Respiratory Rate 12 10 L Blood Pressure 133/64 H 146/83 H Blood Pressure Mean 87 104 Pulse Ox 98 96 Oxygen Delivery Method Room Air Room Air Positive well nourished and well developed General Appearance ED: well developed and NAD HEENT Reports moist mucous membranes Neck supple and no JVD Resp normal respiratory effort and clear to auscultation bilaterally Cardio regular rate and regular rhythm GI non-tender and non-distended Palpation: soft Extremity normal to inspection General Extremety ED: Negative for edema or tenderness General Extremity: Negative for edema Neuro oriented x3, CN's II-XII intact bilaterally and no sensory deficits noted Sensorium / Orientation: alert Motor Exam: strength 5/5 throughout Psych mental status grossly normal MDM MDM MDM Narrative Medical decision making narrative: Differential diagnosis includes cardiac dysrhythmia, cardiac ischemia, pneumonia, bronchitis, electrolyte abnormality, gastroesophageal reflux disease, and hypertensive urgency. EKG will be obtained to assess for cardiac dysrhythmia and cardiac ischemia. Chest x-ray will be obtained to assess for pneumonia or bronchitis. CBC will be obtained to as (more content not included)... Normal [facility] Eosinophil percentageOrdered By: Osman Do on 03-01-2025 Eosinophils/100 WBC (Bld) 2.3 % 0-5 [facility] Erythrocyte distribution wid th ratioOrdered By: Osman Do on 03-01-2025 Erythrocyte distribution width (RBC) [Ratio] 13.4 % 11.6-14.6 [facility] Erythrocyte distribution wid th standard deviationOrdered By: Osman Do on 03-01-2025 Erythrocyte distribution width (RBC) [Ratio] 41.5 fl 35.1-43.9 [facility] Glomerular filtration rate ( GFR) estimation/1.73 sq m using serum, plasma, or whole bOrdered By: Osman Do on 03-01-2025 GFR/1.73 sq M.predicted among non-blacks MDRD (S/P/Bld) [Vol rate/Area] 91 mL/min/{1.73_m2} >60 [facility] Comment on above: mL/min/1.73m2 CKD-EP I Creatinine Equation (2020) Hematocrit Auto (Bld) [Volum e fraction]Ordered By: Osman Do on 03-01-2025 Hematocrit (Bld) [Volume fraction] 38.1 % 37-47 [facility] Hemoglobin measurementOrdere d By: Osman Do on 03-01-2025 Hemoglobin (Bld) [Mass/Vol] 13.0 g/dL 12.0-15.0 [facility] Immature granulocytes/100 WB C Auto (Bld)Ordered By: Osman Do on 03-01-2025 Immature granulocytes/100 WBC (Bld) 0.800 % 0.0-0.9 [facility] Comment on above: IG% - Immature Granu locytes (promyelocytes, myelocytes and metamyelocytes) > 1% indicates that a LEFT SHIFT is Present. L501.4021on 03-01-2025 Trop T High Sen < 6 Normal <=14 [facility] Comment on above: Performed By: #### L 100.0100, L501.5200, L500.2500, L501.4021 ####[facility] [address] [place], [address] MCV (mean corpuscular volume ) determinationOrdered By: Osman Do on 03-01-2025 MCV (RBC) [Entitic vol] 84.5 fL 81-99 [facility] Magnesiumon 03-01-2025 Magnesium [Mass/Vol] 1.8 mg/dL Normal 1.5-2.2 [facility] Comment on above: Performed By: #### L 100.0100, L501.5200, L500.2500, L501.4021 ####[facility] [address] [place], [place], [address] Magnesium measurement (mass/ volume)Ordered By: Osman Do on 03-01-2025 Magnesium (Unsp spec) [Mass/Vol] 1.8 mg/dL 1.5-2.2 [facility] Mean corpuscular hemoglobin (MCH) determinationOrdered By: Osman Do on 03-01-2025 MCH (RBC) [Entitic mass] 28.8 pg 27.0-32.0 [facility] Mean corpuscular hemoglobin concentration (MCHC) determinationOrdered By: Osman Do on 03-01-2025 MCHC (RBC) [Mass/Vol] 34.1 g/dL 32-36 [facility] Mean platelet volume determi nationOrdered By: Osman Do on 03-01-2025 Platelet mean volume (Bld) [Entitic vol] 9.3 fL 6.2-12.0 [facility] Monocyte percentageOrdered B y: Osman Do on 03-01-2025 Monocytes/100 WBC (Bld) 6.6 % 0-10 [facility] Neutrophil percentageOrdered By: Osman Do on 03-01-2025 Neutrophils/100 WBC (Bld) 66.8 % 47-70 [facility] Nucleated red blood cell per centageOrdered By: Osman Do on 03-01-2025 Nucleated RBC/100 WBC (Bld) [Ratio] 0 % 0-5 [facility] Platelet countOrdered By: Andres Do on 03-01-2025 Platelets (Bld) [#/Vol] 237 10*3/uL 150-450 [facility] Potassium measurement (mass/ volume)Ordered By: Osman Do on 03-01-2025 Potassium (Unsp spec) [Mass/Vol] 3.9 mmol/L 3.3-5.1 [facility] RBC Auto (Bld) [#/Vol]Ordere d By: Osman Do on 03-01-2025 RBC (Bld) [#/Vol] 4.51 10*6/uL 4.2-5.4 [facility] Serum creatinine measurement (mass/volume)Ordered By: Osman Do on 03-01-2025 Creatinine [Mass/Vol] 0.73 mg/dL 0.70-1.20 [facility] Serum glucose measurement (m ass/volume)Ordered By: Osman Do on 03-01-2025 Glucose [Mass/Vol] 112 mg/dL High 70-99 [facility] Serum or plasma calcium nivia urement (mass/volume)Ordered By: Osman Do on 03-01-2025 Calcium [Mass/Vol] 8.8 mg/dL 7.6-11.0 [facility] Serum or plasma urea nitroge n measurement (mass/volume)Ordered By: Osman Do on 03-01-2025 Urea nitrogen [Mass/Vol] 14 mg/dL 4-19 [facility] Sodium levelOrdered By: Osman Do on 03-01-2025 Sodium [Moles/Vol] 141 mmol/L 133-145 [facility] Troponin T HS 2 HRon 025 Trop T High Sen 9 ng/L Normal <=14 [facility] Comment on above: Performed By: #### L 499.0042 ####[facility] [address] [place], [address] Troponin T HS 4 HRon 025 Trop T High Sen Normal <=14 [facility] Comment on above: Result Comment: Conrad turner via OM: MD Ordered Performed By: #### L 499.0043 #### [facility] [address] [place], [address] Troponin T.cardiac [Mass/vol ume] in Serum or Plasma by High sensitivity methodOrdered By: Osman Do on 03-01-2025 Troponin T.cardiac High sensitivity method [Mass/Vol] 9 ng/L <14 [facility] Troponin T.cardiac High sensitivity method [Mass/Vol] < 6 ng/L <14 [facility] White blood cell (WBC) count Ordered By: Osman Do on 03-01-2025 WBC (Bld) [#/Vol] 7.5 10*3/uL 4.4-11.0 [facility] Basic metabolic 2000 panelon 02-26-2025 Anion gap [Moles/Vol] 15 mmol/L Normal 8-15 [facility] Comment on above: Order Comment: Speci men Type: BLOOD SPECIMEN Ordering Facility: [facility] Address: [address] [place] [address] Performed By: #### 1 9123-9, 76266-2 #### [facility] CLIA [id number] [address] [place] [address] [place] Calcium [Mass/Vol] 9.1 mg/dL Normal 8.5-10.2 [facility] Comment on above: Order Comment: Speci men Type: BLOOD SPECIMEN Ordering Facility: [facility] Address: [address] [place] [address] Performed By: #### 1 9123-9, 41882-3 #### [facility] CLIA [id number] [address] [place] [address] [place] Chloride [Moles/Vol] 107 mmol/L Normal 98-107 [facility] Comment on above: Order Comment: Speci men Type: BLOOD SPECIMEN Ordering Facility: [facility] Address: [address] [place] [address] Performed By: #### 1 9123-9, 56699-8 #### [facility] CLIA [id number] [address] [place] [address] STATES OF [facility] CO2 [Moles/Vol] 22 mmol/L Normal 22-30 [facility] Comment on above: Order Comment: Speci men Type: BLOOD SPECIMEN Ordering Facility: [facility] Address: [address] [place] [address] Performed By: #### 1 91239, 67387-4 #### [facility] CLIA [id number] [address] [place] [address] Creatinine [Mass/Vol] 0.77 mg/dL Normal 0.58-0.96 [facility] Comment on above: Order Comment: Speci men Type: BLOOD SPECIMEN Ordering Facility: [facility] Address: [address] [place] [address] Performed By: #### 1 91239, 82024-8 #### [facility] CLIA [id number] [address] [place] [address] eGFRcr SerPlBld CKD-EPI 2020 86 mL/min/1.73m??? Normal >=60 [facility] Comment on above: Order Comment: Speci men Type: BLOOD SPECIMEN Ordering Facility: [facility] Address: [address] [place] [address] Result Comment: Kerrie mated Glomerular Filtration Rate (eGFR) is calculated using the 2020 CKD-EPI creatinine equation. This equation utilizes serum creatinine, sex, and age as parameters. The creatinine assay has traceable calibration to isotope dilution-mass spectrometry. Refer to KDIGO guidelines for clinical interpretation. In patients with unstable renal function, e.g. those with acute kidney injury, the eGFR may not accurately reflect actual GFR. Performed By: #### 1 9123-9, 45013-9 #### [facility] CLIA [id number] [address] [place] [address] [place] Glucose [Mass/Vol] 107 mg/dL High 74-99 [facility] Comment on above: Order Comment: Speccarmen men Type: BLOOD SPECIMEN Ordering Facility: [facility] Address: [address] [place] [address] Result Comment: The [place] [employer] (ADA) provides guidance for cutoff values for fasting glucose and random glucose. The ADA defines fasting as no caloric intake for at least 8 hours. Fasting plasma glucose results between 100 to 125 mg/dL indicate increased risk for diabetes (prediabetes). Fasting plasma glucose results greater than or equal to 126 mg/dL meet the criteria for diagnosis of diabetes. In the absence of unequivocal hyperglycemia, results should be confirmed by repeat testing. In a patient with classic symptoms of hyperglycemia or hyperglycemic crisis, random plasma glucose results greater than or equal to 200 mg/dL meet the criteria for diagnosis of diabetes. Reference: Standards of Medical Care in Diabetes 2016, [place] [employer]. Diabetes Care. 2016.39(Suppl 1). Performed By: #### 1 9123-9, 94921-6 #### [facility] CLIA [id number] [address] [place] [address] [place] Potassium [Moles/Vol] 3.7 mmol/L Normal 3.7-5.1 [facility] Comment on above: Order Comment: Jen joshua Type: BLOOD SPECIMEN Ordering Facility: [facility] Address: [address] [place] [address] Performed By: #### 1 9123-9, 04835-9 #### [facility] CLIA [id number] [address] [place] [address] [place] Sodium [Moles/Vol] 144 mmol/L Normal 136-144 [facility] Comment on above: Order Comment: Jen joshua Type: BLOOD SPECIMEN Ordering Facility: [facility] Address: [address] [place] [address] Performed By: #### 1 9123-9, 82452-8 #### [facility] CLIA [id number] [address] [place] [address] [place] Urea nitrogen [Mass/Vol] 16 mg/dL Normal 7-21 [facility] Comment on above: Order Comment: Speci men Type: BLOOD SPECIMEN Ordering Facility: [facility] Address: [address] [place] [address] Performed By: #### 1 9123-9, 51958-8 #### [facility] CLIA [id number] [address] [place] [address] [place] Magnesium SerPl-mCncon 02-26 Magnesium [Mass/Vol] 1.7 mg/dL Normal 1.7-2.3 [facility] Comment on above: Order Comment: Speci men Type: BLOOD SPECIMEN Ordering Facility: [facility] Address: [address] [place] [address] Performed By: #### 1 9123-9, 90629-6 #### [facility] CLIA [id number] [address] [place] [address] [place] Basic metabolic 2000 panelon 02-19-2025 Anion gap [Moles/Vol] 15 mmol/L Normal 8-15 [facility] Comment on above: Order Comment: Speci men Type: BLOOD SPECIMEN Ordering Facility: [facility] Address: [address] [place] [address] Performed By: #### 1 9123-9, 83934-2 #### [facility] CLIA [id number] [address] [place] [address] [place] Calcium [Mass/Vol] 9.2 mg/dL Normal 8.5-10.2 [facility] Comment on above: Order Comment: Speci men Type: BLOOD SPECIMEN Ordering Facility: [facility] Address: [address] [place] [address] Performed By: #### 1 9123-9, 26528-5 #### [facility] CLIA [id number] [address] [place] [address] [place] Chloride [Moles/Vol] 105 mmol/L Normal 98-107 [facility] Comment on above: Order Comment: Speci men Type: BLOOD SPECIMEN Ordering Facility: [facility] Address: [address] [place] [address] Performed By: #### 1 9123-9, 68792-6 #### [facility] CLIA [id number] [address] [place] [address] [place] CO2 [Moles/Vol] 23 mmol/L Normal 22-30 [facility] Comment on above: Order Comment: Speci men Type: BLOOD SPECIMEN Ordering Facility: [facility] Address: [address] [place] [address] Performed By: #### 1 91239, 20622-3 #### [facility] CLIA [id number] [address] [place] [address] [place] Creatinine [Mass/Vol] 0.78 mg/dL Normal 0.58-0.96 [facility] Comment on above: Order Comment: Speci men Type: BLOOD SPECIMEN Ordering Facility: [facility] Address: [address] [place] [address] Performed By: #### 1 91239, #### [facility] CLIA [id number] [address] [place] [address] [place] eGFRcr SerPlBld CKD-EPI 2020 84 mL/min/1.73m??? Normal >=60 [facility] Comment on above: Order Comment: Speci men Type: BLOOD SPECIMEN Ordering Facility: [facility] Address: [address] [place] [address] Result Comment: Kerrie mated Glomerular Filtration Rate (eGFR) is calculated using the 2020 CKD-EPI creatinine equation. This equation utilizes serum creatinine, sex, and age as parameters. The creatinine assay has traceable calibration to isotope dilution-mass spectrometry. Refer to KDIGO guidelines for clinical interpretation. In patients with unstable renal function, e.g. those with acute kidney injury, the eGFR may not accurately reflect actual GFR. Performed By: #### 1 9123-9, 34779-8 #### [facility] CLIA [id number] [address] [place] [address] [place] Glucose [Mass/Vol] 109 mg/dL High 74-99 [facility] Comment on above: Order Comment: Speci men Type: BLOOD SPECIMEN Ordering Facility: [facility] Address: [address] [place] [address] Result Comment: The [place] Diabetes Association (ADA) provides guidance for cutoff values for fasting glucose and random glucose. The ADA defines fasting as no caloric intake for at least 8 hours. Fasting plasma glucose results between 100 to 125 mg/dL indicate increased risk for diabetes (prediabetes). Fasting plasma glucose results greater than or equal to 126 mg/dL meet the criteria for diagnosis of diabetes. In the absence of unequivocal hyperglycemia, results should be confirmed by repeat testing. In a patient with classic symptoms of hyperglycemia or hyperglycemic crisis, random plasma glucose results greater than or equal to 200 mg/dL meet the criteria for diagnosis of diabetes. Reference: Standards of Medical Care in Diabetes 2016, [place] [employer] Association. Diabetes Care. 2016.39(Suppl 1). Performed By: #### 1 9123-9, 95722-2 #### [facility] CLIA [id number] [address] [place] [address] [place] Potassium [Moles/Vol] 3.8 mmol/L Normal 3.7-5.1 [facility] Comment on above: Order Comment: Jen joshua Type: BLOOD SPECIMEN Ordering Facility: [facility] Address: [address] [place] [address] Performed By: #### 1 9123-9, 62731-4 #### [facility] CLIA [id number] [address] [place] [address] [place] Sodium [Moles/Vol] 143 mmol/L Normal 136-144 [facility] Comment on above: Order Comment: Davidi men Type: BLOOD SPECIMEN Ordering Facility: [facility] Address: [address] [place] [address] Performed By: #### 1 9123-9, 02866-0 #### [facility] CLIA [id number] [address] [place] [address] [place] Urea nitrogen [Mass/Vol] 16 mg/dL Normal 7-21 [facility] Comment on above: Order Comment: Speci men Type: BLOOD SPECIMEN Ordering Facility: [facility] Address: [address] [place] [address] Performed By: #### 1 9123-9, 65120-9 #### [facility] CLIA [id number] [address] [place] [address] [place] Magnesium SerPl-mCncon 02-19 Magnesium [Mass/Vol] 1.7 mg/dL Normal 1.7-2.3 [facility] Comment on above: Order Comment: Speccarmen men Type: BLOOD SPECIMEN Ordering Facility: [facility] Address: [address] [place] [address] Performed By: #### 1 9123-9, 44086-6 #### [facility] CLIA [id number] [address] [place] [address] [place] CNOVon 02-13-2025 CNOV Office Visit (INTMWS) YUKI THOMAS ([id number]) 1960 F Date Time Provider Department 02/13/25 9:40 AM ANNABEL GRIGGS INTMWS During your visit today, we recorded the following information about you: Pulse Respiration Blood pressure Weight 78/minute 16/minute 142/72 88.5 kg 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 PMH significant for ACTIVE PROBLEM LIST Htn (Hypertension) Elevated Ldl Cholesterol Level Hypopotassemia Neck Stiffness Neck Pain Yuki Thomas presents today for a follow up visit. Seen last week for ER follow up visit for palpitations, hypokalemia and hypomagnesemia. Review of care everywhere document shows she presented [facility] February 03, 2025 with palpitations described as fluttering in her chest and belching with an elevated heart rate. Duration for the day on arrival. Noted home heart rate 120 bpm on pulse oximeter. Noted some pauses after certain heartbeats. She was without fever chills cough nausea vomiting diaphoresis shortness of breath. She noted mild lightheadedness. No exacerbating or alleviating factors. EKG showed sinus rhythm with PVCs. No ischemic changes. Chest x-ray with no acute process. Exam revealed regular rate and rhythm with occasional extrasystoles. Lab work showed potassium low at 2.8. Troponin negative. Normal lipase. Advised follow-up with primary care provider, consider cardiology referral, Holter monitor. Medication changes: increased potassium. At last visit she reported persistent palpitations but feeling somewhat improved increased potassium dose.Lab work was completed at her last visit. She was advised to discontinue chlorthalidone, increase amlodipine from 2.5 mg. Stop supplemental potassium. Today reports Hypokalemia and Hypomagnesemia: - Recent lab results show low potassium and magnesium levels. - Yuki Thomas stopped taking chlorthalidone and potassium supplements on Wednesday. - Experiencing palpitations and fatigue, particularly on Wednesday. - Noted improvement in energy levels on Wednesday and Wednesday. - Currently taking amlodipine 5 mg, 2.5 mg BID. - Yuki reports dizziness approximately 30 minutes after taking amlodipine, especially with positional changes; resolves within seconds. - Taking magnesium supplement in the morning; inquires about switching to a 500 mg tablet. - Taking Prilosec in the morning; inquires about potential interaction with magnesium absorption. - Yuki has not yet scheduled a cardiology appointment with [facility]. - Inquires about dietary sources of potassium and magnesium. - Asks about the impact of caffeine on palpitations. - Inquires about receiving COVID-19 and flu vaccinations. HTN: She is without report of headache, chest pain, dyspnea, peripheral edema, orthopnea, fatigue and PND. Last 14 Encounter BP Readings: Date: BP: 02/13/2025 142/72 02/08/2025 136/82 11/29/2024 132/83 08/23/2024 117/79 08/19/2024 163/83 06/15/2024 136/85[bp average[ 05/09/2024 159/84 03/20/2024 137/78 11/08/2023 121/77 09/29/2023 138/90 06/21/2023 134/79[average bp[ 06/05/2023 148/96 05/11/2023 139/84 03/23/2023 142/82 ROS Constitutional: (+) fatigue Cardiovascular: (+) palpitations Gastrointestinal: (+) abdominal discomfort, (+) reflux Neurological: (+) dizziness Objective BP 142/72 Pulse 78 Resp 16 Wt 88.5 kg (195 lb 1.7 oz) LMP 02/06/2009 SpO2 98% BMI 31.49 kg/m? Physical Exam Vitals and nursing note reviewed. Constitutional: General: She is not in acute distress. Appearance: Normal appearance. She is not ill-appearing, toxic-appearing or diaphoretic. HENT: Head: Normocephalic and atraumatic. Right Ear: Tympanic membrane and ear canal normal. Left Ear: Ear canal normal. Nose: Nose normal. No mucosal edema or rhinorrhea. Mouth/Throat: Lips: [place]. Mouth: Mucous membranes are moist. Pharynx: Oropharynx [...] Musculoskeletal: Cervical back: No muscular tenderness. Skin: Gen (more content not included)... Normal [facility] Basic metabolic 2000 panelon 02-12-2025 Anion gap [Moles/Vol] 13 mmol/L Normal 8-15 [facility] Comment on above: Order Comment: Speci men Type: BLOOD SPECIMEN Ordering Facility: [facility] Address: [address] [place] [address] Performed By: #### 1 239, 15863-3 #### [facility] CLIA [id number] [address] [place] [address] [place] Calcium [Mass/Vol] 9.1 mg/dL Normal 8.5-10.2 [facility] Comment on above: Order Comment: Speci men Type: BLOOD SPECIMEN Ordering Facility: [facility] Address: [address] [place] [address] Performed By: #### 1 9123-02, #### [facility] CLIA [id number] [address] [place] [address] [place] Chloride [Moles/Vol] 101 mmol/L Normal 98-107 [facility] Comment on above: Order Comment: Speci men Type: BLOOD SPECIMEN Ordering Facility: [facility] Address: [address] [place] [address] Performed By: #### 1 9123-02, 81353-0 #### [facility] CLIA [id number] [address] [place] [address] [place] CO2 [Moles/Vol] 27 mmol/L Normal 22-30 [facility] Comment on above: Order Comment: Speci men Type: BLOOD SPECIMEN Ordering Facility: [facility] Address: [address] [place] [address] Performed By: #### 1 9123-02, #### [facility] CLIA [id number] [address] [place] [address] [place] Creatinine [Mass/Vol] 0.69 mg/dL Normal 0.58-0.96 [facility] Comment on above: Order Comment: Speci men Type: BLOOD SPECIMEN Ordering Facility: [facility] Address: [address] [place] [address] Performed By: #### 1 239, 20276-9 #### [facility] CLIA [id number] [address] [place] [address] [place] eGFRcr SerPlBld CKD-EPI 2020 96 mL/min/1.73m??? Normal >=60 [facility] Comment on above: Order Comment: Jen joshua Type: BLOOD SPECIMEN Ordering Facility: [facility] Address: [address] [place] [address] Result Comment: Kerrie mated Glomerular Filtration Rate (eGFR) is calculated using the 2020 CKD-EPI creatinine equation. This equation utilizes serum creatinine, sex, and age as parameters. The creatinine assay has traceable calibration to isotope dilution-mass spectrometry. Refer to KDIGO guidelines for clinical interpretation. In patients with unstable renal function, e.g. those with acute kidney injury, the eGFR may not accurately reflect actual GFR. Performed By: #### 1 9123-9, 68516-9 #### [facility] CLIA [id number] [address] [place] [address] [place] Glucose [Mass/Vol] 129 mg/dL High 74-99 [facility] Comment on above: Order Comment: Jen joshua Type: BLOOD SPECIMEN Ordering Facility: [facility] Address: [address] [place] [address] Result Comment: The [place] Diabetes [employer] (ADA) provides guidance for cutoff values for fasting glucose and random glucose. The ADA defines fasting as no caloric intake for at least 8 hours. Fasting plasma glucose results between 100 to 125 mg/dL indicate increased risk for diabetes (prediabetes). Fasting plasma glucose results greater than or equal to 126 mg/dL meet the criteria for diagnosis of diabetes. In the absence of unequivocal hyperglycemia, results should be confirmed by repeat testing. In a patient with classic symptoms of hyperglycemia or hyperglycemic crisis, random plasma glucose results greater than or equal to 200 mg/dL meet the criteria for diagnosis of diabetes. Reference: Standards of Medical Care in Diabetes 2016, [place] [employer]. Diabetes Care. 2016.39(Suppl 1). Performed By: #### 1 9123-9, 55081-7 #### [facility] CLIA [id number] [address] [place] [address] [place] Potassium [Moles/Vol] 3.3 mmol/L Low 3.7-5.1 [facility] Comment on above: Order Comment: Speci men Type: BLOOD SPECIMEN Ordering Facility: [facility] Address: [address] [place] [address] Performed By: #### 1 9123-9, 81330-8 #### [facility] CLIA [id number] [address] [place] [address] [place] Sodium [Moles/Vol] 141 mmol/L Normal 136-144 [facility] Comment on above: Order Comment: Speci men Type: BLOOD SPECIMEN Ordering Facility: [facility] Address: [address] [place] [address] Performed By: #### 1 9123-9, 80309-2 #### [facility] CLIA [id number] [address] [place] [address] [place] Urea nitrogen [Mass/Vol] 18 mg/dL Normal 7-21 [facility] Comment on above: Order Comment: Speci men Type: BLOOD SPECIMEN Ordering Facility: [facility] Address: [address] [place] [address] Performed By: #### 1 9123-9, 17159-9 #### [facility] CLIA [id number] [address] [place] [address] [place] Magnesium SerPl-mCncon 02-12 Magnesium [Mass/Vol] 1.5 mg/dL Low 1.7-2.3 [facility] Comment on above: Order Comment: Speci men Type: BLOOD SPECIMEN Ordering Facility: [facility] Address: [address] [place] [address] Performed By: #### 1 9123-9, 56094-7 #### [facility] CLIA [id number] [address] [place] [address] [place] Basic metabolic 2000 panelon 02-08-2025 Anion gap [Moles/Vol] 14 mmol/L Normal 8-15 [facility] Comment on above: Order Comment: Speci men Type: BLOOD SPECIMEN Ordering Facility: [facility] Address: [address] [place] [address] Performed By: #### 1 9123-9, 05209-3 #### [facility] CLIA [id number] [address] [place] [address] [place] Calcium [Mass/Vol] 8.8 mg/dL Normal 8.5-10.2 [facility] Comment on above: Order Comment: Speci men Type: BLOOD SPECIMEN Ordering Facility: [facility] Address: [address] [place] [address] Performed By: #### 1 9123-9, 51066-9 #### [facility] CLIA [id number] [address] [place] [address] [place] Chloride [Moles/Vol] 101 mmol/L Normal 98-107 [facility] Comment on above: Order Comment: Speci men Type: BLOOD SPECIMEN Ordering Facility: [facility] Address: [address] [place] [address] Performed By: #### 1 91239, #### [facility] CLIA [id number] [address] [place] [address] [place] CO2 [Moles/Vol] 24 mmol/L Normal 22-30 [facility] Comment on above: Order Comment: Speci men Type: BLOOD SPECIMEN Ordering Facility: [facility] Address: [address] [place] [address] Performed By: #### 1 9123-9, #### [facility] CLIA [id number] [address] [place] [address] [place] Creatinine [Mass/Vol] 0.75 mg/dL Normal 0.58-0.96 [facility] Comment on above: Order Comment: Speci men Type: BLOOD SPECIMEN Ordering Facility: [facility] Address: [address] [place] [address] Performed By: #### 1 9123-9, 76501-9 #### [facility] CLIA [id number] [address] [place] [address] [place] eGFRcr SerPlBld CKD-EPI 2020 88 mL/min/1.73m??? Normal >=60 [facility] Comment on above: Order Comment: Jen joshua Type: BLOOD SPECIMEN Ordering Facility: [facility] Address: [address] [place] [address] Result Comment: Kerrie mated Glomerular Filtration Rate (eGFR) is calculated using the 2020 CKD-EPI creatinine equation. This equation utilizes serum creatinine, sex, and age as parameters. The creatinine assay has traceable calibration to isotope dilution-mass spectrometry. Refer to KDIGO guidelines for clinical interpretation. In patients with unstable renal function, e.g. those with acute kidney injury, the eGFR may not accurately reflect actual GFR. Performed By: #### 1 9123-9, 13377-1 #### [facility] CLIA [id number] [address] [place] [address] [place] Glucose [Mass/Vol] 122 mg/dL High 74-99 [facility] Comment on above: Order Comment: Jen joshua Type: BLOOD SPECIMEN Ordering Facility: [facility] Address: [address] [place] [address] Result Comment: The [place] Diabetes Association (ADA) provides guidance for cutoff values for fasting glucose and random glucose. The ADA defines fasting as no caloric intake for at least 8 hours. Fasting plasma glucose results between 100 to 125 mg/dL indicate increased risk for diabetes (prediabetes). Fasting plasma glucose results greater than or equal to 126 mg/dL meet the criteria for diagnosis of diabetes. In the absence of unequivocal hyperglycemia, results should be confirmed by repeat testing. In a patient with classic symptoms of hyperglycemia or hyperglycemic crisis, random plasma glucose results greater than or equal to 200 mg/dL meet the criteria for diagnosis of diabetes. Reference: Standards of Medical Care in Diabetes 2016, [place] [employer]. Diabetes Care. 2016.39(Suppl 1). Performed By: #### 1 9123-9, 28644-6 #### [facility] CLIA [id number] [address] [place] [address] [place] Potassium [Moles/Vol] 3.5 mmol/L Low 3.7-5.1 [facility] Comment on above: Order Comment: Jen joshua Type: BLOOD SPECIMEN Ordering Facility: [facility] Address: [address] [place] [address] Performed By: #### 1 9123-9, 88784-9 #### [facility] CLIA [id number] [address] [place] [address] [place] Sodium [Moles/Vol] 139 mmol/L Normal 136-144 [facility] Comment on above: Order Comment: Speci men Type: BLOOD SPECIMEN Ordering Facility: [facility] Address: [address] [place] [address] Performed By: #### 1 9123-9, 22754-5 #### [facility] CLIA [id number] [address] [place] [address] [place] Urea nitrogen [Mass/Vol] 17 mg/dL Normal 7-21 [facility] Comment on above: Order Comment: Speci men Type: BLOOD SPECIMEN Ordering Facility: [facility] Address: [address] [place] [address] Performed By: #### 1 9123-9, 84010-6 #### [facility] CLIA [id number] [address] [place] [address] [place] CNOVon 02-08-2025 CNOV Office Visit (INTMWS) YUKI THOMAS ([id number]) 1960 F Date Time Provider Department 02/08/25 7:00 AM ANNABEL GRIGGS INTMWS During your visit today, we recorded the following information about you: Pulse Respiration Blood pressure Weight 78/minute 16/minute 136/82 86.9 kg Lesley Elmore 03/08/2025 1:45 PM Unsigned Summer Camp Counselor Patient Name: Yuki Thomas : 1960 Ordering Provider: ANNABEL GRIGGS Indication: R00.2 Palpitations Type of Monitor: Extended Monitoring-Z[employer] Patch Enrollment Dates: 02/13/2025- 5 IRHYTHM FINDINGS: Patient had a min HR of 28 bpm, max HR of 188 bpm, and avg HR of 83 bpm. Predominant underlying rhythm was Sinus Rhythm. 6 Supraventricular Tachycardia runs occurred, the run with the fastest interval lasting 5 beats with a max rate of 188 bpm, the longest lasting 6 beats with an avg rate of 118 bpm. Some episodes of Supraventricular Tachycardia may be possible Atrial Tachycardia with variable block. 1 episode(s) of AV Block (2ndA?) occurred, lasting a total of 2 secs. Isolated SVEs were rare (<1.0%), SVE Couplets were rare (<1.0%), and SVE Triplets were rare (<1.0%). Isolated VEs were rare (<1.0%), and no VE Couplets or VE Triplets were present. MD notification criteria for Second Degree AV Block met - report posted prior to notification (AR). Annabel Griggs, MARICHUY.GENERAL LOT ATTENDANT 03/08/2025 4:17 PM Addendum SUBJECTIVE: Colorectal Cancer Screening Never done Shingrix Vaccine(1 of 2) Never done Mammogram Screening due on 10/28/2023 Medicare Annual Wellness Visit Never done Bone Density Screening due on 2024 Advance Directive Discussion Never done Influenza Vaccine(1) due on 02/05/2025 HPI Yuki Thomas is a 64 year old female. PMH significant for ACTIVE PROBLEM LIST Htn (Hypertension) Elevated Ldl Cholesterol Level Hypopotassemia Neck Stiffness Neck Pain Yuki Thomas presents today for routine an ER follow up visit. She is a 64-year-old female with HTN, presenting for evaluation of palpitations and management of hypokalemia and hypomagnesemia following a recent ED visit. Review of care everywhere document show she presented [facility] February 03, 2025 with palpitations described as fluttering in her chest and belching with an elevated heart rate. Duration for the day on arrival. Noted home heart rate 120 bpm on pulse oximeter. Noted some pauses after certain heartbeats. She was without fever chills cough nausea vomiting diaphoresis shortness of breath. She noted mild lightheadedness. No exacerbating or alleviating factors. EKG showed sinus rhythm with PVCs. No ischemic changes. Chest x-ray with no acute process. Exam revealed regular rate and rhythm with occasional extrasystoles. Lab work showed potassium low at 2.8. Troponin negative. Normal lipase. Advised follow-up with primary care provider, consider cardiology referral, Holter monitor. Medication changes: increased potassium. Palpitations: - Onset: Wednesday. - Described as fluttering sensations. - Initially frequent (3-4 times per hour); now reduced to 1 every couple of hours. - No associated chest pain or dyspnea. - Occasional dizziness, initially thought to be orthostatic. - Recent sore throat earlier in the week. - No nausea, emesis, or diarrhea. - Yuki noticed belching coinciding with palpitations. - No previous cardiac issues; no ceramic restorer. Electrolyte Imbalances: - Recent ER visit revealed low magnesium and potassium levels (K+ 2.8). - Currently taking 6 potassium tablets daily, increased from 4 tablets. - Yuki reports increased energy since increasing potassium dosage. - No magnesium supplementation provided in the ER. - No missed doses of calcium supplements. Hypertension: - Long-standing history of HTN. - Current medications include chlorthalidone and amlodipine 2.5 mg. - Chlorthalidone initiated prior to the of her son, with subsequent potassium supplementation due to hypokalemia. - No history of CHF or edema. HTN: She is without report of headache, chest pain, dyspnea, peripheral edema, orthopnea, fatigue and PND. Last 14 Encounter BP Readings: Date: BP: 02/08/2025 136/82 11/29/2024 132/83 08/23/2024 117/79 08/19/2024 163/83 06/15/2024 136/85[bp average[ 05/09/2024 159/84 03/20/2024 137/78 11/08/2023 121/77 09/29/2023 138/90 06/21/2023 134/79[average bp[ 06/05/2023 148/96 05/11/2023 139/84 03/23/2023 142/82 11/06/2022 136/84 ROS Constitutional: (+) fatigue Cardiovascular: (+) palpitations, (-) chest pain, (-) peripheral edema Respiratory: (-) shortness of breath Gastrointestinal: (+) belching, (-) nausea, (-) vomiting, (-) diarrhea Neurological: (+) dizziness Objective BP 136/82 Pulse 78 Resp 16 Wt 86.9 kg (191 lb 9.3 oz) LMP 02/06/2009 SpO2 99% BMI 30.92 kg/m? Physical Exam Vitals and nursing note revi (more content not included)... Normal [facility] CNPNon 02-08-2025 CNPN Telephone (INTMWS) YUKI THOMAS ([id number]) 1960 F Date Time Provider Department 02/08/25 SHIRA VARMA INTMWS During your visit today, we recorded the following information about you: Lary Omalley RN 02/08/2025 2:31 PM Signed Patient calls to report that she didn't realize that the TSH couldn't be drawn until May and from conversation at appt is pretty certain that provider wanted done now. Patient is asking to either add an order for labs completed today or will have done next Wednesday when she comes in . Please review and advise, MICKI Guerrero Terri, APRN.GENERAL LOT ATTENDANT 02/08/2025 2:41 PM Signed TSH ordered, check to see if can be added to today's lab work otherwise can complete next week María Elena Vinson LPN 02/08/2025 5:07 PM Signed Lab was able to be added to todays labs and patient was notified Allergies As of Date: 02/08/2025 Noted Allergy Reaction CIPROFLOXACIN 07/12/2012 1 - Mental Status Change 14 - Other: See Comments ERYTHROMYCIN 03/02/2006 11 - Vomiting HYDROCHLOROTHIAZIDE 10/14/2006 5 - Intolerance Comments: Dizzy SULFA (SULFONAMIDE ANTIBIOTICS) 03/02/2006 4 - Hives Comments: in childhoood Date Reviewed: 02/08/2025 Reviewed by: Annabel Griggs APRN.GENERAL LOT ATTENDANT - Fully Assessed Reason for Visit: Orders [681] Primary Visit Diagnosis:Palpitatio ns [R00.2] Order(s):TSH W/REFLEX FT4 [SQTSHRF] Order #: [id number] FUTURE Prescriptions as of 02/08/2025 - magnesium oxide (MAG-OX) 400 mg (241.3 mg magnesium) tablet Take 1 tablet by mouth once daily. - potassium chloride ER (KLOR-CON) 20 mEq tablet Take 3 tablets by mouth two times a day. [...] as needed. 1/2 hr before meal. - FA/MV,CA,IRON,MIN/LY COPENE/LUT (MULTIVITAL ORAL) Take by mouth. Alive multivitamin +50 Problem List As Of Date 02/08/2025 Noted Resolved BENIGN HYPERTENSION [I10] 03/02/2006 10/14/2006 JOINT PAIN-UP/ARM [M25.529] 03/09/2006 10/14/2006 HTN (hypertension) [I10] 07/12/2012 Elevated LDL cholesterol level [E78.00] 10/31/2013 Hypopotassemia [E87.6] 11/21/2013 Neck stiffness [M43.6] 10/18/2020 Neck pain [M54.2] 10/18/2020 Encounter Status:Closed by MARÍA ELENA VINSON on 02/08/25 Normal [facility] HbA1c (Bld)on 02-08-2025 Average glucose Estimated from glycated hemoglobin (Bld) [Mass/Vol] 126 mg/dL Normal [facility] Comment on above: Order Comment: Speci men Type: BLOOD SPECIMEN Ordering Facility: [facility] Address: [address] [place] [address] Result Comment: eAG: (Estimated average glucose) is a calculated value from HgbA1c and is customer support representative of the average blood glucose level in the last 2-3 month period. Performed By: #### 1 9123-9, 03531-1 #### [facility] CLIA [id number] [address] [place] [address] [place] HbA1c (Bld) [Mass fraction] 6.0 % High 4.3-5.6 [facility] Comment on above: Order Comment: Jen joshua Type: BLOOD SPECIMEN Ordering Facility: [facility] Address: [address] [place] [address] Result Comment: [place] Diabetes Association guidelines indicate that patients with HgbA1c in the range 5.7-6.4% are at increased risk for development of diabetes, and intervention by lifestyle modification may be beneficial. HgbA1c greater or equal to 6.5% is considered diagnostic of diabetes. Performed By: #### 1 91239, 79517-9 #### [facility] CLIA [id number] [address] [place] [address] [place] MUMPS IGG ABon 02-08-2025 MuV IgG Ql (S) Positive Normal Positive [facility] Comment on above: Order Comment: Jen joshua Type: BLOOD SPECIMEN Ordering Facility: [facility] Address: [address] [place] [address] Result Comment: The result suggests recent or past exposure to Mumps virus or Mumps vaccination. The current test does not detect neutralizing antibodies. Positive result may also be seen due to presence of passively-transferred antibodies. Please correlate with patient's history. Performed By: #### 1 91239, 25379-2 #### [facility] CLIA [id number] [address] [place] [address] [place] MeV IgG Qn (S)on 02-08-2025 MEASLES IGG AB, QUAL Positive Normal Positive [facility] Comment on above: Order Comment: Jen joshua Type: BLOOD SPECIMEN Ordering Facility: [facility] Address: [address] [place] [address] Result Comment: The result suggests recent or past exposure to Measles virus or Measles vaccination. The current test does not detect neutralizing antibodies. Positive result may also be seen due to presence of passively-transferred antibodies. Please correlate with patient's history. Performed By: #### 1 9123-9, 70096-0 #### [facility] CLIA [id number] [address] [place] [address] [place] RUBELLA IGG ANTIBODYon 02-08 RUBELLA IGG AB, QUAL Positive Normal Positive [facility] Comment on above: Order Comment: Speci men Type: BLOOD SPECIMEN Ordering Facility: [facility] Address: [address] [place] [address] Result Comment: The result suggests recent or past exposure to Rubella virus or history of Rubella vaccination. Positive result may also be seen due to presence of passively-transferred antibodies. Please correlate with patient's history. Performed By: #### 1 9123-9, 60342-6 #### [facility] CLIA [id number] [address] [place] [address] [place] TSH W/REFLEX FT4on TSH Qn 3.200 m[IU]/L Normal 0.270-4.200 [facility] Comment on above: Order Comment: Speci men Type: BLOOD SPECIMEN Ordering Facility: [facility] Address: [address] [place] [address] Performed By: #### 1 9123-9, 12290-3 #### [facility] CLIA [id number] [address] [place] [address] [place] 12 Lead EKGon 02-03-2025 12 Lead EKG [facility] [address] [place] [address] 12 Lead EKG 02/03/25 1812 MR#: [id number] Acct: [id number] Name: YUKI THOMAS Rep #: [id number] : 1960 64 From: Maury Dalal MD Attending Dr: Status: DEP ER Ordering Dr: Madi Chong MD Date: 02/03/25 Location: ED Sex: F C Admitted: Test Reason : PALPS Blood Pressure : */* mmHG Vent. Rate : 104 BPM Atrial Rate : 104 BPM P-R Int : 174 ms QRS Dur : 70 ms QT Int : 350 ms P-R-T Axes : 39 2 23 degrees QTcB Int : 460 ms Sinus tachycardia with occasional Premature ventricular complexes Otherwise normal ECG Confirmed by Maury Dalal ([id number]), court usher MELANI SANTA ([id number]) on 02/06/2025 10:32:17 AM Referred By: HUI/DORA Confirmed By: Maury Dalal 02/06/25 1032 Date Maury Dalal MD CC: Dr. Madi Chong MD; Dr. Shira Varma MD Signed Normal [facility] Absolute lymphocyte countOrd ered By: Madi Chong on 02-03-2025 Lymphocytes Auto (Unsp spec) [#/Vol] 3.15 10*3/uL 0.83-4.51 [facility] Absolute neutrophil countOrd ered By: Madi Chong on 02-03-2025 Neutrophils (Bld) [#/Vol] 5.9 10*3/uL 2.0-7.7 [facility] Anion gap in Serum or Plasma Ordered By: Madi Chong on 02-03-2025 Anion gap [Moles/Vol] 15 mmol/L 5-15 [facility] Automated lymphocyte count a s percentage of total leukocytesOrdered By: Madi Chong on 02-03-2025 Lymphocytes/100 WBC Auto (Unsp spec) 31.4 % 19-41 [facility] BUN/creatinine ratioOrdered By: Madi Chong on 02-03-2025 Urea nitrogen/Creatinine [Mass ratio] 16.4 mg/mg 10-20 [facility] Basophil percentageOrdered B y: Madi Chong on 02-03-2025 Basophils/100 WBC (Bld) 0.3 % 0-1 [facility] Bilirubin, totalOrdered By: Madi Chong on 02-03-2025 Bilirubin [Mass/Vol] 0.25 mg/dL 0.00-1.30 [facility] CBC W/Diff, Automatedon 01-07 Absolute Lymph 3.15 X10 3/uL Normal 0.83-4.51 [facility] Comment on above: Performed By: #### L 500.4050, L501.2450, L501.5200, L100.0100 #### [facility] [address] [place], [address] Absolute Neut 5.9 X10 3/uL Normal 2.0-7.7 [facility] Comment on above: Performed By: #### L 500.4050, L501.2450, L501.5200, L100.0100 #### [facility] [address] [place], [address] Basophils/100 WBC (Bld) 0.3 % Normal 0-1 [facility] Comment on above: Performed By: #### L 500.4050, L501.2450, L501.5200, L100.0100 #### [facility] [address] [place], [address] Eosinophils/100 WBC (Bld) 2.4 % Normal 0-5 [facility] Comment on above: Performed By: #### L 500.4050, L501.2450, L501.5200, L100.0100 #### [facility] [address] [place], [address] Erythrocyte distribution width (RBC) [Ratio] 13.4 % Normal 11.6-14.6 [facility] Comment on above: Performed By: #### L 500.4050, L501.2450, L501.5200, L100.0100 #### [facility] [address] [place], [address] Hematocrit (Bld) [Volume fraction] 39.5 % Normal 37-47 [facility] Comment on above: Performed By: #### L 500.4050, L501.2450, L501.5200, L100.0100 #### [facility] [address] [place], [address] Hemoglobin (Bld) [Mass/Vol] 13.7 g/dL Normal 12.0-15.0 [facility] Comment on above: Performed By: #### L 500.4050, L501.2450, L501.5200, L100.0100 #### [facility] [address] [place], [address] IG% 0.500 Normal 0.0-0.9 [facility] Comment on above: Result Comment: IG% - Immature Granulocytes (promyelocytes, myelocytes and metamyelocytes) > 1% indicates that a LEFT SHIFT is Present. Performed By: #### L 500.4050, L501.2450, L501.5200, L100.0100 #### [facility] [address] [place], [address] Lymphocytes/100 WBC (Bld) 31.4 % Normal 19-41 [facility] Comment on above: Performed By: #### L 500.4050, L501.2450, L501.5200, L100.0100 #### [facility] [address] [place], [address] MCH (RBC) [Entitic mass] 29.1 pg Normal 27.0-32.0 [facility] Comment on above: Performed By: #### L 500.4050, L501.2450, L501.5200, L100.0100 #### [facility] [address] [place], [address] MCHC (RBC) [Mass/Vol] 34.7 g/dL Normal 32-36 [facility] Comment on above: Performed By: #### L 500.4050, L501.2450, L501.5200, L100.0100 #### [facility] [address] [place], [address] MCV (RBC) [Entitic vol] 84.0 fL Normal 81-99 [facility] Comment on above: Performed By: #### L 500.4050, L501.2450, L501.5200, L100.0100 #### [facility] [address] [place], [address] Monocytes/100 WBC (Bld) 6.7 % Normal 0-10 [facility] Comment on above: Performed By: #### L 500.4050, L501.2450, L501.5200, L100.0100 #### [facility] [address] [place], [address] Neutrophils/100 WBC (Bld) 58.7 % Normal 47-70 [facility] Comment on above: Performed By: #### L 500.4050, L501.2450, L501.5200, L100.0100 #### [facility] [address] [place], [address] Nucleated RBC (Bld) [#/Vol] 0 10*3/uL Normal 0-5 [facility] Comment on above: Performed By: #### L 500.4050, L501.2450, L501.5200, L100.0100 #### [facility] [address] [place], [address] Platelet mean volume (Bld) [Entitic vol] 9.3 fL Normal 6.2-12.0 [facility] Comment on above: Performed By: #### L 500.4050, L501.2450, L501.5200, L100.0100 #### [facility] [address] [place], [address] Platelets (Bld) [#/Vol] 269 10*3/uL Normal 150-450 [facility] Comment on above: Performed By: #### L 500.4050, L501.2450, L501.5200, L100.0100 #### [facility] [address] [place], [address] RBC (Bld) [#/Vol] 4.70 10*6/uL Normal 4.2-5.4 [facility] Comment on above: Performed By: #### L 500.4050, L501.2450, L501.5200, L100.0100 #### [facility] [address] [place], [address] RDW SD 41.2 fl Normal 35.1-43.9 [facility] Comment on above: Performed By: #### L 500.4050, L501.2450, L501.5200, L100.0100 #### [facility] [address] [place], [address] WBC (Bld) [#/Vol] 10.0 10*3/uL Normal 4.4-11.0 [facility] Comment on above: Performed By: #### L 500.4050, L501.2450, L501.5200, L100.0100 #### [facility] [address] [place], [address] Carbon dioxide, total [Moles /volume] in Central venous bloodOrdered By: Madi Chong on 02-03-2025 CO2 [Moles/Vol] 25.0 mmol/L 21.0-32.0 [facility] Chest 1 View (Portable)on Chest 1 View (Portable) [facility] [address] [place] [address] Chest 1 View (Portable) MR#: [id number] Acct: [id number] Name: YUKI THOMAS Rep #: [id number] : 1960 F 64 From: Mj Juarez DO PCP: Dr. Shira Varma MD Status: [facility] ER Study: Chest 1 View (Portable) Date of Exam: 02/03/25 Exam# [id number] Ordering Dr: Madi Chong MD PROCEDURE: CHEST 1 VIEW (PORTABLE) 02/03/2025 REASON FOR EXAM: PALPITATIONS TECHNIQUE: Frontal view of the chest. FINDINGS: Hardware: No internal hardware. EKG lead wires project over the chest. Heart: Normal size Lungs: Clear and expanded Bones: No aggressive process. Other: RAD/Chest 1 View (Portable) IMPRESSION: No acute process detected. Reading [facility] CC: Dr. Madi Chong MD; Dr. Shira Varma MD Division Supervisor: Signed Normal [facility] Chloride assayOrdered By: Skyler Chong on 02-03-2025 Chloride [Moles/Vol] 100 mmol/L 98-108 [facility] Comprehensive Metabolic Prof ilon 02-03-2025 Albumin [Mass/Vol] 4.3 g/dL Normal 3.4-4.8 [facility] Comment on above: Performed By: #### L 500.4050, L501.2450, L501.5200, L100.0100 ####[facility] [address] [place], [address] Albumin/Globulin [Mass ratio] 1.3 {ratio} Normal 0.9-2.4 [facility] Comment on above: Performed By: #### L 500.4050, L501.2450, L501.5200, L100.0100 ####[facility] [address] [place], [address] ALK PHOS 86 U/L Normal 35-104 [facility] Comment on above: Performed By: #### L 500.4050, L501.2450, L501.5200, L100.0100 ####[facility] [address] [place], [address] ALT [Catalytic activity/Vol] 27 U/L Normal <=34 [facility] Comment on above: Performed By: #### L 500.4050, L501.2450, L501.5200, L100.0100 ####[facility] [address] [place], [address] AST [Catalytic activity/Vol] 24 U/L Normal <=31 [facility] Comment on above: Performed By: #### L 500.4050, L501.2450, L501.5200, L100.0100 ####[facility] [address] [place], [address] Bilirubin [Mass/Vol] 0.25 mg/dL Normal 0.00-1.30 [facility] Comment on above: Performed By: #### L 500.4050, L501.2450, L501.5200, L100.0100 ####[facility] [address] [place], [address] BUN/CRE 16.4 RATIO Normal 10-20 [facility] Comment on above: Performed By: #### L 500.4050, L501.2450, L501.5200, L100.0100 ####[facility] [address] [place], [address] Calcium [Mass/Vol] 8.9 mg/dL Normal 7.6-11.0 [facility] Comment on above: Performed By: #### L 500.4050, L501.2450, L501.5200, L100.0100 ####[facility] [address] [place], [address] Chloride [Moles/Vol] 100 mmol/L Normal 98-108 [facility] Comment on above: Performed By: #### L 500.4050, L501.2450, L501.5200, L100.0100 ####[facility] [address] [place], [address] CO2 [Moles/Vol] 25.0 mmol/L Normal 21.0-32.0 [facility] Comment on above: Performed By: #### L 500.4050, L501.2450, L501.5200, L100.0100 ####[facility] [address] [place], [address] Creatinine [Mass/Vol] 0.85 mg/dL Normal 0.70-1.20 [facility] Comment on above: Performed By: #### L 500.4050, L501.2450, L501.5200, L100.0100 ####[facility] [address] [place], [address] ECRCL 73.39 ml/min Normal 50-250 [facility] Comment on above: Performed By: #### L 500.4050, L501.2450, L501.5200, L100.0100 ####[facility] [address] [place], [address] GAP 15 Normal 5-15 [facility] Comment on above: Performed By: #### L 500.4050, L501.2450, L501.5200, L100.0100 ####[facility] [address] [place], [address] GFR/1.73 sq M.predicted among non-blacks MDRD (S/P/Bld) [Vol rate/Area] 76 mL/min/{1.73_m2} Normal >60 [facility] Comment on above: Result Comment: mL/m in/1.73m2 CKD-EPI Creatinine Equation (2020) Performed By: #### L 500.4050, L501.2450, L501.5200, L100.0100 ####[facility] [address] [place], [address] Globulin (S) [Mass/Vol] 3.3 g/dL Normal 2.2-4.2 [facility] Comment on above: Performed By: #### L 500.4050, L501.2450, L501.5200, L100.0100 ####[facility] [address] [place], [address] Glucose [Mass/Vol] 125 mg/dL High 70-99 [facility] Comment on above: Performed By: #### L 500.4050, L501.2450, L501.5200, L100.0100 ####[facility] [address] [place], [address] Potassium [Moles/Vol] 2.8 mmol/L Low 3.3-5.1 [facility] Comment on above: Performed By: #### L 500.4050, L501.2450, L501.5200, L100.0100 ####[facility] [address] [place], [address] Sodium [Moles/Vol] 140 mmol/L Normal 133-145 [facility] Comment on above: Performed By: #### L 500.4050, L501.2450, L501.5200, L100.0100 ####[facility] [address] [place], [address] T PROT 7.6 g/dL Normal 5.9-8.4 [facility] Comment on above: Performed By: #### L 500.4050, L501.2450, L501.5200, L100.0100 ####[facility] [address] [place], [address] Urea nitrogen [Mass/Vol] 14 mg/dL Normal 4-19 [facility] Comment on above: Performed By: #### L 500.4050, L501.2450, L501.5200, L100.0100 ####[facility] [address] [place], [address] Emergency Department Summary on 02-03-2025 Emergency Department Summary [facility] Medical Records Department [address] [place] [address] Emergency Department Summary 02/03/25 MR#: [id number] Acct: [id number] Name: MARTHAYUKI ELLISON Rep #: [id number] : 1960 64 From: Madi Chong MD PCP: Dr. Shira Varma MD Status:REG ER Location: ED HPI History of Present Illness Chief Complaint: Palpitations Narrative Narrative: 64-year-old female past medical history of hypertension, quit smoking 3 weeks ago, presents with fluttering in her chest, and belching as well as elevated heart rate. She notes that this afternoon. States has been belching which causes fluttering in her chest. She brought a pulse oximeter and while her pulse ox was fine, she noticed elevated heart rate as high as 120 bpm. They also noticed that there was a pause after certain heartbeats and it would go flat. She presents with her because of this. They were concerned regarding the fluttering in her chest and a high heart rate. She denies any fevers or chills, no cough, no nausea or vomiting, no diaphoresis or shortness of breath. She did state that she was mildly lightheaded today. No exacerbating or alleviating factors. [facility] Home Medications ???Medication ???Instructions ???Recorded ???Last Taken ???Type Multivitamins,Therap eutic 1 tab PO DAILY 05/02/13 Unknown Hi story Omeprazole 20 mg PO DAILY 05/02/13 Unknown Hi story amlodipine 2.5 mg tablet 2.5 mg PO DAILY 02/03/25 Unknown H istory chlorthalidone 50 mg tablet 25 mg PO DAILY 02/03/25 Unknown Hi story potassium chloride 20 mEq 20 meq PO 4X/DAY 02/03/25 Unknown History tablet,extended release(part/cryst) Allergy/AdvReac Type Severity Reaction Status Date / Time ciprofloxacin (From Cipro) Allergy Other Verified 02/03/25 18:06 ciprofloxacin HCl (From Allergy Other Verified 02/03/25 18:06 Cipro) Sulfa (Sulfonamide Allergy Hives Verified 02/03/25 18:06 Antibiotics) Social History Smoking Status: Former smoker ROS ROS ED ROS Narrative Review of systems positive for palpitations and fluttering in chest, positive belching. No fevers or chills, no shortness of breath, no nausea or vomiting, no diaphoresis, no exacerbating or alleviating factors. EXAM Physical Exam Narrative Exam Narrative: Afebrile. Vital signs noted. Nontoxic-appearing. Cardiovascular examination reveals a regular rate and rhythm on my examination with occasional extrasystoles. Lungs are clear to auscultation bilaterally. Abdomen is soft and nontender with positive bowel sounds. No guarding or rebound. Neurological examination nonfocal nonlateralizing. No appreciable pitting pedal edema. Const Vital Signs: 02/03/25 18:03 02/03/25 18:18 02/03/25 20:03 Temperature 98.0 F Temperature Source Oral Pulse Rate 114 H 82 Respiratory Rate 16 16 Respiratory Effort Normal Blood Pressure 189/96 H 133/86 H Blood Pressure Mean 127 101 Pulse Ox 98 97 Oxygen Delivery Method Room Air Room Air MDM MDM MDM Narrative Medical decision making narrative: The differential diagnosis includes but not limited to dysrhythmia such as PACs versus PVCs versus sinus tachycardia. I have lower suspicion for ACS or pulmonary embolism. Initially her blood pressure was elevated at 189/96, but has come down significantly on its own. She states she had not basic normal blood pressure for her at home in the 140s. She may have a hiatal hernia as well. She does use caffeinated products. Comprehensive workup was pursued. EKG obtained and interpreted by myself independently as sinus tachycardia 104 bpm with occasional PVCs but no acute ST changes. No STEMI. I reviewed her laboratory work and she has normal white count of 10.0 with hemoglobin normal at 13.7, hematocrit 39.5, platelet count 269. Sodium normal at 140, potassium is low at 2.8. She supplements at home. I did offer to check her magnesium level as well, but she states that her potassium is usually low from the diuretic that she takes. She prefers to follow-up with her primary care provider and have outpatient laboratory work drawn on Wednesday. Glucose 125. BUN of 14 and creatinine 0.85. Initial high-sensitivity troponin is less than 6 with repeated 2-hour also being less than 6. I feel she has been ruled out for acute coronary syndrome with biomarkers. Her lipase is normal at 28 so I do not suspect acute pancreatitis. At this point in time, I do feel that the pause that she was seen on her monitor as well as her fluttering was secondary to PVCs. She will follow-up with her primary care provider. She was told she may need referral to cardiology and/or wear a Holter monitor. I feel she be discharged safely home with follow-up. Return instructions were reviewed. Disposition is dischar (more content not included)... Normal [facility] Eosinophil percentageOrdered By: Madi Chong on 02-03-2025 Eosinophils/100 WBC (Bld) 2.4 % 0-5 [facility] Erythrocyte distribution wid th ratioOrdered By: Madi Chong on 02-03-2025 Erythrocyte distribution width (RBC) [Ratio] 13.4 % 11.6-14.6 [facility] Erythrocyte distribution wid th standard deviationOrdered By: Madi Chong on 02-03-2025 Erythrocyte distribution width (RBC) [Ratio] 41.2 fl 35.1-43.9 [facility] Glomerular filtration rate ( GFR) estimation/1.73 sq m using serum, plasma, or whole bOrdered By: Madi Chong on 02-03-2025 GFR/1.73 sq M.predicted among non-blacks MDRD (S/P/Bld) [Vol rate/Area] 76 mL/min/{1.73_m2} >60 [facility] Comment on above: mL/min/1.73m2 CKD-EP I Creatinine Equation (2020) Hematocrit Auto (Bld) [Volum e fraction]Ordered By: Madi Chong on 02-03-2025 Hematocrit (Bld) [Volume fraction] 39.5 % 37-47 [facility] Hemoglobin measurementOrdere d By: Madi Chong on 02-03-2025 Hemoglobin (Bld) [Mass/Vol] 13.7 g/dL 12.0-15.0 [facility] Immature granulocytes/100 WB C Auto (Bld)Ordered By: Madi Chong on 02-03-2025 Immature granulocytes/100 WBC (Bld) 0.500 % 0.0-0.9 [facility] Comment on above: IG% - Immature Granu locytes (promyelocytes, myelocytes and metamyelocytes) > 1% indicates that a LEFT SHIFT is Present. Laboratory - Chemistry and C hemistry - challengeOrdered By: Madi Chong on 02-03-2025 AST [Catalytic activity/Vol] 24 U/L <32 [facility] Lipaseon 02-03-2025 Lipase [Catalytic activity/Vol] 28 U/L Normal 13-75 [facility] Comment on above: Result Comment: Ashli larsen note: LIPASE revised reference range effective 22. New Lipase methodology. Expected to produce lower values than the previous assay method. NEW Reference Range: 13 - 75 U/L Performed By: #### L 500.4050, L501.2450, L501.5200, L100.0100 ####[facility] [address] [place], [place], [id number] Lipase measurementOrdered By : Madi Chong on 02-03-2025 Lipase [Catalytic activity/Vol] 28 U/L 13-75 [facility] Comment on above: Please note:LIPASE r evised reference range effective 22. New Lipase methodology. Expected to produce lower values than the previous assay method. NEW Reference Range: 13 - 75 U/L MCV (mean corpuscular volume ) determinationOrdered By: Madi Chong on 02-03-2025 MCV (RBC) [Entitic vol] 84.0 fL 81-99 [facility] Magnesiumon 02-03-2025 Magnesium [Mass/Vol] 1.3 mg/dL Low 1.5-2.2 [facility] Comment on above: Performed By: #### L 500.4050, L501.2450, L501.5200, L100.0100 ####[facility] [address] [place], [place], [id number] Magnesium measurement (mass/ volume)Ordered By: Madi Chong on 02-03-2025 Magnesium (Unsp spec) [Mass/Vol] 1.3 mg/dL Low 1.5-2.2 [facility] Mean corpuscular hemoglobin (MCH) determinationOrdered By: Madi Chong on 02-03-2025 MCH (RBC) [Entitic mass] 29.1 pg 27.0-32.0 [facility] Mean corpuscular hemoglobin concentration (MCHC) determinationOrdered By: Madi Chong on 02-03-2025 MCHC (RBC) [Mass/Vol] 34.7 g/dL 32-36 [facility] Mean platelet volume determi nationOrdered By: Madi Chong on 02-03-2025 Platelet mean volume (Bld) [Entitic vol] 9.3 fL 6.2-12.0 [facility] Monocyte percentageOrdered B y: Madi Chong on 02-03-2025 Monocytes/100 WBC (Bld) 6.7 % 0-10 [facility] Neutrophil percentageOrdered By: Madi Chong on 02-03-2025 Neutrophils/100 WBC (Bld) 58.7 % 47-70 [facility] Nucleated red blood cell per centageOrdered By: Madi Chong on 02-03-2025 Nucleated RBC/100 WBC (Bld) [Ratio] 0 % 0-5 [facility] Platelet countOrdered By: Skyler Chong on 02-03-2025 Platelets (Bld) [#/Vol] 269 10*3/uL 150-450 [facility] Potassium measurement (mass/ volume)Ordered By: Madi Chong on 02-03-2025 Potassium (Unsp spec) [Mass/Vol] 2.8 mmol/L Low 3.3-5.1 [facility] RBC Auto (Bld) [#/Vol]Ordere d By: Madi Chong on 02-03-2025 RBC (Bld) [#/Vol] 4.70 10*6/uL 4.2-5.4 [facility] Serum creatinine measurement (mass/volume)Ordered By: Madi Chong on 02-03-2025 Creatinine [Mass/Vol] 0.85 mg/dL 0.70-1.20 [facility] Serum globulin measurementOr dered By: Madi Chong on 02-03-2025 Globulin (S) [Mass/Vol] 3.3 g/dL 2.2-4.2 [facility] Serum glucose measurement (m ass/volume)Ordered By: Madi Chong on 02-03-2025 Glucose [Mass/Vol] 125 mg/dL High 70-99 [facility] Serum or plasma alanine beach otransferase (ALT) measurementOrdered By: Madi Chong on 02-03-2025 ALT [Catalytic activity/Vol] 27 U/L <35 [facility] Serum or plasma albumin nivia urement (mass/volume)Ordered By: Madi Chong on 02-03-2025 Albumin [Mass/Vol] 4.3 g/dL 3.4-4.8 [facility] Serum or plasma albumin/glob ulin mass ratioOrdered By: Madi Chong on 02-03-2025 Albumin/Globulin [Mass ratio] 1.3 {ratio} 0.9-2.4 [facility] Serum or plasma alkaline ryan sphatase measurementOrdered By: Madi Chong on 02-03-2025 ALP [Catalytic activity/Vol] 86 U/L 35-104 [facility] Serum or plasma calcium nivia urement (mass/volume)Ordered By: Madi Chong on 02-03-2025 Calcium [Mass/Vol] 8.9 mg/dL 7.6-11.0 [facility] Serum or plasma urea nitroge n measurement (mass/volume)Ordered By: Madi Chong on 02-03-2025 Urea nitrogen [Mass/Vol] 14 mg/dL 4-19 [facility] Sodium levelOrdered By: Madi Chong on 02-03-2025 Sodium [Moles/Vol] 140 mmol/L 133-145 [facility] Total proteinOrdered By: Maira Chong on 02-03-2025 Protein [Mass/Vol] 7.6 g/dL 5.9-8.4 [facility] Troponin T HS 2 HRon 025 Trop T High Sen < 6 Normal <=14 [facility] Comment on above: Performed By: #### L 499.0042 #### [facility] [address] [place], [address] Performed By: #### L 501.4021 #### [facility] [address] [place], [address] Troponin T.cardiac [Mass/vol ume] in Serum or Plasma by High sensitivity methodOrdered By: Madi Chong on 02-03-2025 Troponin T.cardiac High sensitivity method [Mass/Vol] < 6 ng/L <14 [facility] Troponin T.cardiac High sensitivity method [Mass/Vol] < 6 ng/L <14 [facility] White blood cell (WBC) count Ordered By: Madi Chong on 02-03-2025 WBC (Bld) [#/Vol] 10.0 10*3/uL 4.4-11.0 [facility] CNOVon 11-29-2024 CNOV Office Visit (INTMWS) YUKI THOMAS ([id number]) 1960 F Date Time Provider Department 11/29/24 9:00 AM SHIRA VARMA INTMWS During your visit today, we recorded the following information about you: Pulse Blood pressure Weight Height 72/minute 132/83 86.9 kg 1.676 m Shira Varma MD 12/26/2024 1:25 AM Signed This note was created using Digitwhizriter. Subjective Yuki Thomas is a 64 year old female. SUBJECTIVE: [...] mouth as needed. 1/2 hr before meal. FA/MV,CA,IRON,MIN/LY COPENE/LUT (MULTIVITAL ORAL) Take by mouth. Alive multivitamin +50 chlorthalidone (HYGROTON) 50 mg tablet Take 0.5 tablets by mouth once daily. (Patient not taking: Reported on 11/29/2024) No current facility-administere d medications for this visit. Review of Systems [...] (Z01.84) - (more content not included)... Normal [facility] CNOVon 08-23-2024 CNOV Office Visit (INTMWS) YUKI THOMAS ([id number]) 1960 F Date Time Provider Department 08/23/24 3:00 PM LULA GRANADOS INTMWS During your visit today, we recorded the following information about you: Temperature Pulse Blood pressure Weight 99.6 degrees 100/minute 117/79 86.4 kg Lula Granados APRN.CLERK CARRIER 08/23/2024 3:29 PM Signed SUBJECTIVE Yuki Thomas is a 64 year old female here today for acute concern. Chief Complaint Patient presents with: UTI: Started 1 week ago with urgency with burning has noted bloating but that has improved Was seen at urgent care on 08/19/24 HPI Yuki Thomas is a 64 year old female. She is an established patient of Shira Varma MD. She presents today acutely for concerns [...] mouth as needed. 1/2 hr before meal. FA/MV,CA,IRON,MIN/LY COPENE/LUT (MULTIVITAL ORAL) Take by mouth. Alive multivitamin +50 nitrofurantoin monohydrate and macrocrystal (MACROBID) 100 mg capsule Take 1 capsule by mouth two times a day for 10 days. fluconazole (DIFLUCAN) 150 mg tablet Take 1 tablet by mouth one time only for 1 dose. Repeat in 3 days as needed. No current facility-administere d medications for this visit. ALLERGIES Allergen Reactions [...] document we (more content not included)... Normal [facility] UA DIP, URINE (POC)on 2024 BILIRUBIN UA (POCT) Negative Negative [facility] CLARITY UA (POCT) Clear [facility] COLOR UA (POCT) Yellow [facility] GLUCOSE UA (POCT) Negative Negative mg/dL [facility] Hemoglobin Ql (U) Negative Negative [facility] KETONE UA (POCT) Negative Negative mg/dL [facility] LEUKOCYTES UA (POCT) Negative Negative [facility] NITRITE UA (POCT) Negative Negative [facility] PH UA (POCT) 5.5 4.5 - 8.0 [facility] Protein Ql (U) Negative Negative mg/dL [facility] SPECIFIC GRAVITY UA (POCT) 1.02 1.005 - 1.030 [facility] UROBILINOGEN UA (POCT) 0.2 Farrah l E.U./dL [facility] Location:[address], [address] [place] [address] POINT OF CARE [facility] Bacteria Ur Culton 5 Bacteria identified Cx Nom (U) ORGANISM ID: 1 10,000 -<50,000 CFU/ml Mixed microbiota No further workup Normal [facility] Comment on above: Performed By: #### 6 30-4 ####[facility] LABCLIA [id number] [address] [place] CNOVon 08-19-2024 CNOV Office Visit (UCWSTR) YUKI THOMAS ([id number]) 1960 F Date Time Provider Department 08/19/24 10:15 AM DORCAS CARVAJAL WSTR During your visit today, we recorded the following information about you: Temperature Pulse Respiration Blood pressure 97.9 degrees 93/minute 18/minute 163/83 Weight 87.3 kg Carvajal DorcasMARICHUY calix.NIRANJAN 08/19/2024 10:37 AM Signed This note was created using NoteWriter. Subjective Yuki Thomas is a 64 year old female. 64 year old male with PMH HTN and GERD presents for possible UTI Acute onset 3 days ago +frequency +urgency +bladder spasm +suprapubic Denies vaginal bleeding Denies vaginal discharge Denies recent coitus Denies concerns for STI Denies using homeopathic or OTC The history is provided by the patient. No blade changer was used. UTI This is a new [...] mouth as needed. 1/2 hr before meal. FA/MV,CA,IRON,MIN/LY COPENE/LUT (MULTIVITAL ORAL) Take by mouth. Alive multivitamin +50 fluconazole (DIFLUCAN) 150 mg tablet Take 1 tablet by mouth once daily for 1 day. FAMILY HISTORY Problem Relation Age of Onset Hypertension Mother other (dementia) Mother other (hepatitis B) Mother Hypertension Father [place], age 45 other (dementia) Father age 86 [...] for color change, pallor, rash and wound. Allergic/Immunologic : Negative for environmental allergies, food allergies and immunocompromised state. Neurological: Negative for dizziness and facial asymmetry. Hematological: Negative for adenopathy. Does not bruise/bleed easily. Psychiatric/Behavior al: Negative for agitation and behavioral problems. Objective [...] Extraocular movements (more content not included)... Normal [facility] UA DIP, URINE (POC)on 2024 BILIRUBIN UA (POCT) Negative Negative [facility] CLARITY UA (POCT) Clear [facility] COLOR UA (POCT) Yellow [facility] GLUCOSE UA (POCT) Negative Negative mg/dL [facility] Hemoglobin Ql (U) Negative Negative [facility] KETONE UA (POCT) Negative Negative mg/dL [facility] LEUKOCYTES UA (POCT) Negative Negative [facility] NITRITE UA (POCT) Negative Negative [facility] PH UA (POCT) 6 4.5 - 8.0 [facility] Protein Ql (U) Negative Negative mg/dL [facility] SPECIFIC GRAVITY UA (POCT) 1.02 1.005 - 1.030 [facility] UROBILINOGEN UA (POCT) 0.2 Farrah l E.U./dL [facility] Location:[address], [place], [place], [address] [place] [address] POINT OF CARE [facility] Anuradha 08-18-2024 CNPN Telephone (INTMWS) YUKI THOMAS ([id number]) 1960 F Date Time Provider Department 08/18/24 SHIRA VARMA INTMWS During your visit today, we recorded the following information about you: Rudy Burrell, RN 08/18/2024 4:27 PM Signed Pt reports [...] Date Reviewed: 06/15/2024 Reviewed by: Annabel Griggs APRN.GENERAL LOT ATTENDANT - Fully Assessed Reason for Visit: UTI [...] as needed. 1/2 hr before meal. - FA/MV,CA,IRON,MIN/LY COPENE/LUT (MULTIVITAL ORAL) Take by mouth. Alive multivitamin [...] pain [M54.2] 10/18/2020 Encounter Status:Closed by Rudy BURRELL on 08/18/24 [facility] CNOVon 06-15-2024 CNOV Office Visit (INTMWS) MARTHA,YUKI K ([id number]) 1960 F Date Time Provider Department 06/15/24 1:00 PM ANNABEL GRIGGS INTMVICTOR MANUEL During your visit today, we recorded the following information about you: Pulse Respiration Blood pressure Weight 87/minute 16/minute 136/85 85 kg Annabel Griggs APRN.GENERAL LOT ATTENDANT 06/15/2024 1:24 PM Signed SUBJECTIVE: Depression Screening Never done Anxiety Screening Never done Colorectal Cancer Screening Never done Shingrix Vaccine(1 of 2) Never done Pneumococcal Vaccine: 50+(1 of 1 - PCV) Never done BP Controlled (<130/80) due on 05/08/2023 Mammogram Screening due on 10/28/2023 HPI Yuki Thomas is a 63 year old female. PMH [...] No mucosal edema or rhinorrhea. Mouth/Throat: Lips: [place]. Mouth: Mucous membranes are moist. Pharynx: Oropharynx [...] mouth as needed. 1/2 hr before meal. FA/MV,CA,IRON,MIN/LY COPENE/LUT (MULTIVITAL ORAL) Take by mouth. Alive multivitamin [...] regular aerobic (more content not included)... Normal [facility] CNOVon 05-09-2024 CNOV Office Visit (INTMWS) YUKI THOMAS ([id number]) 1960 F Date Time Provider Department 05/09/24 2:00 PM ANNABEL GRIGGS INTMWS During your visit today, we recorded the following information about you: Pulse Respiration Blood pressure Weight 78/minute 16/minute 159/84 86.5 kg Annabel Griggs APRN.GENERAL LOT ATTENDANT 05/09/2024 2:44 PM Signed SUBJECTIVE: Depression Screening Never done Anxiety Screening Never done Colorectal Cancer Screening Never done Shingrix Vaccine(1 of 2) Never done BP Controlled (<130/80) due on 05/08/2023 Mammogram Screening due on 10/28/2023 HPI Yuki Kline Martha is a 63 year old female. PMH [...] No mucosal edema or rhinorrhea. Mouth/Throat: Lips: [place]. Mouth: Mucous membranes are moist. Pharynx: Oropharynx [...] mouth as needed. 1/2 hr before meal. FA/MV,CA,IRON,MIN/LY COPENE/LUT (MULTIVITAL ORAL) Take by mouth. Alive multivitamin [...] The 10-yea (more content not included)... Normal [facility] UA DIP, URINE (POC)on 2023 BILIRUBIN UA (POCT) Negative Negative [facility] CLARITY UA (POCT) Clear [facility] COLOR UA (POCT) Yellow [facility] GLUCOSE UA (POCT) Negative Negative mg/dL [facility] Hemoglobin Ql (U) Trace-intact Abnormal Negative [facility] Interpretation and review of laboratory results Abnormal [facility] KETONE UA (POCT) Negative Negative mg/dL [facility] LEUKOCYTES UA (POCT) Negative [facility]) [facility] PH UA (POCT) 6.0 4.5 - 8.0 [facility] Protein Ql (U) Negative Negative mg/dL [facility] SPECIFIC GRAVITY UA (POCT) <=1.005 Abnormal 1.005 - 1.030 [facility] UROBILINOGEN UA (POCT) 0.2 Farrah l E.U./dL [facility] Location:[address], [id number] [place] [address] POINT OF CARE [facility] UA DIP, URINE (POC)on 2022 BILIRUBIN UA (POCT) Negative Negative [facility] CLARITY UA (POCT) Clear [facility] COLOR UA (POCT) Yellow [facility] GLUCOSE UA (POCT) Negative Negative mg/dL [facility] Hemoglobin Ql (U) Negative Negative [facility] KETONE UA (POCT) Negative Negative mg/dL [facility] LEUKOCYTES UA (POCT) Trace Abnormal Negative [facility] NITRITE UA (POCT) Negative Negative [facility] PH UA (POCT) 6.0 4.5 - 8.0 [facility] Protein Ql (U) Negative Negative mg/dL [facility] SPECIFIC GRAVITY UA (POCT) 1.020 1.005 - 1.030 [facility] UROBILINOGEN UA (POCT) 0.2 E.U./dL Farrah l E.U./dL [facility] CBC panel Auto (Bld)on 11-06 Erythrocyte distribution width (RBC) [Ratio] 14.1 % 11.5 - 15.0 % [facility] Hematocrit (Bld) [Volume fraction] 42.6 % 36.0 - 46.0 % [facility] Hemoglobin (Bld) [Mass/Vol] 13.9 g/dL 11.5 - 15.5 g/dL [facility] MCH (RBC) [Entitic mass] 28.7 pg 26. 0 - 34.0 pg [facility] MCHC (RBC) [Mass/Vol] 32.6 g/dL 30.5 - 36.0 g/dL [facility] MCV (RBC) [Entitic vol] 87.8 fL 80.0 - 100.0 fL [facility] Nucleated RBC (Bld) [#/Vol] <0.01 k/uL [facility] Platelet mean volume (Bld) [Entitic vol] 9.8 fL 9.0 - 12.7 fL [facility] Platelets (Bld) [#/Vol] 271 10*3/uL 150 - 400 k/uL [facility] RBC (Bld) [#/Vol] 4.85 10*6/uL 3.90 - 5.2 0 m/uL [facility] WBC (Bld) [#/Vol] 7.39 10*3/uL 3.70 - 11. 00 k/uL [facility] Comprehensive metabolic 2000 panelon 11-06-2022 Albumin [Mass/Vol] 4.4 g/dL 3.9 - 4.9 g/dL [facility] ALP [Catalytic activity/Vol] 81 U/L 34 - 123 U/L [facility] ALT [Catalytic activity/Vol] 24 U/L 7 - 38 U/L [facility] Anion gap [Moles/Vol] 14 mmol/L 9 - 18 mmol/L [facility] AST [Catalytic activity/Vol] 25 U/L 13 - 35 U/L [facility] Bilirubin [Mass/Vol] 0.3 mg/dL 0.2 - 1 .3 mg/dL [facility] Calcium [Mass/Vol] 9.7 mg/dL 8.5 - 10. 2 mg/dL [facility] Chloride [Moles/Vol] 104 mmol/L 97 - 10 5 mmol/L [facility] CO2 [Moles/Vol] 24 mmol/L 22 - 30 mmol/L [facility] Creatinine [Mass/Vol] 0.69 mg/dL 0.58 - 0.96 mg/dL [facility] Estimated Glomerular Filtration Rate 98 mL/min/1.73m >=60 mL/min/1.73m [facility] Glucose [Mass/Vol] 115 mg/dL High 74 - 99 mg/dL [facility] Potassium [Moles/Vol] 4.3 mmol/L 3.7 - 5.1 mmol/L [facility] Protein [Mass/Vol] 7.7 g/dL 6.3 - 8.0 g/dL [facility] Sodium [Moles/Vol] 142 mmol/L 136 - 144 mmol/L [facility] Urea nitrogen [Mass/Vol] 12 mg/dL 7 - 21 mg/d L [facility] HbA1c (Bld)on 11-06-2022 Average glucose Estimated from glycated hemoglobin (Bld) [Mass/Vol] 117 mg/dL [facility] HbA1c (Bld) [Mass fraction] 5.7 % High 4.3 - 5.6 % [facility] URIC ACID BLOODon 11-06-2022 Urate [Mass/Vol] 6.6 mg/dL 2.5 - 6.6 mg/dL [facility] CARLOS [facility]-20[facility] AP and Lat eral and obliqueon 10-04-2020 IMPRESSION: No acute fracture or malalignment. C5-6 and C6-7 degenerative disc disease with osteophytic foraminal narrowing. Division Supervisor: PSCB Transcribe Date/Time: Oct 04 2020 5:18P Dictated by : EMY ESTES MD This examination was interpreted and the report reviewed and electronically signed by: EMY ESTES MD on Oct 04 2020 5:21PM [facility] DIVISION OF RADIOLOGY * * *Final Report* [...] within normal limits. DIVISION OF RADIOLOGY Provider, [facility] [place] - 10/04/2020 * * *Final Report* * [...] degenerative disc disease with osteophytic foraminal narrowing. Division Supervisor: GILBERTO Transcribe Date/Time: Oct 04 2020 5:18P Dictated by : EMY ESTES MD This examination was interpreted and the report reviewed and electronically signed by: EMY ESTES MD on Oct 04 2020 5:21PM EST [facility] Radiology Study observation (narrative) Sandra sorenson [facility] XR Cervical spine AP and Lat eral and obliqueOrdered By: Ccf Provider on 10-04-2020 [facility] Vital Signs Date Time Vital Sign Value Performing Clinician Facility 03-01-2025 12:46-0400 Body temperature 98.2 [degF] Madi Chong MD Work Phone: [facility] 03-01-2025 12:46-0400 Diastolic blood pressure 83 mm[Hg] Madi Chong MD Work Phone: [facility] 03-01-2025 12:46-0400 Heart rate 64 /min Madi Chong MD Work Phone: [facility] 03-01-2025 12:46-0400 Respiratory rate 16 /min Madi Chong MD Work Phone: [facility] 03-01-2025 12:46-0400 SaO2% (BldA) [Mass fraction] 100 % Madi Chong MD Work Phone: [facility] 03-01-2025 12:46-0400 Systolic blood pressure 146 mm[Hg] Madi Chong MD Work Phone: [facility] 03-01-2025 08:45-0400 Body height 170.18 cm Madi Chong MD Work Phone: [facility] 03-01-2025 08:45-0400 Body mass index (BMI) [Ratio] 30.2 kg/m2 Madi Chong MD Work Phone: [facility] 03-01-2025 08:45-0400 Body weight 87.5 kg Madi Chong MD Work Phone: [facility] 02-13-2025 09:31-0400 Body mass index (BMI) [Ratio] 31.49 kg/m2 Annabel Griggs BEEF FARMER.GENERAL LOT ATTENDANT Work Phone: [facility] 02-13-2025 09:31-0400 Body weight 88.5 kg Annabel Griggs BEEF FARMER.GENERAL LOT ATTENDANT Work Phone: [facility] 02-13-2025 09:31-0400 Diastolic blood pressure 72 mm[Hg] Annabel Griggs BEEF FARMER.GENERAL LOT ATTENDANT Work Phone: [facility] 02-13-2025 09:31-0400 Heart rate 78 /min Annabel Griggs BEEF FARMER.GENERAL LOT ATTENDANT Work Phone: [facility] 02-13-2025 09:31-0400 Respiratory rate 16 /min Annabel Griggs BEEF FARMER.GENERAL LOT ATTENDANT Work Phone: [facility] 02-13-2025 09:31-0400 SaO2% (BldA) [Mass fraction] 98 % Annabel Griggs BEEF FARMER.GENERAL LOT ATTENDANT Work Phone: [facility] 02-13-2025 09:31-0400 Systolic blood pressure 142 mm[Hg] Annabel Griggs BEEF FARMER.GENERAL LOT ATTENDANT Work Phone: [facility] 02-08-2025 07:06-0400 Body mass index (BMI) [Ratio] 30.92 kg/m2 Annabel Griggs BEEF FARMER.GENERAL LOT ATTENDANT Work Phone: [facility] 02-08-2025 07:06-0400 Body weight 86.9 kg Annabel Griggs BEEF FARMER.GENERAL LOT ATTENDANT Work Phone: [facility] 02-08-2025 07:06-0400 Diastolic blood pressure 82 mm[Hg] Annabel Griggs BEEF FARMER.GENERAL LOT ATTENDANT Work Phone: [facility] 02-08-2025 07:06-0400 Heart rate 78 /[facility] BEEF FARM[facility].GENERAL LOT ATTENDANT Work Phone: [facility] 02-08-2025 07:06-0400 Respiratory rate 16 /min [facility] BEEF FARMER.GENERAL LOT ATTENDANT Work Phone: [facility] [facility]-2025 07:06-0400 SaO2% (BldA) [Mass fraction] 99 % Annabel Griggs BEEF FARMER.GENERAL LOT ATTENDANT Work Phone: [facility] 02-08-2025 07:06-0400 Systolic blood pressure 136 mm[Hg] Annabel Griggs BEEF FARMER.GENERAL LOT ATTENDANT Work Phone: [facility] 02-03-2025 20:57-0400 Body temperature 98 [degF] Madi Chong MD Work Phone: [facility] 02-03-2025 20:57-0400 Diastolic blood pressure 88 mm[Hg] Madi Chong MD Work Phone: [facility] 02-03-2025 20:57-0400 Heart rate 67 /min Madi Chong MD Work Phone: [facility] 02-03-2025 20:57-0400 Respiratory rate 18 /min Madi Chong MD Work Phone: [facility] 02-03-2025 20:57-0400 SaO2% (BldA) [Mass fraction] 98 % Madi Chong MD Work Phone: [facility] 02-03-2025 20:57-0400 Systolic blood pressure 133 mm[Hg] Madi Chong MD Work Phone: [facility] 02-03-2025 18:03-0400 Body height 167.64 cm Madi Chong MD Work Phone: [facility] 02-03-2025 18:03-0400 Body mass index (BMI) [Ratio] 31 kg/m2 Madi Chong MD Work Phone: [facility] 02-03-2025 18:03-0400 Body weight 87.18 kg Madi Chong MD Work Phone: [facility] 11-29-2024 09:18-0400 Body height 167.6 cm Shira Varma MD Work Phone: [facility] 11-29-2024 09:18-0400 Body mass index (BMI) [Ratio] 30.92 kg/m2 Shira Varma MD Work Phone: [facility] 11-29-2024 09:18-0400 Body weight 86.9 kg Shira Varma MD Work Phone: [facility] 11-29-2024 09:18-0400 Diastolic blood pressure 83 mm[Hg] Shira Varma MD Work Phone: [facility] 11-29-2024 09:18-0400 Heart rate 72 /min Shira Varma MD Work Phone: [facility] 11-29-2024 09:18-0400 Systolic blood pressure 132 mm[Hg] Shira Varma MD Work Phone: [facility] 08-23-2024 15:02-0400 Diastolic blood pressure 79 mm[Hg] Lula Crawfordr BEEF FARMER.CLERK CARRIER Work Phone: [facility] 08-23-2024 15:02-0400 Systolic blood pressure 117 mm[Hg] Lula Freddy BEEF FARMER.CLERK CARRIER Work Phone: [facility] 08-23-2024 15:00-0400 Body mass index (BMI) [Ratio] 30.74 kg/m2 Lula Freddy BEEF FARMER.CLERK CARRIER Work Phone: [facility] 08-23-2024 15:00-0400 Body temperature 99.61 [degF] Lula Freddy BEEF FARMER.CLERK CARRIER Work Phone: [facility] 08-23-2024 15:00-0400 Body weight 86.4 kg Lula Freddy BEEF FARMER.CLERK CARRIER Work Phone: [facility] 08-23-2024 15:00-0400 Heart rate 100 /min Lula Freddy BEEF FARMER.CLERK CARRIER Work Phone: [facility] 08-23-2024 15:00-0400 SaO2% (BldA) [Mass fraction] 98 % Lula Freddy BEEF FARMER.CLERK CARRIER Work Phone: [facility] 08-19-2024 10:22-0400 Body mass index (BMI) [Ratio] 31.06 kg/m2 Dorcas Carvajal BEEF FARMER.CLERK CARRIER Work Phone: [facility] 08-19-2024 10:22-0400 Body temperature 97.9 [degF] Dorcas Carvajal BEEF FARMER.CLERK CARRIER Work Phone: [facility] 08-19-2024 10:22-0400 Body weight 87.3 kg Dorcas Carvajal BEEF FARMER.CLERK CARRIER Work Phone: [facility] 08-19-2024 10:22-0400 Diastolic blood pressure 83 mm[Hg] Dorcas Carvajal BEEF FARMER.CLERK CARRIER Work Phone: [facility] 08-19-2024 10:22-0400 Heart rate 93 /min Dorcas Carvajal BEEF FARMER.CLERK CARRIER Work Phone: [facility] 08-19-2024 10:22-0400 Respiratory rate 18 /min Dorcas Carvajal BEEF FARMER.CLERK CARRIER Work Phone: [facility] 08-19-2024 10:22-0400 SaO2% (BldA) [Mass fraction] 98 % Dorcas Carvajal BEEF FARMER.CLERK CARRIER Work Phone: [facility] 08-19-2024 10:22-0400 Systolic blood pressure 163 mm[Hg] Dorcas Carvajal BEEF FARMER.CLERK CARRIER Work Phone: [facility] 06-15-2024 13:08-0500 Diastolic blood pressure 85 mm[Hg] Annabel Griggs BEEF FARMER.GENERAL LOT ATTENDANT Work Phone: [facility] Comment on above: bp average 06-15-2024 13:08-0500 Heart rate 87 /min Annabel Griggs BEEF FARMER.GENERAL LOT ATTENDANT Work Phone: [facility] 06-15-2024 13:08-0500 Systolic blood pressure 136 mm[Hg] Annabel Griggs BEEF FARMER.GENERAL LOT ATTENDANT Work Phone: [facility] Comment on above: bp average 06-15-2024 12:57-0500 Body mass index (BMI) [Ratio] 30.25 kg/m2 Annabel Griggs BEEF FARMER.GENERAL LOT ATTENDANT Work Phone: [facility] 06-15-2024 12:57-0500 Body weight 85 kg Annabel Griggs BEEF FARMER.GENERAL LOT ATTENDANT Work Phone: [facility] 06-15-2024 12:57-0500 Respiratory rate 16 /min Annabel Griggs BEEF FARMER.GENERAL LOT ATTENDANT Work Phone: [facility] 05-09-2024 14:02-0500 Diastolic blood pressure 84 mm[Hg] Annabel Griggs BEEF FARMER.GENERAL LOT ATTENDANT Work Phone: [facility] 05-09-2024 14:02-0500 Heart rate 78 /min Annabel Griggs BEEF FARMER.GENERAL LOT ATTENDANT Work Phone: [facility] 05-09-2024 14:02-0500 Systolic blood pressure 159 mm[Hg] Annabel Griggs BEEF FARMER.GENERAL LOT ATTENDANT Work Phone: [facility] 05-09-2024 14:01-0500 Body mass index (BMI) [Ratio] 30.78 kg/m2 Annabel Griggs BEEF FARMER.GENERAL LOT ATTENDANT Work Phone: [facility] 05-09-2024 14:01-0500 Body weight 86.5 kg Annabel Griggs BEEF FARMER.GENERAL LOT ATTENDANT Work Phone: [facility] 05-09-2024 14:01-0500 Respiratory rate 16 /min Annabel Griggs BEEF FARMER.GENERAL LOT ATTENDANT Work Phone: [facility] 03-20-2024 12:56-0400 Body mass index (BMI) [Ratio] 31.28 kg/m2 Annabel Griggs BEEF FARMER.GENERAL LOT ATTENDANT Work Phone: [facility] 03-20-2024 12:56-0400 Body weight 87.9 kg Annabel Griggs BEEF FARMER.GENERAL LOT ATTENDANT Work Phone: [facility] 03-20-2024 12:56-0400 Diastolic blood pressure 78 mm[Hg] Annabel Griggs BEEF FARMER.GENERAL LOT ATTENDANT Work Phone: [facility] 03-20-2024 12:56-0400 Heart rate 95 /min Annabel Griggs BEEF FARMER.GENERAL LOT ATTENDANT Work Phone: [facility] 03-20-2024 12:56-0400 Respiratory rate 16 /min Annabel Griggs BEEF FARMER.GENERAL LOT ATTENDANT Work Phone: [facility] 03-20-2024 12:56-0400 SaO2% (BldA) [Mass fraction] 99 % Annabel Griggs BEEF FARMER.GENERAL LOT ATTENDANT Work Phone: [facility] 03-20-2024 12:56-0400 Systolic blood pressure 137 mm[Hg] Annabel Griggs BEEF FARMER.GENERAL LOT ATTENDANT Work Phone: [facility] 11-08-2023 09:17-0400 Body mass index (BMI) [Ratio] 30.51 kg/m2 Shira Varma MD Work Phone: [facility] 11-08-2023 09:17-0400 Body temperature 98.4 [degF] Shira Vrama MD Work Phone: [facility] 11-08-2023 09:17-0400 Body weight 85.73 kg Shira Varma MD Work Phone: [facility] 11-08-2023 09:17-0400 Diastolic blood pressure 77 mm[Hg] Shira Varma MD Work Phone: [facility] 11-08-2023 09:17-0400 Heart rate 70 /min Shira Varma MD Work Phone: [facility] 11-08-2023 09:17-0400 Respiratory rate 18 /min Shira Varma MD Work Phone: [facility] 11-08-2023 09:17-0400 SaO2% (BldA) [Mass fraction] 99 % Shira Varma MD Work Phone: [facility] 11-08-2023 09:17-0400 Systolic blood pressure 121 mm[Hg] Shira Varma MD Work Phone: [facility] 09-29-2023 14:47-0400 Diastolic blood pressure 90 mm[Hg] Lula Freddy BEEF FARMER.CLERK CARRIER Work Phone: [facility] 09-29-2023 14:47-0400 Systolic blood pressure 138 mm[Hg] Lula Freddy BEEF FARMER.CLERK CARRIER Work Phone: [facility] 09-29-2023 14:38-0400 Body mass index (BMI) [Ratio] 30.34 kg/m2 Lula Freddy BEEF FARMER.CLERK CARRIER Work Phone: [facility] 09-29-2023 14:38-0400 Body weight 85.28 kg Lula Freddy BEEF FARMER.CLERK CARRIER Work Phone: [facility] 09-29-2023 14:38-0400 Heart rate 84 /min Lula Freddy BEEF FARMER.CLERK CARRIER Work Phone: [facility] 09-29-2023 14:38-0400 SaO2% (BldA) [Mass fraction] 99 % Lula Freddy BEEF FARMER.CLERK CARRIER Work Phone: [facility] 05-11-2023 15:40-0500 Body temperature 98.4 [degF] Annabel Griggs BEEF FARMER.GENERAL LOT ATTENDANT Work Phone: [facility] 05-11-2023 15:40-0500 Body weight 85.73 kg Annabel Griggs BEEF FARMER.GENERAL LOT ATTENDANT Work Phone: [facility] 05-11-2023 15:40-0500 Diastolic blood pressure 84 mm[Hg] Annabel Griggs BEEF FARMER.GENERAL LOT ATTENDANT Work Phone: [facility] 05-11-2023 15:40-0500 Heart rate 80 /min Annabel Griggs BEEF FARMER.GENERAL LOT ATTENDANT Work Phone: [facility] 05-11-2023 15:40-0500 Respiratory rate 16 /min Annabel Griggs BEEF FARMER.GENERAL LOT ATTENDANT Work Phone: [facility] 05-11-2023 15:40-0500 Systolic blood pressure 139 mm[Hg] Annabel Griggs BEEF FARMER.GENERAL LOT ATTENDANT Work Phone: [facility] 03-23-2023 12:40-0400 Body temperature 98.01 [degF] Nahomi Praisler-Wood BEEF FARMER.CLERK CARRIER Work Phone: [facility] 03-23-2023 12:40-0400 Body weight 88.81 kg Nahomi Praisler-Wood BEEF FARMER.CLERK CARRIER Work Phone: [facility] 03-23-2023 12:40-0400 Diastolic blood pressure 82 mm[Hg] Nahomi Praisler-Wood BEEF FARMER.CLERK CARRIER Work Phone: [facility] 03-23-2023 12:40-0400 Heart rate 102 /min Nahomi Praisler-Wood BEEF FARMER.CLERK CARRIER Work Phone: [facility] 03-23-2023 12:40-0400 Respiratory rate 18 /min Nahomi Praisler-Wood BEEF FARMER.CLERK CARRIER Work Phone: [facility] 03-23-2023 12:40-0400 SaO2% (BldA) [Mass fraction] 100 % Nahomi Praisler-Wood BEEF FARMER.CLERK CARRIER Work Phone: [facility] 03-23-2023 12:40-0400 Systolic blood pressure 142 mm[Hg] Nahomi Praisler-Wood BEEF FARMER.CLERK CARRIER Work Phone: [facility] 11-06-2022 08:49-0400 Body temperature 99 [degF] Shira Varma MD Work Phone: [facility] 11-06-2022 08:49-0400 Body weight 84.37 kg Shira Varma MD Work Phone: [facility] 11-06-2022 08:49-0400 Diastolic blood pressure 84 mm[Hg] Shira Varma MD Work Phone: [facility] 11-06-2022 08:49-0400 Heart rate 96 /min Shira Varma MD Work Phone: [facility] 11-06-2022 08:49-0400 Respiratory rate 18 /min Shira Varma MD Work Phone: [facility] 11-06-2022 08:49-0400 SaO2% (BldA) [Mass fraction] 98 % Shira Varma MD Work Phone: [facility] 11-06-2022 08:49-0400 Systolic blood pressure 136 mm[Hg] Shira Varma MD Work Phone: [facility] 05-08-2022 14:33-0500 Body weight 82.56 kg Annabel Griggs BEEF FARMER.GENERAL LOT ATTENDANT Work Phone: [facility] 05-08-2022 14:33-0500 Diastolic blood pressure 88 mm[Hg] Annabel Griggs BEEF FARMER.GENERAL LOT ATTENDANT Work Phone: [facility] 05-08-2022 14:33-0500 Heart rate 84 /min Annabel Griggs BEEF FARMER.GENERAL LOT ATTENDANT Work Phone: [facility] 05-08-2022 14:33-0500 Respiratory rate 16 /min Annabel Griggs BEEF FARMER.GENERAL LOT ATTENDANT Work Phone: [facility] 05-08-2022 14:33-0500 Systolic blood pressure 130 mm[Hg] Annabel Griggs BEEF FARMER.GENERAL LOT ATTENDANT Work Phone: [facility] 04-12-2022 09:37-0500 Body height 167.64 cm [facility] Work Phone: 04-12-2022 09:37-0500 Body mass index (BMI) [Ratio] 27.4 kg/m2 [facility] Work Phone: 04-12-2022 09:37-0500 Body temperature 97.8 [degF] [facility] Work Phone: 04-12-2022 09:37-0500 Body weight 77.11 kg [facility] Work Phone: 04-12-2022 09:37-0500 Diastolic blood pressure 93 mm[Hg] [facility] Work Phone: 04-12-2022 09:37-0500 Heart rate 89 /min [facility] Work Phone: 04-12-2022 09:37-0500 Respiratory rate 18 /min [facility] Work Phone: 04-12-2022 09:37-0500 SaO2% (BldA) [Mass fraction] 96 % [facility] Work Phone: 04-12-2022 09:37-0500 Systolic blood pressure 155 mm[Hg] [facility] Work Phone: 11-04-2021 17:20-0400 Body weight 84.37 kg Shira Varma MD Work Phone: [facility] 11-04-2021 17:20-0400 Diastolic blood pressure 82 mm[Hg] Shira Varma MD Work Phone: [facility] 11-04-2021 17:20-0400 Heart rate 85 /min Shira Varma MD Work Phone: [facility] 11-04-2021 17:20-0400 SaO2% (BldA) [Mass fraction] 96 % Shira Varma MD Work Phone: [facility] 11-04-2021 17:20-0400 Systolic blood pressure 136 mm[Hg] Shira Varma MD Work Phone: [facility] Encounters Encounter Date Encounter Type Care Provider Facility Start: 05-04-2025 ambulatory Tyler Checo Facility:[facility] Start: 04-16-2025 End: 04-16-2025 ambulatory SHIRA D TALAMPAS Facility:[facility] Start: 04-06-2025 End: 04-06-2025 ambulatory Shira D Talampas Facility:[facility] Start: 04-06-2025 End: 04-06-2025 ambulatory Tyler Checo Facility:[facility] Start: 03-31-2025 End: 03-31-2025 ambulatory SHIRA D TALAMPAS Facility:[facility] Start: 03-27-2025 End: 03-27-2025 ambulatory SHIRA D TALAMPAS Facility:[facility] Start: 03-20-2025 End: 03-20-2025 ambulatory SHIRA D TALAMPAS Facility:[facility] Start: 03-13-2025 End: 03-13-2025 ambulatory SHIRA D TALAMPAS Facility:[facility] Start: 03-05-2025 End: 03-05-2025 ambulatory ANNABEL GRIGGS Facility:[facility] Start: 03-01-2025 End: 03-01-2025 Emergency department patient visit Dr. Osman Do DO -Emergency Department Work Phone: Start: 02-26-2025 End: 02-26-2025 ambulatory SHIRA D TALAMPAS Facility:[facility] Start: 02-19-2025 End: 02-19-2025 ambulatory SHIRA D TALAMPAS Facility:[facility] Start: 02-13-2025 End: 02-13-2025 Office outpatient visit 25 minutes Annabel Griggs BEEF FARMER.GENERAL LOT ATTENDANT Work Phone: [facility] [place] Comment on above: Palpitations (Primar y Dx); Hypokalemia; Hypomagnesemia; Essential (primary) hypertension Start: 02-13-2025 End: 02-13-2025 ambulatory SHIRA D TALAMPAS Facility:[facility] Start: 02-12-2025 End: 02-12-2025 ambulatory SHIRA D TALAMPAS Facility:[facility] Start: 02-08-2025 End: 02-08-2025 Telephone encounter Shira Varma MD Work Phone: [facility] [place] Comment on above: Orders Start: 02-08-2025 End: 02-08-2025 ambulatory SHIRA VARMA Facility:[facility] Start: 02-08-2025 End: 02-08-2025 Office outpatient visit 25 minutes Annabel Griggs STEPHY Work Phone: [facility] [place] Comment on above: Palpitations (Primar y Dx); Hypomagnesemia; Hypokalemia; Primary hypertension; Dizziness and giddiness; Hypokalemia Start: 02-08-2025 End: 02-08-2025 ambulatory SHIRA VARMA Facility:[facility] Start: 02-03-2025 End: 02-03-2025 Emergency department patient visit Madi Chong MD Work Phone: -Emergency Department Work Phone: Start: 02-03-2025 End: 02-03-2025 ambulatory Rain Persaud RN NURSE COAL HANDLER Comment on above: Palpitations Start: 11-29-2024 End: 11-29-2024 Office outpatient visit 25 minutes Shira Varma MD Work Phone: [facility] [place] Comment [...] 11-29-2024 End: 11-29-2024 Patient encounter status Shira Varma MD Work Phone: [facility] Start: 11-29-2024 End: 11-29-2024 ambulatory SHIRA VARMA Facility:[facility] Start: 11-29-2024 Encounter for antibo dy response examination SHIRA VARMA [facility] Start: 11-13-2024 End: 11-13-2024 Refill Shira Varma MD Work Phone: [facility] [place] Comment on above: Refill Request Start: 11-03-2024 End: 11-03-2024 Refill Lula Granados APRN.CLERK CARRIER Work Phone: [facility] [place] Comment on above: Refill Request Start: 10-31-2024 End: 12-01-2024 ambulatory Shira Varma MD Work Phone: [facility] [place] Start: 10-28-2024 End: 10-31-2024 Refill Shira Varma MD Work Phone: [facility] [place] Comment on above: Refill Request Start: 09-01-2024 End: 09-22-2024 ambulatory Shira Varma MD Work Phone: [facility] [place] Comment on above: vaccinations Start: 08-23-2024 End: 08-23-2024 Patient encounter procedure Lula Granados APRN.CLERK CARRIER Work Phone: [facility] [place] Comment on above: Dysuria (Primary Dx) ; Frequent UTI; Antibiotic-induced yeast infection Start: 08-23-2024 End: 08-23-2024 ambulatory SHIRA Jose Daniel [facility] Facility:[facility] Start: 08-20-2024 End: 10-20-2024 Follow-up encounter Dorcas Carvajal APRN.CNP Work Phone: [facility] Comment on above: Results; Patient Upd ate Start: 08-19-2024 End: 08-19-2024 [facility] Start: 08-19-2024 End: 08-19-2024 Patient encounter procedure Dorcas Carvajal APRN.CNP Work Phone: [facility] Comment on above: Urgency of urination (Primary Dx) Start: 08-18-2024 End: 08-18-2024 Telephone encounter Shira Varma MD Work Phone: [facility] [place] Comment on above: UTI s/s Start: 06-15-2024 End: 06-15-2024 [facility] Start: 06-15-2024 End: 06-15-2024 Office outpatient visit 15 minutes Annabel Griggs BEEF FARMER.GENERAL LOT ATTENDANT Work Phone: [facility] [place] Comment on above: Primary hypertension (Primary Dx) Start: 05-09-2024 End: 05-09-2024 Office outpatient visit 25 minutes Annabelcarmen Griggs BEEF FARMER.GENERAL LOT ATTENDANT Work Phone: [facility] [place] Comment on above: Screening for depres paulina (Primary Dx); Encounter for screening examination for other mental health and behavioral disorders; Encounter for immunization Start: 05-09-2024 End: 05-09-2024 ambulatory SHIRA VARMA Facility:[facility] Start: 03-20-2024 End: 03-20-2024 Office outpatient visit 15 minutes Annabelcarmen Griggs BEEF FARMER.GENERAL LOT ATTENDANT Work Phone: [facility] [place] Comment on above: Sinobronchitis (Prim collins Dx); Acute otitis media, unspecified otitis media type; Excessive cerumen in ear canal, right Start: 12-01-2023 ambulatory Shira geiger MD Work Phone: [facility] Start: 11-08-2023 End: 11-08-2023 Office outpatient visit 25 minutes Shira Varma MD Work Phone: [facility] [place] Comment on above: Primary hypertension (Primary Dx); IFG (impaired fasting glucose); Hypokalemia; Mixed hyperlipidemia; Screening for colon cancer Start: 10-18-2023 Telephone encounter Lula nance BEEF FARMER.CLERK CARRIER Work Phone: [facility] [place] Comment on above: Results Start: 10-11-2023 Telephone encounter Lula nance BEEF FARMER.CLERK CARRIER Work Phone: [facility] [place] Comment on above: Patient Update Start: 09-29-2023 End: 09-29-2023 Patient encounter procedure Lula Granados BEEF FARMER.CLERK CARRIER Work Phone: [facility] [place] Comment on above: Acute cystitis with hematuria [...] Question Start: 05-20-2023 Telephone encounter Annabel burgess BEEF FARMER.GENERAL LOT ATTENDANT Work Phone: [facility] [place] Comment on above: Patient Update Start: 05-11-2023 End: 05-11-2023 Office outpatient visit 25 minutes Annabel Griggs BEEF FARMER.GENERAL LOT ATTENDANT Work Phone: [facility] [place] Comment on above: Primary hypertension (Primary Dx); Elevated LDL cholesterol level; Hypopotassemia; Neck pain; Neck stiffness; Elevated glucose; Left ear pain Start: 03-29-2023 Telephone encounter Shira hu MD Work Phone: [facility] [place] Comment on above: Patient Question; Pa tient Update Start: 03-25-2023 Telephone encounter Doreen Narvaez APRN.CLERK CARRIER Work Phone: [facility] Comment on above: Results Start: 03-23-2023 End: 03-23-2023 Patient encounter procedure Nahomi Moreland BEEF FARMER.CLERK CARRIER Work Phone: [facility] Comment on above: Urgency of urination (Primary Dx) Start: 11-06-2022 End: 11-06-2022 Office outpatient visit 25 minutes Shira Varma MD Work Phone: [facility] [place] Comment on above: Primary hypertension (Primary Dx); Acute bronchitis, unspecified organism; Hypokalemia; Mixed hyperlipidemia; IFG (impaired fasting glucose); Encounter for immunization; Screening for colon cancer; Hypopotassemia; Acute gouty arthritis; Degenerative arthritis of thumb, left; Need for vaccine for DT (diphtheria-tetanus) Start: 10-27-2022 End: 10-27-2022 Subsequent hospital visit by physician Screen Mammo [facility] Comment on above: Encounter for screen ing mammogram for breast cancer [Z12.31] Start: 08-26-2022 ambulatory Shira geiger MD Work Phone: Internal [facility] Start: 05-08-2022 End: 05-08-2022 Office outpatient visit 25 minutes Annabel Griggs APRN.CNS Work Phone: [facility] [place] Comment on above: Primary hypertension (Primary Dx); Elevated LDL cholesterol level; Hypopotassemia; COVID-19 virus infection; Screening for diabetes mellitus; Encounter for immunization; Screening for cervical cancer Start: 04-12-2022 ambulatory Yuki lawton RN NURSE COAL HANDLER Comment on above: Covid19 Concern Start: 04-12-2022 End: 04-12-2022 [facility] Start: 04-10-2022 Telephone encounter Shira hu MD Work Phone: [facility] [place] Comment on above: Covid19 Concern Start: 04-10-2022 End: 04-10-2022 Office outpatient visit 15 minutes [facility] APRN.CLERK CARRIER Work Phone: [facility] [place] Comment on above: COVID-19 (Primary Dx ) Start: 11-04-2021 End: 11-04-2021 Office outpatient visit 25 minutes Shira Varma MD Work Phone: [facility] [place] Comment on above: Hand arthritis (Prim collins Dx); Hypopotassemia; Essential hypertension; IFG (impaired fasting glucose); Mixed hyperlipidemia; Colon cancer screening Start: 10-15-2021 Refill Shira geiger MD Work Phone: [facility] [place] Comment on above: Refill Request Start: 09-11-2021 ambulatory Shira geiger MD Work Phone: [facility] [place] Comment on above: Second vivid booster Start: 09-10-2021 ambulatory Shira geiger MD Work Phone: Internal [facility] Start: 04-30-2021 Telephone encounter Shira hu MD Work Phone: [facility] [place] Comment on above: Results Start: 10-04-2020 End: 10-04-2020 Subsequent hospital visit by physician Xr [facility] [place] Work Phone: Radiology Comment on above: Neck pain [M54.2] Procedures Date Procedure Procedure Detail Performing Clinician Start: 03-01-2025 Estimated creatinine clearance Madi Chong MD Work Phone: Start: 03-01-2025 Radiologic exam ches t 2 views Madi Chong MD Work Phone: Start: 02-03-2025 Plain chest X-ray Madi Chong MD Work Phone: Start: 02-03-2025 Estimated creatinine clearance Madi Chong MD Work Phone: Start: 11-29-2024 Adult depression scr eening assessment Shira Varma MD Work Phone: Start: 08-23-2024 Urnls dip stick/tabl et rgnt auto w/o microscopy Lula Granados BEEF FARMER.CLERK CARRIER Work Phone: Start: 08-19-2024 Urnls dip stick/tabl et rgnt auto w/o microscopy Doreen Narvaez BEEF FARMER.CLERK CARRIER Work Phone: Start: 11-05-2023 Lipid 1996 panel - S naila or Plasma Shira Varma MD Work Phone: Start: 09-29-2023 Urnls dip stick/tabl et rgnt auto w/o microscopy Lula Granados BEEF FARMER.CLERK CARRIER Work Phone: Start: 03-23-2023 Urnls dip stick/tabl et rgnt auto w/o microscopy Sarah Johnson PA-C Work Phone: Start: 10-27-2022 End: 10-27-2022 Mammography Bulk Order Provider Start: 05-08-2022 Lipid 1996 panel - S naila or Plasma Nahomi Moreland BEEF FARMER.CLERK CARRIER Work Phone: Start: 11-03-2021 Adult depression scr eening assessment Shira Varma MD Work Phone: Start: 10-04-2020 Radex spine cervical 4 or 5 views Sarah Johnson PA-C Work Phone: Start: 09-24-2020 Adult depression scr eening assessment Shira Varma MD Work Phone: Start: 03-07-2019 Mammography Shira pardo MD Work Phone: Plan of Treatment Date Care Activity Detail Author Start: 2034 RSV Vaccine (1 - 1-d ose 75+ series) RSV Vaccine (1 - 1-dose 75+ series) [facility] Start: 11-06-2032 Urine microalbumin profile [facility] Start: 11-04-2028 Lipid panel Lipid Screening [facility] Start: 02-13-2028 Diabetes Screening Diabetes Screenin g [facility] Start: 02-09-2028 Diabetes Screening Diabetes Screenin g [facility] Start: 10-28-2027 HPV TESTING HPV TESTING [facility] Start: 10-28-2027 PAP TESTING PAP TESTING [facility] Start: 10-28-2027 Screening for malign ant neoplasm of cervix [facility] Start: 05-08-2027 Lipid 1996 panel - Serum or Plasma Lipid Screening [facility] Start: 05-08-2027 Lipid panel Lipid Screening [facility] Start: 05-08-2027 LIPID SCREEN LIPID SCREEN [facility] Start: 11-04-2026 Diabetes Screening Diabetes Screenin g [facility] Start: 02-13-2026 Annual PCP Team Aircraft Cylinder Mechanic quinton Disease Visit Annual PCP Team Chronic Disease Visit [facility] Start: 02-08-2026 Annual PCP Team Aircraft Cylinder Mechanic quinton Disease Visit Annual PCP Team Chronic Disease Visit [facility] Start: 11-29-2025 Annual PCP Team Aircraft Cylinder Mechanic quinton Disease Visit Annual PCP Team Chronic Disease Visit [facility] Start: 11-29-2025 Anxiety Screening Anxiety Screening [facility] Start: 11-29-2025 Depression Screening Depression Scre ening [facility] Start: 11-06-2025 DIABETES SCREEN DIABETES SCREEN [facility] Start: 11-06-2025 Diabetes Screening Diabetes Screenin g [facility] Start: 09-30-2025 LIPID SCREEN LIPID SCREEN [facility] Start: 08-23-2025 Annual PCP Team Aircraft Cylinder Mechanic quinton Disease Visit Annual PCP Team Chronic Disease Visit [facility] Start: 08-23-2025 BP Controlled (<130/80) BP Controlle d (<130/80) [facility] Start: 06-13-2025 End: 06-13-2025 Patient encounter procedure 06/13/2025 3:40 PM EST Office Visit [facility] [address] [place] [address] Shira Varma MD [address] [place] [address] 6 month/Welcome to Medicare Wellness [facility] Comment on above: 6 month/Welcome to riaz [facility] Start: 05-10-2025 End: 08-09-2025 TSH W/REFLEX FT4 TSH W/REFLEX FT4 Lab Routine Palpitations Expected: 05/10/2025 (Approximate), Expires: 08/09/2025 [facility] Comment on above: Expected: 05/10/2025 (Approximate), Expires: 08/09/2025 Start: 05-08-2025 DIABETES SCREEN DIABETES SCREEN [facility] Start: 03-01-2025 [facility] Start: 03-01-2025 [facility] Start: 02-13-2025 End: 02-13-2025 Patient encounter procedure 02/13/2025 10:20 AM EDT Office Visit [facility] [place] [address] [place] [address] Annabel Griggs APRN.GENERAL LOT ATTENDANT [address] [facility] [place] [address] follow up [facility] Comment on above: follow up Start: 02-08-2025 End: 05-10-2025 Basic metabolic 2000 panel - Serum or Plasma [facility] Work Phone: Comment on above: Expected: 02/08/2025 , Expires: 05/10/2025 Start: 02-08-2025 End: 05-10-2025 TSH W/REFLEX FT4 TSH W/REFLEX FT4 Lab Routine Palpitations Expected: 02/08/2025, Expires: 05/10/2025 [facility] Work Phone: Comment on above: Expected: 02/08/2025 , Expires: 05/10/2025 Start: 02-05-2025 Influenza vaccination Influenza Vacc ine (#1) [facility] Start: 02-03-2025 [facility] Start: 02-03-2025 [facility] Start: 11-29-2024 End: 02-28-2025 CBC panel - Blood by Automated count COMPLETE BLOOD COUNT Lab Routine Primary hypertension Expected: 11/29/2024, Expires: 02/28/2025 [facility] Comment on above: Expected: 11/29/2024 , Expires: 02/28/2025 Start: 11-29-2024 End: 02-28-2025 Comprehensive metabolic 2000 panel - Serum or Plasma COMPREHENSIVE METABOLIC PANEL Lab Routine Primary hypertension Hypokalemia Elevated glucose Expected: 11/29/2024, Expires: 02/28/2025 [facility] Work Phone: Comment on above: Expected: 11/29/2024 , Expires: 02/28/2025 Start: 11-29-2024 End: 02-28-2025 Hemoglobin A1c in Blood HEMOGLOBIN A1C Lab Routine Elevated glucose Expected: 11/29/2024, Expires: 02/28/2025 [facility] Comment on above: Expected: 11/29/2024 , Expires: 02/28/2025 Start: 11-29-2024 End: 02-28-2025 Lipid 1996 panel - Serum or Plasma LIPID PANEL, FASTING Lab Routine Elevated LDL cholesterol level Expected: 11/29/2024, Expires: 02/28/2025 [facility] Comment on above: Expected: 11/29/2024 , Expires: 02/28/2025 Start: 11-29-2024 End: 02-28-2025 Measles virus IgG Ab [Units/volume] in Serum MEASLES IGG ANTIBODY Lab Routine Immunity status testing Expected: 11/29/2024, Expires: 02/28/2025 [facility] Comment on above: Expected: 11/29/2024 , Expires: 02/28/2025 Start: 11-29-2024 End: 02-28-2025 MUMPS IGG AB MUMPS IGG AB Lab Routine Immunity status testing Expected: 11/29/2024, Expires: 02/28/2025 [facility] Comment on above: Expected: 11/29/2024 , Expires: 02/28/2025 Start: 11-29-2024 End: 02-28-2025 RUBELLA IGG ANTIBODY RUBELLA IGG ANTIBODY Lab Routine Immunity status testing Expected: 11/29/2024, Expires: 02/28/2025 [facility] Comment on above: Expected: 11/29/2024 , Expires: 02/28/2025 Start: 11-29-2024 End: 11-29-2024 Patient encounter procedure 11/29/2024 9:00 AM EDT Office Visit [facility] [place] [address] [facility] [address] Shira Varma MD [address] [place] [address] 6 month follow up [facility] Comment on above: 6 month follow up Start: 11-07-2024 Annual PCP Team Aircraft Cylinder Mechanic quinton Disease Visit Annual PCP Team Chronic Disease Visit [facility] Start: 11-07-2024 BP Controlled (<130/80) BP Controlle d (<130/80) [facility] Start: 09-28-2024 Annual PCP Team Aircraft Cylinder Mechanic quinton Disease Visit Annual PCP Team Chronic Disease Visit [facility] Start: 08-31-2024 Covid-19 Vaccine ( season) Covid-19 Vaccine ( season) [facility] Start: 2024 Advance Directive Discussion Advance Directive Discussion [facility] Start: 2024 Screening for osteoporosis Bone Density Screening [facility] Start: 07-08-2024 Medicare Annual Wellness Visit Medicare Annual Wellness Visit [facility] Start: 06-15-2024 End: 06-15-2024 Patient encounter procedure 06/15/2024 1:00 PM EST Office Visit [facility] Medicine [facility] [address] [place] [address] Annabel Griggs APRN.GENERAL LOT ATTENDANT [address] [place] [address] 1 month BP check [facility] Comment on above: 1 month BP check Start: 05-09-2024 End: 05-09-2024 Patient encounter procedure 05/09/2024 2:00 PM EST Office Visit [facility] [address] [place], [place] [id number] Annabel Griggs APRN.GENERAL LOT ATTENDANT [address] [place] [address] 6 month follow up [facility] Comment on above: 6 month follow up Start: 04-16-2024 DIABETES SCREEN DIABETES SCREEN [facility] Start: 04-09-2024 End: 07-09-2024 Basic metabolic 2000 panel - Serum or Plasma BASIC METABOLIC PANEL Lab Routine Primary hypertension IFG (impaired fasting glucose) Expected: 04/09/2024 (Approximate), Expires: 07/09/2024 [facility] Comment on above: Expected: 04/09/2024 (Approximate), Expires: 07/09/2024 Start: 04-09-2024 End: 07-09-2024 Hemoglobin A1c in Blood HEMOGLOBIN A1C Lab Routine IFG (impaired fasting glucose) Expected: 04/09/2024 (Approximate), Expires: 07/09/2024 [facility] Comment on above: Expected: 04/09/2024 (Approximate), Expires: 07/09/2024 Start: 04-09-2024 End: 07-09-2024 Lipid 1996 panel - Serum or Plasma LIPID PANEL BASIC Lab Routine Mixed hyperlipidemia Expected: 04/09/2024 (Approximate), Expires: 07/09/2024 [facility] Comment on above: Expected: 04/09/2024 (Approximate), Expires: 07/09/2024 Start: 02-06-2024 Influenza vaccination Influenza Vacc ine (#1) [facility] Start: 11-08-2023 End: 11-08-2023 Patient encounter procedure 11/08/2023 9:00 AM EDT Office Visit [facility] [address] [place], [place] [id number] Shira Varma MD [address] [place], [place] [id number] 2023 giovanni [facility] [place] Comment on above: 2023 giovanni Start: 11-07-2023 ANNUAL PCP TEAM SUPERVISOR PLASMA QUINTON DISEASE VISIT ANNUAL PCP TEAM CHRONIC DISEASE VISIT [facility] Start: 11-07-2023 SHINGRIX VACCINE (1 of 2) SHINGRIX VACCINE (1 of 2) [facility] Comment on above: Postponed from 07/25 (Declined at this time) Start: 10-29-2023 End: 01-28-2024 CBC W Auto Differential panel - Blood COMPLETE BLOOD COUNT AND DIFFERENTIAL Lab Routine Encounter for therapeutic drug monitoring Expected: 10/29/2023, Expires: 01/28/2024 [facility] Comment on above: Expected: 10/29/2023 , Expires: 01/28/2024 Start: 10-29-2023 End: 01-28-2024 Comprehensive metabolic 2000 panel - Serum or Plasma COMPREHENSIVE METABOLIC PANEL Lab Routine Encounter for therapeutic drug monitoring Expected: 10/29/2023, Expires: 01/28/2024 [facility] Comment on above: Expected: 10/29/2023 , Expires: 01/28/2024 Start: 10-29-2023 End: 01-28-2024 Hemoglobin A1c in Blood HEMOGLOBIN A1C Lab Routine IFG (impaired fasting glucose) Expected: 10/29/2023, Expires: 01/28/2024 [facility] Comment on above: Expected: 10/29/2023 , Expires: 01/28/2024 Start: 10-29-2023 End: 01-28-2024 Lipid 1996 panel - Serum or Plasma LIPID PANEL BASIC Lab Routine Elevated LDL cholesterol level Expected: 10/29/2023, Expires: 01/28/2024 [facility] Comment on above: Expected: 10/29/2023 , Expires: 01/28/2024 Start: 10-29-2023 End: 01-28-2024 Thyrotropin [Units/volume] in Serum or Plasma THYROID STIMULATING HORMONE Lab Routine Screening for thyroid disorder Expected: 10/29/2023, Expires: 01/28/2024 [facility] Comment on above: Expected: 10/29/2023 , Expires: 01/28/2024 Start: 10-28-2023 Mammography [facility] Start: 10-28-2023 Screening for malign ant neoplasm of breast Mammogram Screening [facility] Start: 10-06-2023 End: 01-05-2024 Bacteria identified in Urine by Culture URINE CULTURE Microbiology Routine Acute cystitis with hematuria Expected: 10/06/2023, Expires: 01/05/2024 [facility] Comment on above: Expected: 10/06/2023 , Expires: 01/05/2024 Start: 10-06-2023 End: 01-05-2024 Urinalysis complete panel - Urine URINALYSIS, WITH MICROSCOPIC Lab Routine Acute cystitis with hematuria Expected: 10/06/2023, Expires: 01/05/2024 [facility] Comment on above: Expected: 10/06/2023 , Expires: 01/05/2024 Start: 06-07-2023 Behavioral Health Screening Behavioral Health Screening [facility] Start: 05-11-2023 End: 08-10-2023 Comprehensive metabolic 2000 panel - Serum or Plasma COMP METABOLIC PANEL Lab Routine Primary hypertension Hypopotassemia Expected: 05/11/2023, Expires: 08/10/2023 [facility] Work Phone: Comment on above: Expected: 05/11/2023 , Expires: 08/10/2023 Start: 05-11-2023 End: 08-10-2023 Hemoglobin A1c in Blood HGB A1C Lab Routine Primary hypertension Elevated glucose Expected: 05/11/2023, Expires: 08/10/2023 [facility] Work Phone: Comment on above: Expected: 05/11/2023 , Expires: 08/10/2023 Start: 05-11-2023 End: 08-10-2023 Lipid 1996 panel - Serum or Plasma LIPID PANEL BASIC Lab Routine Primary hypertension Elevated LDL cholesterol level Expected: 05/11/2023, Expires: 08/10/2023 [facility] Work Phone: Comment on above: Expected: 05/11/2023 , Expires: 08/10/2023 Start: 05-08-2023 BP CONTROLLED (<130/80) BP CONTROLLE D (<130/80) [facility] Start: 04-10-2023 ANNUAL PCP TEAM SUPERVISOR PLASMA QUINTON DISEASE VISIT ANNUAL PCP TEAM CHRONIC DISEASE VISIT [facility] Start: 02-05-2023 Covid-19 Vaccine () Covid-19 Vaccine () [facility] Start: 02-05-2023 Influenza vaccination C [facility] Start: 11-06-2022 End: 01-06-2023 COLOGUARD COLOGUARD Lab Routine Screening for colon cancer Expected: 11/06/2022, Expires: 01/06/2023 [facility] Work Phone: Comment on above: Expected: 11/06/2022 , Expires: 01/06/2023 Start: 11-04-2022 ANNUAL PCP TEAM SUPERVISOR PLASMA QUINTON DISEASE VISIT ANNUAL PCP TEAM CHRONIC DISEASE VISIT [facility] Start: 11-03-2022 Adult depression screening assessment DEPRESSION SCREENING [facility] Start: 09-05-2022 Urine microalbumin profile DTAP,TDAP,TD (2 - Td or Tdap) [facility] Start: 06-08-2022 SHINGRIX VACCINE (1 of 2) SHINGRIX VACCINE (1 of 2) [facility] Comment on above: Postponed from 07/25 (Insurance Coverage) Start: 06-07-2022 DEPRESSION ASSESSMENT DEPRESSION ASS ESSMENT [facility] Start: 05-08-2022 End: 07-08-2022 Comprehensive metabolic 2000 panel - Serum or Plasma [facility] Work Phone: Comment on above: Expected: 05/08/2022 , Expires: 07/08/2022 Start: 05-08-2022 End: 07-08-2022 Hemoglobin A1c in Blood [facility] Work Phone: Comment on above: Expected: 05/08/2022 , Expires: 07/08/2022 Start: 05-08-2022 End: 07-08-2022 LIPID PANEL, NONFASTING [facility] Work Phone: Comment on above: Expected: 05/08/2022 , Expires: 07/08/2022 Start: 04-16-2022 ANNUAL PCP TEAM SUPERVISOR PLASMA QUINTON DISEASE VISIT ANNUAL PCP TEAM CHRONIC DISEASE VISIT [facility] Start: 04-16-2022 BP CONTROLLED (<130/80) BP CONTROLLE D (<130/80) [facility] Start: 04-16-2022 SHINGRIX VACCINE (1 of 2) SHINGRIX VACCINE (1 of 2) [facility] Comment on above: Postponed from 07/25 (Declined at this time) Start: 02-05-2022 Influenza vaccination INFLUENZA (#1) [facility] Start: 11-04-2021 End: 01-04-2022 CBC panel - Blood by Automated count CBC Lab Routine Essential hypertension Expected: 11/04/2021, Expires: 01/04/2022 [facility] Work Phone: Comment on above: Expected: 11/04/2021 , Expires: 01/04/2022 Start: 11-04-2021 End: 01-04-2022 Comprehensive metabolic 2000 panel - Serum or Plasma COMP METABOLIC PANEL Lab Routine Essential hypertension IFG (impaired fasting glucose) Mixed hyperlipidemia Expected: 11/04/2021, Expires: 01/04/2022 [facility] Work Phone: Comment on above: Expected: 11/04/2021 , Expires: 01/04/2022 Start: 11-04-2021 End: 01-04-2022 Hemoglobin A1c/Hemoglobin.total in Blood HGB A1C Lab Routine IFG (impaired fasting glucose) Expected: 11/04/2021, Expires: 01/04/2022 [facility] Work Phone: Comment on above: Expected: 11/04/2021 , Expires: 01/04/2022 Start: 11-04-2021 End: 01-04-2022 LIPID PANEL BASIC LIPID PANEL BASIC Lab Routine Mixed hyperlipidemia Expected: 11/04/2021, Expires: 01/04/2022 [facility] Work Phone: Comment on above: Expected: 11/04/2021 , Expires: 01/04/2022 Start: 09-30-2021 COLORECTAL CANCER SCREENING COLORECTAL CANCER SCREENING [facility] Comment on above: Postponed from 07/25 (Declined at this time) Start: 09-24-2021 Adult depression screening assessment DEPRESSION SCREENING [facility] Start: 07-15-2021 COVID-19 VACCINE (4 - Booster for Pfizer series) COVID-19 VACCINE (4 - Booster for Pfizer series) [facility] Start: 06-07-2021 DEPRESSION ASSESSMENT DEPRESSION ASS ESSMENT [facility] Start: 04-14-2021 HPV TESTING HPV TESTING [facility] Start: 04-14-2021 PAP TESTING PAP TESTING [facility] Start: 03-07-2020 Mammography MAMMOGRAM [facility] Start: 02-29-2020 BP CONTROLLED (<130/80) BP CONTROLLE D (<130/80) [facility] Start: 2019 RSV Vaccine (1 - 1-d ose 60+ series) RSV Vaccine (1 - 1-dose 60+ series) [facility] Start: 2009 Pneumococcal Vaccine : 50+ (1 of 1 - PCV) Pneumococcal Vaccine: 50+ (1 of 1 - PCV) [facility] Start: 2009 SHINGRIX VACCINE (1 of 2) SHINGRIX VACCINE (1 of 2) [facility] Start: 2004 COLOGUARD (FIT-DNA) COLOGUARD (FIT-D NA) [facility] Start: 2004 Colonoscopy COLONOSCOPY [facility] Start: 2004 COLORECTAL CANCER SCREENING COLORECTAL CANCER SCREENING [facility] Start: [address] COLONOGRAPHY [facility] Start: 2004 FECAL OCCULT BLOOD FECAL OCCULT BLOO D [facility] Start: 2004 Screening for malign ant neoplasm of colon [facility] Start: 2004 SIGMOIDOSCOPY SIGMOIDOSCOPY [facility] Start: 1977 Anxiety Screening Anxiety Screening [facility] Start: 1977 Depression Screening Depression Scre ening [facility] Bacteria identified in Urine by Culture URINE CULTURE Microbiology Routine Urgency of urination Ordered: 03/23/2023 [facility] Work Phone: Comment on above: Ordered: 03/23/2023 Bacteria identified in Urine by Culture URINE CULTURE Microbiology Routine Acute cystitis with hematuria 09/29/2023 3:15 PM EDT [facility] Bacteria identified in Urine by Culture BACTERIAL CULTURE, URINE Microbiology Routine Urgency of urination Ordered: 08/19/2024 [facility] Work Phone: Comment on above: Ordered: 08/19/2024 End: 04-30-2022 Basic metabolic 2000 panel - Serum or Plasma BASIC METABOLIC PNL Lab Routine Hypopotassemia 1 Occurrences starting 04/30/2021 until 04/30/2022 [facility] Work Phone: Comment on above: 1 Occurrences starti ng 04/30/2021 until 04/30/2022 End: 02-13-2026 Basic metabolic 2000 panel - Serum or Plasma BASIC METABOLIC PANEL Lab Routine Palpitations Hypokalemia Once per week for 6 Occurrences starting 02/13/2025 until 02/13/2026 [facility] Work Phone: Comment on above: Once per week for 6 Occurrences starting 02/13/2025 until 02/13/2026 End: 12-29-2025 BD DXA TRABECULAR BONE SCORE (TBS) BD DXA TRABECULAR BONE SCORE (TBS) Radiology Routine Asymptomatic menopause 1 Occurrences starting 11/29/2024 until 12/29/2025 [facility] Comment on above: 1 Occurrences starti ng 11/29/2024 until 12/29/2025 End: 11-06-2023 CBC panel - Blood by Automated count CBC Lab Routine Primary hypertension Every 6 months for 3 Occurrences starting 11/06/2022 until 11/06/2023, 1 completed [facility] Work Phone: Comment on above: Every 6 months for 3 Occurrences starting 11/06/2022 until 11/06/2023, 1 completed COLOGUARD COLOGUARD Lab Ro utine Colon cancer screening Ordered: 11/04/2021 [facility] Work Phone: Comment on above: Ordered: 11/04/2021 COLOGUARD COLOGUARD Lab Ro utine Screening for colon cancer Ordered: 11/08/2023 [facility] Work Phone: Comment on above: Ordered: 11/08/2023 COLOGUARD COLOGUARD Lab Ro utine Screening for colon cancer Ordered: 11/29/2024 [facility] Comment on above: Ordered: 11/29/2024 End: 11-06-2023 Comprehensive metabolic 2000 panel - Serum or Plasma COMP METABOLIC PANEL Lab Routine Primary hypertension Hypokalemia Every 6 months for 3 Occurrences starting 11/06/2022 until 11/06/2023, 1 completed [facility] Work Phone: Comment on above: Every 6 months for 3 Occurrences starting 11/06/2022 until 11/06/2023, 1 completed End: 12-30-2024 DBT Breast - bilateral screening CARLOS SCREENING W SHANNAN Radiology Routine Encounter for screening mammogram for breast cancer 1 Occurrences starting 12/01/2023 until 12/30/2024 [facility] Work Phone: Comment on above: 1 Occurrences starti ng 12/01/2023 until 12/30/2024 End: 11-30-2025 DBT Breast - bilateral screening CARLOS SCREENING W SHANNAN Radiology Routine Encounter for screening mammogram for breast cancer 1 Occurrences starting 10/31/2024 until 11/30/2025 [facility] Work Phone: Comment on above: 1 Occurrences starti ng 10/31/2024 until 11/30/2025 End: 12-29-2025 DBT Breast - bilateral screening CARLOS SCREENING W SHANNAN Radiology Routine Encounter for screening mammogram for breast cancer 1 Occurrences starting 11/29/2024 until 12/29/2025 [facility] Comment on above: 1 Occurrences starti ng 11/29/2024 until 12/29/2025 End: 12-29-2025 DXA Skeletal system.axial Views for bone density DXA-AXIAL SKELETON Radiology Routine Asymptomatic menopause 1 Occurrences starting 11/29/2024 until 12/29/2025 [facility] Comment on above: 1 Occurrences starti ng 11/29/2024 until 12/29/2025 End: 11-06-2023 Hemoglobin A1c in Blood HGB A1C Lab Routine IFG (impaired fasting glucose) Every 6 months for 3 Occurrences starting 11/06/2022 until 11/06/2023, 1 completed [facility] Work Phone: Comment on above: Every 6 months for 3 Occurrences starting 11/06/2022 until 11/06/2023, 1 completed End: 11-06-2023 Lipid 1996 panel - Serum or Plasma LIPID PANEL BASIC Lab Routine Mixed hyperlipidemia Every 6 months for 3 Occurrences starting 11/06/2022 until 11/06/2023 [facility] Work Phone: Comment on above: Every 6 months for 3 Occurrences starting 11/06/2022 until 11/06/2023 End: 02-13-2026 Magnesium [Mass/volume] in Serum or Plasma MAGNESIUM Lab Routine Hypomagnesemia Once per week for 6 Occurrences starting 02/13/2025 until 02/13/2026 [facility] Comment on above: Once per week for 6 Occurrences starting 02/13/2025 until 02/13/2026 End: 09-25-2023 CARLOS SCREENING CARLOS SCREENING Radiology Routine Encounter for screening mammogram for breast cancer 1 Occurrences starting 08/26/2022 until 09/25/2023 [facility] Work Phone: Comment on above: 1 Occurrences starti ng 08/26/2022 until 09/25/2023 OUTSIDE VENDOR CARDI AC OUTPATIENT EXTENDED RHYTHM RECORDING (WITHOUT TELEMETRY) OUTSIDE VENDOR CARDIAC OUTPATIENT EXTENDED RHYTHM RECORDING (WITHOUT TELEMETRY) Holter Routine Palpitations Ordered: 02/08/2025 [facility] Comment on above: Ordered: 02/08/2025 Patient Education [facility] Work Phone: Patient referral [facility] Work Phone: End: 10-10-2022 Screening mammography bi 2-view breast inc cad CARLOS SCREENING Radiology Routine Encounter for screening mammogram for breast cancer 1 Occurrences starting 09/10/2021 until 10/10/2022 [facility] Work Phone: Comment on above: 1 Occurrences starti ng 09/10/2021 until 10/10/2022 UA DIP B/O UA DIP B/O Lab R outine Acute cystitis with hematuria Ordered: 09/29/2023 [facility] Work Phone: Comment on above: Ordered: 09/29/2023 [facility] Immunizations Immunization Date Immunization Notes Care Provider [facility] 11-29-2024 pneumococcal conjuga te (PCV20) vaccine, 20 valent (PREVNAR 20) Shira Varma MD Work Phone: [facility] 11-29-2024 pneumococcal Conjuga te, unspecified formulation Shira Varma MD Work Phone: [facility] 04-07-2024 influenza, injectabl e, madin mini canine kidney, preservative free [facility] BEEF FARMER.GENERAL LOT ATTENDANT Work Phone: [facility] 04-07-2024 influenza virus vaccine, unspecified formulation Shira Varma MD Work Phone: [facility] 03-03-2024 COVID-19 vaccine, ag e 12+ yr (PFIZER-[employer] [facility]) Annabel Griggs BEEF FARMER.GENERAL LOT ATTENDANT Work Phone: [facility] 04-23-2023 Influenza, injectabl e, Madin Mini Canine Kidney, preservative free, quadrivalent Shira Varma MD Work Phone: [facility] 04-23-2023 influenza virus vaccine, unspecified formulation Shira Varma MD Work Phone: [facility] 11-06-2022 tetanus and diphther ia toxoids, adsorbed, preservative free, for adult use (5 Lf of tetanus toxoid and 2 Lf of diphtheria toxoid) Shira Varma MD Work Phone: [facility] 11-06-2022 TD(adult) unspecifie d formulation Shira Varma MD Work Phone: [facility] Work Phone: 03-20-2022 influenza, seasonal, injectable Annabel Escamillas BEEF FARMER.GENERAL LOT ATTENDANT Work Phone: [facility] Work Phone: 03-20-2022 influenza virus vaccine, unspecified formulation Nahomi Moreland BEEF FARMER.CLERK CARRIER Work Phone: [facility] 04-07-2021 influenza, injectabl e, quadrivalent, contains preservative Shira Varma MD Work Phone: [facility] 08-15-2020 COVID-19 vaccine, ag e 12+ yr (PFIZER-BIONTECH - PURPLE TOP) Shira Varma MD Work Phone: [facility] Work Phone: 07-26-2020 COVID-19 vaccine, ag e 12+ yr (PFIZER-BIONTECH - PURPLE TOP) Shira Varma MD Work Phone: [facility] Work Phone: 02-29-2020 influenza, injectabl e, quadrivalent, preservative free Shira Varma MD Work Phone: [facility] Work Phone: 02-25-2019 influenza, injectabl e, quadrivalent, preservative free Shira Varma MD Work Phone: [facility] Work Phone: 03-07-2018 influenza, injectabl e, quadrivalent, contains preservative Shira Varma MD Work Phone: [facility] 04-08-2015 influenza virus vaccine, whole virus Shira Varma MD Work Phone: [facility] Work Phone: 03-14-2014 influenza, seasonal, injectable Shira Varma MD Work Phone: [facility] 04-22-2013 influenza virus vaccine, unspecified formulation Shira Varma MD Work Phone: [facility] 09-05-2012 tetanus toxoid, redu julianne diphtheria toxoid, and acellular pertussis vaccine, adsorbed Shira Varma MD Work Phone: [facility] 03-26-2012 influenza virus vaccine, unspecified formulation Shira Varma MD Work Phone: [facility] Work Phone: 05-23-2010 influenza virus vaccine, unspecified formulation Shira Varma MD Work Phone: [facility] Work Phone: 03-28-2009 influenza virus vaccine, unspecified formulation Shira Varma MD Work Phone: [facility] Work Phone: 04-12-2007 influenza virus vaccine, unspecified formulation Shira Varma MD Work Phone: [facility] Work Phone: 04-06-2006 influenza virus vaccine, unspecified formulation Shira Varma MD Work Phone: [facility] 06-08-2003 tetanus and diphther ia toxoids, adsorbed, preservative free, for adult use (2 Lf of tetanus toxoid and 2 Lf of diphtheria toxoid) Shira Varma MD Work Phone: [facility] Work Phone: 09-16-1969 measles, mumps and rubella virus vaccine Shira Varma MD Work Phone: [facility] Payers Date Payer Category Payer [employer] ( and others) [id number] 2025 Self-pay 2024 Medicare MEDICARE [id number] 2024 Medicare [id number] 2021 Government (not [facility] or Medicaid) [id number] [facility] [id number] 2021-Present [phone] [address] Indemnity [id number] 2021 [employer] ( and others) [id number] 2017 Unknown [facility] [id number] 2017-Present [phone] [address] Indemnity [id number] Department of [facility] e ( and others) [id number] Private Health Insurance [id number] Unknown [id number] Unknown [id number] Unknown [id number] Unknown [id number] Unknown [id number] Unknown [id number] Social History Date Type Detail Facility Start: 07-12-2012 End: 03-01-2025 Tobacco smoking status NHIS Ex-smoker [facility] Start: 04-29-2021 End: 02-13-2025 Alcohol intake Current drinker of alcohol (finding) [facility] Start: 12-02-2019 End: 05-04-2022 History SDOH Alcohol Frequency 2 [facility] Start: 12-02-2019 End: 04-10-2022 History SDOH Alcohol Std Drinks 1 [facility] Start: 04-13-2007 History SDOH Alcohol Comment Seldom [facility] Start: 09-01-2019 End: 05-04-2022 History SDOH Social Connections Phone 5 [facility] Start: 03-30-2020 End: 05-04-2022 History SDOH Social Connections Get Together 98 [facility] Start: 09-01-2019 End: 05-04-2022 History SDOH Social Connections [employer] 3 [facility] Start: 09-01-2019 Education 17 [facility] Start: 1960 Sex Assigned At Female [facility] Start: 03-17-2021 End: 04-16-2021 Exposure to SARS-CoV-2 (event) Yes [facility] Start: 09-04-2020 End: 05-08-2022 Exposure to SARS-CoV-2 (event) Not sure [facility] History of tobacco use Current smoker [facility] Start: 07-12-2012 End: 05-08-2022 Tobacco use and exposure Smokeless tobacco non-user [facility] Start: 04-12-2022 Tobacco smoking status NHIS Unknown if ever smoked [facility] Work Phone: Start: 05-04-2022 History SDOH Financial 4 [facility] Start: 05-08-2022 Tobacco Comment quit in college [facility] Start: 05-04-2022 End: 10-27-2022 History of Social function [facility] Start: 05-04-2022 End: 10-27-2022 Social connection and isolation panel [facility] Start: 05-08-2012 How often do you attend meetings of the clubs or organizations you belong to? Patient refused [facility] Are you now , , , , never or living with a partner? [facility] How often to you hav e a drink containing alcohol? Monthly or less [facility] How many standard dr inks containing alcohol do you have on a typical day? 1 or 2 [facility] How often do you hav e 6 or more drinks on 1 occasion? Never [facility] How hard is it for y ou to pay for the very basics like food, housing, medical care, and heating Not very hard [facility] Do you feel stress - tense, restless, nervous, or anxious, or unable to sleep at night because your mind is troubled all the time - these days [OSQ] Only a little [facility] (I/We) worried izaiah er (my/our) food would run out before (I/we) got money to buy more. Never true [facility] In the past 12 month s, was there a time when you were not able to pay the mortgage or rent on time? No [facility] Start: 03-07-2018 Gender identity Identifies as female gender (finding) [facility] Start: 03-07-2018 Sexual orientation Heterosexual (finding) [facility] Do you feel stress - tense, restless, nervous, or anxious, or unable to sleep at night because your mind is troubled all the time - these days [OSQ] To some extent [facility] Functional Status Date Assessment Result Facility 11-06-2014 Are you deaf, or do you have serious difficulty hearing No 11/06/2014 2:32 PM EDT Lore Selby Ma No [facility] 11-06-2014 Are you blind, or do you have serious difficulty seeing, even when wearing glasses No 11/06/2014 2:32 PM EDT Lore Selby Ma No [facility] 11-06-2014 Do you have serious difficulty walking or climbing stairs No 11/06/2014 2:32 PM EDT Lore Selby Ma No [facility] 11-06-2014 Do you have difficul ty dressing or bathing No 11/06/2014 2:32 PM EDT Lore Selby Ma No [facility] 11-06-2014 Because of a physica l, mental, or emotional condition, do you have difficulty doing errands alone such as visiting a physician's office or shopping No 11/06/2014 2:32 PM EDT Lore Selby Ma No [facility] Mental Status Date Assessment Result Facility 03-01-2025 Cognitive function Awake [facility] Work Phone: 02-03-2025 Cognitive function Voice/Name [facility] Work Phone: 11-06-2014 Because of a physica l, mental, or emotional condition, do you have serious difficulty concentrating, remembering, or making decisions No 11/06/2014 2:32 PM EDT Lore Selby Ma No [facility] Clinical Notes 03-09-2006 to 04-16-2025 María Elena Vinson LPN - 02/13/2025 2:25 PM EDAnnabel Marroquin APRN.CNS - 02/13/2025 9:28 AM EDTPatient InstructionsTelephone Encounter - María Elena Vinson LPN - 02/08/2025 5:06 PM EDT Note Date & Type Note Facility 04-16-2025 Note HNO ID: [id number] Author: JENNIFER CASTELLANO APRN.CLERK CARRIER Service: ? Author Type: Nurse Practitioner Type: Progress Notes Filed: 04/16/2025 14:02 Note Text: [facility] Subjective Yuki Thomas is a 64 year old female. 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 The patient reports right chest wall pain that began last night in her back and radiates to the front of her chest. The pain kept her awake all night and is described as a weird pain that feels like a deep bruise. The pain is reproducible with palpation and is located in the lower right breast area, radiating to the back. She denies numbness, tingling, itchiness, rash, jaw pain, or heaviness in the chest. She notes that sometimes her underwire bra hits the spot where it hurts, but she is unsure if this is related. She denies any recent injuries. Has not taken any tylenol as she is unsure if she can take this with new heart medication. She was not able to ask a lot of questions a her appointment and feels a little lost with new diagnosis. She is concerned that the pain may be related to her heart. She was recently diagnosed with PVCs by Dr. Vargas and started on metoprolol and losartan. She reports some fatigue and dizziness since starting the medications, as well as a brief sensation of heaviness in her chest after taking the medication that resolves quickly. She has an echocardiogram scheduled for later this month. She is up to date on mammograms and denies feeling any lumps in her breast. She has not received the shingles vaccine and denies any history of shingles. She reports recent congestion and exposure to illness from her , who recently had a bad cold. 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 Review of Systems Constitutional: (+) fatigue Head: (-) jaw pain Ears/Nose/Mouth/Throat: (+) nasal congestion Breast: (-) breast mass Cardiovascular: (-) chest pressure Respiratory: (-) dyspnea Musculoskeletal: (+) right chest wall pain, (+) pain radiating to back, (+) right chest wall tenderness Skin: (-) rash, (-) pruritus Neurological: (-) dizziness, (-) numbness, (-) tingling PAST MEDICAL HISTORY Diagnosis Date GERD (gastroesophageal reflux disease) hypertension Hypopotassemia PAST SURGICAL HISTORY Procedure Laterality Date BIOPSY BREAST OPEN INCISIONAL lumpectomy - benign LAPS ABD PRTMANDOMENTUM DX W/WO SPEC BR/WA SPX for infertility TONSILLECTOMY PRIMARY/SECONDARY Tonsillectomy ALLERGIES Ciprofloxacin, Erythromycin, Hydrochlorothiazide, and Sulfa (Sulfonamide Antibiotics) MEDICATIONS losartan (COZAAR) 50 mg tablet Take 1 tablet by mouth once daily. metoprolol succinate ER (TOPROL XL) 25 mg 24 hr tablet Take 1 tablet by mouth once daily. Magnesium Oxide 500 mg magnesium tab Take 1 tablet by mouth once daily. diclofenac (VOLTAREN ARTHRITIS PAIN) 1 % topical gel Apply 2 g to affected area four times daily as needed. Omeprazole Magnesium 20 mg tablet Take 1 tablet by mouth as needed. 1/2 hr before meal. FA/MV,CA,IRON,MIN/LYCOPENE/LUT (MULTIVITAL ORAL) Take by mouth. Alive multivitamin +50 amLODIPine (NORVASC) 5 mg tablet Take 1 tablet by mouth once daily. DOSE CHANGE, TAKE ONE DAILY (Patient not taking: Reported on 04/16/2025) potassium chloride ER (KLOR-CON) 20 mEq tablet Take 1 tablet by mouth once daily. (Patient not taking: Reported on 04/16/2025) FAMILY HISTORY Problem Relation Age of Onset Hypertension Mother other (dementia) Mother other (hepatitis B) Mother Hypertension Father [place], age 45 other (dementia) Father age 86 Hypertension Brother other (gout) Brother Heart Maternal Grandmother CHF other (Parkinson's disease) Maternal Grandfather SOCIAL HISTORY[1] Objective BP 120/82 Pulse 76 Temp 36.5 ?C (97.7 ?F) Resp 16 Wt 84.3 kg (185 lb 13.6 oz) LMP 02/06/2009 SpO2 99% BMI 30.00 kg/m? Physical Exam Constitutional: General: She is not in acute distress. Appearance: Normal appearance. She is normal weight. She is not ill-appearing or toxic-appearing. HENT: Head: Normocephalic and atraumatic. Right Ear: Tympanic membrane, ear canal and external ear normal. Left Ear: Tympanic membrane and external ear normal. Nose: No congestion or rhinorrhea. Mouth/Throat: Pharynx: No oropharyngeal exudate or posterior oropharyngeal erythema. Eyes: Extraocular Movements: Extraocular movements intact. Conjunctiva/sclera: Conjunctivae normal. Pupils: Pupils are equal, round, and reactive to light. Cardiovascular: Rate and Rhythm: Normal rate and regular rhythm. Pulses: Normal pulses. Heart sounds: Normal heart sounds. Pulmonary: Effort: Pulmonary effort is normal. Breath sounds: Normal breath sounds. Chest: Chest wall: Ten (more content not included)... [facility] 03-01-2025 Discharge summary [facility] 03-01-2025 Radiology Diagnostic study note [facility] Imaging Services [address] [place] [address] Chest PA and Lateral MR#: [id number] Acct: [id number] Name: YUKI THOMAS Rep #: [id number] : 1960 F 64 From: Merry Solorzano MD PCP: Dr. Shira Varma MD Status: RE G ER Study:Chest PA and Lateral Date of Exam: 03/01/25 Exam# [id number] Ordering Dr: Osman Do DO PROCEDURE: CHEST PA AND LATERAL 03/01/2025 REASON FOR EXAM: CHEST PAIN TECHNIQUE: Procedure Code: RADCXR Modality: DX Procedure: CHEST PA AND LATERAL COMPARISON: February 03, 2025 FINDINGS: Heart size and mediastinal configuration are within normal limits. There is no focal infiltrate or consolidation. There is no pneumothorax or effusion. Aortic calcifications are noted there is no acute bony abnormality. RAD/Chest PA and Lateral IMPRESSION: No acute process is identified in the chest. Reading Location: [facility] CC: Dr. Osman Do DO; Dr. Shira Varma MD ~ Division Supervisor: Signed [facility] 02-13-2025 Note HNO ID: [id number] Author: MARÍA ELENA VINSON LPN Service: ? Author Type: Licensed Nurse Type: Progress Notes Filed: 02/13/2025 14:26 Note Text: EVENT MONITOR DISPOSABLE PATCH INSTRUCTIONS Patient Name: Yuki Thomas Clinic Number: [id number] Skin prepped and cleansed with alcohol Patch secured to prepped area Monitor Activated Serial #: [id number] Patient Instructed: Prescribed order timeframe Bathing guidelines Usage of event button and diary documentation Return of monitor at the end of prescribed order Call with problems [phone] or [phone]. [phone] Patient expresses a good understanding of instructions María Elena Vinson LPN [facility] 02-13-2025 History of Present illness Narrative EVENT MONITOR DISPOSABLE PATCH INSTRUCTIONS Patient Name: Yuki Thomas Clinic Number: [id number] Skin prepped and cleansed with alcohol Patch secured to prepped area Monitor Activated Serial #: [id number] Patient Instructed: Prescribed order timeframe Bathing guidelines Usage of event button and diary documentation Return of monitor at the end of prescribed order Call with problems [phone] or [phone]. [phone] Patient expresses a good understanding of instructions María Elena Vinson LPN SUBJECTIVE: Colorectal Cancer Screening Never done Shingrix Vaccine(1 of 2) Never done Mammogram Screening due on 10/28/2023 Medicare Annual Wellness Visit Never done Bone Density Screening due on 2024 Advance Directive Discussion Never done Influenza Vaccine(1) due on 02/05/2025 HPI Yuki Thomas is a 64 year old female. PMH significant for ACTIVE PROBLEM LIST Htn (Hypertension) Elevated Ldl Cholesterol Level Hypopotassemia Neck Stiffness Neck Pain Yuki Thomas presents today for a follow up visit. Seen last week for ER follow up visit for palpitations, hypokalemia and hypomagnesemia. Review of care everywhere document shows she presented [facility] February 03, 2025 with palpitations described as fluttering in her chest and belching with an elevated heart rate. Duration for the day on arrival. Noted home heart rate 120 bpm on pulse oximeter. Noted some pauses after certain heartbeats. She was without fever chills cough nausea vomiting diaphoresis shortness of breath. She noted mild lightheadedness. No exacerbating or alleviating factors. EKG showed sinus rhythm with PVCs. No ischemic changes. Chest x-ray with no acute process. Exam revealed regular rate and rhythm with occasional extrasystoles. Lab work showed potassium low at 2.8. Troponin negative. Normal lipase. Advised follow-up with primary care provider, consider cardiology referral, Holter monitor. Medication changes: increased potassium. At last visit she reported persistent palpitations but feeling somewhat improved increased potassium dose.Lab work was completed at her last visit. She was advised to discontinue chlorthalidone, increase amlodipine from 2.5 mg. Stop supplemental potassium. Today reports Hypokalemia and Hypomagnesemia: - Recent lab results show low potassium and magnesium levels. - Yuki Thomas stopped taking chlorthalidone and potassium supplements on Wednesday. - Experiencing palpitations and fatigue, particularly on Wednesday. - Noted improvement in energy levels on Wednesday and Wednesday. - Currently taking amlodipine 5 mg, 2.5 mg BID. - Yuki reports dizziness approximately 30 minutes after taking amlodipine, especially with positional changes; resolves within seconds. - Taking magnesium supplement in the morning; inquires about switching to a 500 mg tablet. - Taking Prilosec in the morning; inquires about potential interaction with magnesium absorption. - Yuki has not yet scheduled a cardiology appointment with [facility]. - Inquires about dietary sources of potassium and magnesium. - Asks about the impact of caffeine on palpitations. - Inquires about receiving COVID-19 and flu vaccinations. HTN: She is without report of headache, chest pain, dyspnea, peripheral edema, orthopnea, fatigue and PND. Last 14 Encounter BP Readings: Date: BP: 02/13/2025 142/72 02/08/2025 136/82 11/29/2024 132/83 08/23/2024 117/79 08/19/2024 163/83 06/15/2024 136/85[bp average[ 05/09/2024 159/84 03/20/2024 137/78 11/08/2023 121/77 09/29/2023 138/90 06/21/2023 134/79[average bp[ 06/05/2023 148/96 05/11/2023 139/84 03/23/2023 142/82 ROS Constitutional: (+) fatigue Cardiovascular: (+) palpitations Gastrointestinal: (+) abdominal discomfort, (+) reflux Neurological: (+) dizziness Objective BP 142/72 Pulse 78 Resp 16 Wt 88.5 kg (195 lb 1.7 oz) LMP 02/06/2009 SpO2 98% BMI 31.49 kg/m Physical Exam Vitals and nursing note reviewed. Constitutional: General: She is not in acute distress. Appearance: Normal appearance. She is not ill-appearing, toxic-appearing or diaphoretic. HENT: Head: Normocephalic and atraumatic. Right Ear: Tympanic membrane and ear canal normal. Left Ear: Ear canal normal. Nose: Nose normal. No mucosal edema or rhinorrhea. Mouth/Throat: Lips: [place]. Mouth: Mucous membranes are moist. Pharynx: Oropharynx [...] Sulfa (Sulfonamide * Hives in childhoood Medications amLODIPine (NORVASC) 2.5 mg tablet Take 2 tablets by mouth once daily. diclofenac (VOLTAREN ARTHRITIS PAIN) 1 % topical gel Apply 2 g to affected area four times daily as needed. Omeprazole Magnesium 20 mg tablet Take 1 tablet by mouth as needed. 1/2 hr before meal. FA/MV,CA,IRON,MIN/LYCOPENE/LUT (MULTIVITAL ORAL) Take by mouth. Alive multivitamin +50 Magnesium Oxide 500 mg magnesium tab Take 1 tablet by mouth once daily. potassium chloride ER (KLOR-CON) 20 mEq tablet Take 1 tablet by mouth once daily. PAST MEDICAL HISTORY Diagnosis Date GERD (gastroesophageal reflux disease) hypertension Hypopotassemia Social History Tobacco Use Smoking status: Former Smokeless tobacco: Never Tobacco comments: quit in [facility] Vaping Use Vaping status: Never Used Substance Use Topics Alcohol use: Yes Comment: Seldom Drug use: No Latest Ref Rng 02/08/2025 02/12/2025 Glucose 74 - 99 mg/dL 122 (H) 129 (H) BUN 7 - 21 mg/dL 17 18 Creatinine 0.58 - 0.96 mg/dL 0.75 0.69 Sodium 136 - 144 mmol/L 139 141 Potassium 3.7 - 5.1 mmol/L 3.5 (L) 3.3 (L) Chloride 98 - 107 mmol/L 101 101 CO2 22 - 30 mmol/L 24 27 Anion Gap 8 - 15 mmol/L 14 13 Calcium 8.5 - 10.2 mg/dL 8.8 9.1 eGFR >=60 mL/min/1.73m 88 96 Hemoglobin A1C 4.3 - 5.6 % 6.0 (H) Estimated Average Glucose mg/dL 126 Measles Antibody, IGG Qualitative Positive Positive Mumps IgG, Qual Positive Positive Rubella IgG, Qual Positive Positive TSH 0.270 - 4.200 mIU/L 3.200 Magnesium 1.7 - 2.3 mg/dL 1.5 (L) 1. Palpitations (R00.2) 2. Hypokalemia (E87.6) 3. Hypomagnesemia (E83.42) 4. Essential (primary) hypertension (I10) - Recent improvement in palpitations and energy levels after discontinuing chlorthalidone and potassium on Wednesday; palpitations and fatigue recurred Wednesday. - Positional dizziness noted after increasing amlodipine from 2.5 mg to 5 mg daily, taken BID; symptoms occur ~30 minutes post-dose, primarily with positional changes, and resolve within seconds. This is likely due to her dose increase. Recommend slowly rising to standing position, count and temp of her morning. Maintain adequate hydration. - Hypokalemia and hypomagnesemia likely secondary to prior diuretic use; potassium and magnesium remain low on recent labs. - Continue amlodipine 5 mg daily, divided BID; advised that dizziness should improve with time as body adjusts to new dose. - Start potassium chloride 20 mEq 1 tablet daily with dinner to minimize GI upset. - Increase magnesium to 500 mg daily; advised to take magnesium with dinner and separate from morning Prilosec to improve absorption. - Advised to avoid caffeine to reduce palpitations; encouraged increased fluid intake (water, decaf tea). - Standing orders for weekly labs (potassium, magnesium) for the next 4 weeks to monitor and adjust supplementation as needed. - Advised to follow up with cardiology ([facility]) as previously recommended. Assisted with applying ZIO in office today as she had difficulty at home. Annabel Griggs APRN.CNS Medical Decision Making: Problems: Moderate: 1+ chronic illnesses with change Data: Unique test result(s) reviewed: 2 Unique test(s) ordered: 2 Risk: Moderate: Drug management Medical Decision Making Level: 4 - Moderate documented in this encounter [facility] 02-13-2025 Instructions Annabel Griggs APRN.CNS - 02/13/2025 9:55 AM EDT - Continue amlodipine 5 mg each day, split as 2.5 mg in the morning and 2.5 mg in the evening. - Do not restart chlorthalidone; the last dose was taken on Wednesday. - Increase your magnesium supplement to 500 mg once daily with dinner (keep it at least several hours apart from your morning Prilosec). - Restart potassium at one tablet daily with dinner. - Continue taking Prilosec each morning as prescribed. - Have blood drawn once a week for the next four weeks to check your potassium and magnesium levels; labs will guide further dose adjustments. - Call [facility] to schedule your cardiology appointment. - Limit caffeine--switch to decaf tea or coffee--and increase your fluid intake, favoring water. - Obtain your flu and COVID-19 vaccines at a pharmacy (for example, [facility]) where Medicare coverage is usually better. documented in this encounter [facility] 02-13-2025 Note HNO ID: [id number] Author: ANNABEL GRIGGS APRN.CNS Service: ? Author Type: Nurse Specialist Type: Progress Notes Filed: 02/13/2025 10:04 Note Text: SUBJECTIVE: Colorectal Cancer Screening Never done Shingrix Vaccine(1 of 2) Never done Mammogram Screening due on 10/28/2023 Medicare Annual Wellness Visit Never done Bone Density Screening due on 2024 Advance Directive Discussion Never done Influenza Vaccine(1) due on 02/05/2025 HPI Yuki Thomas is a 64 year old female. PMH significant for ACTIVE PROBLEM LIST Htn (Hypertension) Elevated Ldl Cholesterol Level Hypopotassemia Neck Stiffness Neck Pain Yuki Thomas presents today for a follow up visit. Seen last week for ER follow up visit for palpitations, hypokalemia and hypomagnesemia. Review of care everywhere document shows she presented [facility] February 03, 2025 with palpitations described as fluttering in her chest and belching with an elevated heart rate. Duration for the day on arrival. Noted home heart rate 120 bpm on pulse oximeter. Noted some pauses after certain heartbeats. She was without fever chills cough nausea vomiting diaphoresis shortness of breath. She noted mild lightheadedness. No exacerbating or alleviating factors. EKG showed sinus rhythm with PVCs. No ischemic changes. Chest x-ray with no acute process. Exam revealed regular rate and rhythm with occasional extrasystoles. Lab work showed potassium low at 2.8. Troponin negative. Normal lipase. Advised follow-up with primary care provider, consider cardiology referral, Holter monitor. Medication changes: increased potassium. At last visit she reported persistent palpitations but feeling somewhat improved increased potassium dose.Lab work was completed at her last visit. She was advised to discontinue chlorthalidone, increase amlodipine from 2.5 mg. Stop supplemental potassium. Today reports Hypokalemia and Hypomagnesemia: - Recent lab results show low potassium and magnesium levels. - Yuki Thomas stopped taking chlorthalidone and potassium supplements on Wednesday. - Experiencing palpitations and fatigue, particularly on Wednesday. - Noted improvement in energy levels on Wednesday and Wednesday. - Currently taking amlodipine 5 mg, 2.5 mg BID. - Yuki reports dizziness approximately 30 minutes after taking amlodipine, especially with positional changes; resolves within seconds. - Taking magnesium supplement in the morning; inquires about switching to a 500 mg tablet. - Taking Prilosec in the morning; inquires about potential interaction with magnesium absorption. - Yuki has not yet scheduled a cardiology appointment with [facility]. - Inquires about dietary sources of potassium and magnesium. - Asks about the impact of caffeine on palpitations. - Inquires about receiving COVID-19 and flu vaccinations. HTN: She is without report of headache, chest pain, dyspnea, peripheral edema, orthopnea, fatigue and PND. Last 14 Encounter BP Readings: Date: BP: 02/13/2025 142/72 02/08/2025 136/82 11/29/2024 132/83 08/23/2024 117/79 08/19/2024 163/83 06/15/2024 136/85[bp average[ 05/09/2024 159/84 03/20/2024 137/78 11/08/2023 121/77 09/29/2023 138/90 06/21/2023 134/79[average bp[ 06/05/2023 148/96 05/11/2023 139/84 03/23/2023 142/82 ROS Constitutional: (+) fatigue Cardiovascular: (+) palpitations Gastrointestinal: (+) abdominal discomfort, (+) reflux Neurological: (+) dizziness Objective BP 142/72 Pulse 78 Resp 16 Wt 88.5 kg (195 lb 1.7 oz) LMP 02/06/2009 SpO2 98% BMI 31.49 kg/m? Physical Exam Vitals and nursing note reviewed. Constitutional: General: She is not in acute distress. Appearance: Normal appearance. She is not ill-appearing, toxic-appearing or diaphoretic. HENT: Head: Normocephalic and atraumatic. Right Ear: Tympanic membrane and ear canal normal. Left Ear: Ear canal normal. Nose: Nose normal. No mucosal edema or rhinorrhea. Mouth/Throat: Lips: [place]. Mouth: Mucous membranes are moist. Pharynx: Oropharynx [...] Mental Status Change, Other: See Comments Erythromycin V (more content not included)... [facility] 02-08-2025 Telephone encounter Note Lab was able to be added to [facility] labs and patient was notified [facility] 02-08-2025 Miscellaneous Notes Lab was able to be added to [facility] labs and patient was notified TSH ordered, check to see if can be added to today's lab work otherwise can complete next week Patient calls to report that she didn't realize that the TSH couldn't be drawn until May and from conversation at appt is pretty certain that provider wanted done now. Patient is asking to either add an order for labs completed today or will have done next Wednesday when she comes in . Please review and advise, Lary Omalley RN documented in this encounter [facility] 02-08-2025 Telephone encounter Note TSH ordered, check to see if can be added to today's lab work otherwise can complete next week [facility] 02-08-2025 Telephone encounter Note Patient calls to report that she didn't realize that the TSH couldn't be drawn until May and from conversation at appt is pretty certain that provider wanted done now. Patient is asking to either add an order for labs completed today or will have done next Wednesday when she comes in . Please review and advise, Lary Omalley RN [facility] 02-08-2025 Instructions Annabel Griggs APRN.ADRIANO - 02/08/2025 7:50 AM EDT - Continue with current medications unchanged for now. - Add magnesium oxide tablets, one tablet once daily. - Have blood drawn today for a basic metabolic panel (to recheck potassium )and thyroid function; the order excludes a full blood count and cholesterol testing per your request. - A [employer] heart-rhythm monitor will be mailed to your home; apply it to your chest per the included instructions, wear it for 14 days, then return it by mail for analysis. - If you experience chest pain, worsening shortness of breath, severe dizziness, or any new concerning symptoms, go to the nearest emergency department. - Call to schedule a cardiology consultation with the [facility]; you may cancel the appointment later if labs and symptoms stabilize. - We will call you tomorrow with your lab results. Plan a follow-up visit early next week (for example Wednesday) to review your blood pressure, labs, and how you re feeling. documented in this encounter [facility] 02-08-2025 Note HNO ID: [id number] Author: ANNABEL GRIGGS APRN.CNS Service: ? Author Type: Nurse Specialist Type: Progress Notes Filed: 03/08/2025 16:17 Note Text: SUBJECTIVE: Colorectal Cancer Screening Never done Shingrix Vaccine(1 of 2) Never done Mammogram Screening due on 10/28/2023 Medicare Annual Wellness Visit Never done Bone Density Screening due on 2024 Advance Directive Discussion Never done Influenza Vaccine(1) due on 02/05/2025 HPI Yuki Thomas is a 64 year old female. PMH significant for ACTIVE PROBLEM LIST Htn (Hypertension) Elevated Ldl Cholesterol Level Hypopotassemia Neck Stiffness Neck Pain Yuki Thomas presents today for routine an ER follow up visit. She is a 64-year-old female with HTN, presenting for evaluation of palpitations and management of hypokalemia and hypomagnesemia following a recent ED visit. Review of care everywhere document show she presented [facility] February 03, 2025 with palpitations described as fluttering in her chest and belching with an elevated heart rate. Duration for the day on arrival. Noted home heart rate 120 bpm on pulse oximeter. Noted some pauses after certain heartbeats. She was without fever chills cough nausea vomiting diaphoresis shortness of breath. She noted mild lightheadedness. No exacerbating or alleviating factors. EKG showed sinus rhythm with PVCs. No ischemic changes. Chest x-ray with no acute process. Exam revealed regular rate and rhythm with occasional extrasystoles. Lab work showed potassium low at 2.8. Troponin negative. Normal lipase. Advised follow-up with primary care provider, consider cardiology referral, Holter monitor. Medication changes: increased potassium. Palpitations: - Onset: Wednesday. - Described as fluttering sensations. - Initially frequent (3-4 times per hour); now reduced to 1 every couple of hours. - No associated chest pain or dyspnea. - Occasional dizziness, initially thought to be orthostatic. - Recent sore throat earlier in the week. - No nausea, emesis, or diarrhea. - Yuki noticed belching coinciding with palpitations. - No previous cardiac issues; no ceramic restorer. Electrolyte Imbalances: - Recent ER visit revealed low magnesium and potassium levels (K+ 2.8). - Currently taking 6 potassium tablets daily, increased from 4 tablets. - Yuki reports increased energy since increasing potassium dosage. - No magnesium supplementation provided in the ER. - No missed doses of calcium supplements. Hypertension: - Long-standing history of HTN. - Current medications include chlorthalidone and amlodipine 2.5 mg. - Chlorthalidone initiated prior to the of her son, with subsequent potassium supplementation due to hypokalemia. - No history of CHF or edema. HTN: She is without report of headache, chest pain, dyspnea, peripheral edema, orthopnea, fatigue and PND. Last 14 Encounter BP Readings: Date: BP: 02/08/2025 136/82 11/29/2024 132/83 08/23/2024 117/79 08/19/2024 163/83 06/15/2024 136/85[bp average[ 05/09/2024 159/84 03/20/2024 137/78 11/08/2023 121/77 09/29/2023 138/90 06/21/2023 134/79[average bp[ 06/05/2023 148/96 05/11/2023 139/84 03/23/2023 142/82 11/06/2022 136/84 ROS Constitutional: (+) fatigue Cardiovascular: (+) palpitations, (-) chest pain, (-) peripheral edema Respiratory: (-) shortness of breath Gastrointestinal: (+) belching, (-) nausea, (-) vomiting, (-) diarrhea Neurological: (+) dizziness Objective BP 136/82 Pulse 78 Resp 16 Wt 86.9 kg (191 lb 9.3 oz) LMP 02/06/2009 SpO2 99% BMI 30.92 kg/m? Physical Exam Vitals and nursing note reviewed. Constitutional: General: She is not in acute distress. Appearance: Normal appearance. She is not ill-appearing, toxic-appearing or diaphoretic. HENT: Head: Normocephalic and atraumatic. Right Ear: Tympanic membrane and ear canal normal. Left Ear: Ear canal normal. Nose: Nose normal. No mucosal edema or rhinorrhea. Mouth/Throat: Lips: [place]. Mouth: Mucous membranes are moist. Pharynx: Oropharynx [...] Ciprofloxacin Mental Status Change, Other: See Comments Erythromyci (more content not included)... [facility] 02-08-2025 History of Present illness Narrative SUBJECTIVE: Colorectal Cancer Screening Never done Shingrix Vaccine(1 of 2) Never done Mammogram Screening due on 10/28/2023 Medicare Annual Wellness Visit Never done Bone Density Screening due on 2024 Advance Directive Discussion Never done Influenza Vaccine(1) due on 02/05/2025 HPI Yuki Thomas is a 64 year old female. PMH significant for ACTIVE PROBLEM LIST Htn (Hypertension) Elevated Ldl Cholesterol Level Hypopotassemia Neck Stiffness Neck Pain Yuki Thomas presents today for routine an ER follow up visit. She is a 64-year-old female with HTN, presenting for evaluation of palpitations and management of hypokalemia and hypomagnesemia following a recent ED visit. Review of care everywhere document show she presented [facility] February 03, 2025 with palpitations described as fluttering in her chest and belching with an elevated heart rate. Duration for the day on arrival. Noted home heart rate 120 bpm on pulse oximeter. Noted some pauses after certain heartbeats. She was without fever chills cough nausea vomiting diaphoresis shortness of breath. She noted mild lightheadedness. No exacerbating or alleviating factors. EKG showed sinus rhythm with PVCs. No ischemic changes. Chest x-ray with no acute process. Exam revealed regular rate and rhythm with occasional extrasystoles. Lab work showed potassium low at 2.8. Troponin negative. Normal lipase. Advised follow-up with primary care provider, consider cardiology referral, Holter monitor. Medication changes: increased potassium. Palpitations: - Onset: Wednesday. - Described as fluttering sensations. - Initially frequent (3-4 times per hour); now reduced to 1 every couple of hours. - No associated chest pain or dyspnea. - Occasional dizziness, initially thought to be orthostatic. - Recent sore throat earlier in the week. - No nausea, emesis, or diarrhea. - Yuki noticed belching coinciding with palpitations. - No previous cardiac issues; no ceramic restorer. Electrolyte Imbalances: - Recent ER visit revealed low magnesium and potassium levels (K+ 2.8). - Currently taking 6 potassium tablets daily, increased from 4 tablets. - Yuki reports increased energy since increasing potassium dosage. - No magnesium supplementation provided in the ER. - No missed doses of calcium supplements. Hypertension: - Long-standing history of HTN. - Current medications include chlorthalidone and amlodipine 2.5 mg. - Chlorthalidone initiated prior to the of her son, with subsequent potassium supplementation due to hypokalemia. - No history of CHF or edema. HTN: She is without report of headache, chest pain, dyspnea, peripheral edema, orthopnea, fatigue and PND. Last 14 Encounter BP Readings: Date: BP: 02/08/2025 136/82 11/29/2024 132/83 08/23/2024 117/79 08/19/2024 163/83 06/15/2024 136/85[bp average[ 05/09/2024 159/84 03/20/2024 137/78 11/08/2023 121/77 09/29/2023 138/90 06/21/2023 134/79[average bp[ 06/05/2023 148/96 05/11/2023 139/84 03/23/2023 142/82 11/06/2022 136/84 ROS Constitutional: (+) fatigue Cardiovascular: (+) palpitations, (-) chest pain, (-) peripheral edema Respiratory: (-) shortness of breath Gastrointestinal: (+) belching, (-) nausea, (-) vomiting, (-) diarrhea Neurological: (+) dizziness Objective BP 136/82 Pulse 78 Resp 16 Wt 86.9 kg (191 lb 9.3 oz) LMP 02/06/2009 SpO2 99% BMI 30.92 kg/m Physical Exam Vitals and nursing note reviewed. Constitutional: General: She is not in acute distress. Appearance: Normal appearance. She is not ill-appearing, toxic-appearing or diaphoretic. HENT: Head: Normocephalic and atraumatic. Right Ear: Tympanic membrane and ear canal normal. Left Ear: Ear canal normal. Nose: Nose normal. No mucosal edema or rhinorrhea. Mouth/Throat: Lips: [place]. Mouth: Mucous membranes are moist. Pharynx: Oropharynx [...] Sulfa (Sulfonamide * Hives in childhoood Medications chlorthalidone (HYGROTON) 50 mg tablet Take 0.5 [...] ORAL) Take by mouth. Alive multivitamin +50 magnesium oxide (MAG-OX) 400 mg (241.3 mg magnesium) tablet Take 1 tablet by mouth once daily. potassium chloride ER (KLOR-CON) 20 mEq tablet Take 3 tablets by mouth two times a day. PAST MEDICAL HISTORY Diagnosis Date GERD (gastroesophageal reflux disease) hypertension Hypopotassemia Social History Tobacco Use Smoking status: Former Smokeless tobacco: Never Tobacco comments: quit in college Vaping Use Vaping status: Never Used Substance Use Topics Alcohol use: Yes Comment: Seldom Drug use: No 1. Palpitations (R00.2) 2. Hypomagnesemia (E83.42) 3. Hypokalemia (E87.6) 4. Primary hypertension (I10) 5. Dizziness and giddiness (R42) - Recent ED visit for palpitations; potassium 2.8 mEq/L, magnesium low; no magnesium supplementation provided in ED. - Palpitations have decreased in frequency since increasing potassium supplementation from 4 to 6 tablets daily. - Chlorthalidone likely contributing to hypokalemia and hypomagnesemia. - Order BMP to recheck potassium and magnesium levels today. - Order TSH to rule out thyroid dysfunction as a contributing factor to palpitations. - Start magnesium oxide 400 mg PO daily. - Hold any medication changes until lab results are reviewed. - If potassium is within normal range, discontinue chlorthalidone and potassium supplementation, and increase amlodipine from 2.5 mg to 5 mg daily. - If potassium remains low, continue current potassium supplementation and recheck labs next week. - Order Zio patch for 14-day ambulatory cardiac monitoring. Home application/mail out. - Refer to cardiology for further evaluation.[facility]. - Educated on signs and symptoms that warrant immediate medical attention, including chest pain, shortness of breath, malaise and dizziness. - Follow-up early next week to reassess lab results, symptoms, and blood pressure. Annabel Griggs APRN.CNS Medical Decision Making: Problems: Moderate: 1+ chronic illnesses with change Data: Unique source(s) for external note(s) reviewed: 1 Unique test result(s) reviewed: 3+ Unique test(s) ordered: 3+ Risk: Moderate: Drug management Medical Decision Making Level: 4 - Moderate documented in this encounter [facility] 02-08-2025 Note HNO ID: [id number] Author: TRACIE DOAN MD Service: ? Author Type: Physician Type: Procedures Filed: 03/12/2025 08:04 Note Text: Patient Name: Yuki Thomas : 1960 Ordering Provider: ANNABEL GRIGGS Indication: R00.2 Palpitations Type of Monitor: Extended Monitoring-Zio Patch Enrollment Dates: 02/13/2025-02/27/2025 IRHYTHM FINDINGS: Patient had a min HR of 28 bpm, max HR of 188 bpm, and avg HR of 83 bpm. Predominant underlying rhythm was Sinus Rhythm. 6 Supraventricular Tachycardia runs occurred, the run with the fastest interval lasting 5 beats with a max rate of 188 bpm, the longest lasting 6 beats with an avg rate of 118 bpm. Some episodes of Supraventricular Tachycardia may be possible Atrial Tachycardia with variable block. 1 episode(s) of AV Block (2ndA?) occurred, lasting a total of 2 secs. Isolated SVEs were rare (<1.0%), SVE Couplets were rare (<1.0%), and SVE Triplets were rare (<1.0%). Isolated VEs were rare (<1.0%), and no VE Couplets or VE Triplets were present. MD notification criteria for Second Degree AV Block met - report posted prior to notification (AR). [facility] 02-03-2025 Discharge summary [facility] 02-03-2025 Radiology Diagnostic study note [facility] Imaging Services [address] [place], [place] [address] Chest 1 View (Portable) MR#: [id number] Acct: [id number] Name: YUKI THOMAS Rep #: [id number] : 1960 F 64 From: Pet er Peer DO PCP: Dr. Shira Varma MD Status: RE G ER Study:Chest 1 View (Portable) Date of Exam: 02/03/25 Exam# [id number] Ordering Dr: Madi Chong MD PROCEDURE: CHEST 1 VIEW (PORTABLE) 02/03/2025 REASON FOR EXAM: PALPITATIONS TECHNIQUE: Frontal view of the chest. FINDINGS: Hardware: No internal hardware. EKG lead wires project over the chest. Heart: Normal size Lungs: Clear and expanded Bones: No aggressive process. Other: RAD/Chest 1 View (Portable) IMPRESSION: No acute process detected. Reading [facility] CC: Dr. Madi Chong MD; Dr. Shira Varma MD ~ Division Supervisor: Signed [facility] 02-03-2025 Telephone encounter Note Reason for Conversation Palpitations Background Patient states she feels like heart is fluttering. HR ranges from 80-120. Endorses dizziness at onset. BP is 140/83. Disposition Go to ED Now Reason for Disposition Feeling weak or lightheaded (e.g., woozy, feeling like they might faint) No Initial Assessment on file. No Additional Information on file. Protocols Used Heart Rate and Heartbeat [id number] [facility] 02-03-2025 Miscellaneous Notes Reason for Conversation Palpitations Background Patient states she feels like heart is fluttering. HR ranges from 80-120. Endorses dizziness at onset. BP is 140/83. Disposition Go to ED Now Reason for Disposition Feeling weak or lightheaded (e.g., woozy, feeling like they might faint) No Initial Assessment on file. No Additional Information on file. Protocols Used Heart Rate and Heartbeat [id number] documented in this encounter [facility] 02-03-2025 Discharge summary Note Date/Time February 03, 2025 8:52pm [facility] Medical Records Department [address] [place] [address] Emergency Department Summary 02/03/25 MR#: [id number] Acct: [id number] Name: YUKI THOMAS Rep #:[id number] : 1960 64 From: Madi Chong MD PCP: Dr. Shira Varma MD Status:RE G ER Location: ED HPI History of Present Illness Chief Complaint: Palpitations Narrative Narrative: 64-year-old female past medical history of hypertension, quit smoking 3 weeks ago, presents with fluttering in her chest, and belching as well as elevated heart rate. She notes that this afternoon. States has been belching which causes fluttering in her chest. She brought a pulse oximeter and while her pulse ox was fine, she noticed elevated heart rate as high as 120 bpm. They also noticed that there was a pause after certain heartbeats and it would go flat. She presents with her because of this. They were concerned regarding the fluttering in her chest and a high heart rate. She denies any fevers or chills, no cough, no nausea or vomiting, no diaphoresis or shortness of breath. She did state that she was mildly lightheaded today. No exacerbating or alleviating factors. PFSH PFSH Home Medications ?Medication ?Instructions ?Recorded ?Last Taken ?Type Multivitamins,Therapeutic 1 tab PO DAILY 05/02/13 Unkn own History Omeprazole 20 mg PO DAILY 05/02/13 Unkn own History amlodipine 2.5 mg tablet 2.5 mg PO DAILY 02/03/25 Unk nown History chlorthalidone 50 mg tablet 25 mg PO DAILY 02/03/25 Un known History potassium chloride 20 mEq 20 meq PO 4X/DAY 02/03/25 Un known History tablet,extended release(part/cryst) Allergy/AdvReac Type Severity Reaction Status Date / Time ciprofloxacin (From Cipro) Allergy Other Verified 02/03/25 18:06 ciprofloxacin HCl (From Allergy Other Verified 02/03/25 18:06 Cipro) Sulfa (Sulfonamide Allergy Hives Verified 02/03/25 18:06 Antibiotics) Social History Smoking Status: Former smoker ROS ROS ED ROS Narrative Review of systems positive for palpitations and fluttering in chest, positive belching. No fevers or chills, no shortness of breath, no nausea or vomiting, no diaphoresis, no exacerbating or alleviating factors. EXAM Physical Exam Narrative Exam Narrative: Afebrile. Vital signs noted. Nontoxic-appearing. Cardiovascular examination reveals a regular rate and rhythm on my examination with occasional extrasystoles. Lungs are clear to auscultation bilaterally. Abdomen is soft and nontender with positive bowel sounds. No guarding or rebound. Neurologicalexamination nonfocal nonlateralizing. No appreciable pitting pedal edema. Const Vital Signs: 02/03/25 18:03 02/03/25 18:18 02/03/25 20:03 Temperature 98.0 F Temperature Source Oral Pulse Rate 114 H 82 Respiratory Rate 16 16 Respiratory Effort Normal Blood Pressure 189/96 H 133/86 H Blood Pressure Mean 127 101 Pulse Ox 98 97 Oxygen Delivery Method Room Air Room Air MDM MDM MDM Narrative Medical decision making narrative: The differential diagnosis includes but not limited to dysrhythmia such as PACs versus PVCs versus sinus tachycardia. I have lower suspicion for ACS or pulmonary embolism. Initially her blood pressure was elevated at 189/96, but has come down significantly on its own. She states she had not basic normal blood pressure for her at home in the 140s. She may have a hiatal hernia as well. She does use caffeinated products. Comprehensive workup was pursued. EKG obtained and interpreted by myself independently as sinus tachycardia 104 bpm with occasional PVCs but no acute ST changes. No STEMI. I reviewed her laboratory work and she has normal white count of 10.0 with hemoglobin normal at 13.7, hematocrit 39.5, platelet count 269. Sodium normal at 140, potassium is low at 2.8. She supplements at home. I did offer to checkher magnesium level as well, but she states that her potassium is usually low from the diuretic that she takes. She prefers to follow-up with her primary care provider and have outpatient laboratory work drawn on Wednesday. Glucose 125. BUN of 14 and creatinine 0.85. Initial high-sensitivity troponin is less than 6 with repeated 2-hour also being less than 6. I feel she has been ruled out for acute coronary syndrome with biomarkers. Her lipase is normal at 28 so I do not suspect acute pancreatitis. At this point in time, I do feel that the pause that she was seen on her monitor as well as her fluttering was secondary to PVCs. She will follow-up with her primary care provider. She was told she may need referral to cardiology and/or wear a Holter monitor. I feel she be discharged safely home with follow-up. Return instructions were reviewed. Disposition is discharged home in stable condition. History & Record Review Discussion w/independent historian: Patient and Family Lab Data Attestation: I reviewed the patient's lab results. Labs: Laboratory Results - last 24 hr 02/03/25 02/03/25 18:18 20:15 WBC 10.0 RBC 4.70 Hgb 13.7 Hct 39.5 MCV 84.0 MCH 29.1 MCHC 34.7 RDW Std Deviation 41.2 RDW Coeff of Chito 13.4 Plt Count 269 MPV 9.3 Immature Gran % (Auto) 0.500 Neut % (Auto) 58.7 Lymph % (Auto) 31.4 Worth % (Auto) 6.7 Eos % (Auto) 2.4 Baso % (Auto) 0.3 Absolute Neuts (auto) 5.9 Absolute Lymphs (auto) 3.15 Nucleated RBC % 0 Sodium 140 Potassium 2.8 L Chloride 100 Carbon Dioxide 25.0 Anion Gap 15 BUN 14 Creatinine 0.85 Estim Creat Clear Calc 73.39 Est GFR (MDRD) Non-Af 76 BUN/Creatinine Ratio 16.4 Glucose 125 H Calcium 8.9 Magnesium 1.3 L Total Bilirubin 0.25 AST 24 ALT 27 Alkaline Phosphatase 86 Troponin T High Sens < 6 Troponin T Hi Sens 2 Hr < 6 Total Protein 7.6 Albumin 4.3 Globulin 3.3 Albumin/Globulin Ratio 1.3 Lipase 28 Radiography Chest X-Ray - ED: 1 View, Read by ED Physician, Read by Radiologist and No AcuteDisease Diagnostic Testing: Clinical Impression(s) from Imaging Studies Chest X-Ray 02/03/25 18:30 IMPRESSION: No acute process detected. Reading Location: [facility] Discharge Plan Triage Chief Complaint: Palpitations ED Provider: Madi Chong Dx/Rx/DC Orders Clinical Impression: Palpitations, Premature ventricular contractions, Indigestion, Hypokalemia Instructions: PVCs, ED About Arrhythmias, ED Hypokalemia, ED Heart Palpitations Prescriptions: No Action Multivitamins,Therapeutic 1 TAB 1 tab PO DAILY Omeprazole 20 MG 20 mg PO DAILY amlodipine 2.5 mg tablet 2.5 mg PO DAILY chlorthalidone 50 mg tablet 25 mg PO DAILY potassium chloride 20 mEq tablet,ER particles/crystals 20 meq PO 4X/DAY Primary Care Provider: Shira Varma Referrals: Shira Varma MD [[facility]] - 3-5 Days if not improving Activity Restrictions/Additional Instructions: Follow-up with your primary care provider in 3 to 5 days. Avoid excessive use of caffeinated products. Return to the emergency department with new or worsening symptoms. You may need to wear a Holter monitor or follow-up with cardiology. Print Language: Wallisian Disposition Disposition: Home, Self Care What to do if you have Problems For any increased pain, shortness of breath, bleeding, nausea or vomiting, chestpain, or any unexpected problems, contact your Primary Care Provider. Call [facility] ([phone]) or report to the closest Emergency Room. Call 911 if necessary. 02/03/252051 <Electronically signed by Madi Chong MD> Cosigner Signature (if applicable): CC: Dr. Shira Varma MD ~ Signed [facility] Work Phone: 1(365) 383-753808-30-2025 Hospital Discharge instructionsAdditional Instructions Follow-up with your primary care provider in 3 to 5 days. Avoid excessive use of caffeinated products. Return to the emergency department with new or worsening symptoms. You may need to wear a Holter monitor or follow-up with cardiology.[facility] Work Phone: 1(475) 681-359806-25-2025 Instructions* Patient Instructions* Shira Varma MD - 11/29/2024 9:51 AM EDT - [...] you have written documentation that you got ameasles vaccine If you were vaccinated between 1962 in 1967, you may not be fully protected. Talk to your provider about need for vaccination or lab testing If you are not protected from measles, you should receive 1 dose of the [id number]-[id number] (MMR)vaccine. It is not necessary to test your [...] immune system BONE MINERAL DENSITY PATIENT INSTRUCTIONS Bone mineral density testing measures the amount of calcium in certain parts of your bones. This information determines how strong your bones are. The test is used to detect osteoporosis, a disease in which the bone's mineral content and density are low, increasing a person's risk of fractures. Thelumbar spine (lower back) and the hip are [...] your usual activities immediately. documented in this encounterSam[facility]06-25-2025 NoteHNO ID: [id number] Author: SHIRA VARMA MD Service: ? Author Type: Physician Type: Progress Notes Filed: 12/26/2024 01:25 Note Text: This note was created using NoteWriter. Subjective Yuki Thomas is a 64 year old female. SUBJECTIVE: [...] - Discussed weight manag (more content not included)...[facility]06-25-2025 History of Present illness Narrative* Shira Varma MD - 11/29/2024 9:34 AM EDT This note was created using Digitwhizriter. Subjective Yuki Thomas is a 64 year old female. SUBJECTIVE: [...] g to affected area four times daily asneeded. Omeprazole Magnesium 20 mg tablet Take 1 [...] LDL levels, including reducing intake of saturated fatsand increasing fiber intake. # Elevated glucose (R73.09) - Previous labs showed elevated glucose levels and A1c. - Ordered fasting glucose and A1c to reassess. - Educated on the importance of regular exercise (30 minutes of aerobic activity 5 days a week) anddietary modifications to prevent progression to diabetes. - [...] weight and BMI at follow-up visits. Shira Varma MD Recording using mytrax software for draft documentation of the visit was discussed with the patient/authorized customer support representative; all questions welcomed and answered. Patient/authorized customer support representative agreed to proceed documented in this encounterSam[facility]06-09-2025 Telephone encounter Note * Telephone Encounter - Loren Ghosh MA - 11/13/2024 11:25 AM EDT Patient is requesting medication re-sent to local instead of mail-away Loren Ghosh MA [facility]06-09-2025 Miscellaneous Notes* Telephone Encounter - Loren Ghosh MA - 11/13/2024 11:25 AM EDT Patient is requesting medication re-sent to local instead of mail-away Loren Ghosh MA * Telephone Encounter - Hayley King - 11/13/2024 10:34 AM EDT Prescription Refill Information The patient has been [...] 13, 2024 10:37 AM documented in this encounterSam[facility]itan [facility]06-09-2025 Telephone encounter Note * Telephone Encounter - Hayley King - 11/13/2024 10:34 AM EDT Prescription Refill Information The patient has been [...] Hayley Rodriguez November 13, 2024 10:37 AM [facility]06-09-[facility] Telephone encounter Note* Telephone Encounter - Judith Bowman LPN - 11/13/2024 9:45 AM EDT The patient has been identified by name [...] Bowman LPN November 13, 2024 9:46 AM [facility]06-09-2025 Miscellaneous Notes* Telephone Encounter - Judith Bowman LPN - 11/13/2024 9:45 AM EDT The patient has been identified by name [...] 13, 2024 9:46 AM documented in this encounterSamaritan [facility]05-30-2025 Telephone encounter Note * Telephone Encounter - Judith Bowman LPN - 11/03/2024 9:02 AM EDT Patient calling her mail away pharmacy is shipping her rx out but she runs out of medication in fewdays. Patient asking for 10 day rx for just in case, she takes one half pill so set rx for 5 pills to go to [facility] pharmacy. Please advise The patient has been [...] Bowman LPN November 03, 2024 9:05 AM [facility]-30[facility] Miscellaneous Notes* Telephone Encounter - Judith Bowman LPN - 11/03/2024 9:02 AM EDT Patient calling her mail away pharmacy is shipping her rx out but she runs out of medication in fewdays. Patient asking for 10 day rx for just in case, she takes one half pill so set rx for 5 pills to go to [facility] pharmacy. Please advise The patient has been [...] 03, 2024 9:05 AM documented in this encounterSamaritan [facility] Center05-27-2025 NotePatient Outreach (INTMWS) YUKI THOMAS ([id number]) 1960 F Date Time Provider Department 10/31/24 SHIRA VARMA INTMWS During your visit today, we recorded the following information about you: Allergies As of Date: 10/31/2024 Noted Allergy Reaction CIPROFLOXACIN 07/12/2012 1 - Mental Status Change 14 - Other: See Comments ERYTHROMYCIN 03/02/2006 11 - Vomiting HYDROCHLOROTHIAZIDE 10/14/2006 5 - Intolerance Comments: Dizzy SULFA (SULFONAMIDE ANTIBIOTICS) 03/02/2006 4 - Hives Comments: in childhoood Date Reviewed: 08/23/2024 Reviewed by: Lula Granados APRN.CLERK CARRIER - Fully Assessed Visit Diagnosis:Encounter for screening mammogram for breast cancer [Z12.31] Order(s):[facility] SCREENING W SHANNAN [[id number]] Order #: [id number] FUTURE Prescriptions as of 12/01/2024 - chlorthalidone [...] Neck pain [M54.2] 10/18/2020 Encounter Status:Closed by BETTY VIRGEN on 12/01/24[facility] 10-28-[facility] Telephone encounter Note* Telephone Encounter - Lary Omalley RN - 10/28/2024 9:42 AM EDT The patient has been identified by name [...] Take 0.5 tablets by mouth once daily. Lary Omalley RN October 28, 2024 9:42 AM T [facility]05-24-2025 Miscellaneous Notes* Telephone Encounter - Lary Omalley RN - 10/28/2024 9:42 AM EDT The patient has been identified by name [...] Take 0.5 tablets by mouth once daily. Lary Omalley RN October 28, 2024 9:42 AM documented in this encounterSamaritan [facility] Center03-19-2025 NoteHNO ID: [id number] Author: LULA GRANADOS APRN.CLERK CARRIER Service: ? Author Type: Nurse Practitioner Type: Progress Notes Filed: 08/23/2024 15:29 Note Text: SUBJECTIVE Yuki Thomas is a 64 year old female here today for acute concern. Chief Complaint Patient presents with: UTI: Started 1 week ago with urgency with burning has noted bloating but that has improved Was seen at urgent care on 08/19/24 HPI Yuki Thomas is a 64 year old female. She is an established patient of Shira Varma MD. She presents today acutely for concerns [...] the office if questions (more content not included)...[facility]03-19-2025 History of Present illness Narrative* Lula Granados APRN.CLERK CARRIER - 08/23/2024 3:05 PM EDT SUBJECTIVE Yuki Thomas is a 64 year old female here today for acute concern. Chief Complaint Patient presents with: UTI: Started 1 week ago with urgency with burning has noted bloating but that has improved Was seen at urgent care on 08/19/24 HPI Yuki Thomas is a 64 year old female. She is an established patient of Shira Varma MD. She presents today acutely for concerns [...] g to affected area four times daily asneeded. Omeprazole Magnesium 20 mg tablet Take 1 [...] from today's visit and in agreement with treatmentplan. Questions answered. Agrees to call the office [...] as well as compliance with taking medications. Age- appropriate health preventative measures were discussed. Return if symptoms worsen or fail to improve, for Keep next scheduled appointment.. Lula Granados APRN-NIRANJAN documented in this encounterSamaritan [facility] Center03-19-2025 Telephone encounter Note * Telephone Encounter - Rudy Burrell RN - 08/23/2024 1:52 PM EDT Pt checking on reply. Pt was not aware pcp office phoned her- she doesn't use her home phone much. Reports she has been having urgency and burning at the openings- still has these. Reports the pain went away after she took the diflucan UC gave her. Was seen in UC on 08/19/24 for this. Urine culturewas negative. Pt reports she did an AZO test- nitrites were negative, leukocytes were positive. Scheduled appt per below message. [facility]03-19-[facility]25 Miscellaneous Notes* Telephone Encounter - Rudy Burrell RN - 08/23/2024 1:52 PM EDT Pt checking on reply. Pt was not aware pcp office phoned her- she doesn't use her home phone much. Reports she has been having urgency and burning at the openings- still has these. Reports the pain went away after she took the diflucan UC gave her. Was seen in UC on 08/19/24 for this. Urine culturewas negative. Pt reports she did an AZO test- nitrites were negative, leukocytes were positive. Scheduled appt per below message. * Telephone Encounter - María Elena Vinson LPN - 08/22/2024 10:18 AM EDT No answer. Left message for patient to call office and ask to speak to a nurse regarding an appointment to day with Annabel [facility] for UTI symptoms continuing. * Telephone Encounter - Dorcas Carvajal APRN.CNP - 08/22/2024 9:49 AM EDT Patient needs to be seen by PCP. Nursing staff for Dr. Varma, can you please get patient in today? * Telephone Encounter - Hazel Braden, MICKI - 08/22/2024 8:38 AM EDT Called pt back. She states that she is still having urgency and itching, irritation. Asking if provider can order another urine sample and another Diflucan to confirm she doesn't have a UTI and seeif another Diflucan would help the itching and irritation. Pt uses [facility]. * Telephone Encounter - Meagan Vázquez MA - 08/21/2024 1:02 PM EDT Left message for patient to return call. Meagan Vázquez MA * Telephone Encounter - Harman Galeas MD - 08/21/2024 12:16 PM EDT Fluconazole can be helpful to treat vaginal irritation and discharge from a yeast infection. It is usually not a beneficial treatment for urinary frequency or urgency. * Telephone Encounter - Ashley Llamas RN - 08/21/2024 11:42 AM EDT Pt called and is notified of providers results and instructions. Pt voices understanding. 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 Please call [facility]. Ashley Llamas RN documented in this encounterSam[facility]03-18-2025 Telephone encounter Note * Telephone Encounter - María Elena Vinson LPN - 08/22/2024 10:18 AM EDT No answer. Left message for patient to call office and ask to speak to a nurse regarding an appointment to day with Annabel [facility] for UTI symptoms continuing. [facility]03-18-[facility] Telephone encounter Note* Telephone Encounter - Dorcas Carvajal APRN.NIRANJAN - 08/22/2024 9:49 AM EDT Patient needs to be seen by PCP. Nursing staff for Dr. Varma, can you please get patient in today? [facility] Work Phone: 1(618) 477-819403-18-2025 Telephone encounter Note* Telephone Encounter - Hazel Braden RN - 08/22/2024 8:38 AM EDT Called pt back. She states that she is still having urgency and itching, irritation. Asking if provider can order another urine sample and another Diflucan to confirm she doesn't have a UTI and seeif another Diflucan would help the itching and irritation. Pt uses Emi Damico. [facility]03-17-2025 Telephone encounter Note* Telephone Encounter - Meagan Vázquez MA - 08/21/2024 1:02 PM EDT Left message for patient to return call. Meagan Vázquez MA [facility]03-17-2025 Telephone encounter Note* Telephone Encounter - Harman Galeas MD - 08/21/2024 12:16 PM EDT Fluconazole can be helpful to treat vaginal irritation and discharge from a yeast infection. It is usually not a beneficial treatment for urinary frequency or urgency. [facility] Work Phone: 1(955) 156-637003-17-2025 Telephone encounter Note* Telephone Encounter - Ashley Llamas RN - 08/21/2024 11:42 AM EDT Pt called and is notified of providers results and instructions. Pt voices understanding. 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 Please call andNumedeone. Ashley Llamas RN [facility]03-15-2025 NoteHNO ID: [id number] Author: DORCAS CARVAJAL APRN.[facility] Service: ? Author Type: Nurse Practitioner Type: Progress Notes Filed: 08/19/2024 10:37 Note Text: This note was created using Digitwhizriter. Subjective Yuki Thomas is a 64 year old female. 64 year old male with PMH HTN and GERD presents for possible UTI Acute onset 3 days ago +frequency +urgency +bladder spasm +suprapubic Denies vaginal bleeding Denies vaginal discharge Denies recent coitus Denies concerns for STI Denies using homeopathic or OTC The history is provided by the patient. No blade changer was used. UTI This is a new [...] Mother other (hepatitis B) Mother Hypertension Father [place], age 45 other (dementia) Father age 86 [...] No friction rub. Pulmonary: (more content not included)...[facility]03-15-2025 History of Present illness Narrative* Dorcas Carvajal APRN.CLERK CARRIER - 08/19/2024 10:29 AM EDT This note was created using NoteWriter. Subjective Yuki Thomas is a 64 year old female. 64 year old male with PMH HTN and GERD presents for possible UTI Acute onset 3 days ago +frequency +urgency +bladder spasm +suprapubic Denies vaginal bleeding Denies vaginal discharge Denies recent coitus Denies concerns for STI Denies using homeopathic or OTC The history is provided by the patient. No blade changer was used. UTI This is a new problem. The current episode started more than 2 days ago. The problem occurs every urination. The problem has been gradually worsening. The quality of the pain is described as burning.The pain is at a severity of 4/10. There has been no fever. She is Not sexually active. There is Nohistory of pyelonephritis. Associated symptoms include frequency and urgency. Pertinent negatives include no chills, no sweats, no nausea, no vomiting, no discharge, no hematuria, no hesitancy, no possible and no flank pain. She has tried nothing for the symptoms. Her past medical historydoes not include kidney stones, single kidney, urological procedure, recurrent UTIs, urinary stasisor catheterization. PAST MEDICAL HISTORY Diagnosis Date GERD [...] g to affected area four times daily asneeded. Omeprazole Magnesium 20 mg tablet Take 1 tablet by mouth as needed. 1/2 hr before meal. FA/MV,CA,IRON,MIN/LYCOPENE/LUT (MULTIVITAL ORAL) Take by mouth. Alive multivitamin +50 fluconazole (DIFLUCAN) 150 mg tablet Take 1 tablet by mouth once daily for 1 day. FAMILY HISTORY Problem Relation Age of Onset Hypertension Mother other (dementia) Mother other (hepatitis B) Mother Hypertension Father [place], age 45 other (dementia) Father age 86 [...] - FLUCONAZOLE 150 MG TABLET Dorcas Carvajal APRN.CLERK CARRIER documented in this encounterSamaritan [facility]03-14-2025 Telephone encounter Note * Telephone Encounter - Rudy Burrell RN - 08/18/2024 4:26 PM EDT Pt reports she is having UTI s/s: fever 99.2, cramping, frequency, burning with urination, since Wed. No openings in pcp office. Pt agreeable to for evaluation. [facility]03-14-2025 Miscellaneous Notes* Telephone Encounter - Rudy Burrell RN - 08/18/2024 4:26 PM EDT Pt reports she is having UTI s/s: fever 99.2, cramping, frequency, burning with urination, since Wed. No openings in pcp office. Pt agreeable to for evaluation. documented in this encounterSamaritan [facility] Center01-09-2025 NoteHNO ID: [id number] Author: ANNABEL GRIGGS APRN.GENERAL LOT ATTENDANT Service: ? Author Type: Nurse Specialist Type: Progress Notes Filed: 06/15/2024 13:24 Note Text: SUBJECTIVE: Depression Screening Never done Anxiety Screening Never done Colorectal Cancer Screening Never done Shingrix Vaccine(1 of 2) Never done Pneumococcal Vaccine: 50+(1 of 1 - PCV) Never done BP Controlled (<130/80) due on 05/08/2023 Mammogram Screening due on 10/28/2023 HPI Yuki Thomas is a 63 year old female. PMH [...] No mucosal edema or rhinorrhea. Mouth/Throat: Lips: [place]. Mouth: Mucous membranes are moist. Pharynx: Oropharynx [...] next appt 6 mo follow up Shira Varma MD 12 mo follow up STEPHY Cardozo APRN.CNS Medical Decision Making: Problems: Moderate: 1+ chronic illnesses with change Risk: (more content not included)...[facility]01-09-2025 History of Present illness Narrative* Annabel Griggs APRN.GENERAL LOT ATTENDANT - 06/15/2024 1:01 PM EST SUBJECTIVE: Depression Screening Never done Anxiety Screening Never done Colorectal Cancer Screening Never done Shingrix Vaccine(1 of 2) Never done Pneumococcal Vaccine: 50+(1 of 1 - PCV) Never done BP Controlled (<130/80) due on 05/08/2023 Mammogram Screening due on 10/28/2023 HPI Yuki Thomas is a 63 year old female. PMH [...] and listen to story. Sons bck in [facility] for holiday and it was nice. Review [...] No mucosal edema or rhinorrhea. Mouth/Throat: Lips: [place]. Mouth: Mucous membranes are moist. Pharynx: Oropharynx [...] g to affected area four times daily asneeded. Omeprazole Magnesium 20 mg tablet Take 1 [...] next appt 6 mo follow up Shira Varma MD 12 mo follow up Annabel Griggs APRN.GENERAL LOT ATTENDANT Annabel Griggs APRN.GENERAL LOT ATTENDANT Medical Decision Making: Problems: Moderate: 1+ chronic illnesses with change Risk: Moderate: Drug management Medical Decision Making Level: 4 - Moderate documented in this encounterSamaritan [facility] Center12-03-2024 NoteHNO ID: [id number] Author: ANNABEL GRIGGS APRN.CNS Service: ? Author Type: Nurse Specialist Type: Progress Notes Filed: 05/09/2024 14:44 Note Text: SUBJECTIVE: Depression Screening Never done Anxiety Screening Never done Colorectal Cancer Screening Never done Shingrix Vaccine(1 of 2) Never done BP Controlled (<130/80) due on 05/08/2023 Mammogram Screening due on 10/28/2023 HPI Yuki Thomas is a 63 year old female. PMH [...] No mucosal edema or rhinorrhea. Mouth/Throat: Lips: [place]. Mouth: Mucous membranes are moist. Pharynx: Oropharynx [...] treated: Yes HDL C (more content not included)...[facility]12-03-2024 History of Present illness Narrative* Annabel Griggs APRN.GENERAL LOT ATTENDANT - 05/09/2024 2:13 PM EST SUBJECTIVE: Depression Screening Never done Anxiety Screening Never done Colorectal Cancer Screening Never done Shingrix Vaccine(1 of 2) Never done BP Controlled (<130/80) due on 05/08/2023 Mammogram Screening due on 10/28/2023 CHILO Yuki Thomas is a 63 year old female. PMH [...] No mucosal edema or rhinorrhea. Mouth/Throat: Lips: [place]. Mouth: Mucous membranes are moist. Pharynx: Oropharynx [...] g to affected area four times daily asneeded. Omeprazole Magnesium 20 mg tablet Take 1 [...] Griggs APRN.CNS 6 mo follow up Shira Varma MD 12 mo follow up STEPHY Cardozo APRN.CNS Medical Decision Making: Problems: Moderate: 1+ chronic illnesses with change Risk: Moderate: Drug management Medical Decision Making Level: 4 - Moderate documented in this encounterSamaritan [facility] Center10-14-2024 History of Present illness Narrative* Annabel Griggs APRN.CNS - 03/20/2024 1:00 PM EDT SUBJECTIVE Yuki Thomas is a 63 year old female who [...] L TM - clear with good landmarks, nllight reflex Nose: purulent rhinorrhea, mucosa erythematous and [...] right ear x 5 days Annabel Griggs APRN.CNS - Discussed symptom monitoring and supportive care - Red flag symptoms requiring follow up discussed Medical Decision Making: Problems: Low: Acute, uncomplicated illness or injury Risk: Moderate: Drug management Medical Decision Making Level: 3 - Low documented in this encounterSamaritan [facility] Center06-03-2024 History of Present illness Narrative* Shira Varma MD - 11/08/2023 9:46 AM EDT This note was created using Digitwhizriter. Subjective Yuki Thomas is a 63 year old female. Patient presents with: Established Patient: Labs prior SUBJECTIVE: Yuki Thomas is a 63 year old year old [...] g to affected area four times daily asneeded. Omeprazole Magnesium 20 mg tablet Take 1 tablet by mouth as needed. 1/2 hr before meal. FA/MV,CA,IRON,MIN/LYCOPENE/LUT (MULTIVITAL ORAL) Take by mouth. Alive multivitamin +50 No current facility-administered medications for this visit. Review of Systems Objective BP 121/77 Pulse 70 Temp 36.9 C (98.4 F) Resp 18 Wt 85.7 kg (189 lb) LMP 02/06/2009 ArR522% BMI 30.51 kg/m Last 5 Encounter Wt [...] Abs Lymph 1.00 - 4.00 k/uL 2.64 Worth% % 7.6 Abs Worth <0.87 k/uL 0.63 Eosin% % 3.4 Abs [...] weight loss as well as prevention of DM,and control of BP and lipids. Shira Varma MD documented in this encounterSam[facility] Telephone encounter Note * Telephone Encounter - Ashley Llamas RN - 10/18/2023 1:03 PM EDT Pt called and is notified of providers results and instructions. Pt voices understanding. Ashley Llamas RN [facility]05-13-[facility] Miscellaneous Notes* Telephone Encounter - Ashley Llamas RN - 10/18/2023 1:03 PM EDT Pt called and is notified of providers results and instructions. Pt voices understanding. Ashley Llamas RN * Telephone Encounter - Lula Granados APRN.CNP - 10/18/2023 12:48 PM EDT Noted, lets try Macrobid to cover for UTI and I agree with treating for a yeast infection, diflucansent. Please advise her to call with an update when done with the medications. Thanks * Telephone Encounter - Judith Bowman LPN - 10/18/2023 11:04 AM EDT Patient calling asking about her results can see on my chart. Went over results, notes from Lula Granados RN [facility]. Patient said UTI is full blown again, urgency, spasms. Patient said she had yeast infection with last antibiotic, she is asking for Diflucan rx if antibiotic is being sent in to [facility]. Please advise * Telephone Encounter - Lula Granados APRN.CNP - 10/18/2023 8:10 AM EDT Please call patient and let her know the microscopic blood has resolved from her urine but there are still signs there may be an issue on going since she has leukocytes present in her urine. IS she having any urinary symptoms currently? documented in this encounterSam[facility]24 Telephone encounter Note * Telephone Encounter - Lula Granados APRN.NIRANJAN - 10/18/2023 12:48 PM EDT Noted, lets try Macrobid to cover for UTI and I agree with treating for a yeast infection, diflucansent. Please advise her to call with an update when done with the medications. Thanks [facility] Telephone encounter Note* Telephone Encounter - Judith Bowman LPN - 10/18/2023 11:04 AM EDT Patient calling asking about her results can see on my chart. Went over results, notes from Lula Granados RN [facility]. Patient said UTI is full blown again, urgency, spasms. Patient said she had yeast infection with last antibiotic, she is asking for Diflucan rx if antibiotic is being sent in to [facility]. Please advise [facility] Telephone encounter Note* Telephone Encounter - Lula Granados APRN.CNP - 10/18/2023 8:10 AM EDT Please call patient and let her know the microscopic blood has resolved from her urine but there are still signs there may be an issue on going since she has leukocytes present in her urine. IS she having any urinary symptoms currently? [facility] Telephone encounter Note* Telephone Encounter - Ambar Lozoya LPN - 10/11/2023 12:53 PM EDT PATIENT NOTIFIED OF SAME. [facility] Miscellaneous Notes* Telephone Encounter - Ambar Lozoya LPN - 10/11/2023 12:53 PM EDT PATIENT NOTIFIED OF SAME. * Telephone Encounter - Lula Granados APRN.CNP - 10/11/2023 12:10 PM EDT Please let her know this has been sent. Lula Granados APRN.CNP * Telephone Encounter - Abigail Fulton RN - 10/11/2023 11:25 AM EDT Patient calls and states that she was started on antibiotic for UTI a couple of weeks ago. Patient reports that she now has vaginal itching and she thinks she has a yeast infection. Patient asking ifprovider can send prescription to [facility] for yeast infection. Patient asking for a call back if provider can send in medication. Please review and advise, Abigail Fulton RN documented in this encounterSam[facility]05-06-2024 Telephone encounter Note * Telephone Encounter - Lula Granados APRN.CNP - 10/11/2023 12:10 PM EDT Please let her know this has been sent. Lula Granados APRN.CNP [facility] Telephone encounter Note* Telephone Encounter - Abigail Fulton RN - 10/11/2023 11:25 AM EDT Patient calls and states that she was started on antibiotic for UTI a couple of weeks ago. Patient reports that she now has vaginal itching and she thinks she has a yeast infection. Patient asking ifprovider can send prescription to [facility] for yeast infection. Patient asking for a call back if provider can send in medication. Please review and advise, Abigail Fulton RN [facility] History of Present illness Narrative* Lula Granados APRN.NIRANJAN - 09/29/2023 2:38 PM EDT SUBJECTIVE Yuki Thomas is a 63 year old female here today for acute concern. Chief Complaint Patient presents with: UTI: started about 1 week ago. Abdominal fullness, urinary urgency and bladder spasm. HPI Yuki Thomas is a 63 year old female. Prior [...] g to affected area four times daily asneeded. Omeprazole Magnesium 20 mg tablet Take 1 [...] ICD10: Z13.29 - THYROID STIMULATING HORMONE Lula Granados APRN.CNP Portions of this note have been entered by ancillary staff. I have reviewed and when necessary edited, so that they are an adequate record of my encounter with this patient Please note that parts of this document were created using voice recognition software and therefore may contain grammatical errors. Patient verbalizes understanding of instructions from today's visit and in agreement with treatmentplan. Questions answered. Agrees to call the office [...] as well as compliance with taking medications. Age- appropriate health preventative measures were discussed. Return if symptoms worsen or fail to improve, for Keep next scheduled appointment.. Lula Granados APRN-NIRANJAN documented in this encounterSam[facility]04-24-2024 Instructions* Patient Instructions* Ambar Lozoya LPN - 09/29/2023 2:38 PM [...] treated. A physician, nurse practitioner or physician surgeon's assistant may treat with a short course [...] women if symptoms resolve. documented in this encounterSam[facility]04-23-2024 Telephone encounter Note * Telephone Encounter - Abigail Fulton RN - 09/28/2023 12:07 PM EDT Patient has been identified by name and date of : Patient phones for refill(s): Requested Prescriptions Pending Prescriptions Disp Refills chlorthalidone (HYGROTON) 50 mg tablet 45 tablet 3 Sig: Take 0.5 tablets by mouth once daily. Date of last office visit in primary care: 06/21/2023 Date of next office visit in primary care: 11/08/2023 Please advise. Thank you. Abigail Fulton RN. [facility]04-[facility] Miscellaneous Notes* Telephone Encounter - Abigail Fulton RN - 09/28/2023 12:07 PM EDT Patient has been identified by name and [...] you. Abigail Fulton RN. documented in this encounterSam[facility]12-21-2023 Miscellaneous Notes* Telephone Encounter - Gina Tariq OCCA - 05/27/2023 11:22 AM EST TC to patient who verbalized understanding of below. No further questions at this time. DIONE Esparza * Telephone Encounter - Annabel Griggs APRN.CNS - 05/27/2023 11:15 AM EST Yes ok * Telephone Encounter - Abigail Fulton RN - 05/27/2023 10:41 AM EST Patient calling to make sure that airborne boost immunity and mucinex are ok to take with Amlodipine? Please review and advise, Abigail Fulton RN documented in this encounterSam[facility]12-14-2023 Miscellaneous Notes* Telephone Encounter - Mayelin Persaud RN - 05/20/2023 3:54 PM EST Spoke with patient. Given message from provider's office. Patient verbalizes understanding. Mayelin Persaud RN * Telephone Encounter - Annabel Griggs APRN.CNS - 05/20/2023 3:44 PM EST ok for refill per her request, should come in and be checked if not feeling improved. * Telephone Encounter - aLry Omalley RN - 05/20/2023 12:14 PM EST Patient calls to let provider know that [...] in March for UTI with same symptoms. Lary Omalley RN documented in this encounterSam[facility]12-05-2023 History of Present illness Narrative* Annabel Griggs APRN.ADRIANO - 05/11/2023 3:20 PM EST SUBJECTIVE: Colorectal Cancer Screening Never done RSV Vaccine(1 - 1-dose 60+ series) Never done BP Controlled (<130/80) due on 05/08/2023 CHILO Thomas is a 62 year old female. PMH [...] like to get a refill of tizanidine. CompletingHEP, has gone to PT in the past. [...] 132/88 03/07/2018 138/90 11/18/2017 136/84 Hyperlipidemia. Ms. 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 Mouth/Throat: Lips: [place]. Mouth: Mucous membranes are moist. Pharynx: Oropharynx [...] g to affected area four times daily asneeded. Omeprazole Magnesium 20 mg tablet Take 1 [...] 6.6 The 10-year ASCVD risk score (Alexis GARCIA, et al., 2019) is: 9.5% Values used [...] TABLET 1 mo recheck BP Annabel Griggs APRN.GENERAL LOT ATTENDANT Labs at next visit November appt Shira Varma MD May 2024 appt Annabel Griggs APRN.GENERAL LOT ATTENDANT Annabel Griggs APRN.GENERAL LOT ATTENDANT Medical Decision Making: Problems: Moderate: 2+ stable chronic illnesses Data: Unique test(s) ordered: 2 Risk: Moderate: Drug management Medical Decision Making Level: 4 - Moderate documented in this encounterSam[facility]10-23-2023 Miscellaneous Notes* Telephone Encounter - Ashley Llamas RN - 03/29/2023 1:46 PM EDT Pt called and is notified of providers message and instructions. Pt voices understanding. Gave Pt red flags to look for to call 911 and got to ER. Ashley Llamas RN * Telephone Encounter - Lula Granados APRN.CNP - 03/29/2023 1:38 PM EDT I agree with monitoring her symptoms, let us know if things getting worse or persistent. * Telephone Encounter - Angeles Lewis RN - 03/29/2023 12:44 PM EDT Patient reports she got a covid vaccine [...] sx's? Angeles Lewis RN documented in this encounterSam[facility]10-19-2023 Miscellaneous Notes* Telephone Encounter - Lary Omalley RN - 03/25/2023 11:07 AM EDT Patient calls and notified of results and providers instructions. Patient verbalizes understanding. Lary Omalley RN * Telephone Encounter - Bee Cortés MA - 03/25/2023 9:23 AM EDT Left VM instructing patient to return call to receive results. Bee Cortés MA * Telephone Encounter - Doreen Narvaez APRN.CNP - 03/25/2023 7:33 AM EDT Please call and verify that patient's symptoms are improving on the Macrobid. Urine culture shows that Macrobid should be alleviating symptoms. If patient is not getting any better patient needs to follow-up with primary care documented in this encounterSam[facility]10-17-2023 Instructions* Patient Instructions* Nahomi Moreland APRN.CNP - 03/23/2023 1:10 PM [...] illness Nahomi Moreland APRN.CNP documented in this encounterSam[facility]10-17-2023 History of Present illness Narrative* Nahomi Moreland APRN.CNP - 03/23/2023 1:06 PM EDT Subjective HPI Yuki Thomas is a 62 year old female who [...] Wt 88.8 kg (195 lb 12.8 oz) LMP02/06/2009 SpO2 100% BMI 31.60 kg/m PAST MEDICAL [...] 2 Puffs as instructed every 4 hours asneeded for wheezing/shortness of breath. diclofenac (VOLTAREN ARTHRITIS PAIN) 1 % topical gel Apply 2 g to affected area four times daily asneeded. Omeprazole Magnesium 20 mg tablet Take 1 tablet by mouth as needed. 1/2 hr before meal. FA/MV,CA,IRON,MIN/LYCOPENE/LUT (MULTIVITAL ORAL) Take by mouth. Alive multivitamin +50 FAMILY HISTORY Problem Relation Age of Onset Hypertension Mother other (dementia) Mother other (hepatitis B) Mother Hypertension Father [place], age 45 other (dementia) Father age 86 [...] is no right CVA tenderness, left CVA tendernessor guarding. Skin: General: Skin is warm and [...] Discussed expected course of illness Nahomi Moreland APRN.CLERK CARRIER documented in this encounterSam[facility]06-02-2023 History of Present illness Narrative* Shira Varma MD - 11/06/2022 8:40 AM EDT This note was created using Digitwhizriter. Subjective Yuki Thomas is a 62 year old female. Patient presents with: F/U 6 months SUBJECTIVE: Yuki Thomas is a 62 year old year old lady here today for 6 month follow up appointment for reviewof medical conditions. Doing well. Did get a [...] with patient, and I recommended no further interventionat this time. PAST MEDICAL HISTORY Diagnosis Date [...] record and/or ordered tests as recorded. Shira Varma MD documented in this encounterSam[facility]05-23-2023 History of Present illness Narrative* Shira Glover, RT(R) - 10/27/2022 7:50 AM EDT Radiology Service Progress Note PATIENT NAME: Yuki Thomas DATE OF SERVICE: October 27, 2022 TIME: 7:31 AM PATIENT IDENTITY VERIFICATION COMPLETED USING TWO (2) IDENTIFIERS: Name and Date of confirmedby patient verbally. FALL SCREENING: Has the patient [...] 27, 2022 7:31 AM documented in this encounterSamaritan [facility]12-02-2022 Instructions* Patient Instructions* Annabel Griggs APRN.CNS - 05/08/2022 3:10 PM EST Check to see if your insurance covers shingles vaccine and what location to get the vaccine -usually best covered at your local pharmacy where you get prescriptions filled documented in this encounterSam[facility]12-02-2022 History of Present illness Narrative* Annabel Griggs APRN.CNS - 05/08/2022 2:40 PM EST SUBJECTIVE: COLORECTAL CANCER SCREENING Never done SHINGRIX VACCINE(1 of 2) Never done BP CONTROLLED (<130/80) due on 02/29/2020 MAMMOGRAM due on 03/07/2020 PAP TESTING due on 04/14/2021 HPV TESTING due on 04/14/2021 DEPRESSION ASSESSMENT Never done HPI Yuki Thomas is a 61 year old female. PMH significant for ACTIVE PROBLEM LIST Htn (Hypertension) Elevated Ldl Cholesterol Level Hypopotassemia Neck Stiffness Neck Pain Presents today for routine follow up visit. Notes cough Covid19 04/10/2022. Notes only took one dose of paxlovid due to nausea and vomiting. [facility] visit. Notes CP in ER, subsided in [...] 120/78 11/16/2016 140/88 11/11/2016 116/77 Hyperlipidemia. Ms. 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 6 mo follow up MD Annabel Dior APRN.GENERAL LOT ATTENDANT Medical Decision Making: Problems: Moderate: 2+ stable chronic illnesses Risk: Moderate: Drug management Medical Decision Making Level: 4 - Moderate documented in this encounterSam[facility]11-06-2022 Miscellaneous Notes* Telephone Encounter - Yuki Bansal RN - 04/12/2022 8:30 AM EST Reason For Call: Harsh Cough and vomited once last night. Stopped Paxlovid after first dose yesterday due to vomiting and diarrhea Outcome: Advised he to go to ED now. Pt willing to go to an ED but wanted doctor paged first. Reached Dr. Shira Varma and made her aware of patient's Covid, symptoms, and discontinuation of Paxlovid. Dr. Varma advised pt be seen tomorrow in office [...] his way home to take her to [facility] ED. Reason for Disposition Chest pain or pressure Advised he to go to ED now Additional Information Commented on: All Negative - Go to ED Now Pulse ox 98 Breathing well Answer Assessment - Initial Assessment Questions 1. COVID-19 DIAGNOSIS: Who made your COVID-19 diagnosis? Was it confirmed by a positive lab testor self-test? If not diagnosed by a doctor (or RN [facility]PAT[facility] SERVICES/PA), ask Are there lots of cases (community spread) where you live? Note: See [facility] website, if unsure. HomeCovid test positive [...] wheezing, unable to speak) Breathing well 8. KXCAUE-BIWW-XQFMO: Are you getting better, staying the same [...] ask: Which one, how many shots, when didyou get it? Yes 11. BOOSTER: Have you [...] today? What is your usual oxygen saturation reading?(e.g., 95%) Pulse ox 98 Protocols used: Coronavirus (COVID-19) Diagnosed or Sekufnbpk-UOGCS-YN documented in this encounterSamaritan [facility]11-04-2022 Instructions* Patient Instructions* Irish Heart APRN.CLERK CARRIER - 04/10/2022 1:39 PM EDT FACT SHEET FOR PATIENTS, PARENTS, AND CAREGIVERS EMERGENCY USE AUTHORIZATION (EUA) OF PAXLOVID FOR CORONAVIRUS DISEASE 2019 (COVID-19) You are being given this Fact Sheet because your healthcare provider believes it is necessary to provide you with PAXLOVID for the treatment of trmw-az-kzrykbob coronavirus disease (COVID-19) caused by the SARS-CoV-2 virus. This Fact Sheet contains information to help you understand the risks and benefits of taking the PAXLOVID you have received or may receive. The U.S. Food and Drug Administration (FDA) has issued an Emergency Use Authorization (EUA) to makePAXLOVID available during the COVID-19 pandemic (for more details about an EUA please see What is an Emergency Use Authorization? at the end of this document). PAXLOVID is not an FDA-approved medicine in the [place]. Read this Fact Sheet for information about PAXLOVID. Talk to your healthcareprovider about your options or if you have any questions. It is your choice to take PAXLOVID. What is COVID-19? COVID-19 is caused by a virus called a coronavirus. You can get COVID-19 through close contact withanother person who has the virus. COVID-19 illnesses have ranged from very hsyd-wr-evzgup, including illness resulting in . While information so far suggests that most COVID-19 illness is mild, serious illness can happen and maycause some of your other medical conditions to become worse. Older people and people of all ages with severe, long lasting (chronic) medical conditions like heart disease, lung disease, and diabetes,for example seem to be at higher risk of being hospitalized for COVID-19. What is PAXLOVID? PAXLOVID is an investigational medicine used to treat vghr-na-arnbimbj COVID-19 in adults and children [12 years [...] of using PAXLOVID to treat people with agii-ak-cmzxxfpp COVID-19. The FDA has authorized the emergency use of PAXLOVID for the treatment of uuvq-ma-hjcrkbvr COVID-19in adults and children [12 years of age [...] the medicines you take, including prescription and mohe-kqd-thysith medicines, vitamins, and herbal supplements. Some medicines [...] you have any questions about contraceptive methods thatmight be right for you. How do I [...] missed dose and take the next dose atyour regular time. Do not take 2 doses [...] oral midazolam Apalutamide Carbamazepine, phenobarbital, phenytoin Rifampin [place] s Wort (hypericum perforatum) Taking PAXLOVID with [...] (remdesivir) is FDA-approved for the treatment of ssdt-yt-hszkqwlj COVID-19 in certain adults and children. Talk with your doctor to see if Veklury is appropriate for you. Like PAXLOVID, FDA may also allow for the emergency use of other medicines to treat people with COVID-19. Go to https://www.fda.gov/usqryvalz-faxwvstrvyop-xfxgfpubdwv/nif-etaly-hizbhlpibz-and- policy-framework/dzuvdgzqf-mzn-ydzqfiqvwnamk for information on the emergency use of other medicines that are authorized by FDA to treat people with COVID-19. Your healthcare provider may talk with you aboutclinical trials for which you may be eligible. It is your choice to be treated or not to be treated with PAXLOVID. Should you decide not to receive it or for your child not to receive it, it will not change your standard medical care. What if I am or ? There is notereader treating women or mothers with PAXLOVID. For a motherand unborn baby, the benefit of taking PAXLOVID may be greater than the risk from the treatment. Ifyou are , discuss your options and specific situation with your healthcare provider. It is recommended that you use effective barrier contraception or do not have sexual activity whiletaking PAXLOVID. If you are , discuss your options and specific situation with your healthcare provider. How do I report side effects with PAXLOVID? Contact your healthcare provider if you have any side effects that bother you or do not go away. Report side effects to FDA MedWatch at www.fda.gov/medwatch or call 4-470-WRA6779 or you can reportside effects to [employer]. at the contact information provided below. Website Fax number Telephone number Ujogo How should I store PAXLOVID? Store PAXLOVID [...] (EUA). The EUA is supported by a Deli Worker of Health and Human Service (HHS) declaration that circumstances exist to justify the emergency use of drugs and biological productsduring the COVID-19 pandemic. PAXLOVID for the treatment of dgcc-tq-qgtgdcyy COVID-19 in adults and children [12 years of age andolder weighing at least 88 pounds (40 kg)] [...] telephone number provided below. Website Telephone number wwwCommun.itLQBWO88jczcJg.com (2-281-S92-PACK) You can also go to www.[employer].SoWeTrip or call for more information. Pfizer Distributed by [employer] [place] [address] LAB-1494-2.1 Revised: 22 August 2021 documented in this encounterSamaritan [facility]11-04-2022 History of Present illness Narrative* Irish Heart APRN.CNP - 04/10/2022 1:26 PM EDT VIRTUAL VISIT PROGRESS NOTE This is a virtual visit using [employer] video visit. It required patient-provider interaction for themedical decision making as documented below. Yuki Thomas is a 61 year old female seen [...] Mother other (hepatitis B) Mother Hypertension Father [place], age 45 other (dementia) Father age 86 [...] which included preparing to see the patient, vzux-ia-nplx patient care, completing clinical documentation, counseling and educating the patient/family/caregiver, ordering medications, tests, or procedures, and care coordination (not separately reported) Nirmatrelvir/Ritonavir (Paxlovid) Eligibility and Patient Discussion [facility] Formulary Restriction Criteria: Adult outpatients 18 [...] reported. The discussion included alternatives to receiving nirmatrelvir/rit onavir, including clinical trials, and potential the risks [...] and disinfect high touch surfaces, and frequent h andwashing) according to CDC guidelines. The patient stated understanding and gave verbal consent to proceeding with nirmatrelvir/ritonavir treatment. Irish Heart APRN.NIRANJAN April 10, 2022 1:37 PM documented in this encounterSamaritan [facility] Center11-04-2022 Miscellaneous Notes* Telephone Encounter - Lary Omalley RN - 04/10/2022 10:22 AM EDT Patient calls to report Covid Positive today 04/10/2022. Symptoms started 04/09/2022. Symptoms are sore throat, nasal congestion, and low grade temperature 99.7 tympanic. Denies chest pain, SOB, chills, body aches, fatigue, headache, nausea, vomiting, or diarrhea. Wants to discuss Paxlovid. Fully vaccinated. Lary Omalley RN documented in this encounterSamaritan [facility]05-31-2022 History of Present illness Narrative* Shira Varma MD - 11/04/2021 5:08 PM EDT Images from the original note were not included. This note was created using U[employer] Coating[employer]. Subjective Yuki Thomas is a 61 year old female. Patient presents with: F/U 6 months SUBJECTIVE: Yuki Thomas is a 61 year old year old lady here today for 6 month follow up appointment for reviewof medical conditions. Thumbs hurting the past couple [...] lifestyle changes for effective weight loss as wellas prevention of DM, and control of BP and lipids. - HGB A1C - COMP METABOLIC PANEL 5. Mixed hyperlipidemia - ICD9: 272.2, ICD10: E78.2 - to be determined upon return of lab results - COMP METABOLIC PANEL - LIPID PANEL BASIC 6. Colon cancer screening - ICD9: V76.51, ICD10: Z12.11 - COLOGUARD Shira Varma MD documented in this encounterSamaritan [facility]05-11-2022 Miscellaneous Notes* Telephone Encounter - Shira Varma MD - 10/15/2021 5:27 PM EDT Okayed * Telephone Encounter - Judith Bowman LPN - 10/15/2021 1:07 PM EDT Patient has been identified by name and [...] you. Judith Bowman LPN documented in this encounterSamaritan [facility]11-24-2021 Miscellaneous Notes* Telephone Encounter - Chanda Miller Ma - 04/30/2021 11:40 AM EST Left message for return call. * Telephone Encounter - Valeria Frazier APRN.CNP - 04/30/2021 11:17 AM EST Increase potasium to 2 tablets twice a day. Make sure she isn't taking the potassium with the omeprazole which can interfere with the absorption of the potassium. Recheck potassium in two weeks Valeria Frazier APRN.CNP * Telephone Encounter - Pam Park Ma - 04/30/2021 11:04 AM EST Patient is currently taking 3 20meq tablets daily. She has plenty to increase in needed * Telephone Encounter - Pam Park Ma - 04/30/2021 11:02 AM EST ----- Message from Valeria Frazier APRN.CNP sent at 04/30/2021 10:49 AM EST ----- Labs normal except potassium 3.0, how much potassium is she taking? Valeria Frazier APRN.CNP [facility] History of Present illness Narrative* Yaz Jackson, RT(R) - 10/04/2020 4:50 PM EDT Radiology Service Progress Note PATIENT NAME: Yuki Thomas DATE OF SERVICE: October 04, 2020 TIME: 5:17 PM PATIENT IDENTITY VERIFICATION COMPLETED USING TWO (2) IDENTIFIERS: Name and Date of confirmedby patient verbally. FALL SCREENING: Has the patient [...] 04, 2020 5:17 PM [facility] History of Past illness Narrative* Problem Noted Date Resolved Date Pain in joint, upper arm 03/09/2006 007 Essential hypertension, benign 03/02/2006 0 10/14/2006 Overview: low dose HCTZ since 1998. documented as of this encounter (statuses as of 09/15/2021) [facility] of [facility] illness Narrative* Problem Noted Date Resolved Date Pain in joint, upper arm 03/09/2006 007 Essential hypertension, benign 03/02/2006 0 10/14/2006 Overview: low dose HCTZ since 1998. documented as of this encounter (statuses as of 09/16/2021) [facility] of [facility] illness Narrative* Problem Noted Date Resolved Date Pain in joint, upper arm 03/09/2006 007 Essential hypertension, benign 03/02/2006 0 10/14/2006 Overview: low dose HCTZ since 1998. documented as of this encounter (statuses as of 10/15/2021) [facility] Narrative* Problem Noted Date Resolved Date Pain in joint, upper arm 03/09/2006 007 Essential hypertension, benign 03/02/2006 0 10/14/2006 Overview: low dose HCTZ since 1998. documented as of this encounter (statuses as of 10/21/2021) [facility] Narrative* Problem Noted Date Resolved Date Pain in joint, upper arm 03/09/2006 007 Essential hypertension, benign 03/02/2006 0 10/14/2006 Overview: low dose HCTZ since 1998. documented as of this encounter (statuses as of 11/10/2021) [facility] Narrative* Problem Noted Date Resolved Date Pain in joint, upper arm 03/09/2006 007 Essential hypertension, benign 03/02/2006 0 10/14/2006 Overview: low dose HCTZ since 1998. documented as of this encounter (statuses as of 04/10/2022) [facility] Narrative* Problem Noted Date Resolved Date Pain in joint, upper arm 03/09/2006 007 Essential hypertension, benign 03/02/2006 0 10/14/2006 Overview: low dose HCTZ since 1998. documented as of this encounter (statuses as of 04/10/2022) [facility] Narrative* Problem Noted Date Resolved Date Pain in joint, upper arm 03/09/2006 007 Essential hypertension, benign 03/02/2006 0 10/14/2006 Overview: low dose HCTZ since 1998. documented as of this encounter (statuses as of 04/12/2022) [facility] Narrative* Problem Noted Date Resolved Date Pain in joint, upper arm 03/09/2006 007 Essential hypertension, benign 03/02/2006 0 10/14/2006 Overview: low dose HCTZ since 1998. documented as of this encounter (statuses as of 05/08/2022) [facility] Narrative* Problem Noted Date Resolved Date Pain in joint, upper arm 03/09/2006 007 Essential hypertension, benign 03/02/2006 0 10/14/2006 Overview: low dose HCTZ since 1998. documented as of this encounter (statuses as of 08/31/2022) [facility] Narrative* Problem Noted Date Resolved Date Pain in joint, upper arm 03/09/2006 007 Essential hypertension, benign 03/02/2006 0 10/14/2006 Overview: low dose HCTZ since 1998. documented as of this encounter (statuses as of 12/07/2022) [facility] Narrative* Problem Noted Date Diagnosed Date Resolved Date Pain in joint, upper arm 03/09/200603/2007 Essential hypertension, benign 03/02/2006 10/14/2006 Overview: low dose HCTZ since 1998. documented as of this encounter (statuses as of 03/23/2023) [facility] Narrative* Problem Noted Date Diagnosed Date Resolved Date Pain in joint, upper arm 03/09/200603/2007 Essential hypertension, benign 03/02/2006 10/14/2006 Overview: low dose HCTZ since 1998. documented as of this encounter (statuses as of 03/25/2023) [facility] Narrative* Problem Noted Date Diagnosed Date Resolved Date Pain in joint, upper arm 03/09/200603/2007 Essential hypertension, benign 03/02/2006 10/14/2006 Overview: low dose HCTZ since 1998. documented as of this encounter (statuses as of 03/30/2023) [facility] Narrative* Problem Noted Date Diagnosed Date Resolved Date Pain in joint, upper arm 03/09/200603/2007 Essential hypertension, benign 03/02/2006 10/14/2006 Overview: low dose HCTZ since 1998. documented as of this encounter (statuses as of 04/11/2023) [facility] Narrative* Problem Noted Date Diagnosed Date Resolved Date Pain in joint, upper arm 03/09/200603/2007 Essential hypertension, benign 03/02/2006 10/14/2006 Overview: low dose HCTZ since 1998. documented as of this encounter (statuses as of 05/12/2023) [facility] Narrative* Problem Noted Date Diagnosed Date Resolved Date Pain in joint, upper arm 03/09/200603/2007 Essential hypertension, benign 03/02/2006 10/14/2006 Overview: low dose HCTZ since 1998. documented as of this encounter (statuses as of 05/21/2023) [facility] Narrative* Problem Noted Date Diagnosed Date Resolved Date Pain in joint, upper arm 03/09/200603/2007 Essential hypertension, benign 03/02/2006 10/14/2006 Overview: low dose HCTZ since 1998. documented as of this encounter (statuses as of 05/28/2023) [facility] Author Osman Do [facility] Note Date/Time March 01, 2025 12:55pm [facility] Medical Records Department [address] [place] [address] Emergency Department Summary 03/01/25 MR#: [id number] Acct: [id number] Name: YUKI THOMAS Rep #:[id number] : 1960 64 From: Osman Wallace PCP: Dr. Shira Varma MD Status:DE P ER Location: ED HPI History of Present Illness Chief Complaint: Palpitations Informant: patient Onset/Context/Timing Onset: Today Context: Gradual Onset Timing: Continuous Quality: Skipping beats Location: Chest Worsened by: Activity Relieved by: Nothing Narrative Narrative: Patient presents with palpitations that began this morning. Patient states thatwhen she got up she was feeling occasional skipping in her chest. Patient states that became more frequent as she was becoming more active this morning. Patient states she felt dizzy. Patient denies any chest pain. Patient states she felt nauseated with these. Patient states she also had some shortness of breath with this. Patient states she went to the [facility] station where they checked an EKG which was normal. Patient states that they also checked her blood pressure which was elevated and referred her to the emergency department. Patient states that when she stood up at the fire station, she felt some pressure in her upper chest and neck that only lasted for a few seconds. Patient states she had similar symptoms 1 month ago with low potassium and low magnesium. Patient states that they stopped her diuretic and prescribed potassium. [facility] Medical History (Updated 03/01/25 @ 12:[address] Osman Do, DO) Hypertension Home Medications ?Medication ?Instructions ?Recorded ?Last Taken ?Type Multivitamins,Therapeutic 1 tab PO DAILY 05/02/13 Unkn own History Omeprazole 20 mg PO DAILY 05/02/13 Unkn own History amlodipine 2.5 mg tablet 2.5 mg PO DAILY 02/03/25 Unk nown History potassium chloride 20 mEq 20 meq PO 4X/DAY 02/03/25 Un known History tablet,extended release(part/cryst) Allergy/AdvReac Type Severity Reaction Status Date / Time ciprofloxacin (From Cipro) Allergy Other Verified 03/01/25 08:46 ciprofloxacin HCl (From Allergy Other Verified 03/01/25 08:46 Cipro) Sulfa (Sulfonamide Allergy Hives Verified 03/01/25 08:46 Antibiotics) Surgical History no surgical history no surgical history Social History Smoking Status: Former smoker ROS ROS ED Constitutional Constitutional ED: Denies chills or fever(s) Eyes Eyes: Denies blurry vision or change in vision ENT ENT ED: Denies rhinorrhea or sore throat Cardiovascular Cardiovascular: Reports palpitations; Denies chest pain Respiratory/Chest Respiratory/Chest: Reports dyspnea; Denies cough Gastrointestinal Gastrointestinal: Reports nausea; Denies vomiting Genitourinary Genitourinary ED: Denies dysuria or hematuria Musculoskeletal Musculoskeletal: Denies back pain or neck pain Integumentary Denies abscess or rash Neurologic Neurologic: Denies headache(s) or weakness Allergic/Immunologic Allergic/Immunologic ED: Denies mouth swelling or urticaria EXAM Physical Exam Const Vital Signs: 03/01/25 08:45 03/01/25 09:12 03/01/25 09:52 Temperature 98.9 F Temperature Source Temporal Pulse Rate 79 68 Respiratory Rate 14 17 Blood Pressure 171/78 H 158/81 H Blood Pressure Mean 109 106 Pulse Ox 99 99 Oxygen Delivery Method Room Air Room Air Room Air 03/01/25 11:00 03/01/25 12:00 Temperature Temperature Source Pulse Rate 65 66 Respiratory Rate 12 10 L Blood Pressure 133/64 H 146/83 H Blood Pressure Mean 87 104 Pulse Ox 98 96 Oxygen Delivery Method Room Air Room Air Positive well nourished and well developed General Appearance ED: well developed and NAD HEENT Reports moist mucous membranes Neck supple and no JVD Resp normal respiratory effort and clear to auscultation bilaterally Cardio regular rate and regular rhythm GI non-tender and non-distended Palpation: soft Extremity normal to inspection General Extremety ED: Negative for edema or tenderness General Extremity: Negative for edema Neuro oriented x3, CN's II-XII intact bilaterally and no sensory deficits noted Sensorium / Orientation: alert Motor Exam: strength 5/5 throughout Psych mental status grossly normal MDM MDM MDM Narrative Medical decision making narrative: Differential diagnosis includes cardiac dysrhythmia, cardiac ischemia, pneumonia, bronchitis, electrolyte abnormality, gastroesophageal reflux disease,and hypertensive urgency. EKG will be obtained to assess for cardiac dysrhythmia and cardiac ischemia. Chest x-ray will be obtained to assess for pneumonia or bronchitis. CBC will be obtained to assess for leukocytosis and anemia. Basic metabolic profile will be obtained to assess for electrolyte abnormality and renal function. High- sensitivity troponin will be obtained to assess for cardiac ischemia. 2-hour repeat high-sensitivity troponin will be obtained to assess for ongoing cardiac ischemia. Serum magnesium level will be obtained to assess for hypomagnesemia. History & Record Review Additional record(s) reviewed:: Prior ED visit and Prior labs Lab Data Attestation: I reviewed the patient's lab results. Lab results narrative: CBC was reviewed and was within normal limits. Basic metabolic profile was reviewed and was within normal limits. Magnesium was reviewed and was normal at1.8. Initial high-sensitivity troponin was reviewed and was less than 6. 2-hour repeat high-sensitivity troponin was reviewed and was 9. Labs: Laboratory Results - last 24 hr 03/01/25 03/01/25 09:20 11:11 WBC 7.5 RBC 4.51 Hgb 13.0 Hct 38.1 MCV 84.5 MCH 28.8 MCHC 34.1 RDW Std Deviation 41.5 RDW Coeff of Chito 13.4 Plt Count 237 MPV 9.3 Immature Gran % (Auto) 0.800 Neut % (Auto) 66.8 Lymph % (Auto) 23.2 Worth % (Auto) 6.6 Eos % (Auto) 2.3 Baso % (Auto) 0.3 Absolute Neuts (auto) 5.0 Absolute Lymphs (auto) 1.73 Nucleated RBC % 0 Sodium 141 Potassium 3.9 Chloride 106 Carbon Dioxide 19.8 L Anion Gap 15 BUN 14 Creatinine 0.73 Estim Creat Clear Calc 79.64 Est GFR (MDRD) Non-Af 91 BUN/Creatinine Ratio 19.0 Glucose 112 H Calcium 8.8 Magnesium 1.8 Troponin T High Sens < 6 Troponin T Hi Sens 2 Hr 9 Radiography Chest X-Ray - ED: 2 View, Read by ED Physician, Read by Radiologist and No AcuteDisease Diagnostic Testing: Clinical Impression(s) from Imaging Studies Chest X-Ray 03/01/25 09:13 IMPRESSION: No acute process is identified in the chest. Reading [facility] and lateral chest x-ray was obtained. There are 2 views. On my independent interpretation, lung schroeder are clear. There is normal cardiac silhouette. Bony thorax is normal. There is no acute process noted. Radiologist also interpreted the x-ray and agrees. EKG Initial EKG: Attestation: I personally reviewed and interpreted this EKG as follows: Interpretation: Sinus Rhythm (75) Comments: EKG was obtained. On my independent interpretation, it showed anormal sinus rhythm with occasional PVC with a rate of 75. IA interval, QRS interval, and QTc intervals were all normal. Tyro was normal. There are no acute ST or T wave changes. Prior EKG tracings: available for review Prior: Unchanged (02/03/2025) Treatment and Re-Evaluation :: Patient was given aspirin here. Patient was advised of her findings. Patient was instructed to follow-up with her primary care physician in 5 to 7 days. Patient was instructed to continue her medications as previously prescribed. Patient was instructed to return if worse in any way. Patient understood and was agreeable with the plan. All questions were answered. Discharge Plan Triage Chief Complaint: Palpitations ED Provider: Osman Do Dx/Rx/DC Orders Clinical Impression: Heart palpitations, Hypertension, PVC (premature ventricular contraction) Instructions: ED Heart Palpitations Prescriptions: No Action Multivitamins,Therapeutic 1 TAB 1 tab PO DAILY Omeprazole 20 MG 20 mg PO DAILY amlodipine 2.5 mg tablet 2.5 mg PO DAILY potassium chloride 20 mEq tablet,ER particles/crystals 20 meq PO 4X/DAY Primary Care Provider: Shira Varma Referrals: Shira Varma MD [Primary Care Provider, Internal Medicine] - 5-7 Days Print Language: Wallisian Disposition Disposition: Home, Self Care What to do if you have Problems For any increased pain, shortness of breath, bleeding, nausea or vomiting, chestpain, or any unexpected problems, contact your Primary Care Provider. Call [facility] ([phone]) or report to the closest Emergency Room. Call 911 if necessary. 03/01/25 1654 <Electronically signed by Osman Do DO> Cosigner Signature (if applicable): CC: Dr. Shira Varma MD ~ Signed [facility] Work Phone: Evaluation note* Diagnosis Encounter for screening mammogram for breast cancer documented in this encounter [facility] note* Diagnosis Essential hypertension Unspecified essential hypertension documented in this encounter [facility] note* Diagnosis Hypopotassemia documented in this encounter [facility] note* Diagnosis Hand arthritis- Primary Unspecified arthropathy, hand Hypopotassemia Essential hypertension Unspecified essential hypertension IFG (impaired fasting glucose) Impaired fasting glucose Mixed hyperlipidemia Colon cancer screening Special screening for malignant neoplasms, colon documented in this encounter [facility] note* Diagnosis COVID-19- Primary documented in this encounter [facility] noteNo assessment information [facility]WMer[facility] Work Phone: Evaluation note* Diagnosis Primary hypertension- Primary Unspecified essential hypertension Elevated LDL cholesterol level Pure hypercholesterolemia Hypopotassemia COVID-19 virus infection Screening for diabetes mellitus Encounter for immunization Need for other specified prophylactic vaccination against single bacterial disease Screening for cervical cancer Screening for malignant neoplasm of the cervix documented in this encounter [facility] note* Diagnosis Encounter for screening mammogram for breast cancer documented in this encounter [facility] note* Diagnosis Primary hypertension- Primary Unspecified essential [...] with tetanus-diphtheria (Td) [facility] Diagnosis Urgency of urination- Primary [facility]* Diagnosis Encounter for screening mammogram for breast cancer [facility]* Diagnosis Primary hypertension- Primary Unspecified essential hypertension Elevated LDL cholesterol level Pure hypercholesterolemia Hypopotassemia Neck pain Cervicalgia Neck stiffness Torticollis, unspecified Elevated glucose Other abnormal glucose Left ear pain Otalgia, unspecified [facility]* Diagnosis Urgency of urination [facility] Diagnosis Primary hypertension Unspecified essential hypertension [facility]* Diagnosis Acute cystitis with hematuria- Primary Acute cystitis Encounter for therapeutic drug monitoring Elevated LDL cholesterol level Pure hypercholesterolemia IFG (impaired fasting glucose) Impaired fasting glucose Screening for thyroid disorder [facility]* Diagnosis Encounter for screening mammogram for breast cancer [facility]* Diagnosis Primary hypertension- Primary Unspecified essential hypertension IFG (impaired fasting glucose) Impaired fasting glucose Hypokalemia Hypopotassemia Mixed hyperlipidemia Screening for colon cancer Special screening for malignant neoplasms, colon [facility]* Diagnosis Neck pain Cervicalgia [facility]* Diagnosis Sinobronchitis- Primary Unspecified sinusitis (chronic) Acute otitis media, unspecified otitis media type Excessive cerumen in ear canal, right [facility]* Diagnosis Screening for depression- Primary Encounter for screening examination for other mental health and behavioral disorders Encounter for immunization Need for other specified prophylactic vaccination against single bacterial disease [facility] Diagnosis Primary hypertension- Primary Unspecified essential hypertension [facility] Diagnosis Urgency of urination- Primary [facility]* Diagnosis Dysuria- Primary Frequent UTI Urinary tract infection, site not specified Antibiotic-induced yeast infection Candidiasis of unspecified site [facility]* Diagnosis Primary hypertension Unspecified essential hypertension [facility]* Diagnosis Hypokalemia Hypopotassemia [facility]* Diagnosis Primary hypertension Unspecified essential hypertension Hypokalemia Hypopotassemia [facility]* Diagnosis Encounter for screening mammogram for breast cancer [facility]* Diagnosis Primary hypertension- Primary Unspecified [...] Antibody response examination documented in this encounter [facility] note* Diagnosis Palpitations- Primary Hypomagnesemia Disorders of magnesium metabolism Hypokalemia Hypopotassemia Primary hypertension Unspecified essential hypertension Dizziness and giddiness documented in this encounter [facility] note* Diagnosis Palpitations- Primary documented in this encounter [facility] note* Diagnosis Palpitations- Primary Hypokalemia Hypopotassemia Hypomagnesemia Disorders of magnesium metabolism Essential (primary) hypertension Unspecified essential hypertension [facility] Discharge instructions Additional Instructions Plenty of fluids and rest. Motrin and Tylenol for fevers and body aches. Continue the Paxlovid if it does not agree with you stop taking it. Follow-up with your doctor if not improving or return if feeling a lot worse. [facility] Work Phone: Reason for referral (narrative)* Diagnostic Procedure Only (Routine) - Pending Review Specialty Diagnoses / Procedures Referred By Rubina esquivel Referred To Contact [facility] Diagnoses Encounter for screening mammogram for breast cancer Procedures CARLOS SCREENING SCREENING MAMMOGRAPHY BI 2-VIEW BREAST INC Shira Yang MD [address] [place] [address] [facility] [address] [place] [address] Referral ID Status Reason Start Date Expiration Date Visits Requested Visits Authorized [id number] Pending Review Auto-Generat ed Referral 09/10/2021 10/10/2022 1 1 [facility] for referral (narrative)* Diagnostic Procedure Only (Routine) - Pending Review Specialty Diagnoses / Procedures Referred By Rubina esquivel Referred To Contact [facility] Diagnoses Encounter for screening mammogram for breast cancer Procedures CARLOS SCREENING SCREENING MAMMOGRAPHY BI 2-VIEW BREAST INC Shira Yang MD [address] [place] [address] [facility] [address] [place] [address] Referral ID Status Reason Start Date Expiration Date Visits Requested Visits Authorized [id number] Pending Review Auto-Generat ed Referral 08/26/2022 09/25/2023 1 1 T [facility] for referral (narrative)* Diagnostic Procedure Only (Routine) - Closed Specialty Diagnoses / Procedures Referred By Rubina esquivel Referred To Contact [facility] Diagnoses Encounter for screening mammogram for breast cancer Procedures CARLOS SCREENING SCREENING MAMMOGRAPHY BI 2-VIEW BREAST INC Shira Yang MD [address] [place] [address] [facility] [address] [place] [address] Referral ID Status Reason Start Date Expiration Date V isits Requested Visits Authorized [id number] Closed Auto-Generate d Referral 08/26/2022 09/25/2023 1 1 [facility] for referral (narrative)* Diagnostic Procedure Only (Routine) - Pending Review Specialty Diagnoses / Procedures Referred By Rubina esquivel Referred To Contact [facility] Diagnoses Encounter for screening mammogram for breast cancer Procedures CARLOS SCREENING W SHANNAN SCREENING DIGITAL BREAST TOMOSYNTHESIS BI SCREENING MAMMOGRAPHY BI 2-VIEW BREAST INC Shira Yang MD [address] [place] [id number] [facility] [address] [place] [address] Referral ID Status Reason Start Date Expiration Date Visits Requested Visits Authorized [id number] Pending Review Auto-Generat ed Referral 12/01/2023 12/30/2024 1 1 [facility] for referral (narrative)* Diagnostic Procedure Only (Urgent) - Closed Specialty Diagnoses / Procedures Referred By Contac t Referred To Contact XR IMAGING Diagnoses Neck pain Procedures XR CERV OTHER 4V AP/LAT/OBL X-RAY NECK MINIMUM 4 VIEWS Sarah Johnson PA-C [address] [place] [address] Xr Imaging [facility]95 Referral ID Status Reason Start Date Expiration Date V isits Requested Visits Authorized [id number] Closed Auto-Generate d Referral 10/04/2020 06/06/2021 1 1 [facility] for referral (narrative)No reason for referral information availableWMercer [facility] Work Phone: [facility] for visit Narrative* Diagnostic Procedure Only (Routine) - Closed Specialty Diagnoses / Procedures Referred By Contac t Referred To Contact BR IMAGING Diagnoses Encounter for screening mammogram for breast cancer Procedures CARLOS SCREENING SCREENING MAMMOGRAPHY BI 2-VIEW BREAST INC CAD Shira Varma MD [address] [place] [address] [facility] [address] [place] [address] Referral ID Status Reason Start Date Expiration Date V isits Requested Visits Authorized [id number] Closed Auto-Generate d Referral 08/26/2022 09/25/2023 1 1 [facility] for visit Narrative* Diagnostic Procedure Only (Urgent) - Closed Specialty Diagnoses / Procedures Referred By Contac t Referred To Contact XR IMAGING Diagnoses Neck pain Procedures XR CERV OTHER 4V AP/LAT/OBL X-RAY NECK MINIMUM 4 VIEWS Sarah Johnson PAMegC [address] [place] [address] [place] [address] Referral ID Status Reason Start Date Expiration Date V isits Requested Visits Authorized [id number] Closed Auto-Generate d Referral 10/04/2020 06/06/2021 1 1 [facility] Chief Complaint and Reason for Visit Chief Complaint SHORTNESS OF BREATH Chief Complaint Admit Date PALPITATIONS February 03, 2025 6: 03pm Chief Complaint Admit Date PALPITATIONS February 03, 2025 6: 03pm NAUSEA March 01, 2025 8:45am Advance Directives No Advanced Directives Records Found Advance Directive Response Recorded Date/ Time Living Will No April 12 10:28am Power of Lead Dental Assistant No April 12, 2022 10:28am Advance Directive Response Recorded Date/ Time Do you have a Healthcare Power of Lead Dental Assistant? No February 03, 2025 6:18pm Advance Directive Response Recorded Date/ Time Do you have a Healthcare Power of Lead Dental Assistant? No March 01, 2025 8:56am Do you have a Healthcare Power of Lead Dental Assistant? No February 03, 2025 6:18pm Reason for Referral Specialty Diagnoses / Procedures Referred By Rubina esquivel Referred To Contact Diagnoses Screening for cervical cancer Procedures CONSULT TO ENGINE PILOT OFFICE/OUTPATIENT [facility] MDM 60-74 MINUTES Annabel Griggs APRN.GENERAL LOT ATTENDANT [address] [place] [address] Referral ID Status Reason Start Date Expiration Date Visits Requested Visits Authorized [id number] Pending Review PCP Requested Referral Auto-Generate d Referral 05/08/2022 05/08/2023 1 1 Summary Purpose Family History No Family History Records FoundNo Family History Records Found Additional Source Comments Source Comments (unrecognize d section and content) In the event this informatio n is protected by the Federal Confidentiality of Alcohol and Drug Abuse Patient Records regulations: The Federal rules restrict any use of the information to criminally investigate or prosecute any alcohol or drug abuse patient.[facility] the event this information is protected by the Federal Confidentiality of Alcohol and Drug Abuse Patient Records regulations: The Federal rules restrict any use of the information to criminally investigate or prosecute any alcohol or drug abuse patient.[facility] CenterIn the event this information is protected by the Federal Confidentiality of Alcohol and Drug Abuse Patient Records regulations: The Federal rules restrict any use of the information to criminally investigate or prosecute any alcohol or drug abuse patient.[facility] CenterIn the event this information is protected by the Federal Confidentiality of Alcohol and Drug Abuse Patient Records regulations: The Federal rules restrict any use of the information to criminally investigate or prosecute any alcohol or drug abuse patient.[facility] CenterIn the event this information is protected by the Federal Confidentiality of Alcohol and Drug Abuse Patient Records regulations: The Federal rules restrict any use of the information to criminally investigate or prosecute any alcohol or drug abuse patient.[facility] CenterIn the event this information is protected by the Federal Confidentiality of Alcohol and Drug Abuse Patient Records regulations: The Federal rules restrict any use of the information to criminally investigate or prosecute any alcohol or drug abuse patient.[facility] CenterIn the event this information is protected by the Federal Confidentiality of Alcohol and Drug Abuse Patient Records regulations: The Federal rules restrict any use of the information to criminally investigate or prosecute any alcohol or drug abuse patient.[facility] CenterIn the event this information is protected by the Federal Confidentiality of Alcohol and Drug Abuse Patient Records regulations: The Federal rules restrict any use of the information to criminally investigate or prosecute any alcohol or drug abuse patient.[facility] CenterIn the event this information is protected by the Federal Confidentiality of Alcohol and Drug Abuse Patient Records regulations: The Federal rules restrict any use of the information to criminally investigate or prosecute any alcohol or drug abuse patient.[facility] CenterIn the event this information is protected by the Federal Confidentiality of Alcohol and Drug Abuse Patient Records regulations: The Federal rules restrict any use of the information to criminally investigate or prosecute any alcohol or drug abuse patient.[facility] CenterIn the event this information is protected by the Federal Confidentiality of Alcohol and Drug Abuse Patient Records regulations: The Federal rules restrict any use of the information to criminally investigate or prosecute any alcohol or drug abuse patient.[facility] CenterIn the event this information is protected by the Federal Confidentiality of Alcohol and Drug Abuse Patient Records regulations: The Federal rules restrict any use of the information to criminally investigate or prosecute any alcohol or drug abuse patient.[facility] CenterIn the event this information is protected by the Federal Confidentiality of Alcohol and Drug Abuse Patient Records regulations: The Federal rules restrict any use of the information to criminally investigate or prosecute any alcohol or drug abuse patient.[facility] CenterIn the event this information is protected by the Federal Confidentiality of Alcohol and Drug Abuse Patient Records regulations: The Federal rules restrict any use of the information to criminally investigate or prosecute any alcohol or drug abuse patient.[facility] CenterIn the event this information is protected by the Federal Confidentiality of Alcohol and Drug Abuse Patient Records regulations: The Federal rules restrict any use of the information to criminally investigate or prosecute any alcohol or drug abuse patient.[facility] CenterIn the event this information is protected by the Federal Confidentiality of Alcohol and Drug Abuse Patient Records regulations: The Federal rules restrict any use of the information to criminally investigate or prosecute any alcohol or drug abuse patient.[facility] CenterIn the event this information is protected by the Federal Confidentiality of Alcohol and Drug Abuse Patient Records regulations: The Federal rules restrict any use of the information to criminally investigate or prosecute any alcohol or drug abuse patient.[facility] CenterIn the event this information is protected by the Federal Confidentiality of Alcohol and Drug Abuse Patient Records regulations: The Federal rules restrict any use of the information to criminally investigate or prosecute any alcohol or drug abuse patient.[facility] CenterIn the event this information is protected by the Federal Confidentiality of Alcohol and Drug Abuse Patient Records regulations: The Federal rules restrict any use of the information to criminally investigate or prosecute any alcohol or drug abuse patient.[facility] CenterIn the event this information is protected by the Federal Confidentiality of Alcohol and Drug Abuse Patient Records regulations: The Federal rules restrict any use of the information to criminally investigate or prosecute any alcohol or drug abuse patient.[facility] CenterIn the event this information is protected by the Federal Confidentiality of Alcohol and Drug Abuse Patient Records regulations: The Federal rules restrict any use of the information to criminally investigate or prosecute any alcohol or drug abuse patient.[facility] CenterIn the event this information is protected by the Federal Confidentiality of Alcohol and Drug Abuse Patient Records regulations: The Federal rules restrict any use of the information to criminally investigate or prosecute any alcohol or drug abuse patient.[facility] CenterIn the event this information is protected by the Federal Confidentiality of Alcohol and Drug Abuse Patient Records regulations: The Federal rules restrict any use of the information to criminally investigate or prosecute any alcohol or drug abuse patient.[facility] CenterIn the event this information is protected by the Federal Confidentiality of Alcohol and Drug Abuse Patient Records regulations: The Federal rules restrict any use of the information to criminally investigate or prosecute any alcohol or drug abuse patient.[facility] CenterIn the event this information is protected by the Federal Confidentiality of Alcohol and Drug Abuse Patient Records regulations: The Federal rules restrict any use of the information to criminally investigate or prosecute any alcohol or drug abuse patient.[facility] CenterIn the event this information is protected by the Federal Confidentiality of Alcohol and Drug Abuse Patient Records regulations: The Federal rules restrict any use of the information to criminally investigate or prosecute any alcohol or drug abuse patient.[facility] CenterIn the event this information is protected by the Federal Confidentiality of Alcohol and Drug Abuse Patient Records regulations: The Federal rules restrict any use of the information to criminally investigate or prosecute any alcohol or drug abuse patient.[facility] CenterIn the event this information is protected by the Federal Confidentiality of Alcohol and Drug Abuse Patient Records regulations: The Federal rules restrict any use of the information to criminally investigate or prosecute any alcohol or drug abuse patient.[facility] CenterIn the event this information is protected by the Federal Confidentiality of Alcohol and Drug Abuse Patient Records regulations: The Federal rules restrict any use of the information to criminally investigate or prosecute any alcohol or drug abuse patient.[facility] CenterIn the event this information is protected by the Federal Confidentiality of Alcohol and Drug Abuse Patient Records regulations: The Federal rules restrict any use of the information to criminally investigate or prosecute any alcohol or drug abuse patient.[facility] CenterIn the event this information is protected by the Federal Confidentiality of Alcohol and Drug Abuse Patient Records regulations: The Federal rules restrict any use of the information to criminally investigate or prosecute any alcohol or drug abuse patient.[facility] CenterIn the event this information is protected by the Federal Confidentiality of Alcohol and Drug Abuse Patient Records regulations: The Federal rules restrict any use of the information to criminally investigate or prosecute any alcohol or drug abuse patient.[facility] CenterIn the event this information is protected by the Federal Confidentiality of Alcohol and Drug Abuse Patient Records regulations: The Federal rules restrict any use of the information to criminally investigate or prosecute any alcohol or drug abuse patient.[facility] CenterIn the event this information is protected by the Federal Confidentiality of Alcohol and Drug Abuse Patient Records regulations: The Federal rules restrict any use of the information to criminally investigate or prosecute any alcohol or drug abuse patient.[facility] CenterIn the event this information is protected by the Federal Confidentiality of Alcohol and Drug Abuse Patient Records regulations: The Federal rules restrict any use of the information to criminally investigate or prosecute any alcohol or drug abuse patient.[facility] CenterIn the event this information is protected by the Federal Confidentiality of Alcohol and Drug Abuse Patient Records regulations: The Federal rules restrict any use of the information to criminally investigate or prosecute any alcohol or drug abuse patient.[facility] CenterIn the event this information is protected by the Federal Confidentiality of Alcohol and Drug Abuse Patient Records regulations: The Federal rules restrict any use of the information to criminally investigate or prosecute any alcohol or drug abuse patient.[facility] CenterIn the event this information is protected by the Federal Confidentiality of Alcohol and Drug Abuse Patient Records regulations: The Federal rules restrict any use of the information to criminally investigate or prosecute any alcohol or drug abuse patient.[facility] CenterIn the event this information is protected by the Federal Confidentiality of Alcohol and Drug Abuse Patient Records regulations: The Federal rules restrict any use of the information to criminally investigate or prosecute any alcohol or drug abuse patient.[facility] CenterIn the event this information is protected by the Federal Confidentiality of Alcohol and Drug Abuse Patient Records regulations: The Federal rules restrict any use of the information to criminally investigate or prosecute any alcohol or drug abuse patient.[facility] CenterIn the event this information is protected by the Federal Confidentiality of Alcohol and Drug Abuse Patient Records regulations: The Federal rules restrict any use of the information to criminally investigate or prosecute any alcohol or drug abuse patient.[facility] CenterIn the event this information is protected by the Federal Confidentiality of Alcohol and Drug Abuse Patient Records regulations: The Federal rules restrict any use of the information to criminally investigate or prosecute any alcohol or drug abuse patient.[facility] CenterIn the event this information is protected by the Federal Confidentiality of Alcohol and Drug Abuse Patient Records regulations: The Federal rules restrict any use of the information to criminally investigate or prosecute any alcohol or drug abuse patient.[facility] Care Teams (unrecognized sec tion and content) Scraper Tender Relationship Specialty Start Date End Date Shira Varma MD [facility] [place] [address] PCP - General Internal Medicine 12/02/19 Scraper Tender Relationship Specialty Start Date End Date Shira Varma MD [address] [place] [address], [place] [address] PCP - General Internal Medicine 12/02/19 Scraper Tender Relationship Specialty Start Date End Date Shira Varma MD [address] [place] [address], [place] [address] PCP - General Internal Medicine 12/02/19 Scraper Tender Relationship Specialty Start Date End Date Shira Varma MD [address] [place] [address], [place] [address] PCP - General Internal Medicine 12/02/19 Scraper Tender Relationship Specialty Start Date End Date Shira Varma MD [address] [place] [address], [place] [address] PCP - General Internal Medicine 12/02/19 Scraper Tender Relationship Specialty Start Date End Date Shira Varma MD [address] [place] [address], [place] [address] PCP - General Internal Medicine 12/02/19 Scraper Tender Relationship Specialty Start Date End Date Shira Varma MD [address] [place] [address], [place] [address] PCP - General Internal Medicine 12/02/19 Scraper Tender Relationship Specialty Start Date End Date Shira Varma MD [address] [place] [address], [place] [address] PCP - General Internal Medicine 12/02/19 Scraper Tender Relationship Specialty Start Date End Date Shira Varma MD [address] [place] [address], [place] [address] PCP - General Internal Medicine 12/02/19 Scraper Tender Relationship Specialty Start Date End Date Shira Varma MD [address] [place] [address] PCP - General Internal Medicine 12/02/19 Scraper Tender Relationship Specialty Start Date End Date Shira Varma MD [address] [place] [address] PCP - General Internal Medicine 12/02/19 Scraper Tender Relationship Specialty Start Date End Date Shira Varma MD [address] [place] [address] PCP - General Internal Medicine 12/02/19 Scraper Tender Relationship Specialty Start Date End Date Shira Varma MD [address] [place] [address] PCP - General Internal Medicine 12/02/19 Scraper Tender Relationship Specialty Start Date End Date Shira Varma MD [address] [place] [address] PCP - General Internal Medicine 12/02/19 Scraper Tender Relationship Specialty Start Date End Date Shira Varma MD [address] [place] [address] PCP - General Internal Medicine 12/02/19 Scraper Tender Relationship Specialty Start Date End Date Shira Varma MD [address] [place] [address] PCP - General Internal Medicine 12/02/19 Scraper Tender Relationship Specialty Start Date End Date Shira Varma MD [address] [facility] [place] [address] PCP - General Internal Medicine 12/02/19 Scraper Tender Relationship Specialty Start Date End Date Shira Varma MD [address] [facility] [place] [address] PCP - General Internal Medicine 12/02/19 Scraper Tender Relationship Specialty Start Date End Date Shira Varma MD [address] [facility] [place] [address] PCP - General Internal Medicine 12/02/19 Scraper Tender Relationship Specialty Start Date End Date Shira Varma MD [address] [facility] [place] [address] PCP - General Internal Medicine 12/02/19 Scraper Tender Relationship Specialty Start Date End Date Shira Varma MD [address] [facility] [place] [address] PCP - General Internal Medicine 12/02/19 Scraper Tender Relationship Specialty Start Date End Date Shira Varma MD [address] [facility] [place] [address] PCP - General Internal Medicine 12/02/19 Scraper Tender Relationship Specialty Start Date End Date Shira Varma MD [address] [facility] [place] [address] PCP - General Internal Medicine 12/02/19 Scraper Tender Relationship Specialty Start Date End Date Shira Varma MD [address] [facility] [place] [address] PCP - General Internal Medicine 12/02/19 Annabel Griggs, BEEF FARMER.GENERAL LOT ATTENDANT [address] [facility] [place] [address] [facility] 05/15/24 Lula Granados BEEF FARMER.CLERK CARRIER [address] [place] [address] [facility] 05/15/24 Scraper Tender Relationship Specialty Start Date End Date Shira Varma MD [address] [place] [address] PCP - General Internal Medicine 12/02/19 Annabel Griggs, BEEF FARMER.GENERAL LOT ATTENDANT [address] [place] [address] [facility] 05/15/24 Lula Granados BEEF FARMER.CLERK CARRIER [address] [place] [address] [facility] 05/15/24 Scraper Tender Relationship Specialty Start Date End Date Shira Varma MD [address] [place] [address] PCP - General Internal Medicine 12/02/19 Annabel Griggs, BEEF FARMER.GENERAL LOT ATTENDANT [address] [place] [address] [facility] 05/15/24 Lula Granados APRN.CLERK CARRIER [address] [place] [address] [facility] 05/15/24 Scraper Tender Relationship Specialty Start Date End Date Shira Varma MD [address] [place] [address] PCP - General Internal Medicine 12/02/19 Annabel Griggs APRN.GENERAL LOT ATTENDANT [address] [place] [address] [facility] 05/15/24 Lula Granados APRN.CLERK CARRIER [address] [facility] [place] [address] [facility] 05/15/24 Scraper Tender Relationship Specialty Start Date End Date Shira Varma MD [address] [facility] [address] PCP - General Internal Medicine 12/02/19 Annabel Griggs APRN.GENERAL LOT ATTENDANT [address] [facility] [place] [address] [facility] 05/15/24 Lula Granados APRN.CLERK CARRIER [address] [facility] [place] [address] [facility] 08/29/24 Scraper Tender Relationship Specialty Start Date End Date Shira Varma MD [address] [facility] [place] [address] PCP - General Internal Medicine 12/02/19 Annabel Griggs APRN.GENERAL LOT ATTENDANT [address] [facility] [place] [address] [facility] 05/15/24 Lula Granados APRN.CLERK CARRIER [address] [facility] [place] [address] [facility] 05/15/24 08/25/24 Lula Granados APRN.CLERK CARRIER [address] [facility] [address] [facility] 08/29/24 Scraper Tender Relationship Specialty Start Date End Date Shira Varma MD [address] [facility] [place] [address] PCP - General Internal Medicine 12/02/19 Lula Granados APRN.CLERK CARRIER [address] [facility] [place] [address] [facility] 08/29/24 Annabel Griggs BEEF FARMER.GENERAL LOT ATTENDANT [address] [facility] [place] [address] [facility] 10/25/24 Scraper Tender Relationship Specialty Start Date End Date Shira Varma MD [address] [facility] [place] [address] PCP - General Internal Medicine 12/02/19 Lula Granados BEEF FARMER.CLERK CARRIER [address] [facility] [place] [address] [facility] 08/29/24 Annabel Griggs BEEF FARMER.GENERAL LOT ATTENDANT [address] [facility] [place] [address] [facility] 10/25/24 Scraper Tender Relationship Specialty Start Date End Date Shira Varma MD [address] [facility] [place] [address] PCP - General Internal Medicine 12/02/19 Lula Granados BEEF FARMER.CLERK CARRIER [address] [facility] [place] [address] [facility] 08/29/24 Annabel Griggs, BEEF FARMER.GENERAL LOT ATTENDANT [address] [facility] [place] [address] [facility] 10/25/24 Scraper Tender Relationship Specialty Start Date End Date Shira Varma MD [address] [facility] [place] [address] PCP - General Internal Medicine 12/02/19 Lula Granados APRN.CLERK CARRIER [address] [facility] [place] [address] [facility] 08/29/24 Annabel Griggs, BEEF FARMER.GENERAL LOT ATTENDANT [address] [facility] [place] [address] [facility] Internal Medicine 10/25/24 Scraper Tender Relationship Specialty Start Date End Date Shira Varma MD [address] [facility] [place] [address] PCP - General Internal Medicine 12/02/19 Lula Granados BEEF FARMER.CLERK CARRIER [address] [facility] [place] [address] [facility] 08/29/24 Annabel Griggs, BEEF FARMER.GENERAL LOT ATTENDANT [address] [facility] [place] [address] [facility] Internal Medicine 10/25/24 Team Status: Active Member Role/Relationship Status Dates Dr. Shira Varma MD Primary Care Provider Active Team Status: Inactive Member Role/Relationship Status Dates Madi Chong MD Emergency Provider Active Star t: February 03, 2025 End: February 03, 2025 Dr. Shira Varma MD Primary Care Provider Active Start: February 03, 2025 End: February 03, 2025 Scraper Tender Relationship Specialty Start Date End Date Shira Varma MD [address] [facility] [place] [address] PCP - General Internal Medicine 12/02/19 Lula Granados BEEF FARMER.CLERK CARRIER [address] [facility] [place] [address] [facility] 08/29/24 Annabel Griggs, BEEF FARMER.GENERAL LOT ATTENDANT [address] [facility] [place] [address] [facility] 10/25/24 Scraper Tender Relationship Specialty Start Date End Date Shira Varma MD [address] [facility] [place] [address] PCP - General Internal Medicine 12/02/19 Lula Granados, BEEF FARMER.CLERK CARRIER [address] [facility] [place] [address] [facility] 08/29/24 Annabel Griggs, BEEF FARMER.GENERAL LOT ATTENDANT [address] [facility] [place] [address] [facility] 10/25/24 Scraper Tender Relationship Specialty Start Date End Date Shira Varma MD [address] [facility] [place] [address] PCP - General Internal Medicine 12/02/19 Lula Granados, BEEF FARMER.CLERK CARRIER [address] [place] [address] [facility] 08/29/24 Annabel Griggs, BEEF FARMER.GENERAL LOT ATTENDANT [address] [place], [place] [id number] [facility] 10/25/24 Team Status: Active Member Role/Relationship Status Dates Dr. Shira Varma MD Primary care physician Active Team Status: Inactive Member Role/Relationship Status Dates Madi Chong MD Attending physician Active Sta rt: February 03, 2025 End: February 03, 2025 Madi Chong MD Emergency Department Physician Active Start: February 03, 2025 End: February 03, 2025 Dr. Shira Varma MD Primary care physician Active Start: February 03, 2025 End: February 03, 2025 Team Status: Inactive Member Role/Relationship Status Dates Dr. Shira Varma MD Primary care physician Active Start: March 01, 2025 End: March 01, 2025 Dr. Osman Do DO Attending physician Active Start: March 01, 2025 End: March 01, 2025 Dr. Osman Do DO Emergency Departm ent Physician Active Start: March 01, 2025 End: March 01, 2025 Reason for Visit (unrecogniz ed section and content) Reason Comments Blood Pressure Specialty Diagnoses / Procedures Referred By Contac t Referred To Contact INTERNAL MEDICINE Diagnoses MEDICALLY NECESSARY SERVICES Procedures MEDICALLY NECESSARY SERVICES Shira Varma MD [address] [place] [address] [facility] [address] [place] [address] Referral ID Status Reason Start Date Expiration Date Visits Requested Visits Authorized [id number] New Request OON/Self Pay Override 4 06/28/2025 99 99 Reason Comments F/U 6 Month Specialty Diagnoses / Procedures Referred By Contac t Referred To Contact INTERNAL MEDICINE Diagnoses Follow up Procedures Follow up Shira Varma MD [address] [place] [address] [facility] [address] [place] [address] Referral ID Status Reason Start Date Expiration Date Visits Requested Visits Authorized [id number] Pending Review OON/Self Pay Override 11/08/2023 12/04/2024 [...] months Specialty Diagnoses / Procedures Referred By Contac t Referred To Contact INTERNAL MEDICINE Diagnoses Follow up Procedures Follow up Shira Varma MD [address] [place] [address] Phone: tel: fax: Internal [facility] [place] [address] [place] [address] Phone: tel: fax: Referral ID Status Reason Start Date Expiration Date V isits Requested Visits Authorized [id number] Closed OON/Self Pay Override 11/08/2023 12/04/2024 3 3 Reason Comments Palpitations Reason Comments Hospital F/U Reason Comments Orders Reason Comments Follow Up Goals (unrecognized section and content) Goals may be documented in a n alternate sectionGoals may be documented in an alternate sectionGoals may be documented in an alternate section INFORMATION SOURCE (unrecogn ized section and content) DATE CREATED AUTHOR 04/14/2025 [facility] DATE CREATED AUTHOR AUTHOR'S LINDA ECHAVARRIA 04/17/2025 [facility] FOR RECORDS PERTAINING TO PATIENTS WHO ARE [...] BE BASED ON THE PRIMARY CLINICAL RECORDS. [facility]. provides no warranty or guarantee of the accuracy or completeness of information in this document.
== END | disposition home or self-care (01) ==
LOC: CVS 12:53
PROVIDERS: PCP Internal Medicine; Referring Provider Internal Medicine Cardiovascular Disease; Visit Provider Internal Medicine Cardiovascular Disease
DX: R00.2 Palpitations (principal)
CPT/HCPCS: 93306

== ENCOUNTER → 2025-06-05 | Outpatient (CLI) | payer MEDICARE, OTHER, SELFPAY ==
[2025-06-05 12:28] LABS: Anion Gap 16 (7-18); BUN 13 mg/dL (4-19); BUN/Creat Ratio 16.9 RATIO (10-20); Calcium,Total 8.9 mg/dL (7.6-11.0); Carbon Dioxide 21.2 mmol/L (20.0-29.0); Chloride 106 mmol/L (96-106); Glucose 103 mg/dL (70-99); Magnesium 1.8 mg/dL (1.5-2.2); Potassium 4.0 mmol/L (3.5-5.1)
== END | disposition home or self-care (01) ==
LOC: LAB 11:22
PROVIDERS: PCP Internal Medicine; Referring Provider Student in an Organized Health Care Education/Training Program; Visit Provider Student in an Organized Health Care Education/Training Program
DX: I10 Essential (primary) hypertension (principal); E83.42 Hypomagnesemia
CPT/HCPCS: 36415; 80048; 83735